=== PATIENT | female | born 1980 | race Caucasian/White ===

== ENCOUNTER 2018-08-31 15:43 | Outpatient (REF) | payer MEDICAID, SELFPAY ==
[2018-08-31 21:42] LABS: *AMPHETAMINES SCREEN URINE POSITIVE (Negative); *BARBITURATES SCREEN URINE Negative (Negative); *BENZODIAZEPINES SCREEN URINE Negative (Negative); Cannabinoids THC Negative (Negative); Cocaine Screen,Urine Negative (Negative); METHADONE URINE SCREEN Negative (Negative); OPIATES URINE SCREEN Negative (Negative)
[2018-08-31 22:07] LABS: Tricyclic Antidepressants POSITIVE (Negative)
[2018-09-04 12:15] LABS: Buprenorphine Negative; Norbuprenorphine Negative
== END 2018-08-31 16:03 ==
LOC: LBN 15:43
PROVIDERS: Visit Provider Advanced Practice Midwife
DX: Z34.91 Encounter for supervision of normal pregnancy, unspecified, first trimester (principal)
CPT/HCPCS: 80307; 87086

== ENCOUNTER 2018-09-07 07:00 | Outpatient (CLI) | payer MEDICAID, SELFPAY ==
--- NOTE | 2018-09-07 13:15 | DI.US_ITS ---
SYMPTOMS/DIAGNOSIS: UNCERTAIN DATING OF , LIKELY 13-14 WEEKS, Z34.92 OB ULTRASOUND: Many abnormalities cannot be diagnosed. A normal exam does not exclude a congenital anomaly. Radiology No. [id number] LMP: 05/21/18? Exam Date: 09/07/18 [facility] wks days on EDC ([facility]) Confirmed: HISTORY: PREDICTED GESTATIONAL AGE NUMBER 15+4 weeks with a range of week to weeks. 1 2 3 Multiple Determined by___1STUS_X__LMP___HISTORY Info. pertaining to fetus # PLACENTA PRESENTATION Grade 0 Cephalic___ Anterior_X__Posterior___ Breech____ Right Left Transverse(head right___ Fundal___Low-lying___Previa___ Transverse(head left___ Varying___X___ BIOMETRY AMNIOTIC FLUID BPD: 19 mm 13+0 weeks Normal HC: 79 mm 13+2 weeks AC: 63 mm 13+0 weeks FL: 11 mm 13+1 weeks AMNIOTIC FLUID INDEX >26 WK CRL: mm weeks Cisterna Magna: mm CI: 80 RUQ: LUQ Cerebellum: cm EFW: grams Percentile RLQ: LLQ Total: cms Composite AGE= 13+1 wks EDC by US: 03/14/19 BIOPHYSICAL PROFILE ANATOMY IDENTIFIED SCORE 0/2 Heart: 4-Chamber___Rate:BPM 155 LVOT: RVOT: Amniotic Fluid(>2cms)____ Stomach: Kidneys: Respirations (>30 secs) Bladder: Post. Fossa: Body Flex/Extension 3 vessel cord: Ventricles: cord insertion: Lips:____ Extremity Flex/Extension spinal morphology: Nose: Total Score= Palate: NS=not seen COMMENTS: OB ultrasound was performed utilizing first trimester protocol. There is a single viable intrauterine gestation. biometry is consistent with gestational age of 13 weeks 1 day and an EDC of 03/14/19. cardiac activity was observed at a rate of 155 bpm.
== END 2018-09-07 07:20 ==
PROVIDERS: Visit Provider Advanced Practice Midwife
DX: Z34.91 Encounter for supervision of normal pregnancy, unspecified, first trimester (principal)
CPT/HCPCS: 76801

== ENCOUNTER 2018-10-12 08:28 | Outpatient (CLI) | payer MEDICAID, SELFPAY ==
[2018-10-12 09:09] LABS: Abs Immature Grans 0.02 k/cumm (0.0-0.09); Absolute Basophil Count 0.02 k/cumm (0.0-0.2); Absolute Eosinophil Count 0.73 k/cumm (0.0-0.7); Absolute Lymphocyte Count 1.33 k/cumm (1.2-3.4); Absolute Monocyte Count 0.59 k/cumm (0.11-0.7); Absolute Neutrophil Count 5.95 k/cumm (1.2-6.7); Basophils % 0.2; Eosinophils % 8.4; HCT 34.1 % (36.0-46.0); HGB 11.7 g/dL (12.0-15.5); Immature Grans % 0.2; Lymphocytes % 15.4; Mean Corp. HGB Concentration 34.3 g/dL (32.0-36.0); Mean Corpuscular Hemoglobin 33.3 pg (27.0-33.0); Mean Corpuscular Volume 97.2 fL (80-95); Mean Platelet Volume 8.7 fL (8.0-11.0); Monocytes % 6.8; Platelet Count 330 x1000/uL (130-400); RBC 3.51 m/cumm (4.00-5.20); RBC Distribution Width 12.7 % (11.7-14.6); White Blood Cell Count 8.64 k/cumm (4.4-10.8)
[2018-10-12 09:42] LABS: ALT 19 U/L (12-78); AST 9 U/L (15-37); Albumin 3.3 g/dL (3.4-5.0); Alkaline Phosphatase 53 U/L (46-116); Bilirubin, Direct 0.11 mg/dL (0.00-0.20); Bilirubin, Total 0.3 mg/dL (0.2-1.0); Total Protein 6.3 g/dL (6.4-8.2)
[2018-10-12 09:51] LABS: CREATININE 0.69 mg/dL (0.55-1.02); TSH (W/Ref FT4) 1.59 uIU/mL (0.358-3.74); Uric Acid 4.6 mg/dL (2.6-6.0)
[2018-10-12 10:03] LABS: Glucose,1 Hr (Glucola) 70 mg/dL (80-140)
[2018-10-12 14:37] LABS: *AMPHETAMINES SCREEN URINE POSITIVE (Negative); *BARBITURATES SCREEN URINE Negative (Negative); *BENZODIAZEPINES SCREEN URINE Negative (Negative); Cannabinoids THC Negative (Negative); Cocaine Screen,Urine Negative (Negative); METHADONE URINE SCREEN Negative (Negative); OPIATES URINE SCREEN Negative (Negative); Tricyclic Antidepressants Negative (Negative)
[2018-10-13 10:22] LABS: Hepatitis B Surface Ag Negative (NEGAT)
[2018-10-13 11:03] LABS: HIV-1/2 Ag & Ab Screen Negative (NEGAT)
[2018-10-13 11:47] LABS: Rubella IgG Ab (UVM) Negative
[2018-10-13 12:05] LABS: Hepatitis C Ab w Rflx HCV PCR Negative (NEGAT)
[2018-10-13 12:45] LABS: Syphilis Serology (RPR) Negative (Negative); Varicella IgG Antibody Positive
[2018-10-13 15:35] LABS: Chlamydia Result Negative; GC Result Negative; Specimen Description CERVIX
== END 2018-10-12 08:48 ==
PROVIDERS: Advanced Practice Midwife; Visit Provider Advanced Practice Midwife
DX: Z34.90 Encounter for supervision of normal pregnancy, unspecified, unspecified trimester (principal); O16.9 Unspecified maternal hypertension, unspecified trimester; Z11.3 Encounter for screening for infections with a predominantly sexual mode of transmission; F11.21 Opioid dependence, in remission; Z11.4 Encounter for screening for human immunodeficiency virus [HIV]; Z11.59 Encounter for screening for other viral diseases; Z12.4 Encounter for screening for malignant neoplasm of cervix; Z11.51 Encounter for screening for human papillomavirus (HPV)
CPT/HCPCS: 36415; 80055; 80076; 80307; 82950; 86787; 86803; 86850; 86900; 86901; 87340; 87389; 87491; 87591; 88142; 82565; 84443; 84550; 86592; 86762; 87624

== ENCOUNTER 2018-10-12 17:10 | Outpatient (REF) | payer MEDICAID, SELFPAY ==
--- NOTE | 2018-10-12 10:00 | PAPFT_PTH ---
PATIENT: Keyanna Glynn LOC: [facility] U#:[id number] AGE/SX: 38/F ROOM: RE10/12/[address]: Ni Jerry CNM : 1980 BED: DIS: 10/12/2018 SPEC #: [id number] RECD: 10/12/18 17:40 STATUS: KIKE RESohan #: [id number] SUSAN: 10/12/18 10:[address]: Ni Jerry DEPT: [facility] Cytology RECD BY: Neha Barksdale ENTERED: 10/12/18 17:40 SP TYPE: PAPFT OT DR: None Tissues: 1 - CX/ENDOCX FOR PAP SMEARS Procedures: PAP THIN PREP/UVM Screening HPV DNA PROBE Comments: [id number]
== END 2018-10-12 17:30 ==
LOC: LBN 17:10
PROVIDERS: Visit Provider Advanced Practice Midwife
DX: Z12.4 Encounter for screening for malignant neoplasm of cervix (principal); Z11.51 Encounter for screening for human papillomavirus (HPV)
CPT/HCPCS: 88142; 87624

== ENCOUNTER 2018-10-31 12:38 | Outpatient (CLI) | payer MEDICAID, SELFPAY ==
[2018-10-31 13:21] LABS: Kit/Specimen SENT
[2018-10-31 13:40] LABS: HCT 35.7 % (36.0-46.0); HGB 12.3 g/dL (12.0-15.5); Mean Corp. HGB Concentration 34.5 g/dL (32.0-36.0); Mean Corpuscular Hemoglobin 32.8 pg (27.0-33.0); Mean Corpuscular Volume 95.2 fL (80-95); Mean Platelet Volume 9.2 fL (8.0-11.0); Platelet Count 323 x1000/uL (130-400); RBC 3.75 m/cumm (4.00-5.20); RBC Distribution Width 12.5 % (11.7-14.6); White Blood Cell Count 10.75 k/cumm (4.4-10.8)
[2018-11-02 11:52] LABS: AFP 57.9 ng/mL; GA used in risk estimate Scan estimate; IVF Pregnancy No; Initial or repeat testing Initial testing; Insulin dependent diabetes No; Maternal Weight 201 lbs; Number of Fetuses 1; Physician Phone Number 802-748-7300; Prev Pregnancy w/NTD No; RECOMMENDED FOLLOW UP None.; Results Summary Normal risk
[2018-11-06 18:26] LABS: Specimen WB Whole Blood
[2018-11-07 11:37] LABS: Result Summary NEGATIVE; Specimen WB Whole Blood
== END 2018-10-31 12:58 ==
PROVIDERS: PCP Nurse Practitioner Family; Referring Provider Obstetrics & Gynecology; Visit Provider Advanced Practice Midwife
DX: Z34.92 Encounter for supervision of normal pregnancy, unspecified, second trimester (principal); Z36.89 Encounter for other specified antenatal screening
CPT/HCPCS: 36415; 81329; 85027; 81220; 82105

== ENCOUNTER 2018-11-28 01:00 | Outpatient (CLI) | payer MEDICAID, SELFPAY ==
--- NOTE | 2018-11-28 11:44 | DI.US_ITS ---
Predicted Gestational Age: Indication/History: GROWTH,Z34.90 25.5 Wks Range: 24.5 to 26.5 Prior US done on: Determined by: First US LMP History X EDC by prior US: 03/08/19 For multiple gestations: Baby PLACENTA: Grade: I Location: Anterior X Posterior PRESENTATION: RT LT LOW LYING PREVIA Cephalic X Trans (Head RT LT ) Varied Breech BIOMETRY: Anatomy Identified: BPD: 62 mm 25.0 wks 4 chamber Heart Heart Rate 152 BPM HC: 236 mm 25.4 wks LVOT Post Fossa AC: 212 mm 25.5 wks RVOT Ventricles FL: 46 mm 25.1 wks Stomach X Nose Bladder X Lips Cisterna Magna: mm CI: 81 Kidneys Palate Cerebellum: mm 3 vessel cord Spine EFW: 811 grms 28TH % Cord Insertion NS= not seen Composite Age (US) 25.3 wks Many abnormalities cannot be diagnosed. A normal exam does not exclude congenital abnormality. EDC by US 03/10/19 Amniotic Fluid Index: Normal COMMENTS: RUQ: 5.03 LUQ:5.11 RLQ: 3.20 LLQ: 3.40 Total: 16.7 cm Biophysical Profile: Score 0/2 SHEN (>2cm) Respirations (>30 sec) Body flexion/extension Extremity flexion/extension TOTAL SCORE The fetus is in cephalic position. The placenta is anterior. The biometric measurements correspond to 25 weeks 3 days. The amniotic fluid index appears normal at 16.7. The estimated weight is 811 grams corresponding to the 28th percentile. IMPRESSION: Appropriate interval growth.
== END 2018-11-28 01:20 ==
PROVIDERS: PCP Nurse Practitioner Family; Visit Provider Obstetrics & Gynecology
DX: Z34.92 Encounter for supervision of normal pregnancy, unspecified, second trimester (principal)
CPT/HCPCS: 36415; 76816; 82950

== ENCOUNTER 2019-02-01 03:47 | Outpatient (CLI) | payer MEDICAID, SELFPAY ==
--- NOTE | 2019-02-01 10:14 | DI.US_ITS ---
SYMPTOMS/DIAGNOSIS: ASSESSMENT OF WELL BEING, Z34.90, HYPERTENSION OB ULTRASOUND FOR BIOPHYSICAL PROFILE SCORE: Limited OB ultrasound was performed for biophysical profile score. Biophysical profile score is 8 out 8. Amniotic fluid index is 21 which is at the upper limits of normal to mildly increased. Visually there is a normal to mildly increased quantity of amniotic fluid. Fetus is in cephalic presentation. cardiac activity observed at a rate of 152 bpm. Placenta is anterior with no placenta previa. Predicted Gestational Age: Indication/History: 35 Wks Range: to Prior US done on: Determined by: First US LMP History EDC by prior US: 03/08/19 For multiple gestations: Baby PLACENTA: Grade: I Location: Anterior X Posterior PRESENTATION: RT LT LOW LYING PREVIA Cephalic X Trans (Head RT LT ) Varied Breech BIOMETRY: Anatomy Identified: BPD: mm wks 4 chamber Heart Heart Rate 152 BPM HC: mm wks LVOT Post Fossa AC: mm wks RVOT Ventricles FL: mm wks Stomach Nose Bladder Lips Cisterna Magna: mm CI: Kidneys Palate Cerebellum: mm 3 vessel cord Spine EFW: grms % Cord Insertion NS= not seen Composite Age (US) wks Many abnormalities cannot be diagnosed. A normal exam does not exclude congenital abnormality. EDC by US Amniotic Fluid Index: Normal X Polyhydramnios X COMMENTS: RUQ: 5.3 LUQ: 7.2 RLQ: 5.3 LLQ: 3.4 Total: 21.2 cm Biophysical Profile: Score 0/2 SHEN (>2cm) 2/2 Respirations (>30 sec) 2/2 Body flexion/extension 2/2 Extremity flexion/extension 2/2 TOTAL SCORE 8/8
[2019-02-01 12:50] LABS: HCT 35.1 % (36.0-46.0); HGB 11.8 g/dL (12.0-15.5); Mean Corp. HGB Concentration 33.6 g/dL (32.0-36.0); Mean Corpuscular Hemoglobin 32.3 pg (27.0-33.0); Mean Corpuscular Volume 96.2 fL (80-95); Mean Platelet Volume 8.9 fL (8.0-11.0); Platelet Count 391 x1000/uL (130-400); RBC 3.65 m/cumm (4.00-5.20); RBC Distribution Width 12.9 % (11.7-14.6); White Blood Cell Count 11.98 k/cumm (4.4-10.8)
[2019-02-01 13:04] LABS: ALT 23 U/L (14-59); AST 17 U/L (15-37); Albumin 2.8 g/dL (3.4-5.0); Alkaline Phosphatase 78 U/L (46-116); Anion Gap 11.3 mmol/L (3-11); BUN 12 mg/dL (7-18); Bilirubin, Total 0.2 mg/dL (0.2-1.0); CO2 21.7 mmol/L (21.0-32.0); CREATININE 0.65 mg/dL (0.55-1.02); Calcium 8.7 mg/dL (8.5-10.1); Chloride 100 mmol/L (98-107); Glucose 108 mg/dL (70-100); Potassium 4.1 mmol/L (3.5-5.1); Sodium 133 mmol/L (136-145); Total Protein 6.9 g/dL (6.4-8.2)
[2019-02-01 14:14] LABS: PROTEIN 19.1 mg/dL
[2019-02-01 14:15] LABS: COMMENT (LAB VIEW ONLY) 70.82 mg/dL; Prot/Crea Ur Ratio 0.26
== END 2019-02-01 04:07 ==
PROVIDERS: PCP Nurse Practitioner Family; Visit Provider Obstetrics & Gynecology
DX: O16.3 Unspecified maternal hypertension, third trimester (principal); O41.8X31 Other specified disorders of amniotic fluid and membranes, third trimester, fetus 1
CPT/HCPCS: 36415; 76815; 80053; 85027; 76819; 82565; 84156

== ENCOUNTER 2019-02-01 07:38 | Outpatient (CLI) | payer MEDICAID, SELFPAY | END 2019-02-01 07:58 | PROVIDERS: PCP Nurse Practitioner Family; Visit Provider Obstetrics & Gynecology | DX: O36.5930 Maternal care for other known or suspected poor fetal growth, third trimester, not applicable or unspecified (principal); Z3A.35 35 weeks gestation of pregnancy | CPT/HCPCS: 59025 ==

== ENCOUNTER 2019-02-05 00:32 | Outpatient (CLI) | payer MEDICAID, SELFPAY ==
--- NOTE | 2019-02-05 13:04 | DI.US_ITS ---
SYMPTOMS/DIAGNOSIS: CHRONIC HYPERTENSION IN , MATERNAL HYPERTENSION AFFECTING , O16.9 OB ULTRASOUND FOR BIOPHYSICAL PROFILE: Predicted Gestational Age: Indication/History: 35+4 Wks Range: to Prior US done on: Determined by: First US LMP History EDC by prior US: For multiple gestations: Baby PLACENTA: Grade: II-III Location: X Anterior Posterior PRESENTATION: RT LT LOW LYING PREVIA Cephalic Trans (Head RT LT ) Varied Breech BIOMETRY: Anatomy Identified: BPD: mm wks 4 chamber Heart Heart Rate BPM HC: mm wks LVOT Post Fossa AC: mm wks RVOT Ventricles FL: mm wks Stomach Nose Bladder Lips Cisterna Magna: mm CI: Kidneys Palate Cerebellum: mm 3 vessel cord Spine EFW: grms % Cord Insertion NS= not seen Composite Age (US) wks Many abnormalities cannot be diagnosed. A normal exam does not exclude congenital abnormality. EDC by US Amniotic Fluid Index: Polyhydramnios COMMENTS: FHT noted, no FHR obtained today RUQ: 5.3 LUQ: 24.3 RLQ: 5.3 LLQ: 5.9 Total: cm Biophysical Profile: Score 0/2 SHEN (>2cm) ____2/2____ Respirations (>30 sec) ___2/2 Body flexion/extension ___2/2 Extremity flexion/extension ____2/2____ TOTAL SCORE __01/04 RADIOLOGIST COMMENTS: OB ultrasound was performed utilizing limited biophysical profile protocol. The biophysical profile score is 01/04.
== END 2019-02-05 00:52 ==
PROVIDERS: PCP Nurse Practitioner Family; Visit Provider Obstetrics & Gynecology
DX: O16.3 Unspecified maternal hypertension, third trimester (principal)
CPT/HCPCS: 76815; 76819

== ENCOUNTER 2019-02-08 10:16 | Outpatient (CLI) | payer MEDICAID, SELFPAY | END 2019-02-08 10:36 | PROVIDERS: PCP Nurse Practitioner Family; Visit Provider Obstetrics & Gynecology Gynecology | DX: Z53.29 Procedure and treatment not carried out because of patient's decision for other reasons (principal) ==

== ENCOUNTER 2019-02-20 11:35 | Inpatient (IN) | payer MEDICAID, SELFPAY ==
[2019-02-20 12:16] LABS: HCT 34.5 % (36.0-46.0); Mean Corp. HGB Concentration 34.8 g/dL (32.0-36.0); Mean Corpuscular Hemoglobin 32.7 pg (27.0-33.0); Platelet Count 365 x1000/uL (130-400); RBC 3.67 m/cumm (4.00-5.20); RBC Distribution Width 12.8 % (11.7-14.6); White Blood Cell Count 11.02 k/cumm (4.4-10.8)
[2019-02-20 12:43] LABS: ALT 23 U/L (14-59); AST 18 U/L (15-37); Albumin 2.8 g/dL (3.4-5.0); Alkaline Phosphatase 88 U/L (46-116); Anion Gap 13.1 mmol/L (3-11); BUN 12 mg/dL (7-18); Bilirubin, Total 0.4 mg/dL (0.2-1.0); CO2 19.9 mmol/L (21.0-32.0); Calcium 9.3 mg/dL (8.5-10.1); Chloride 102 mmol/L (98-107); Glucose 93 mg/dL (70-100); Sodium 135 mmol/L (136-145); Total Protein 6.8 g/dL (6.4-8.2)
[2019-02-20] MEDS: Lactated Ringers 1,000 ML 200 ML IV (13:04)
[2019-02-20] MEDS: Acetaminophen 325 MG TAB 650 MG PO (14:24)
[2019-02-20] MEDS: miSOPROStol 25 MCG TAB 50 MCG PO (14:25)
[2019-02-20 14:40] LABS: *AMPHETAMINES SCREEN URINE POSITIVE (Negative); *BARBITURATES SCREEN URINE Negative (Negative); *BENZODIAZEPINES SCREEN URINE Negative (Negative); Cannabinoids THC Negative (Negative); Cocaine Screen,Urine Negative (Negative); METHADONE URINE SCREEN Negative (Negative); OPIATES URINE SCREEN Negative (Negative); Tricyclic Antidepressants Negative (Negative)
[2019-02-20] MEDS: Labetalol 100 MG TAB 400 MG PO (19:33)
[2019-02-20] MEDS: Gabapentin 600 MG TAB PO (20:43)
[2019-02-20] MEDS: Penicillin G POT. 5,000,000 UNITS in Normal Saline 100 ML 200 UNITS IVPB (20:45)
[2019-02-20] MEDS: QUEtiapine 25 MG TAB PO (21:43)
--- NOTE | 2019-02-20 21:46 | W.PM.HP.N ---
Date of service: 02/20/19 Time of Service: 12:00 Assessment and Plan Assessment and plan (1) Hypertension affecting : Status: Chronic Assessment and plan: Admit for cervical ripening and induction of labor due to chronic hypertension and possible superimposed preeclampsia. We discussed management of preeclampsia. Should her blood pressures reenter the severe range I would recommend seizure prophylaxis with magnesium sulfate. Will begin cervical ripening with misoprostol. Continue all routine meds including anti-hypertensives. Will obtain CBC CMP. History of Present Illness History of Present Illness Chief Complaint: NANCYTCatalina with possible superimposed preeclampsia Narrative: 39 year old @ 37.2 weeks gestation presented to the clinic today for routine care. She was noted to have a markedly elevated blood pressure to 153/100. She does have underlying chronic hypertension and takes labetalol 400mg BID and Procardia XL 30 mg daily. She reports a mild headache but no visual changes. Otherwise she has felt well. The patients histoyr is also significant for a history of opiate abuse in the past but no recent use and routine drug screens have been negative. She also has a history of anxiety and depression and blood pressures are known to be labile based on her level of anxiety as well. 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 No current medications Opioid dependence in remission (Chronic) Positive test (Acute) Suicide attempt (Active 08/27/12) Overdose pills/alcohol. Social History Smoking/Tobacco Use Status: Current-Occasional Alcohol Intake: former (was a heavy drinker and alcoholic, last drink was 4 months ago) Drug use: Never Substance use type: former substance user Current gender identity: female Do you feel safe in your relationship?: Yes History History 2 Para 0 Hx # Term Pregnancies 0 Multiple births 0 Hx # Pregnancies 0 Ectopic pregnancies 0 AB induced 2 Hx Number of Living Children 0 AB spontaneous 0 Meds Home Medications and Allergies Home Medications Medication Instructions Recorded Confirmed Type gabapentin 600 mg PO TID 03/11/16 02/20/19 History dextroamphetamine-amphetamine 60 mg PO DAILY 11/07/17 02/20/19 History aspirin 81 mg tablet,delayed 81 mg PO DAILY #90 tab 08/31/18 02/20/19 Rx release vitamin with calcium 1 tab PO DAILY #90 tab 08/31/18 02/20/19 Rx no.72-iron 27 mg-folic acid 1 mg tablet ferrous sulfate 325 mg (65 mg 325 mg PO DAILY #90 tab 10/31/18 02/20/19 Rx iron) tablet fluoxetine 40 mg capsule 40 mg PO DAILY 10/31/18 02/20/19 History loratadine 10 mg tablet 10 mg PO DAILY PRN #30 tab 10/31/18 02/20/19 Rx quetiapine 300 mg tablet 25 mg PO HS tab 10/31/18 02/20/19 History labetalol 200 mg tablet 200 mg PO BID #120 tab 11/14/18 02/20/19 Rx labetalol 200 mg tablet 400 mg PO BID #120 tab 11/28/18 02/20/19 Rx pantoprazole 20 mg tablet,delayed 20 mg PO DAILY #30 tab 11/28/18 02/20/19 Rx release nifedipine 30 mg tablet,extended 30 mg PO DAILY #30 tab 02/01/19 02/20/19 Rx release 24 hr Allergies Allergy/AdvReac Type Severity Reaction Status Date / Time hydrocodone Allergy Itching Unverified 02/20/19 15:14 hydroxyzine HCl Allergy Skin Rash Unverified 02/20/19 15:14 [From Vistaril] hydroxyzine pamoate Allergy Skin Rash Unverified 02/20/19 15:14 [From Vistaril] Results Labs Result diagrams: 02/20/19 11:58 02/20/19 11:58 Labs: Laboratory Results - last 24 hr 02/20/19 02/20/19 02/20/19 10:20 11:58 11:58 WBC RBC Hgb Hct MCV MCH MCHC RDW Plt Count MPV Sodium 135 L Potassium 4.0 Chloride 102 Carbon Dioxide 19.9 L Anion Gap 13.1 H BUN 12 Creatinine 0.60 Estimated GFR/1.73 m2 >= 60.00 Glucose 93 Calcium 9.3 Total Bilirubin 0.4 AST 18 ALT 23 Alkaline Phosphatase 88 Total Protein 6.8 Albumin 2.8 L Urine Opiates Screen Negative Urine Methadone Screen Negative Ur Barbiturates Screen Negative Ur Tricyclics Screen Negative Ur Amphetamines Screen Positive A U Benzodiazepines Scrn Negative Urine Cocaine Screen Negative Ur THC Screen Negative Patient ABO/Rh AB Positive Antibody Screen Negative 02/20/19 11:58 WBC 11.02 H RBC 3.67 L Hgb 12.0 Hct 34.5 L MCV 94.0 MCH 32.7 MCHC 34.8 RDW 12.8 Plt Count 365 MPV 9.0 Sodium Potassium Chloride Carbon Dioxide Anion Gap BUN Creatinine Estimated GFR/1.73 m2 Glucose Calcium Total Bilirubin AST ALT Alkaline Phosphatase Total Protein Albumin Urine Opiates Screen Urine Methadone Screen Ur Barbiturates Screen Ur Tricyclics Screen Ur Amphetamines Screen U Benzodiazepines Scrn Urine Cocaine Screen Ur THC Screen Patient ABO/Rh Antibody Screen
[2019-02-21] MEDS: Penicillin G POT. 3,000,000 UNITS in Normal Saline 50 ML 100 UNITS IVPB ×2 (00:36→04:12)
[2019-02-21] MEDS: MORPHine 2 MG/ML SYR IVP ×2 (05:39→07:20)
[2019-02-21] MEDS: Lidocaine 1% Multi-Dose 20 ML VIAL (07:06)
[2019-02-21] MEDS: Gabapentin 600 MG TAB PO ×3 (09:48→20:05)
[2019-02-21] MEDS: Acetaminophen 325 MG TAB 650 MG PO ×2 (09:48→20:10)
[2019-02-21] MEDS: FLUoxetine 20 MG CAP 40 MG PO (09:48)
[2019-02-21] MEDS: Hamamelis Leaf/Glycerin 100 EACH BOX PR (11:35)
[2019-02-21] MEDS: Ibuprofen 600 MG TAB PO (16:59)
[2019-02-22] MEDS: FLUoxetine 20 MG CAP 40 MG PO (08:41)
[2019-02-22] MEDS: Gabapentin 600 MG TAB PO (08:41)
[2019-02-22] MEDS: Ibuprofen 600 MG TAB PO (08:45)
[2019-02-22] MEDS: Acetaminophen 325 MG TAB 650 MG PO (08:45)
[2019-02-22] MEDS: Docusate Sodium 100 MG CAP PO (08:45)
--- NOTE | 2019-02-23 08:06 | W.PM.PROGNOT ---
Date of Service Date of service: 02/23/19 Time of Service: 08:06 Assessment and Plan Assessment and plan (1) Hypertension affecting : Status: Chronic (2) (normal spontaneous vaginal delivery): Status: Acute Assessment and plan: Doing well. Blood pressures have been well controlled off of meds. Will plan for discharge today. BP check in the clinic within one week of discharge. Will continue to hold BP meds at this point. Subjective Subjective Interval history since last seen: No problems overnight. No significant pain. Lochia is minimal. Blood pressures have been well controlled and the patient is off meds since delivery. Objective Objective Clinical Data: Vital Signs Pain Level 2 02/22/19 08:45 Intake & Output 02/22/19 02/22/19 02/23/19 11:59 23:59 11:59 Intake Total 1906.667 / 1906.667 Balance 1906.667 / 1906.667 Intake: IV 1906.667 / 1906.667 Laboratory Results WBC 11.02 k/cumm (4.4-10.8) H 02/20/19 11:58 RBC 3.67 m/cumm (4.00-5.20) L 02/20/19 11:58 Hgb 12.0 g/dL (12.0-15.5) 02/20/19 11:58 Hct 34.5 % (36.0-46.0) L 02/20/19 11:58 MCV 94.0 fL (80-95) 02/20/19 11:58 MCH 32.7 pg (27.0-33.0) 02/20/19 11:58 MCHC 34.8 g/dL (32.0-36.0) 02/20/19 11:58 RDW 12.8 % (11.7-14.6) 02/20/19 11:58 Plt Count 365 x1000/uL (130-400) 02/20/19 11:58 MPV 9.0 fL (8.0-11.0) 02/20/19 11:58 Sodium 135 mmol/L (136-145) L 02/20/19 11:58 Potassium 4.0 mmol/L (3.5-5.1) 02/20/19 11:58 Chloride 102 mmol/L (98-107) 02/20/19 11:58 Carbon Dioxide 19.9 mmol/L (21.0-32.0) L 02/20/19 11:58 Anion Gap 13.1 mmol/L (3-11) H 02/20/19 11:58 BUN 12 mg/dL (7-18) 02/20/19 11:58 Creatinine 0.60 mg/dL (0.55-1.02) 02/20/19 11:58 Estimated GFR/1.73 m2 >= 60.00 (mL/min/1.73m2) 02/20/19 11:58 Glucose 93 mg/dL (70-100) 02/20/19 11:58 Calcium 9.3 mg/dL (8.5-10.1) 02/20/19 11:58 Total Bilirubin 0.4 mg/dL (0.2-1.0) 02/20/19 11:58 AST 18 U/L (15-37) 02/20/19 11:58 ALT 23 U/L (14-59) 02/20/19 11:58 Alkaline Phosphatase 88 U/L (46-116) 02/20/19 11:58 Total Protein 6.8 g/dL (6.4-8.2) 02/20/19 11:58 Albumin 2.8 g/dL (3.4-5.0) L 02/20/19 11:58 Urine Opiates Screen Negative (Negative) 02/20/19 10:20 Urine Methadone Screen Negative (Negative) 02/20/19 10:20 Ur Barbiturates Screen Negative (Negative) 02/20/19 10:20 Ur Tricyclics Screen Negative (Negative) 02/20/19 10:20 Ur Amphetamines Screen Positive (Negative) A 02/20/19 10:20 U Benzodiazepines Scrn Negative (Negative) 02/20/19 10:20 Urine Cocaine Screen Negative (Negative) 02/20/19 10:20 Ur THC Screen Negative (Negative) 02/20/19 10:20 Patient ABO/Rh AB Positive 02/20/19 11:58 Antibody Screen Negative 02/20/19 11:58
[2019-02-23] MEDS: FLUoxetine 20 MG CAP 40 MG PO (08:22)
[2019-02-23] MEDS: Gabapentin 600 MG TAB PO (08:23)
[2019-02-23] MEDS: Ibuprofen 600 MG TAB PO (08:27)
[2019-02-23] MEDS: Acetaminophen 325 MG TAB 650 MG PO (08:28)
[2019-02-23] MEDS: Measles, Mumps, & Rubella Vaccine 0.5 ML VIAL SC (11:29)
[2019-02-24 12:37] LABS: Buprenorphine Negative; Norbuprenorphine Negative
== END 2019-02-23 13:30 | disposition home or self-care (01) | DRG 806 ==
PROVIDERS: Admitting Provider Obstetrics & Gynecology; PCP Nurse Practitioner Family; Visit Provider Obstetrics & Gynecology
DX: O11.4 Pre-existing hypertension with pre-eclampsia, complicating childbirth (principal); O99.354 Diseases of the nervous system complicating childbirth; Z37.0 Single live birth; O69.81X0 Labor and delivery complicated by cord around neck, without compression, not applicable or unspecified; Z3A.37 37 weeks gestation of pregnancy; O99.344 Other mental disorders complicating childbirth; O99.324 Drug use complicating childbirth; O99.334 Smoking (tobacco) complicating childbirth; F41.8 Other specified anxiety disorders; F11.11 Opioid abuse, in remission; G40.909 Epilepsy, unspecified, not intractable, without status epilepticus; F90.9 Attention-deficit hyperactivity disorder, unspecified type; F17.210 Nicotine dependence, cigarettes, uncomplicated
CPT/HCPCS: 80053; 80307; 85027; 86850; 86900; 86901; 99223; 99233; J0595; J2270; J2540; J3490

== ENCOUNTER 2019-12-21 04:04 | Outpatient (CLI) | payer MEDICAID, SELFPAY ==
--- NOTE | 2019-12-21 06:37 | DI.US_ITS ---
EXAM: US OB 2-3 TRIMESTER CLINICAL HISTORY: HYPERTENSION,LTD CARE,Z34.83. TECHNIQUE: Transabdominal obstetrical ultrasound performed. COMPARISON: No exams were available for comparison FINDINGS: Transabdominal obstetrical ultrasound performed. FINDINGS: Number of fetuses: One. position: Cephalic heart rate: 150 bpm. Placental grade: 2. Placental location: Anterior and fundal. No evidence of previa. BIOMETRIC DATA: BPD: 8.9cm HC: 32.9cm AC: 32.7cm FL: 6.9cm Composite Age: 36 weeks 2 days EDC by US: 01/16/2020 Heart Rate: 150BPM Amniotic fluid index: Amount of fluid is within normal limits. ANATOMICAL SURVEY: Four-chambered heart: Unremarkable. LVOT: Unremarkable. RVOT: Unremarkable. Left-sided stomach: Unremarkable. urinary bladder: Unremarkable. Bilateral kidneys: Unremarkable. Three-vessel cord: Unremarkable. Cord insertion: Unremarkable. Posterior fossa:Unable to visualize due to patient positioning and body habitus. ventricles: Unable to visualize due to patient positioning body habitus. nose: Unremarkable. lips: Unremarkable. palate: Unremarkable. spine: Unremarkable. Two arms and two legs: Unremarkable. Feet: Persistent widening is seen between the 1st and 2nd toes of the right foot which can be a saroj l finding (Sandal gap deformity). IMPRESSION: 1. Single live intrauterine gestation as above. 2. Please see the above discussion. DATA REPOSITORY:
== END 2019-12-21 04:24 ==
PROVIDERS: PCP Nurse Practitioner Family; Visit Provider Obstetrics & Gynecology Gynecology
DX: O09.33 Supervision of pregnancy with insufficient antenatal care, third trimester (principal); O16.3 Unspecified maternal hypertension, third trimester; Z34.83 Encounter for supervision of other normal pregnancy, third trimester
CPT/HCPCS: 36415; 80055; 86787; 86803; 86850; 86900; 86901; 87340; 87389; 76805; 84443; 86592; 86762

== ENCOUNTER 2019-12-21 09:58 | Outpatient (CLI) | payer SELFPAY | END 2019-12-21 10:18 | PROVIDERS: PCP Nurse Practitioner Family; Visit Provider Obstetrics & Gynecology | DX: O13.3 Gestational [pregnancy-induced] hypertension without significant proteinuria, third trimester (principal); Z3A.36 36 weeks gestation of pregnancy | CPT/HCPCS: 59025 ==

== ENCOUNTER 2019-12-21 11:13 | Outpatient (REF) | payer MEDICAID, SELFPAY ==
[2019-12-21 13:24] LABS: PROTEIN 11.5 mg/dL
[2019-12-21 13:33] LABS: COMMENT (LAB VIEW ONLY) 81.15 mg/dL; Prot/Crea Ur Ratio 0.14
[2019-12-21 13:36] LABS: *AMPHETAMINES SCREEN URINE POSITIVE (Negative); *BARBITURATES SCREEN URINE Negative (Negative); *BENZODIAZEPINES SCREEN URINE Negative (Negative); Cannabinoids THC Negative (Negative); Cocaine Screen,Urine Negative (Negative); METHADONE URINE SCREEN Negative (Negative); OPIATES URINE SCREEN Negative (Negative)
[2019-12-21 13:37] LABS: Tricyclic Antidepressants Negative (Negative)
[2019-12-24 15:33] LABS: Chlamydia Result Negative (Negative); GC Result Negative (Negative)
[2019-12-27 10:08] LABS: Buprenorphine Negative
== END 2019-12-21 11:33 ==
LOC: LBN 11:13
PROVIDERS: Obstetrics & Gynecology Gynecology; PCP Nurse Practitioner Family; Visit Provider Obstetrics & Gynecology
DX: Z34.91 Encounter for supervision of normal pregnancy, unspecified, first trimester (principal); O16.9 Unspecified maternal hypertension, unspecified trimester
CPT/HCPCS: 80307; 87491; 87591; 82565; 84156; 87081; 87086

== ENCOUNTER 2019-12-24 07:12 | Outpatient (CLI) | payer MEDICAID, SELFPAY | END 2019-12-24 07:32 | PROVIDERS: PCP Nurse Practitioner Family; Visit Provider Obstetrics & Gynecology | DX: R69 Illness, unspecified (principal) ==

== ENCOUNTER 2019-12-26 07:30 | Inpatient (IN) | payer MEDICAID, SELFPAY ==
[2019-12-26 08:48] LABS: HCT 35.7 % (36.0-46.0); MCH 30.8 pg (27.0-33.0); MCHC 33.6 % (32.0-36.0); MCV 91.8 fL (80-95); MPV 9.6 fL (8.0-11.0); Platelet Count 296 10^3/uL (130-400); RBC 3.89 10^6/uL (3.93-5.22); RDW 13.2 % (11.7-14.6); RDW-SD 44.3 fL; WBC 13.87 10^3/uL (4.4-10.8)
[2019-12-26] MEDS: miSOPROStol 25 MCG TAB PO (09:00)
[2019-12-26] MEDS: Pantoprazole 20 MG TABCR PO (10:26)
[2019-12-26] MEDS: Penicillin G POT. 5,000,000 UNITS in Normal Saline 100 ML 200 UNITS IVPB (12:01)
[2019-12-26] MEDS: Penicillin G POT. 3,000,000 UNITS in Normal Saline 50 ML 100 UNITS IVPB ×2 (15:51→20:31)
[2019-12-26] MEDS: Lactated Ringers 500 ML IV (19:35)
[2019-12-26] MEDS: Bupivacaine 0.25% Pres-Free 10 ML VIAL IT (19:55)
[2019-12-26] MEDS: fentaNYL 100 MCG/2 ML VIAL IT (19:55)
[2019-12-27 08:25] LABS: COVID-19 RT-PCR UVMMC Result Negative (Negative)
[2019-12-27] MEDS: Acetaminophen 325 MG TAB 650 MG PO ×2 (08:32→12:45)
[2019-12-27] MEDS: Pantoprazole 20 MG TABCR PO (08:33)
[2019-12-27] MEDS: Ibuprofen 600 MG TAB PO (12:45)
[2019-12-27] MEDS: Gabapentin 600 MG TAB PO ×2 (13:16→21:03)
[2019-12-27] MEDS: FLUoxetine 20 MG CAP PO ×2 (13:26→21:02)
[2019-12-27] MEDS: Topiramate 50 MG TAB PO ×2 (14:16→21:03)
[2019-12-27] MEDS: QUEtiapine 100 MG TAB PO (21:03)
[2019-12-28] MEDS: Prenatal Multivitamin w/CA,FE TAB 1 TAB PO (08:35)
[2019-12-28] MEDS: Pantoprazole 20 MG TABCR PO (08:35)
[2019-12-28] MEDS: Gabapentin 600 MG TAB PO ×2 (08:35→14:35)
[2019-12-28] MEDS: Topiramate 50 MG TAB PO (08:35)
[2019-12-28] MEDS: FLUoxetine 20 MG CAP PO (08:35)
--- NOTE | 2019-12-28 09:09 | PGE_ITS ---
Date of Service Date of service: 12/28/19 Time of Service: 09:10 Assessment and Plan Assessment and plan (1) : Status: Acute (2) (normal spontaneous vaginal delivery): Status: Acute Assessment and plan: Patient was seen day #2 ambulating, tolerating regular diet and oral pain medication. When she was woken from sleep this morning she was somewhat angry about the potential for a border status. This was discussed at length with the patient, if the baby needs to be observed further, patient herself will be discharged from the hospital day #2 and be responsible for her own medications. This was emphasized that this is not due to any judgment placed. She herself, no longer requires hospitalization and hospital related care, however we do very much want her to stay wit her baby until appropriate discharge criteria for baby is met. She and her partner appear to understand this. Subjective Subjective Patient reports: no new complaints, tolerating a regular diet and flatus Objective Objective Clinical Data: Vital Signs Pain Level 2 12/27/19 12:45 Laboratory Results WBC 13.87 10^3/uL (4.4-10.8) H 12/26/19 08:22 RBC 3.89 10^6/uL (3.93-5.22) L 12/26/19 08:22 Hgb 12.0 g/dL (11.2-15.7) 12/26/19 08:22 Hct 35.7 % (36.0-46.0) L 12/26/19 08:22 MCV 91.8 fL (80-95) 12/26/19 08:22 MCH 30.8 pg (27.0-33.0) 12/26/19 08:22 MCHC 33.6 % (32.0-36.0) 12/26/19 08:22 RDW 13.2 % (11.7-14.6) 12/26/19 08:22 Plt Count 296 10^3/uL (130-400) 12/26/19 08:22 MPV 9.6 fL (8.0-11.0) 12/26/19 08:22 COVID-19 PCR Negative (Negative) 12/26/19 09:00 Nasopharyn COVID-19 PCR Not Applicable 12/26/19 09:00 Ref Test Perform Site [facility] lab 12/26/19 09:00 Patient ABO/Rh AB Positive 12/26/19 08:22 Antibody Screen Negative 12/26/19 08:22
--- NOTE | 2019-12-28 09:16 | W.PM.DS.N ---
Date of service: 12/28/19 Time of Service: 09:16 DS: Diagnosis Discharge Diagnosis (1) : Status: Acute (2) (normal spontaneous vaginal delivery): Status: Acute Discharge Plan Disposition Patient Disposition: HOME Condition: Stable Discharge Details Reason For Visit: TERM INDUCTION OF LABOR Admit Date/Time: 12/26/19 07:30 Admit Provider: Rogerio Diaz Attending Provider: Rogerio Diaz Primary Care Provider: Vicente Pickard Hospital Course Hospital Course: After limited care with one visit in the office, patient was admitted to the hospital for labor induction at term. She had a normal spontaneous vaginal delivery. She was discharged home day #2, ambulating, tolerating regular diet and oral pain medication on her home medications. Home Meds and New Rx's Prescriptions: New ibuprofen [IBU] 800 mg tablet 800 mg PO Q8H PRNQty: 30 RF: 0 Continued PrePlus 27 mg iron- 1 mg tablet 1 tab PO DAILY Qty: 90 RF: 4 fluoxetine [Prozac] 40 mg capsule 40 mg PO DAILY RF: 0 pantoprazole [Protonix] 20 mg tablet,delayed release (DR/EC) 20 mg PO DAILY Qty: 30 RF: 2 gabapentin 600 MG tablet 600 mg PO TID RF: 0 topiramate 50 mg tablet 50 mg PO BID RF: 0 quetiapine 100 mg tablet 100 mg PO HS RF: 0 dextroamphetamine-amphetamine 30 MG capsule,extended release 24hr 60 mg PO DAILY RF: 0 Discharge Instructions Instructions: Vaginal Delivery (DC) Activity:: Activity as Tolerated Equipment/Supplies:: No Equipment Needed Diet:: Normal Diet Discharge Orders Discharge Orders: Discharge Order (Routine); Ordered 12/28/19 Ordered By: Mayra Becker DS: Summary Status at Discharge Functional status at discharge: independent ambulation Overall status at discharge: patient is back to baseline Mental Status: mental status grossly normal Speech and Movement: agitated Mood: anxious mood Affect: normal affect Exam Const General: anxious and other Nutritional Appearance: overweight Orientation: oriented x3 Eyes General: appearance normal, both eyes and all related structures Resp Effort & Inspection: normal respiratory effort Cardio Rate: regular rate Rhythm: regular rhythm GI Inspection: normal to inspection Extrem General: no clubbing, cyanosis or edema Psych Appearance: grossly normal Mental Status: mental status grossly normal Speech and Movement: agitated Mood: anxious mood Affect: normal affect Attitude: guarded Thought Process: normal Thought Content: normal Other: At initial examination, somewhat angry and reactive to the possibility of being discharged home. After significant conversation, patient was significantly more calm and understanding of the potential for discharge and possible need for baby to stay for further monitoring. 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 No current medications Limited care in third trimester (Acute) Opioid dependence in remission (Chronic) Positive test (Acute) (Acute) Suicide attempt (Active 08/27/12) Overdose pills/alcohol. Social History Smoking/Tobacco Use Status: Current-Occasional Alcohol Intake: former (was a heavy drinker and alcoholic, last drink was 4 months ago) Drug use: Never Substance use type: former substance user Current gender identity: female Do you feel safe in your relationship?: Yes History History 3 Para 1 Hx # Term Pregnancies 0 Multiple births 0 Hx # Pregnancies 0 Ectopic pregnancies 0 AB induced 2 Hx Number of Living Children 1 AB spontaneous 0 Past Pregnancies Del. Date GA/Weeks # Outcome Route Wgt Sex Labor Lgth Anesthesia Location Prov Complic 02/21/19 37 No Successful vaginal 5 lb 0.9 oz Male [address] Diaz
[2019-12-28] MEDS: Hamamelis Leaf/Glycerin 100 EACH BOX PR (16:30)
--- NOTE | 2020-01-01 16:15 | W.PM.HP.N ---
Date of service: 12/26/19 Time of Service: 10:00 Assessment and Plan Assessment and plan (1) Chronic hypertension affecting : Status: Acute Assessment and plan: Plan for IOL today at 37 weeks. Will plan for cervical ripening initially with cytotec and then will start pitocin therafter. EFW is 2900 gm based on ultrasound last week. tracing is Category I on admission. (2) Poor patient attendance of care: Status: Acute History of Present Illness History of Present Illness Chief Complaint: Chronic hypertension complicating . Poor care Narrative: 39 year old @ 37 weeks gestation presents for IOL at term. She initiated care last week and dating is based on a 36 week ultrasound. LMP is unreliable and uncertain. She is well known to have chronic hypertension and is 10 months from last delivery which was an uncomplicated at term also following IOL. She did have her initial ultrasound for morphology last week which showed a question of a sandal gap deformity but was otherwise normal. tracing was Category I on admission. Initial cervical exam was 1 cm in dilatation, 60% effaced and -2 station. Review of Systems All systems reviewed & are unremarkable except as noted in HPI and below [facility] Medical History (Updated 01/01/20 @ 16:19 by Rogerio Diaz MD) ADHD (Acute) Alcohol dependence in remission (Chronic) Anxiety (Chronic) BMI 31.0-31.9,adult (Chronic) Depression (Chronic) Eating disorder (Chronic) Encounter for supervision of other normal , third trimester (Acute) Hypertension affecting (Chronic) Medications in the past. No current medications Limited care in third trimester (Acute) Opioid dependence in remission (Chronic) Positive test (Acute) (Acute) Suicide attempt (Active 08/27/12) Overdose pills/alcohol. Social History Smoking/Tobacco Use Status: Current-Occasional Alcohol Intake: former (was a heavy drinker and alcoholic, last drink was 4 months ago) Drug use: Never Substance use type: former substance user Current gender identity: female Do you feel safe in your relationship?: Yes History History 3 Para 1 Hx # Term Pregnancies 0 Multiple births 0 Hx # Pregnancies 0 Ectopic pregnancies 0 AB induced 2 Hx Number of Living Children 1 AB spontaneous 0 Past Pregnancies Del. Date GA/Weeks # Outcome Route Wgt Sex Labor Lgth Anesthesia Location Prov Complic 02/21/19 37 No Successful vaginal 5 lb 0.9 oz Male [address] Joe Curtis Home Medications and Allergies Home Medications Medication Instructions Recorded Confirmed Type gabapentin 600 mg PO TID 03/11/16 12/26/19 History dextroamphetamine-amphetamine 60 mg PO DAILY 11/07/17 12/26/19 History vitamin with calcium 1 tab PO DAILY #90 tab 08/31/18 12/26/19 Rx no.72-iron 27 mg-folic acid 1 mg tablet fluoxetine 40 mg capsule 40 mg PO DAILY 10/31/18 12/26/19 History pantoprazole 20 mg tablet,delayed 20 mg PO DAILY #30 tab 11/28/18 12/26/19 Rx release quetiapine 100 mg PO HS 12/27/19 12/27/19 History topiramate 50 mg PO BID 12/27/19 12/27/19 History ibuprofen [IBU] 800 mg PO Q8H PRN #30 tab 12/28/19 Rx pantoprazole [Protonix] 20 mg PO DAILY #30 tab 12/28/19 Rx Allergies Allergy/AdvReac Type Severity Reaction Status Date / Time hydrocodone Allergy Itching Unverified 04/23/19 11:09 hydroxyzine HCl Allergy Skin Rash Unverified 04/23/19 11:09 [From Vistaril] hydroxyzine pamoate Allergy Skin Rash Unverified 04/23/19 11:09 [From Vistaril] Exam Other: Cx 2/60%/-2 Results Labs Result diagrams: 12/26/19 08:22 COVID-19 Screening Have you,or household,traveled outside [place] in last 14 days?: No
== END 2019-12-28 15:00 | disposition home or self-care (01) | DRG 807 ==
PROVIDERS: Admitting Provider Obstetrics & Gynecology; PCP Nurse Practitioner Family; Visit Provider Obstetrics & Gynecology
DX: O10.02 Pre-existing essential hypertension complicating childbirth (principal); Z37.0 Single live birth; Z3A.37 37 weeks gestation of pregnancy; O69.81X0 Labor and delivery complicated by cord around neck, without compression, not applicable or unspecified; O99.824 Streptococcus B carrier state complicating childbirth; Z67.30 Type AB blood, Rh positive; O09.523 Supervision of elderly multigravida, third trimester; O09.33 Supervision of pregnancy with insufficient antenatal care, third trimester
CPT/HCPCS: 36415; 85027; 86850; 86900; 86901; 99223; 99232; 99239; U0003; 59200; J2540; J3010; J3490

== ENCOUNTER 2020-01-31 15:50 | Emergency (ER) | payer MEDICAID, SELFPAY ==
[2020-01-31] VITALS (14 sets, daily range): BP systolic 120–148; BP diastolic 75–94; PULSE 86–127; RESP 10–19; TEMP 36.8; O2SAT 93–98
[2020-01-31 16:08] LABS: Abs Immature Grans 0.03 10^3/uL (0.0-0.06); Absolute Basophil Count 0.02 10^3/uL (0.0-0.2); Absolute Eosinophil Count 0.33 10^3/uL (0.0-0.7); Absolute Lymphocyte Count 0.57 10^3/uL (1.2-3.4); Absolute Monocyte Count 0.44 10^3/uL (0.1-0.8); Absolute Neutrophil Count 5.66 10^3/uL (1.2-6.7); Basophils % 0.3; Eosinophils % 4.7; HCT 35.3 % (36.0-46.0); HGB 11.7 g/dL (11.2-15.7); Immature Grans % 0.4; Lymphocytes % 8.1; MCH 30.2 pg (27.0-33.0); MCHC 33.1 % (32.0-36.0); MPV 8.2 fL (8.0-11.0); Monocytes % 6.2; Neutrophils % 80.3; Nucleated RBC 0 %; Platelet Count 229 10^3/uL (130-400); RBC 3.88 10^6/uL (3.93-5.22); RDW 14.5 % (11.7-14.6); RDW-SD 48.1 fL; WBC 7.05 10^3/uL (4.4-10.8)
[2020-01-31] MEDS: Normal Saline 1,000 ML 1000 ML IV (16:10)
--- NOTE | 2020-01-31 16:15 | DI.RAD_ITS ---
EXAM: XR ANKLE RT COMPLETE CLINICAL HISTORY: right ankle fracture. TECHNIQUE: 2D digital imaging was performed. COMPARISON: CR,XR XR ANKLE RT COMPLETE from 01/31/2020 FINDINGS: There has been successful reduction of the right ankle fracture dislocation. The ankle mortise appea rs normally aligned. There is minimal displacement noted of the distal fibular fracture. There is s oft tissue swelling of the ankle. The ankle is in a cast. IMPRESSION: Successful reduction of the right ankle fracture dislocation. DATA REPOSITORY: RADIATION DOSE DELIVERED:
[2020-01-31] MEDS: Propofol 200 MG/20 ML VIAL 50 MG IVP ×4 (16:16→16:19)
[2020-01-31 16:29] LABS: ALT 97 U/L (14-59); AST 71 U/L (15-37); Albumin 3.4 g/dL (3.4-5.0); Alkaline Phosphatase 101 U/L (46-116); Anion Gap 11.2 mmol/L (3-11); BUN 15 mg/dL (7-18); Bilirubin, Total 0.4 mg/dL (0.2-1.0); CO2 23.8 mmol/L (21.0-32.0); CREATININE 0.99 mg/dL (0.55-1.02); Chloride 102 mmol/L (98-107); Glucose 107 mg/dL (74-106); Potassium 4.1 mmol/L (3.5-5.1); Sodium 137 mmol/L (136-145); Total Protein 6.6 g/dL (6.4-8.2)
--- NOTE | 2020-01-31 16:29 | DI.VRAD_ITS ---
PROCEDURE INFORMATION: Exam: XR Right Ankle Exam date and time: 01/31/2020 3:59 PM Age: 40 years old Clinical indication: Injury or trauma; Initial encounter; Blunt trauma; Ankle; Right; Injury date: 01/31/20; Injury details: Fall after siezure; Additional info: Best images obtained due to patient condition. Portable imaging obtained. Unable to move patient ankle. TECHNIQUE: Imaging protocol: XR Right ankle. Views: 3 or more views. COMPARISON: No relevant prior studies available. FINDINGS: Bones/joints: Complete anterior dislocation of the tibia and fibula. There is a fracture of the distal fibula with a triangular shaped fragment displaced and angulated posteriorly. There are numerous overlying attenuated is and standard positioning was not obtained, however, the tibiofibular syndesmosis appears abnormally widened. Soft tissues: Normal. IMPRESSION: Complete left ankle dislocation with the tibia and fibula anterior to their normal articulation, in fact, positioned nearly at the level of the talonavicular joint. There is acute displaced and posteriorly angulated fracture of the distal fibula and likely injury to the tibiofibular syndesmosis as well. Dictated and Authenticated by: Deonte Wilson MD. Ordering:YOJANA Verdin MD
--- NOTE | 2020-01-31 16:38 | RESPIRATORY ---
Pt brought in [facility] post seizure/fall for fractured/dislocated ankle. Pt placed on Etco2 w/ 2LPM -sp02 @100, Hr-116, RR 16, Etco2 35,Bp 139/90. Propofol given for conscious sedation to re-set R. ankle @ 1616. No complications, pt maintained stable vitals t/o procedure. Ending procedure pt vitals: Hr 98, Bp 120/75, Etco2 32, RR 16, Spo2 98. Pt taken off o2, etco2 monitor still on.
--- NOTE | 2020-01-31 17:02 | DI.CT_ITS ---
EXAM: CT HEAD CERVICAL SPINE WO CLINICAL HISTORY: fall, hit head, seizure. TECHNIQUE: Imaging Protocol: Axial computed tomography images with coronal and sagittal reformatted images were created and reviewed COMPARISON: CT FACIAL WITHOUT CONTRAST from 07/22/2009 FINDINGS: CT Head: Ventricles and Extra axial spaces: Normal in size and morphology for the patient's age. Hemorrhage: None. Cerebral parenchyma: Normal. Midline shift: None. Brainstem/Cerebellum: Normal. Calvarium: Normal. Visualized Paranasal sinuses/Mastoids: Near complete opacification of the ethmoid air cells bilateral ly. Complete opacification of the maxillary sinuses. Mucosal thickening in the sphenoid sinuses. T he mastoid air cells are well pneumatized. Soft Tissues: Unremarkable. CT Cervical Spine: Bones: No acute fracture or subluxation. Mild degenerative changes present. Soft Tissues: Unremarkable. Lung Apices: Clear. IMPRESSION: 1. No acute intracranial process. 2. Pansinusitis. 3. No acute fracture or subluxation in the cervical spine. RADIATION DOSE DELIVERED: Total DLP DATA REPOSITORY: All CT scans at this facility are submitted to the National Radiology Data Registry (NRDR) Dose Index Registry (DIR) with the [employer] [place] [employer] ([employer]). RADIATION OPTIMIZATION: All CT scans at this facility use at least one of these dose optimization te chniques: automated exposure control; mA and/or kV adjustment per patient size (includes targeted exa ms where dose is matched to clinical indication); or iterative reconstruction.
--- NOTE | 2020-01-31 17:06 | ED.GENADUL_ITS ---
Discharge Plan Disposition Patient Disposition: HOME Condition: Good Discharge Details Chief Complaint: Seizure Clinical Impression: Ankle fracture, right, Seizure, UTI (urinary tract infection) Primary Care Provider: Vicente Pickard ED Provider: Lambert Salazar Home Meds and New Rx's Prescriptions: New cephalexin [Keflex] 500 mg capsule 500 mg PO BID 5 Days Qty: 10 RF: 0 Continued PrePlus 27 mg iron- 1 mg tablet 1 tab PO DAILY Qty: 90 RF: 4 gabapentin 600 MG tablet 600 mg PO TID RF: 0 topiramate 50 mg tablet 50 mg PO BID RF: 0 quetiapine 100 mg tablet 100 mg PO HS RF: 0 ibuprofen [IBU] 800 mg tablet 800 mg PO Q8H PRNQty: 30 RF: 0 dextroamphetamine-amphetamine 30 MG capsule,extended release 24hr 60 mg PO DAILY RF: 0 Discharge Instructions Instructions: Ankle Fracture (ED), Urinary Tract Infection in Women (ED), Recurrent Seizures in Adults (ED) Additional Instructions: At this time he had a notable fracture of your ankle which will likely require surgery. Please contact Dr. Calvo's office tomorrow morning. Dr. Calvo would like to see you in his office across the street between 9 and 10 AM. Please use the crutches. Take 800 mg of ibuprofen every 6 hours and 1000 mg of Tylenol every 6 hours to help with the pain. Please avoid breast-feeding for the time being. You can restart breast-feeding in 24 hours if you do not take any ibuprofen moving forward. Please do not miss this appointment. In the meantime if you develop worsening pain or a feeling of a vice-like sensation on your foot or any numbness or tingling or change in color for your toes or foot please immediately loosen up the wrapping on the splint. If loosening up all the wrapping does not change your symptoms please come back or call the ER immediately for reassessment. In regards to your seizure there is no evidence of trauma or abnormality currently in your brain. Please take your home medications as prescribed. Please make sure that you do not miss any of your doses. Additionally, you also have a mild urinary tract infection. Please take the antibiotic as directed. Please drink plenty of fluids and cranberry juice. If you notice any worsening of your symptoms, or any new symptoms such as vomiting, diarrhea, fever, chills, shortness of breath, chest pain, numbness, weakness, or fainting , please return immediately to the emergency department for reevaluation. Please follow up with your primary care provider as soon as possible for reassessment and reevaluation. As always, it was a pleasure part icipating in your medical care today. Referrals: Magdaleno Calvo MD [ [facility] STAFF PHYSICIAN] - Vicente Pickard NP [Primary Care Provider] - Medical Decision Making 40-year-old female with a past medical history of seizures, alcohol dependence, hypertension during , recent with delivery 1 month ago, presents today for evaluation of right leg located seizure. Patient was walking to the pharmacy to get her gabapentin and Topamax refilled she has not taken it for the last 3 days. When she was walking into the pharmacy she had a seizure, fell. Per bystanders the seizure lasted less than 5 minutes. She may have struck her head on a rail, she does complain of mild left neck pain. She denies any complaints of tongue biting or bowel or bladder incontinence. She states that it is been a year since her seizures. She has no history of eclampsia or preeclampsia otherwise. Currently she denies any numbness or tingling, she denies any pain in her chest head abdomen or legs aside for the right ankle. Aside for the pain in the right ankle which is splinted she has no other complaints. She is acting normal currently, EMS offers no additional details. She denies any history of seizures secondary to alcohol use, she denies any recent alcohol intake. Physical exam demonstrates a notably anteriorly dislocated tib-fib with evidence of suspected fibular fracture. Normal neurologic exam, no evidence of midline cervical thoracic or lumbar spine tenderness. She does have minimal lateral neck tenderness, no hematoma or bruit. We will get CT scan of the head and neck, x-ray of the ankle, reduce the ankle, rehydrate evaluate for electrolyte abnormality and reassess. 6 PM X-ray reveals fibular fracture with complete dislocation of the ankle with anterior dislocation of the tib-fib. Patient was sedated with propofol, she tolerated this notably well, it was reduced without complication, repeat alexia rovascular exam after sedation revealed intact sensation throughout, no two- point discrimination deficit, no other abnormality. Repeat x-rays demonstrate appropriate realignment after reduction. CT scan of the head neck was negative for acute process per virtual radiology. Laboratory work-up was unremarkable. She was given her home dose of Topamax and gabapentin. Urinalysis did show evidence of mild urinary tract infection. She states that she does regularly have UTIs. She denies of any other symptoms associated with this. She feels well at this time, and her prescriptions have been picked up by her significant other. Laboratory work-up does show minimal transaminase elevation, however blood pressure is normally stabilized and now that her ankle is no longer out of place it has normalized. She does not show signs of eclampsia. No significant levels of protein in her urine. I did contact Dr. Diaz and discussed the case briefly with him. Signs and symptoms appearing consistent with preeclampsia or eclamptic seizure. Her seizure was likely secondary to medical noncompliance and a mild urinary tract infection. Patient is doing well. Patient will be discharged home with follow-up. I did contact Dr. Calvo, and discussed the case with him and images. He would like to follow-up with the patient tomorrow morning. This is been conveyed to the patient. At this time on reassessment the patient is doing very well, repeat neurologic exam shows no abnormalities, no signs of significant trauma aside for the ankle which is been resolved with splinting. Repeat neurovascular exam of the foot immediately prior to discharge demonstrates good sensation good capillary refill good dorsalis pedis and posterior tibial pulse. I have extensively reviewed the treatment plan and discharge instructions with the patient. I have addressed all patient concerns at this time. The patient was made aware of what symptoms to monitor for that would warrant a return to the emergency department. Discussed the plan with the patient, they demonstrate verbal understanding and agreement with our assessment and plan at this time. FINDINGS: Brain: No mass, intracranial hemorrhage, or brain edema. No transcortical defect. Normal cerebellum and brainstem. Ventricles: Normal. Bones/joints: Normal. Sinuses: Complete bilateral maxillary sinus opacification and near-total opacification of the ethmoid sinuses. Mastoid air cells: Normal. Soft tissues: Unremarkable. IMPRESSION: 1. Multilevel sinus disease. 2. Normal brain. No evident acute injury. IMPRESSION: 1. No acute fracture, stenosis or traumatic malalignment. 2. Cervical discogenic degenerative disease at C5/6. Thank you for allowing us to participate in the care of your patient. Dictated and Authenticated by: Deonte Wilson MD 01/31/2020 5:19 PM Eastern Time ([place] & [place]) FINDINGS: Bones/joints: Complete anterior dislocation of the tibia and fibula. There is a fracture of the distal fibula with a triangular shaped fragment displaced and angulated posteriorly. There are numerous overlying attenuated is and standard positioning was not obtained, however, the tibiofibular syndesmosis appears abnormally widened. Soft tissues: Normal. IMPRESSION: Complete left ankle dislocation with the tibia and fibula anterior to their normal articulation, in fact, positioned nearly at the level of the talonavicular joint. There is acute displaced and posteriorly angulated fracture of the distal fibula and likely injury to the tibiofibular syndesmosis as well. Thank you for allowing us to participate in the care of your patient. Dictated and Authenticated by: Deonte Wilson MD 01/31/2020 4:28 PM Eastern Time ([place] & [place]) HPI General Date/Time Provider Initiated Documentation: 01/31/20 15:52 . HPI Narrative: 40-year-old female with a past medical history of seizures, alcohol dependence, hypertension during , recent with delivery 1 month ago, presents today for evaluation of right leg located seizure. Patient was walking to the pharmacy to get her gabapentin and Topamax refilled she has not taken it for the last 3 days. When she was walking into the pharmacy she had a seizure, fell. Per bystanders the seizure lasted less than 5 minutes. She may have struck her head on a rail, she does complain of mild left neck pain. She denies any complaints of tongue biting or bowel or bladder incontinence. She states that it is been a year since her seizures. She has no history of eclampsia or preeclampsia otherwise. Currently she denies any numbness or tingling, she denies any pain in her chest head abdomen or legs aside for the right ankle. Aside for the pain in the right ankle which is splinted she has no other complaints. She is acting normal currently, EMS offers no additional details. She denies any history of seizures secondary to alcohol use, she denies any recent alcohol intake. Related Data Home Medications Medication Instructions Recorded Confirmed gabapentin 600 mg PO TID 03/11/16 01/31/20 dextroamphetamine-amphetamine 60 mg PO DAILY 11/07/17 01/31/20 vitamin with calcium 1 tab PO DAILY #90 tab 08/31/18 01/31/20 no.72-iron 27 mg-folic acid 1 mg tablet quetiapine 100 mg PO HS 12/27/19 01/31/20 topiramate 50 mg PO BID 12/27/19 01/31/20 ibuprofen [IBU] 800 mg PO Q8H PRN #30 tab 12/28/19 01/31/20 cephalexin [Keflex] 500 mg PO BID 5 Days #10 cap 01/31/20 Previous Rx's Medication Instructions Recorded vitamin with calcium 1 tab PO DAILY #90 tab 08/31/18 no.72-iron 27 mg-folic acid 1 mg tablet ibuprofen [IBU] 800 mg PO Q8H PRN #30 tab 12/28/19 cephalexin [Keflex] 500 mg PO BID 5 Days #10 cap 01/31/20 Allergies Allergy/AdvReac Type Severity Reaction Status Date / Time hydrocodone Allergy Itching Unverified 01/31/20 15:52 hydroxyzine HCl Allergy Skin Rash Unverified 01/31/20 15:52 [From Vistaril] hydroxyzine pamoate Allergy Skin Rash Unverified 01/31/20 15:52 [From Vistaril] General Stated Complaint: Seizure GINGER: 3 Review of Systems All systems reviewed & are unremarkable except as noted in HPI and below PFSH Medical History ADHD (Acute) Alcohol dependence in remission (Chronic) Anxiety (Chronic) BMI 31.0-31.9,adult (Chronic) Chronic hypertension affecting (Acute) Depression (Chronic) Eating disorder (Chronic) Encounter for supervision of other normal , third trimester (Acute) Hypertension affecting (Chronic) Medications in the past. No current medications Limited care in third trimester (Acute) (normal spontaneous vaginal delivery) (Acute) Opioid dependence in remission (Chronic) Poor patient attendance of care (Acute) Positive test (Acute) (Resolved) Us both transvaginal and transabdominal performed + movement making position for measurements difficult and possibility of error in yoly estimation Radiology US appointment schedule having Initial intake appointment today requests Magness Level 2 for AMA Topramax exposure (Acute) (Acute) (Acute) Suicide attempt (Active 08/27/12) Overdose pills/alcohol. Social History Smoking/Tobacco Use Status: Current-Occasional Alcohol Intake: former Drug use: Never Substance use type: former substance user Current gender identity: female Do you feel safe at home: Yes Do you feel safe in your relationship?: Yes History History 4 Para 2 Hx # Term Pregnancies 1 Multiple births 0 Hx # Pregnancies 0 Ectopic pregnancies 0 AB induced 2 Hx Number of Living Children 2 AB spontaneous 0 Past Pregnancies Del. Date GA/Weeks # Outcome Route Wgt Sex Labor Lgth Anesthes ia Location Prov Complic 02/21/19 37 No Successful vaginal 2.293 kg Male [address] Diaz 12/26/19 37 No Successful vaginal 2.58 kg Female regional MD Vinayak Delivery Date: 02/21/19 No notes to display Delivery Date: 12/26/19 Induced with pitocin for Chronic HTN with poor care; tight nuchal cordx1; midline episiotomy Mayra Myles Exam Narrative Exam Narrative: 1.Const: Well-nourished, Well-developed, appearing stated age 2.Eyes: PERRL, no conjunctival injection, and symmetrical lids. 3.ENT: Atraumatic external nose and ears. Moist MM. Neck: Symmetric, trachea midline, No thyromegaly. Patient demonstrates intact dentition with no signs of tooth avulsion or fracture, no signs of jaw deformity, no evidence of a LeFort's fracture, with an intact palate, nose and orbital region. There is no evidence of a nasal septal hematoma. No proptosis. Jaw closes symmetrically. Airway is clear. There is no evidence of raccoon eyes, more sign, CSF rhinorrhea, mastoid tenderness, cranial crepitus, hemotympanum, exophthalmos, or hyphema. 4.CVS: +S1/S2, No murmurs or gallops. Peripheral pulses 2+ and equal in all extremities. Brisk capillary refill in all extremities. 5.RESP: Unlabored respiratory effort. Clear to auscultation bilaterally. No wheezes rales or rhonchi 6.GI: Soft, Nontender/Nondistended, No hepatosplenomegaly. No guarding or rebound. 7.MSK: Right ankle demonstrates what appears to be complete posterior dislocation of the right ankle (anterior tib-fib dislocation), with swelling and expected fracture. Around the lateral malleolus. Unable to flex or extend toes. Dorsalis pedis pulse intact. Brisk capillary refill for all toes. No midline tenderness to palpation over the CTLS spine. Normal ROM in flexion, extension, side bend, and rotation. Patient has +5 out of 5 strength in the lower extremities in dorsiflexion and plantarflexion, knee flexion and extension, hip flexion and extension, except for at the right ankle secondary to total dislocation. Normal strength for dorsiflexion and plantar flexion of the great toe bilaterally except for in the right foot until it was reduced which then demonstrated excellent plantar and dorsiflexion.. There is +2 over 2 dorsalis pedis pulses bilaterally. There is normal sensation to the skin with light touch at the foot, knee, and hip. Normal saddle sensation. Good sensation over the deep sural nerve area bilaterally. Rectal exam deferred. Reflexes are +2 over 4 in the patellar reflex bilaterally. +5 out of 5 strength in the medial, ulnar, radial nerve distribution bilaterally in the hands as well as intact light touch sensation to these dermatomes on the hands 8.Skin: Warm, Dry. No rashes or lesions. 9.Neuro: construction secretary II-XII grossly intact. Sensation grossly intact, no focal neurologic deficits. Able to move all extremities well, good sensation in the toes including the dislocated foot toes, and the fingers. No evidence of dysdiadochokinesia or dysmetria. Normal [id number]. 10.Psych: (AAO) x3. Appropriate mood and affect Course Vital Signs Vital signs: Vital Signs Temperature 36.8 C 01/31/20 15:39 Pulse 117 H 01/31/20 15:39 Respiratory Rate 16 01/31/20 15:39 Blood Pressure 148/86 H 01/31/20 15:39 Pulse Oximetry 94 L 01/31/20 15:39 Temperature 36.8 C 01/31/20 15:39 Temperature Source Skin 01/31/20 15:39 Pulse 99 H 01/31/20 16:20 Pulse 96 H 01/31/20 16:21 Respiratory Rate 19 01/31/20 16:21 Respiratory Effort Non-Labored 01/31/20 16:00 Respiratory Depth Normal 01/31/20 16:00 Respiratory Pattern Normal 01/31/20 16:00 Blood Pressure 120/75 01/31/20 16:20 Blood Pressure Mean 86 01/31/20 16:20 Blood Pressure Position Supine 01/31/20 15:39 Pulse Oximetry 95 01/31/20 16:21 Respiratory End-tidal CO2 33 01/31/20 16:21 Oxygen Delivery Method Room Air 01/31/20 15:39 Oxygen Flow Rate 0 01/31/20 15:39 Lab/Test Results Lab/Test Results: Laboratory Tests Range/Units 01/31/20 01/31/20 16:00 16:00 WBC (4.4-10.8) 10^3/uL 7.05 RBC (3.93-5.22) 10^6/uL 3.88 L Hgb (11.2-15.7) g/dL 11.7 Hct (36.0-46.0) % 35.3 L MCV (80-95) fL 91.0 MCH (27.0-33.0) pg 30.2 MCHC (32.0-36.0) % 33.1 RDW (11.7-14.6) % 14.5 Plt Count (130-400) 10^3/uL 229 MPV (8.0-11.0) fL 8.2 Immature Gran % 0.4 Neutrophils % 80.3 Lymphocytes % 8.1 Monocytes % 6.2 Eosinophils % 4.7 Basophils % 0.3 Nucleated RBC % % 0 Absolute Neutrophils (1.2-6.7) 10^3/uL 5.66 Absolute Lymphocytes (1.2-3.4) 10^3/uL 0.57 L Absolute Monocytes (0.1-0.8) 10^3/uL 0.44 Absolute Eosinophils (0.0-0.7) 10^3/uL 0.33 Absolute Basophils (0.0-0.2) 10^3/uL 0.02 Sodium (136-145) mmol/L 137 Potassium (3.5-5.1) mmol/L 4.1 Chloride (98-107) mmol/L 102 Carbon Dioxide (21.0-32.0) mmol/L 23.8 Anion Gap (3-11) mmol/L 11.2 H BUN (7-18) mg/dL 15 Creatinine (0.55-1.02) mg/dL 0.99 Estimated GFR/1.73 m2 (mL/min/1.73m2) >= 60.00 Glucose (74-106) mg/dL 107 H Calcium (8.5-10.1) mg/dL 9.0 Total Bilirubin (0.2-1.0) mg/dL 0.4 AST (15-37) U/L 71 H ALT (14-59) U/L 97 H Alkaline Phosphatase (46-116) U/L 101 Total Protein (6.4-8.2) g/dL 6.6 Albumin (3.4-5.0) g/dL 3.4 Procedures Orthopedic Fracture Reduction Fracture #1: Time Out Performed: Yes Side: right Fracture Reduction Location: fibula Analgesia: procedural sedation Technique: direct manipulation Post Reduction X-rays Demonstrate: acceptable reduction Post-reduction neuro exam: intact Post-reduction vascular exam: intact Splint Applied: Yes (Sugar tong and posterior short leg splint) Patient Tolerated Procedure: well Orthopedic Joint Reduction Joint #1: Time Out Performed: Yes Side: right Joint Reduction Location: ankle (Right talus dislocation) Analgesia: procedural sedation Technique used: traction/counter-traction Post-reduction neuro exam: intact Post-reduction vascular: intact Post Reduction X-Ray Obtained: Yes Post Reduction X-Ray Results: reduced Splint Applied: Yes (Sugar tong and posterior short leg splint) Patient Tolerated Procedure: well Procedural Sedation Indication: fracture/dislocation reduction ASA Class: II Time of Last PO Intake: 11:00 Preparation: electromechanical equipment tester applied, pulse oximeter, capnometry used, supplemental O2 applied, suction/airway equipment at bedside and IV secured IV Propofol dose (mg): 175 Patient Tolerated Procedure: well Complications: none
[2020-01-31] MEDS: Acetaminophen 500 MG TAB 1000 MG PO (17:09)
--- NOTE | 2020-01-31 17:10 | DI.RAD_ITS ---
EXAM: XR ANKLE RT COMPLETE CLINICAL HISTORY: right ankle fracture. TECHNIQUE: 2D digital imaging was performed. COMPARISON: No exams were available for comparison FINDINGS: Standard positioning could not be obtained. There is artifact from overlying material. BONES: There is a fracture of the distal fibula. A large distal fracture fragment is displaced and a ngulated posteriorly. No bony destructive lesion is seen. JOINTS: There is a posterior ankle dislocation. There is widening of the tibial fibular syndesmosis. SOFT TISSUE: Soft tissue swelling about the ankle. IMPRESSION: 1. Posterior ankle dislocation. 2. Displaced distal fibular fracture. 3. Findings suggestive of injury to the tibial fibular syndesmosis. DATA REPOSITORY: RADIATION DOSE DELIVERED:
[2020-01-31] MEDS: Ketorolac 30 MG/ML VIAL IVP (17:12)
--- NOTE | 2020-01-31 17:19 | DI.VRAD_ITS ---
PROCEDURE INFORMATION: Exam: CT Head Without Contrast Exam date and time: 01/31/2020 4:49 PM Age: 40 years old Clinical indication: Other: Seizure; Other: Siezure and fall TECHNIQUE: Imaging protocol: Computed tomography of the head without contrast. Radiation optimization: All CT scans at this facility use at least one of these dose optimization techniques: automated exposure control; mA and/or kV adjustment per patient size (includes targeted exams where dose is matched to clinical indication); or iterative reconstruction. COMPARISON: No relevant prior studies available. FINDINGS: Brain: No mass, intracranial hemorrhage, or brain edema. No transcortical defect. Normal cerebellum and brainstem. Ventricles: Normal. Bones/joints: Normal. Sinuses: Complete bilateral maxillary sinus opacification and near-total opacification of the ethmoid sinuses. Mastoid air cells: Normal. Soft tissues: Unremarkable. IMPRESSION: 1. Multilevel sinus disease. 2. Normal brain. No evident acute injury. PROCEDURE INFORMATION: Exam: CT Cervical Spine Without Contrast Exam date and time: 01/31/2020 4:49 PM Age: 40 years old Clinical indication: Other: Seizure; Other: Siezure and fall TECHNIQUE: Imaging protocol: Computed tomography images of the cervical spine without contrast. Radiation optimization: All CT scans at this facility use at least one of these dose optimization techniques: automated exposure control; mA and/or kV adjustment per patient size (includes targeted exams where dose is matched to clinical indication); or iterative reconstruction. COMPARISON: No relevant prior studies available. FINDINGS: Vertebrae: Intact and normally aligned. Discs/Spinal canal/Neural foramina: Disc space narrowing and vertebral spurring C5/6. No stenosis. Epidural space: Normal. Prevertebral Space: Normal. Soft tissues: Unremarkable. Lymph nodes: No enlarged lymph nodes. Lungs: Lung apices are normal. IMPRESSION: 1. No acute fracture, stenosis or traumatic malalignment. 2. Cervical discogenic degenerative disease at C5/6. Dictated and Authenticated by: Deonte Wilson MD. Ordering:YOJANA Verdin MD
[2020-01-31] MEDS: Gabapentin 300 MG CAP 600 MG PO (17:35)
[2020-01-31 17:38] LABS: Bilirubin Negative (Negative); Blood Small (Negative); Clarity Clear (Clear); Glucose Negative (Negative); Ketones Negative (Negative); Leukocyte Esterase Trace (Negative); Nitrite Negative (Negative); Specific Gravity >= 1.030 (1.005-1.025); Urobilinogen 0.2 EU/dL (Up TO 0.2)
[2020-01-31 17:48] LABS: Bacteria Moderate HPF (Negative); C & S Indicated? No/Sq. Contamination; Casts Negative LPF (Negative); Crystals Few Amorphous HPF (Negative); Epithelial Cells Many HPF (Negative); Mucus Moderate (Negative); RBC Negative HPF (0-2); WBC >50 HPF (0-5)
[2020-01-31] MEDS: Topiramate 50 MG TAB PO (17:49)
[2020-01-31] MEDS: Cephalexin 500 MG CAP PO (18:15)
== END 2020-01-31 18:32 | disposition home or self-care (01) ==
PROVIDERS: Emergency Provider Student in an Organized Health Care Education/Training Program; PCP Nurse Practitioner Family
DX: S82.491A Other fracture of shaft of right fibula, initial encounter for closed fracture (principal); R56.9 Unspecified convulsions; W19.XXXA Unspecified fall, initial encounter; N39.0 Urinary tract infection, site not specified
CPT/HCPCS: 80053; 96361; 96374; 96375; 99285; 70450; 72125; 73610; 81003; 81015; 85025; E0114; J1885; J2704

== ENCOUNTER 2020-02-02 06:44 | Emergency (ER) | payer MEDICAID, SELFPAY ==
[2020-02-02 06:41] VITALS: BP 138/88; PULSE 120; RESP 20; TEMP 36.7; O2SAT 98
--- NOTE | 2020-02-02 06:45 | DI.RAD_ITS ---
EXAM: XR ANKLE RT COMPLETE INDICATION: right ankle fracture. COMPARISON: CR XR ANKLE RT COMPLETE from 01/31/2020 TECHNIQUE: 2D digital imaging was performed. FINDINGS: There is marked widening of the medial ankle more mortise. There is a fracture of the distal fibula with severe displacement and angulation. The talus is displaced laterally with respect to the distal tibia. No distal tibial fracture is identified. There is a small soft tissue defect medially. No talar dome defect is seen. IMPRESSION: Displaced fracture of the distal fibula with disruption of the ankle mortise. DATA REPOSITORY: RADIATION DOSE DELIVERED:
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
--- NOTE | 2020-02-02 08:05 | DI.VRAD_ITS ---
PROCEDURE INFORMATION: Exam: XR Right Ankle Exam date and time: 02/02/2020 7:39 AM Age: 40 years old Clinical indication: Pain; Ankle; Right TECHNIQUE: Imaging protocol: XR Right ankle. Views: 3 or more views. COMPARISON: CR XR ANKLE RT COMPLETE 01/31/2020 4:58 PM FINDINGS: Bones/joints: Since the time of the prior study there has been interval widening of the joint space between the distal tibia and distal fibula. There is also more pronounced widening of the vertical portion of the mortise medially. Fracture line of the distal fibula is better seen. There is an incidental os tibialis. Soft tissues: The splint or wrap has been removed. No significant joint effusion. Rounded soft tissue density adjacent to the medial malleolus may represent a small focal hematoma or focus of soft tissue swelling. IMPRESSION: Worsening alignment of the fracture dislocation at the ankle. Has the patient had interval trauma? Dictated and Authenticated by: Yunior Hickman MD. Ordering:YOJANA Verdin MD
[2020-02-02 08:15] VITALS: BP 155/92; PULSE 125; RESP 20; TEMP 36.3; O2SAT 98
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
== END 2020-02-02 08:45 | disposition home or self-care (01) ==
PROVIDERS: Emergency Provider Student in an Organized Health Care Education/Training Program; PCP Nurse Practitioner Family
DX: S82.491A Other fracture of shaft of right fibula, initial encounter for closed fracture (principal); W19.XXXA Unspecified fall, initial encounter; Z91.19 Patient's noncompliance with other medical treatment and regimen
CPT/HCPCS: 29581; 99284; 73610; 99283; E0114

== ENCOUNTER 2020-02-02 17:27 | Inpatient (IN) | payer MEDICAID, SELFPAY ==
[2020-02-02] VITALS (74 sets, daily range): BP systolic 74–199; BP diastolic 41–124; PULSE 72–150; RESP 11–32; TEMP 35.6–37.8; O2SAT 56–100
[2020-02-02] MEDS: Propofol 200 MG/20 ML VIAL 50 MG IVP ×3 (17:55→18:06)
[2020-02-02] MEDS: PROPOFOL 1,000 MG/100 ML BTL 24.5 MG (17:58)
[2020-02-02] MEDS: PROPOFOL 1,000 MG/100 ML BTL 26.688 MG IVPB (17:58)
--- NOTE | 2020-02-02 18:00 | RT.EKG_ITS ---
APPROVED REPORT Exam: Resting ECG Patient Location: E HR:115 bpm ECG Measurements Heart Rate 115 AXIS DC 146 P 59 QRSd 90 QRS 5 QT 352 T 3 QTc 486 Conclusion Sinus tachycardia...rate> 99 Probable left ventricular hypertrophy...(RaVL+SV3)xQRSd >300
[2020-02-02] MEDS: Vecuronium 10 MG VIAL IVP (18:07)
[2020-02-02] MEDS: Normal Saline 1,000 ML 125 ML IV (18:15)
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
--- NOTE | 2020-02-02 18:30 | DI.RAD_ITS ---
EXAM: XR ANKLE RT COMPLETE INDICATION: pain after splint removal, post 2nd reduction. COMPARISON: CR,XR XR ANKLE RT COMPLETE from 02/02/2020 TECHNIQUE: 2D digital imaging was performed. FINDINGS: A cast has been placed. There has been improvement in the alignment of the distal fibular fracture, now mildly displaced. There is also improvement in the previously noted marked ankle mortise widenin g. No distal tibial fracture or talar dome defect is seen. IMPRESSION: Improved alignment of distal fibular fracture and ankle mortise widening. DATA REPOSITORY: RADIATION DOSE DELIVERED:
--- NOTE | 2020-02-02 18:30 | DI.CT_ITS ---
EXAM: CT HEAD CERVICAL SPINE WO CLINICAL HISTORY: altered mentation. TECHNIQUE: Imaging Protocol: Axial computed tomography images with coronal and sagittal reformatted images were created and reviewed COMPARISON: CT CT HEAD CERVICAL SPINE WO from 01/31/2020 FINDINGS: Head CT Ventricles and Extra axial spaces: Normal in size and morphology for the patient's age. Hemorrhage: None. Cerebral parenchyma: Normal. Midline shift: None. Brainstem/Cerebellum: Normal. Calvarium: Normal. Visualized Paranasal sinuses/Mastoids: Clear. Cervical Spine CT BONES: Vertebral body heights are maintained. Alignment is normal. There is no evidence of acute frac ture. Mild degenerative disc changes and facet degenerative changes are seen . SOFT TISSUES: No paraspinal hematoma. Oral tracheal tube. No pneumothorax is seen at the lung apices. Opacification of both maxillary sinuses with high-densit y material. Opacification of multiple ethmoid sinuses. Diminutive frontal sinuses. Mucosal thicken ing of the sphenoid sinuses. Clear mastoid air cells. Orbits unremarkable. IMPRESSION: Head CT: No acute abnormality. C-spine CT: Degenerative changes, no acute abnormality. Incidental severe sinus disease. RADIATION DOSE DELIVERED: LINK-TO-SR Total DLP DATA REPOSITORY: All CT scans at this facility are submitted to the National Radiology Data Registry (NRDR) Dose Index Registry (DIR) with the [employer] (ACR). RADIATION OPTIMIZATION: All CT scans at this facility use at least one of these dose optimization te chniques: automated exposure control; mA and/or kV adjustment per patient size (includes targeted exa ms where dose is matched to clinical indication); or iterative reconstruction.
[2020-02-02 18:31] LABS: BE (Venous) -11 mmol/L (-2-3); HCO3 (Venous) 18 mmol/L (23-28); O2 Sat (Venous) 97 %; TCO2 (Venous) 17 mmol/L (24-29); pCO2 (Venous) 50 mmHg (41-51); pO2 (Venous) 112 mmHg
[2020-02-02 18:33] LABS: Abs Immature Grans 0.08 10^3/uL (0.0-0.06); Absolute Eosinophil Count 0.03 10^3/uL (0.0-0.7); Absolute Lymphocyte Count 1.18 10^3/uL (1.2-3.4); Basophils % 0.1; Eosinophils % 0.2; HCT 36.7 % (36.0-46.0); HGB 11.8 g/dL (11.2-15.7); Immature Grans % 0.6; Lymphocytes % 8.2; MCH 29.9 pg (27.0-33.0); MCHC 32.2 % (32.0-36.0); MCV 93.1 fL (80-95); MPV 8.7 fL (8.0-11.0); Monocytes % 7.4; Neutrophils % 83.5; Nucleated RBC 0 %; Platelet Count 260 10^3/uL (130-400); RBC 3.94 10^6/uL (3.93-5.22); RDW 14.5 % (11.7-14.6); RDW-SD 48.7 fL; WBC 14.42 10^3/uL (4.4-10.8)
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
[2020-02-02 18:34] LABS: Absolute Basophil Count 0.01 10^3/uL (0.0-0.2); pH (Venous) 7.16 (7.31-7.41)
[2020-02-02 18:35] LABS: Absolute Monocyte Count 1.07 10^3/uL (0.1-0.8); Absolute Neutrophil Count 12.04 10^3/uL (1.2-6.7); Lactate 1.3 mmol/L (0.6-1.4)
[2020-02-02 18:51] LABS: ALT 110 U/L (14-59); AST 183 U/L (15-37); Albumin 4.1 g/dL (3.4-5.0); Alkaline Phosphatase 114 U/L (46-116); Anion Gap 18.3 mmol/L (3-11); BUN 28 mg/dL (7-18); CO2 19.7 mmol/L (21.0-32.0); CREATININE 1.66 mg/dL (0.55-1.02); Calcium 10.1 mg/dL (8.5-10.1); Chloride 101 mmol/L (98-107); Estimated GFR 34.57 (mL/min/1.73m2); Glucose 93 mg/dL (74-106); Potassium 3.4 mmol/L (3.5-5.1); Sodium 139 mmol/L (136-145); Total Protein 8.2 g/dL (6.4-8.2); Troponin I < 0.05 ng/mL (<0.06)
[2020-02-02 18:52] LABS: Ammonia < 10 umol/L (11-32)
[2020-02-02 19:02] LABS: ETHANOL BLOOD < 3.0 mg/dL (<3)
[2020-02-02 19:04] LABS: Salicylate < 2.8 mg/dL (2.8-20.0)
[2020-02-02 19:05] LABS: Acetaminophen < 2 ug/mL (10-30)
--- NOTE | 2020-02-02 19:19 | DI.VRAD_ITS ---
PROCEDURE INFORMATION: Exam: CT Chest With Contrast Exam date and time: 02/02/2020 18:32 Age: 40 years old Clinical indication: Abdominal pain; Generalized; Chest pain; Patient HX: Trauma, bruising, altered; Additional info: PT unresponsive TECHNIQUE: Imaging protocol: Computed tomography of the chest with intravenous contrast. COMPARISON: OB 2-3 TRIMESTER 12/21/2019 08:18 FINDINGS: Tubes, catheters and devices: Endotracheal tube in satisfactory position. Lungs: Moderate dependent pulmonary opacities. Pleural space: No pneumothorax. No pleural effusion. Heart: No cardiomegaly. No pericardial effusion. Mediastinal space: Small amount of fluid in the esophagus. No significant wall thickening. Aorta: No aortic aneurysm. Lymph nodes: No enlarged lymph nodes. Bones/joints: Benign-appearing left-sided rib probable bone island. A minor chronic appearing deformity of the inferior T11 endplate with associated minor degenerative changes. No acute fracture or subluxation. Soft tissues: No suspicious lesions. IMPRESSION: 1. Endotracheal tube in satisfactory position. 2. Moderate dependent pulmonary opacities. Favoring compressive atelectasis, with aspiration or pneumonia possible in the right clinical setting. 3. Non-urgent findings as described. PROCEDURE INFORMATION: Exam: CT Abdomen And Pelvis With Contrast Exam date and time: 02/02/2020 18:32 Age: 40 years old Clinical indication: Abdominal pain; Generalized; Chest pain; Patient HX: Trauma, bruising, altered; Additional info: PT unresponsive TECHNIQUE: Imaging protocol: Computed tomography of the abdomen and pelvis with intravenous contrast. COMPARISON: OB 2-3 TRIMESTER 12/21/2019 08:18 FINDINGS: Liver: No mass. Gallbladder and bile ducts: No calcified stones. No ductal dilation. Pancreas: No ductal dilation. No masses. Spleen: No splenomegaly or focal lesions. Adrenals: No mass. Kidneys and ureters: No hydronephrosis. No renal masses. Stomach and bowel: Moderate distention of the stomach with gas greater than fluid. No evidence of gastritis or gastric injury. Submucosal fat deposition in the colon, likely habitus related. No colitis or diverticular disease. No focal pathology in the small bowel. Appendix: No evidence of appendicitis. Intraperitoneal space: No free air. No significant fluid collection. Vasculature: No abdominal aortic aneurysm. Lymph nodes: No significantly enlarged lymph nodes. Bladder: The urinary bladder is distended. Reproductive: Benign-appearing probable follicles in the right ovary. Normal CT appearance of the uterus. Bones/joints: Degenerative changes in the spine. Multilevel disc space narrowing. No acute fracture or subluxation. Soft tissues: No suspicious lesions. IMPRESSION: 1. No acute findings. 2. Non-urgent findings as described. Dictated and Authenticated by: Renetta Allen MD. Ordering:BRETT Mays MD
--- NOTE | 2020-02-02 19:28 | DI.VRAD_ITS ---
PROCEDURE INFORMATION: Exam: XR Right Ankle Exam date and time: 02/02/2020 19:04 Age: 40 years old Clinical indication: Pain; Ankle; Right; Patient HX: Trauma; Additional info: PT unresponsive TECHNIQUE: Imaging protocol: XR Right ankle. Views: 3 or more views. COMPARISON: CR XR ANKLE RT COMPLETE 02/02/2020 07:38 FINDINGS: Bones/joints: Significant improvement in alignment of the right ankle fracture. Medial-lateral alignment of the tibiotalar joint is nearly anatomic. Persistent moderate lateral distraction of the distal fibula from the ankle mortise associated with a moderate posterior distraction of the oblique distal fibular fracture extending to the lateral malleolus. Fibular alignment is improved as well. No christy dislocation. A small fracture of the medial malleolus is less well appreciated on this study. Soft tissues: Generalized soft tissue swelling. Overlying splint obscures the bony detail. IMPRESSION: Significant improvement in alignment of the right ankle fracture as described. Dictated and Authenticated by: Renetta Allen MD. Ordering:BRETT Mays MD
--- NOTE | 2020-02-02 19:37 | DI.VRAD_ITS ---
PROCEDURE INFORMATION: Exam: CT Head Without Contrast Exam date and time: 02/02/2020 6:32 PM Age: 40 years old Clinical indication: Headache; Neck pain; Patient HX: Altered mentation; Additional info: PT unresponsive TECHNIQUE: Imaging protocol: Computed tomography of the head without contrast. COMPARISON: CT HEAD CERVICAL SPINE WO 01/31/2020 4:47 PM FINDINGS: Brain: Normal. No hemorrhage. Unremarkable white matter. No mass effect. Ventricles: Normal. No ventriculomegaly. Bones/joints: Unremarkable. No acute fracture. Mastoid air cells: Visualized mastoid air cells are well aerated. Soft tissues: Unremarkable. IMPRESSION: No acute intracranial abnormality. PROCEDURE INFORMATION: Exam: CT Cervical Spine Without Contrast Exam date and time: 02/02/2020 6:32 PM Age: 40 years old Clinical indication: Headache; Neck pain; Patient HX: Altered mentation; Additional info: PT unresponsive TECHNIQUE: Imaging protocol: Computed tomography images of the cervical spine without contrast. COMPARISON: CT HEAD CERVICAL SPINE WO 01/31/2020 4:47 PM FINDINGS: Tubes, catheters and devices: There is a new ET tube which courses through the oropharynx and hypopharynx. Vertebrae: There is straightening of cervical lordosis. C2-C3: No significant disc protrusion. No severe spinal canal stenosis. No significant neural foraminal narrowing. C3-C4: No significant disc protrusion. No severe spinal canal stenosis. No significant neural foraminal narrowing. C4-C5: No significant disc protrusion. No severe spinal canal stenosis. No significant neural foraminal narrowing. C5-C6: There is posterior osteophyte disc complex, asymmetric to right which mildly indents but does not cause high-grade central canal stenosis. No significant neural foraminal narrowing. C6-C7: No significant disc protrusion. No severe spinal canal stenosis. No significant neural foraminal narrowing. There is might right facet osteoarthropathy. C7-T1: No significant disc protrusion. No severe spinal canal stenosis. No significant neural foraminal narrowing. Soft tissues: Unremarkable. Sinuses: There is marked mucosal thickening in bilateral maxillary sinuses, posterior and anterior ethmoidal air cells. There is mild mucosal thickening in left frontal sinus. There are foci of hyperdensity within maxillary sinuses. There is sclerosis and remodeling of minaya of the maxillary sinus which are likely sequelae of chronic sinus disease. There is mucous retention cyst or polyp in left sphenoidal sinus and mild mucosal thickening in right sphenoidal sinus. Oropharynx: There are opacification of posterior nasal passages, oropharynx and hypopharynx. There is diffuse mucosal thickening in the bilateral maxillary ostia. IMPRESSION: 1. No acute intracranial abnormality. No acute ischemia or mass effect or acute intracranial hemorrhage. 2. Marked bilateral sinus disease, unchanged. There are foci of hyperdensity within maxillary sinuses which could reflect inspissated secretions versus fungal rests. There are sclerotic changes within minaya of maxillary sinuses which could reflect bony remodeling or osteitis due to chronic sinus disease. 3. Interval placement of ET tube. There is fluid and debris in posterior nasal passages and oropharynx as well as in hypopharynx. 4. No acute fracture or subluxation of the cervical spine. No critical spinal canal or neural foraminal stenosis. Dictated and Authenticated by: Xavier Crawley MD. Ordering:BRETT Mays MD
[2020-02-02 19:43] LABS: *AMPHETAMINES SCREEN URINE POSITIVE (Negative); *BARBITURATES SCREEN URINE Negative (Negative); *BENZODIAZEPINES SCREEN URINE POSITIVE (Negative); Cannabinoids THC Negative (Negative); Cocaine Screen,Urine Negative (Negative); METHADONE URINE SCREEN Negative (Negative); OPIATES URINE SCREEN Negative (Negative)
[2020-02-02] MEDS: fentaNYL 1,000 MCG in Normal Saline 80 ML 11.12 MCG IV (19:45)
[2020-02-02] MEDS: MIDAZOLAM 50 MG in Normal Saline 90 ML IV (19:45)
[2020-02-02 19:52] LABS: Tricyclic Antidepressants Negative (Negative)
[2020-02-02] MEDS: PROPOFOL 1,000 MG/100 ML BTL 42.8 MG (20:09)
--- NOTE | 2020-02-02 20:15 | DI.RAD_ITS ---
EXAM: XR PORTABLE CHEST AP POST LINE CLINICAL HISTORY: new ett and og TECHNIQUE: 2D digital imaging was performed. COMPARISON: CR LEFT RIBS TO INCLUDE CXR from 09/26/2013 FINDINGS: The lungs are suboptimally inflated. There is mild basilar atelectasis. A nasogastric tube projects in the stomach. An endotracheal tube has been placed and lies above the aortic arch. IMPRESSION: Satisfactory placement of endotracheal and nasogastric tubes. Basilar atelectasis. DATA REPOSITORY: RADIATION DOSE DELIVERED:
[2020-02-02 20:33] LABS: BE -10 mmol/L (-2-3); HCO3 17 mmol/L (22-26); pCO2 39 mmHg (35-45); pH 7.25 (7.35-7.45); pO2 76 mmHg (80-105); sO2 93 % (95-98); tCO2 16 mmol/L (23-27)
[2020-02-02 20:38] LABS: Site Right Radial
--- NOTE | 2020-02-02 20:44 | DI.VRAD_ITS ---
PROCEDURE INFORMATION: Exam: XR Chest, 1 View Exam date and time: 02/02/2020 20:29 Age: 40 years old Clinical indication: Device placement; Ett placement (vent status); Patient HX: New ett and og TECHNIQUE: Imaging protocol: XR of the chest Views: 1 view. COMPARISON: CT CHEST/ABD/PEL W 02/02/2020 18:53 FINDINGS: Tubes, catheters and devices: Endotracheal tube terminates 5 cm above the melissa. Nasogastric tube in the stomach. Lungs: Bibasilar airspace opacities. Pleural space: No significant pleural effusion. No pneumothorax. Heart/Mediastinum: No cardiomegaly. Bones/joints: No acute fracture. IMPRESSION: 1. Lines and tubes in satisfactory position. 2. Bibasilar airspace opacities compatible with atelectasis and or pneumonia. Dictated and Authenticated by: Renetta Allen MD. Ordering:BRETT Mays MD
[2020-02-02 21:33] LABS: Bilirubin Small (Negative); Blood Trace-lysed (Negative); Clarity Clear (Clear); Glucose Negative (Negative); Ketones 40 mg/dL (Negative); Leukocyte Esterase Negative (Negative); Nitrite Negative (Negative); Specific Gravity 1.025 (1.005-1.025); Urobilinogen 0.2 EU/dL (Up TO 0.2); pH 5.5 (5-8)
[2020-02-02] MEDS: Normal Saline 1,000 ML 999 ML IV (21:45)
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
[2020-02-02 22:13] LABS: Bacteria Negative HPF (Negative); C & S Indicated? No; Casts 0-2 Hyaline LPF (Negative); Crystals Negative HPF (Negative); Epithelial Cells Few HPF (Negative); Mucus Negative (Negative)
[2020-02-02 22:35] LABS: BE -11 mmol/L (-2-3); HCO3 16 mmol/L (22-26); pCO2 31 mmHg (35-45); pH 7.32 (7.35-7.45); pO2 125 mmHg (80-105); sO2 98 % (95-98); tCO2 15 mmol/L (23-27)
[2020-02-02 22:38] LABS: FIO2 50 %; Site Right Radial
--- NOTE | 2020-02-02 22:48 | W.RSTF2F ---
Date of service: 02/02/20 Time of Service: 22:48 Restraint Face to Face Time of Face to Face Face to Face: Time of Face to Face: 20:35 Patient's Immediate Situation Requiring Restraints/Seclusion: Harm to Patient Patient Response to Restraints: Tolerating without Problems Patient's Medical & Behavioral Condition: Patient has altered mental status possibly related to a drug overdose. Possible delirium. Need for Continuation of Restraints Has Been Assessed: Restraints Continued
[2020-02-02] MEDS: Pantoprazole 40 MG VIAL IVP (22:53)
[2020-02-02] MEDS: AMPICILLIN/SULBACTAM 3 GM in Normal Saline 100 ML IVPB (22:53)
[2020-02-02] MEDS: Normal Saline Flush 10 ML SYR IVP (22:53)
[2020-02-02] MEDS: Enoxaparin 40 MG/0.4 ML SYR SC (22:54)
[2020-02-02] MEDS: POTASSIUM CHLORIDE/0.9% NACL 1,000 ML 100 MEQ IV (23:07)
[2020-02-03] VITALS (96 sets, daily range): BP systolic 74–127; BP diastolic 42–76; PULSE 60–91; RESP 11–30; TEMP 35.8–36.8; O2SAT 93–100
[2020-02-03] MEDS: MIDAZOLAM 50 MG in Normal Saline 90 ML 24.5 MG IV (00:21)
[2020-02-03] MEDS: fentaNYL 1,000 MCG in Normal Saline 80 ML 33.36 MCG IV (00:25)
[2020-02-03] MEDS: PROPOFOL 1,000 MG/100 ML BTL 6.672 MG IVPB ×2 (01:01→07:12)
[2020-02-03] MEDS: AMPICILLIN/SULBACTAM 3 GM in Normal Saline 100 ML IVPB ×4 (03:41→22:52)
[2020-02-03] MEDS: MIDAZOLAM 50 MG in Normal Saline 90 ML 26.688 MG IV ×2 (04:15→09:00)
[2020-02-03 08:16] LABS: BE -8 mmol/L (-2-3); HCO3 18 mmol/L (22-26); pCO2 38 mmHg (35-45); pO2 153 mmHg (80-105); sO2 99 % (95-98); tCO2 18 mmol/L (23-27)
[2020-02-03 08:18] LABS: FIO2 45 %; Site Left Radial
--- NOTE | 2020-02-03 08:22 | PDOC.CMPRO ---
- If Service Date Differs Date of service: 02/03/20 Time of Service: 08:22 Care Management Progress Note S/O: Keyanna is currently in the ICU intubated. She is unable to engage in assessment due to current medical management. CM contacted the boyfriend and her children's father Stoney Miranda. He shares that he has the two children and that they are safe with him. CM reviewed patients chart and history with Stoney. He state that Keyanna has heavy alcohol during and after recent . He does not believe she ingested any other substance and reports she was delusional and tremolos at home. He feels that she may have tried to stop drinking and has experienced withdrawal in the past. Stoney is concerned about Keyanna and is asking that she be offered a rehab for substance use before returning home. CM will review options with Keyanna once her condition is stable and she is extubated. A: Kathrine is a 40 year old female admitted with altered mental status of unknown etiology possible related to alcohol withdrawal. Keyanna has a long history of alcohol use and dependency. Keyanna has two young children is 5 weeks old and her other child 11 months old. She does have a signifigant other Stoney who is caring for both of the children at this time. P: Disposition to be determined will await stabilization and extubation to meet with the patient and discuss rehab options. CM will continue to support and assess for discharge needs and disposition. CM will make a DCF report as mandated.
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
[2020-02-03 11:00] LABS: Abs Immature Grans 0.02 10^3/uL (0.0-0.06); Absolute Basophil Count 0.02 10^3/uL (0.0-0.2); Absolute Lymphocyte Count 1.42 10^3/uL (1.2-3.4); Absolute Monocyte Count 0.58 10^3/uL (0.1-0.8); Absolute Neutrophil Count 5.29 10^3/uL (1.2-6.7); Basophils % 0.3; Eosinophils % 3.9; Immature Grans % 0.3; Lymphocytes % 18.6; MCH 30.5 pg (27.0-33.0); MCHC 31.3 % (32.0-36.0); MPV 8.7 fL (8.0-11.0); Monocytes % 7.6; Neutrophils % 69.3; Nucleated RBC 0 %; Platelet Count 200 10^3/uL (130-400); RBC 3.08 10^6/uL (3.93-5.22); RDW 15.2 % (11.7-14.6); RDW-SD 53.4 fL
[2020-02-03 11:02] LABS: HGB 9.4 g/dL (11.2-15.7); WBC 7.63 10^3/uL (4.4-10.8)
[2020-02-03 11:03] LABS: MCV 97.4 fL (80-95)
[2020-02-03 11:08] LABS: ALT 77 U/L (14-59); AST 96 U/L (15-37); Albumin 2.8 g/dL (3.4-5.0); Alkaline Phosphatase 81 U/L (46-116); Anion Gap 11.3 mmol/L (3-11); BUN 18 mg/dL (7-18); Bilirubin, Total 0.6 mg/dL (0.2-1.0); CO2 20.7 mmol/L (21.0-32.0); CREATININE 0.86 mg/dL (0.55-1.02); Chloride 110 mmol/L (98-107); Glucose 65 mg/dL (74-106); Potassium 3.8 mmol/L (3.5-5.1); Sodium 142 mmol/L (136-145); Total Protein 6.2 g/dL (6.4-8.2)
[2020-02-03 11:28] LABS: Procalcitonin 0.1 ng/mL
[2020-02-03] MEDS: POTASSIUM CHLORIDE/0.9% NACL 1,000 ML 100 MEQ IV (11:46)
[2020-02-03] MEDS: PROPOFOL 1,000 MG/100 ML BTL 40.032 MG IVPB (11:46)
[2020-02-03] MEDS: ACETAMINOPHEN 1,000 MG/100 ML BTL 400 MG IVPB ×2 (13:41→22:28)
[2020-02-03] MEDS: Ketorolac 30 MG/ML VIAL IVP (13:47)
[2020-02-03] MEDS: PROPOFOL 1,000 MG/100 ML BTL 33.36 MG IVPB ×3 (14:16→23:15)
[2020-02-03] MEDS: Normal Saline Flush 10 ML SYR IVP (16:09)
--- NOTE | 2020-02-03 16:28 | W.RSTF2F ---
Date of service: 02/03/20 Time of Service: 16:28 Restraint Face to Face Time of Face to Face Face to Face: Patient's Immediate Situation Requiring Restraints/Seclusion: Harm to Patient Patient Response to Restraints: Tolerating without Problems Patient's Medical & Behavioral Condition: sedated, intubated. Restless with oral care. Need for Continuation of Restraints Has Been Assessed: Restraints Continued
[2020-02-03 16:44] LABS: COVID-19 RT-PCR UVMMC Result Negative (Negative)
[2020-02-03] MEDS: MIDAZOLAM 50 MG in Normal Saline 90 ML 8.896 MG IV (16:55)
[2020-02-03] MEDS: PROPOFOL 1,000 MG/100 ML BTL 46.704 MG IVPB (20:47)
[2020-02-03] MEDS: Pantoprazole 40 MG VIAL IVP (22:27)
[2020-02-03] MEDS: Enoxaparin 40 MG/0.4 ML SYR SC (22:28)
[2020-02-04] VITALS (47 sets, daily range): BP systolic 91–144; BP diastolic 48–83; PULSE 59–102; RESP 9–30; TEMP 34–37.4; O2SAT 76–99
[2020-02-04] MEDS: PROPOFOL 1,000 MG/100 ML BTL 33.36 MG IVPB ×2 (02:02→04:51)
[2020-02-04] MEDS: fentaNYL 1,000 MCG in Normal Saline 80 ML 16.365 MCG IV (03:35)
[2020-02-04] MEDS: AMPICILLIN/SULBACTAM 3 GM in Normal Saline 100 ML IVPB ×4 (04:10→22:09)
[2020-02-04] MEDS: MIDAZOLAM 50 MG in Normal Saline 90 ML 13.344 MG IV (04:11)
[2020-02-04] MEDS: ACETAMINOPHEN 1,000 MG/100 ML BTL 400 MG IVPB (06:30)
[2020-02-04 07:58] LABS: BE -6 mmol/L (-2-3); HCO3 21 mmol/L (22-26); pCO2 40 mmHg (35-45); pH 7.32 (7.35-7.45); pO2 58 mmHg (80-105); sO2 90 % (95-98); tCO2 20 mmol/L (23-27)
[2020-02-04 08:01] LABS: Site Right Radial
[2020-02-04 08:32] LABS: Abs Immature Grans 0.01 10^3/uL (0.0-0.06); Absolute Basophil Count 0.01 10^3/uL (0.0-0.2); Absolute Eosinophil Count 0.08 10^3/uL (0.0-0.7); Absolute Lymphocyte Count 0.98 10^3/uL (1.2-3.4); Absolute Neutrophil Count 3.94 10^3/uL (1.2-6.7); Basophils % 0.2; Eosinophils % 1.5; HCT 26.7 % (36.0-46.0); HGB 8.4 g/dL (11.2-15.7); Immature Grans % 0.2; Lymphocytes % 18.1; MCH 30.8 pg (27.0-33.0); MCHC 31.5 % (32.0-36.0); MCV 97.8 fL (80-95); MPV 8.7 fL (8.0-11.0); Monocytes % 7.4; Neutrophils % 72.6; Nucleated RBC 0 %; Platelet Count 172 10^3/uL (130-400); RBC 2.73 10^6/uL (3.93-5.22); RDW 15.9 % (11.7-14.6); RDW-SD 55.7 fL; WBC 5.42 10^3/uL (4.4-10.8)
[2020-02-04 08:42] LABS: ALT 58 U/L (14-59); AST 53 U/L (15-37); Albumin 2.3 g/dL (3.4-5.0); Alkaline Phosphatase 72 U/L (46-116); Anion Gap 8.9 mmol/L (3-11); BUN 11 mg/dL (7-18); Bilirubin, Total 0.4 mg/dL (0.2-1.0); CO2 21.1 mmol/L (21.0-32.0); CREATININE 0.74 mg/dL (0.55-1.02); Calcium 7.7 mg/dL (8.5-10.1); Chloride 113 mmol/L (98-107); Glucose 91 mg/dL (74-106); Magnesium 2.1 mg/dL (1.8-2.4); Potassium 3.5 mmol/L (3.5-5.1); Sodium 143 mmol/L (136-145); Total Protein 5.3 g/dL (6.4-8.2)
[2020-02-04 08:57] LABS: Diff Comment Diff Reviewed
[2020-02-04 08:58] LABS: Hypochromasia 2+; Polychromasia Present
--- NOTE | 2020-02-04 09:16 | PDOC.CMPRO ---
- If Service Date Differs Date of service: 02/04/20 Time of Service: 09:17 Care Management Progress Note S/O: Keyanna was extubated this morning. CM met with her this afternoon. She was pleasant and agreeable to answering questions. Keyanna states that she has no recollection about what happened. She stated that Stoney told her she hallucinated but she does not know why. She denies ingesting alcohol or taking any extra doses of her medication. Maria C denied being depressed and assured CM that she is deeply in love with Stoney and that they have 2 beautiful babies together. During the conversation Keyanna was able to maintain eye contact but seemed a bit confused at times about events. She stated that she has one child that is a year old and that her baby is 4 months old. CM explained that because there are questions about why she was so confused and possibly hallucinating, that it will be necessary for her to be screened by crisis screener when she is medically cleared. Keyanna verbalized understanding of this and the Interim Safety plan which limits activities and calls and belongings at this time. A: Kathrine is a 40 year old female admitted with altered mental status of unknown etiology possible related to alcohol withdrawal. Keyanna has a long history of alcohol use and dependency. Keyanna has two young children infant is 5 weeks old and her other child 11 months old. She does have a signifigant other Stoney who is caring for both of the children at this time. P: Disposition to be determined . When medically cleared, Keyanna will be screened by [facility] mental Health crisis screener. CM will continue to support and assess for discharge needs and disposition. Dr. Garcia made a DCF report as mandated, per his notes on 02/02/20.
[2020-02-04] MEDS: Ketorolac 30 MG/ML VIAL IVP ×2 (10:04→18:47)
[2020-02-04] MEDS: Normal Saline Flush 10 ML SYR IVP ×4 (10:05→22:09)
--- NOTE | 2020-02-04 10:51 | PHACLINREV_ITS ---
Pharmacy Admission Review - Admission Clinical Review (Last Reviewed 02/03/20 @ 08:52 by Juan Velazquez MD) Drug overdose (Acute) Aspiration pneumonia (Acute) Ankle fracture, right (Acute) Seizure (Acute) Acute alteration in mental status (Acute) Metabolic acidosis (Acute) (normal spontaneous vaginal delivery) (Acute) hydrocodone Allergy (Unverified 02/02/20 18:35) Itching hydroxyzine HCl [From Vistaril] Allergy (Unverified 02/02/20 18:35) Skin Rash hydroxyzine pamoate [From Vistaril] Allergy (Unverified 02/02/20 18:35) Skin Rash Height 5 ft 6 in Weight 109.1 kg - Renal Dosing Renal Dosing: BUN 11 mg/dL (7-18) D 02/04/20 08:15 Creatinine 0.74 mg/dL (0.55-1.02) 02/04/20 08:15 Medications needing adjustments: Reviewed (Crcl ~128.9 mL/min using adjusted body weight. Current meds okay) - Anticoagulation Anticoagulation: Hgb 8.4 g/dL (11.2-15.7) L 02/04/20 08:15 Hct 26.7 % (36.0-46.0) L 02/04/20 08:15 Plt Count 172 10^3/uL (130-400) 02/04/20 08:15 Creatinine 0.74 mg/dL (0.55-1.02) 02/04/20 08:15 DVT Prohphylaxis: Reviewed Medications: Enoxaparin (H/H trending down, gastric occult blood positive this morning. aware and monitoring.) Therapeutic Anticoagulation: N/A - Opiate Usage Evaluate Pain Scale/Pains Meds: Reviewed Scheduled Bowel Reg ordered if on Opiates?: No (will mention to provider) - Relevant Labs Sodium 143 mmol/L (136-145) 02/04/20 08:15 Potassium 3.5 mmol/L (3.5-5.1) 02/04/20 08:15 Chloride 113 mmol/L (98-107) H 02/04/20 08:15 Magnesium 2.1 mg/dL (1.8-2.4) 02/04/20 08:15 Electrolytes, C-Reactive P, ESR: Reviewed (LFTs improving) - DM Control DM Control: Glucose 91 mg/dL (74-106) 02/04/20 08:15 Insulin Dosing: N/A - Heart Failure/MA Heart Failure/MA: Troponin I < 0.05 ng/mL (<0.06) 02/02/20 18:20 EF%, ODIN's, B-Blockers, Diuretics: N/A - BP Control BP Control: Blood Pressure [Right Arm] 98/49 Blood Pressure 107/58 Blood Pressure 107/58 Blood Pressure 101/51 Blood Pressure 110/52 Blood Pressure 108/55 Blood Pressure 101/56 If elevated: Reviewed (hypotension- on mutliple meds that may decrease BP, watch BP as these are weaned/adjusted) - Qtc Review If Elevated: Reviewed (QTc 486 has propofol and albuterol ordered) - IV to PO Switch IV Medications: Reviewed - Home Meds Home Med List reviewed: Intervened (Was able to confirm some of dosing of meds listed on pt's home med list with the external meds history. Some recent meds in external med history not listed on home med list, unable to confirm at this time as providers office is closed today.) Relevent Home Meds Not ordered & why?: adderall, gabapentin, ibuprofen (has ketorolac ordered), vitamin, quetiapine, topiramate (unsure if pt still taking) - Current meds Current Medication Order Review: Reviewed - Comments Comments/Follow Ups: Watch BP, Cl, H/H, and for med changes (IV to PO, dose adju stments, addition of any QT prolonging meds, need for BM meds). Antibiotic Activity - Pharmacy Antibiotic Review Pharmacy Antibiotic Activity: Reviewed, no change (Ampicillin/sulbactam (day 3 starts this evening) to cover for aspiration pneumonia)
--- NOTE | 2020-02-04 11:33 | DI.RAD_ITS ---
EXAM: XR PORTABLE CHEST AP CLINICAL HISTORY: aspiration TECHNIQUE: 2D digital imaging was performed. COMPARISON: CR,XR XR PORTABLE CHEST AP POST LINE from 02/02/2020 FINDINGS: Leads and tubing overlie the chest. Heart size is normal. The lungs are better inflated when compar ed with the previous exam. No focal area of consolidation or effusion is seen. There is no pneumoth orax. The NG tube has been removed. The endo tracheal tube has also been removed. IMPRESSION: No acute pulmonary findings. DATA REPOSITORY: RADIATION DOSE DELIVERED:
--- NOTE | 2020-02-04 11:58 | PGE_ITS ---
Date of Service Date of service: 02/04/20 Time of Service: 11:58 Assessment and Plan Assessment and plan (1) Drug overdose: Status: Acute Assessment and plan: Potentially ingested contents of 90 300mg gabapentin capsules. Once medically cleared, will have psychiatric evaluation. Concerned about potential post- depression Qualifiers: Encounter type: subsequent encounter Injury intent: undetermined intent Qualified Code(s): T50.904D - Poisoning by unspecified drugs, medicaments and biological substances, undetermined, subsequent encounter (2) Ankle fracture, right: Status: Acute Assessment and plan: Non-weight bearing. Pain control with Fentanyl drip while intubated. Now extubated and will try hydrocodone and Toradol. Qualifiers: Encounter type: initial encounter Fracture type: closed Qualified Code(s): S82.891A - Other fracture of right lower leg, initial encounter for closed fracture (3) Seizure: Status: Acute Assessment and plan: Seizure on 01/31/2020; questionably Etoh withdrawal related vs pre-eclampsia. Had PIH during pregancy and is 5 wks PP. On Topamax and gabapentin for mental health reasons. Question of compliance. Now off both while in hospital; was intubated, now extubated. Will d/w mental health when they evaluate. (4) Metabolic acidosis: Status: Acute Assessment and plan: Improved. ABG prior to extubation today showed a pH of 7.316. (5) Depression: Status: Chronic Assessment and plan: O.D. on gabapentin. Mental health evaluation after medically cleared. Qualifiers: Depression Type: major depressive disorder Major depression recurrence: recurrent Active/Remission status: remission status unspecified Qualified Code(s): F33.9 - Major depressive disorder, recurrent, unspecified (6) Chronic hypertension affecting : Status: Acute Assessment and plan: Upon presentation her BP was elevated. While intubated on Versed, propofol and Fentanyl her SBP was mostly in the 90's. Now extubated and improved. No hypertensive. Monitor and treat as needed. (7) Transaminitis: Status: Acute Assessment and plan: Sporadic Etoh intake during recent and post-. Improving. Subjective Subjective Patient reports: tolerating liquids well Interval history since last seen: Now extubated; c/o dry mouth and sore throat. No c/o R ankle pain at this time Confused; doesn't know what facility she is in. Exam Const General: cooperative and no acute distress Nutritional Appearance: obese Orientation: alert and confused Eyes Conjunctivae: conjunctivae normal Pupils: PERRL Resp Effort & Inspection: normal respiratory effort Auscultation: rhonchi Cardio Rate: regular rate Rhythm: regular rhythm Heart Sounds: S1 normal and S2 normal Extrem General: no pedal edema, no calf tenderness and other (R ankle splint in place) Psych Speech and Movement: speech and movement normal Affect: normal affect Attitude: cooperative Insight: poor Objective Objective Clinical Data: Abnormal lab results 02/04/20 02/04/20 02/04/20 Range/Units 07:45 08:15 08:15 RBC 2.73 L (3.93-5.22) 10^6/uL Hgb 8.4 L (11.2-15.7) g/dL Hct 26.7 L (36.0-46.0) % MCV 97.8 H (80-95) fL MCHC 31.5 L (32.0-36.0) % RDW 15.9 H (11.7-14.6) % Absolute Lymphocytes 0.98 L (1.2-3.4) 10^3/uL ABG pH 7.32 L (7.35-7.45) ABG pO2 58 L (80-105) mmHg ABG HCO3 21 L (22-26) mmol/L ABG Total CO2 20 L (23-27) mmol/L ABG O2 Saturation 90 L (95-98) % ABG Base Excess -6 L (-2-3) mmol/L Chloride 113 H (98-107) mmol/L Calcium 7.7 L (8.5-10.1) mg/dL AST 53 H (15-37) U/L Total Protein 5.3 L (6.4-8.2) g/dL Albumin 2.3 L (3.4-5.0) g/dL Vital Signs Temperature 37.4 C 02/04/20 07:30 Temperature Source Temporal Artery Scan 02/04/20 07:30 Pulse 90 02/04/20 09:00 Pulse 82 02/04/20 11:00 Respiratory Rate 11 L 02/04/20 11:00 Respiratory Effort 02/04/20 08:04 Respiratory Depth Normal 02/04/20 07:30 Respiratory Pattern Normal 09/07/20 07:30 Blood Pressure 120/67 02/04/20 09:00 Blood Pressure Mean 77 02/04/20 09:00 Blood Pressure Position Supine 02/04/20 03:30 Pulse Oximetry 99 02/04/20 11:00 Respiratory End-tidal CO2 34 02/04/20 08:25 Oxygen Delivery Method Hi Flow System 02/04/20 10:04 Oxygen Flow Rate 50 02/04/20 10:04 Fraction of Inspired Oxygen (FIO2) 93 02/04/20 10:04 Intake & Output 02/03/20 02/03/20 02/04/20 11:59 23:59 11:59 Intake Total 1752.461 / 4141.457 2388.996 / 4141.457 3548.891 / 3548.891 Output Total 650 / 1475 825 / 1475 450 / 450 Balance 1102.461 / 2666.457 1563.996 / 2666.457 3098.891 / 3098.891 Intake: IV 1752.461 / 4141.457 2388.996 / 4141.457 1587.891 / 1587.891 Oral 1960 Output: Gastric Drainage 150 / 450 300 / 450 250 / 250 Oral 150 / 450 300 / 450 250 / 250 Urine 500 / 1025 525 / 1025 200 / 200 Other: Urine Color Yellow Light Andrez Light Andrez Urine Appearance Clear Sediment Sediment Comment trammell in place patent and draining; not emptied at this time trammell in place. Trammell in place, draining light andrez Gastric Occult Blood Oral Negative Negative Positive Laboratory Results WBC 5.42 10^3/uL (4.4-10.8) 02/04/20 08:15 RBC 2.73 10^6/uL (3.93-5.22) L 02/04/20 08:15 Hgb 8.4 g/dL (11.2-15.7) L 02/04/20 08:15 Hct 26.7 % (36.0-46.0) L 02/04/20 08:15 MCV 97.8 fL (80-95) H 02/04/20 08:15 MCH 30.8 pg (27.0-33.0) 02/04/20 08:15 MCHC 31.5 % (32.0-36.0) L 02/04/20 08:15 RDW 15.9 % (11.7-14.6) H 02/04/20 08:15 Plt Count 172 10^3/uL (130-400) 02/04/20 08:15 MPV 8.7 fL (8.0-11.0) 02/04/20 08:15 Immature Gran % 0.2 02/04/20 08:15 Neutrophils % 72.6 02/04/20 08:15 Lymphocytes % 18.1 02/04/20 08:15 Monocytes % 7.4 02/04/20 08:15 Eosinophils % 1.5 02/04/20 08:15 Basophils % 0.2 02/04/20 08:15 Nucleated RBC % 0 % 02/04/20 08:15 Absolute Neutrophils 3.94 10^3/uL (1.2-6.7) 02/04/20 08:15 Absolute Lymphocytes 0.98 10^3/uL (1.2-3.4) L 02/04/20 08:15 Absolute Monocytes 0.40 10^3/uL (0.1-0.8) 02/04/20 08:15 Absolute Eosinophils 0.08 10^3/uL (0.0-0.7) 02/04/20 08:15 Absolute Basophils 0.01 10^3/uL (0.0-0.2) 02/04/20 08:15 RBC Morphology See below 02/04/20 08:15 Polychromasia Present 02/04/20 08:15 Hypochromasia 2+ 02/04/20 08:15 ABG Sample Site Right radial 02/04/20 07:45 ABG pH 7.32 (7.35-7.45) L 02/04/20 07:45 ABG pCO2 40 mmHg (35-45) 02/04/20 07:45 ABG pO2 58 mmHg (80-105) L 02/04/20 07:45 ABG HCO3 21 mmol/L (22-26) L 02/04/20 07:45 ABG Total CO2 20 mmol/L (23-27) L 02/04/20 07:45 ABG O2 Saturation 90 % (95-98) L 02/04/20 07:45 ABG Base Excess -6 mmol/L (-2-3) L 09/07/20 07:45 VBG pH 7.16 (7.31-7.41) L* 02/02/20 18:20 VBG pCO2 50 mmHg (41-51) 02/02/20 18:20 VBG pO2 112 mmHg 02/02/20 18:20 VBG HCO3 18 mmol/L (23-28) L 02/02/20 18:20 VBG Total CO2 17 mmol/L (24-29) L 02/02/20 18:20 VBG O2 Saturation 97 % 02/02/20 18:20 VBG Base Excess -11 mmol/L (-2-3) L 02/02/20 18:20 VBG Lactate 1.3 mmol/L (0.6-1.4) 02/02/20 18:20 Oxygen Liter Flow Asv 100% 100 spont L 02/04/20 07:45 FiO2 35% 5 peep % 02/04/20 07:45 Sodium 143 mmol/L (136-145) 02/04/20 08:15 Potassium 3.5 mmol/L (3.5-5.1) 02/04/20 08:15 Chloride 113 mmol/L (98-107) H 02/04/20 08:15 Carbon Dioxide 21.1 mmol/L (21.0-32.0) 02/04/20 08:15 Anion Gap 8.9 mmol/L (3-11) 02/04/20 08:15 BUN 11 mg/dL (7-18) D 02/04/20 08:15 Creatinine 0.74 mg/dL (0.55-1.02) 02/04/20 08:15 Estimated GFR/1.73 m2 >= 60.00 (mL/min/1.73m2) 02/04/20 08:15 Glucose 91 mg/dL (74-106) 02/04/20 08:15 Calcium 7.7 mg/dL (8.5-10.1) L 02/04/20 08:15 Magnesium 2.1 mg/dL (1.8-2.4) 02/04/20 08:15 Total Bilirubin 0.4 mg/dL (0.2-1.0) 02/04/20 08:15 AST 53 U/L (15-37) H 02/04/20 08:15 ALT 58 U/L (14-59) 02/04/20 08:15 Alkaline Phosphatase 72 U/L (46-116) 02/04/20 08:15 Ammonia < 10 umol/L (11-32) L 02/02/20 18:20 Troponin I < 0.05 ng/mL (<0.06) 02/02/20 18:20 Total Protein 5.3 g/dL (6.4-8.2) L 02/04/20 08:15 Albumin 2.3 g/dL (3.4-5.0) L 02/04/20 08:15 Procalcitonin 0.1 ng/mL 02/03/20 10:45 Urine Color Yellow (Yellow) 02/02/20 19:24 Urine Clarity Clear (Clear) 02/02/20 19:24 Urine pH 5.5 (5-8) 02/02/20 19:24 Ur Specific Stratton 1.025 (1.005-1.025) 02/02/20 19:24 Urine Protein 30 mg/dL (Negative) H 02/02/20 19:24 Urine Ketones 40 mg/dL (Negative) H 02/02/20 19:24 Urine Blood Trace-lysed (Negative) H 02/02/20 19:24 Urine Nitrite Negative (Negative) 02/02/20 19:24 Urine Bilirubin Small (Negative) H 02/02/20 19:24 Urine Urobilinogen 0.2 EU/dL (Up TO 0.2) 02/02/20 19:24 Ur Leukocyte Esterase Negative (Negative) 02/02/20 19:24 Urine RBC 3-5 HPF (0-2) H 02/02/20 19:24 Urine WBC 3-5 HPF (0-5) 02/02/20 19:24 Ur Epithelial Cells Few HPF (Negative) 02/02/20 19:24 Urine Crystals Negative HPF (Negative) 02/02/20 19:24 Urine Bacteria Negative HPF (Negative) 02/02/20 19:24 Urine Casts 0-2 hyaline LPF (Negative) 02/02/20 19:24 Urine Mucus Negative (Negative) 02/02/20 19:24 Ur Culture Indicated? No 02/02/20 19:24 Urine Glucose Negative mg/dL (Negative) 02/02/20 19:24 Salicylates < 2.8 mg/dL (2.8-20.0) 02/02/20 18:23 Urine Opiates Screen Negative (Negative) 02/02/20 19:24 Urine Methadone Screen Negative (Negative) 02/02/20 19:24 Acetaminophen < 2 ug/mL (10-30) 02/02/20 18:23 Ur Barbiturates Screen Negative (Negative) 02/02/20 19:24 Ur Tricyclics Screen Negative (Negative) 02/02/20 19:24 Ur Amphetamines Screen Positive (Negative) A 02/02/20 19:24 U Benzodiazepines Scrn Positive (Negative) A 02/02/20 19:24 Urine Cocaine Screen Negative (Negative) 02/02/20 19:24 Ur THC Screen Negative (Negative) 02/02/20 19:24 Ethyl Alcohol < 3.0 mg/dL (<3) 02/02/20 18:20 COVID-19 PCR Negative (Negative) 02/02/20 21:30 Nasopharyn COVID-19 PCR Not Applicable 02/02/20 21:30 Ref Test Perform Site [facility] 02/02/20 21:30
[2020-02-04] MEDS: Polyethylene Glycol 3350 17 GM PACKET PO (12:04)
--- NOTE | 2020-02-04 12:11 | DI.VRAD_ITS ---
PROCEDURE INFORMATION: Exam: XR Chest, 1 View Exam date and time: 02/04/2020 11:27 AM Age: 40 years old Clinical indication: Other: ? Aspitation S/P extubation TECHNIQUE: Imaging protocol: XR of the chest Views: 1 view. COMPARISON: CR XR PORTABLE CHEST AP POST LINE 02/02/2020 8:18 PM FINDINGS: Lungs: T residual right lower lobe subsegmental atelectasis, otherwise, the lungs are clear. Pleural space: Normal. Heart/Mediastinum: Normal heart and cardiomediastinal silhouette. Vasculature: Normal pulmonary vessel caliber. Normal aorta. Bones/joints: The bones are intact. IMPRESSION: No acute disease or suspicious finding. Dictated and Authenticated by: Deonte Wilson MD. Ordering:JUDI Mojica MD
--- NOTE | 2020-02-04 15:16 | PDOC.CMSAFE ---
- If Service Date Differs Date of service: 02/04/20 Time of Service: 15:16
--- NOTE | 2020-02-04 15:29 | CMSP_ITS ---
- If Service Date Differs Date of service: 02/04/20 Time of Service: 15:29 Care Management Safety Plan Maria C is a 40 year old woman admitted to [facility] on 02/03/20 with AMS who was intubated in the ED for airway protection. Maria C has a history of prior illicit drug use, alcohol abuse, seizure disorder, depression, anxiety, and prior suicidal attempt. She is about 4 months post and was drinking alcohol both during and post-, per her SO Stoney. Per her sister , she may also have intentionally taken the contents of 90 Gabapentin capsules. She remains in the ICU and will be evaluated by mental Health screener when medically cleared. She was extubated this morning and is alert and talking with staff. If screener deems patient meets criteria for psychiatric stabilization CM will facilitate interdepartmental huddle with [facility] screener for safety planning co nsiderations and meet with patient to review [facility] policy and safety plan, establish individual wishes for treatment and maintain patient rights. In the interim; please note safety plan below to guide patient care while awaiting further assessment in the ICU. SAFETY PLAN: 1. Will remain on suicide precautions and in paper clothes. 2. Will remain in room under direct supervision of one-on-one staff at all times provided by CLAUDIA, [employer]BI[employer] SALESPERSON director of quality control. 3. May have paper cups, plates, finger foods as well as a cardboard spoon with which to eat meals. 4. Follow [facility] Management of the Admitted Behavioral Health Patient policy. 5. Comfort bath system only. 6. No personal belongings 7. No visitors. 8. Phone contact limited to legal medical detail representative at this time. 9. Due to VOLUNTARY status, if patient wishes to leave [facility], the [facility] public health worker must be contacted to re-evaluate patient prior to patient exiting the building. If deemed appropriate for inpatient psychiatric care, safety plan will be established with patient, and care team, to adhere to patient goals, identify restrictions based on behavioral status, address nutrition, and determine allowed personal belongings, tools for hygiene and personal care. As well plan will determine level of activity including ambulation, level of supervision, visitors, and determine privileges based on level of acuity, behaviors and level of engagement by patient.
--- NOTE | 2020-02-04 15:30 | NUR.NOTE ---
RN in room with pt when room phone rings, pt states loudly, give me the phone - give me the phone - I want to talk to him. Phone handed to pt as no current care plan in place. CM called by RN to report issue and relayed that pt asks if she can have visitors. CM reports she cannot and that she should not have a phone in room and that a Safety Plan is almost complete. Access called to report direct call to room but they report the call did not come thru them and must have been direct dialed. Phone and all personal belongings assembled on metal cart from room and removed from room as pt hung up phone. Pt appears to not have notice the removal of phone as she makes no statement during process. RN reports to pt during call that she can not have visitors at this time Pt repeats statement to person on phone but makes not remark to RN and did not appear, nor sound, distressed as she receives information and shares it with person on phone. CM has just arrived to visit pt and is in room at this time. Nursing Note
--- NOTE | 2020-02-04 16:59 | RESPIRATORY ---
Pt extubated 02/04/20, transitioned to airvo 60LPM @ 95% o2. Titrated down t/o day and is not maintaining sp02>90 on hfnc 10LPM. Pt is continuously removing o2 and desatting to mid 70's on RA
--- NOTE | 2020-02-04 17:52 | NUR.NOTE ---
PT seen by ortho. Ortho reports he is going down to get supplies to redress the ankle. As he leaves, pt yells at RN see you should listen to me! I could have lost my foot, you didn't listen to me! attempted to orient pt to sequence of her report and rn calling hospitalist in and hospitalist paging for ortho, but pt conts to yell that RN didnt listen. RN restates that ortho will be back up in a few mins and will redress to help ankle heal. Asked if pt needed anything, pt cont to ramble accusations. RN asked if pt could safely hole her foot on bed (it is up on pillow) pt tells rn no you hold it up for me! rt lower side rail raised to protect leg/ankle from rolling off pillow and rn walks to desk. Pt yells at rn desk to stop talking about her. other RN had been speaking with FLATWORK FEEDER. rn attempted to reassure that other 2 nurses were talking about other pt but pt agrees she understands oh im so sorry, i thought you were talking about me. but laughs while explaining this but within a min, yells out I know you are talking about me! stop it! RN goes into pt rm to reassure pt and pt again agrees that she understands now that they were talking about someone else and apologies for yelling. Pt continues You should have listen to me - I don't like to not be listened to! -pt reassured that staff care and will respond to her statements. 15mins later pt yelling out, Im so sorry! Im sorry, I shouldn't have yelled at you
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
[2020-02-04] MEDS: LORazepam 2 MG/ML VIAL 1 MG IVP (18:49)
[2020-02-04] MEDS: Enoxaparin 40 MG/0.4 ML SYR SC (22:09)
[2020-02-04] MEDS: Pantoprazole 40 MG VIAL IVP (22:09)
[2020-02-05] VITALS (49 sets, daily range): BP systolic 106–142; BP diastolic 65–84; PULSE 57–87; RESP 6–25; TEMP 36.4–36.9; O2SAT 87–97
[2020-02-05] MEDS: AMPICILLIN/SULBACTAM 3 GM in Normal Saline 100 ML IVPB ×2 (03:42→10:20)
[2020-02-05] MEDS: Ketorolac 30 MG/ML VIAL IVP ×2 (03:42→18:34)
[2020-02-05] MEDS: LORazepam 2 MG/ML VIAL 1 MG IVP ×2 (03:48→13:16)
[2020-02-05 06:59] LABS: Abs Immature Grans 0.02 10^3/uL (0.0-0.06); Absolute Basophil Count 0.02 10^3/uL (0.0-0.2); Absolute Eosinophil Count 0.37 10^3/uL (0.0-0.7); Absolute Lymphocyte Count 0.91 10^3/uL (1.2-3.4); Absolute Monocyte Count 0.48 10^3/uL (0.1-0.8); Absolute Neutrophil Count 3.71 10^3/uL (1.2-6.7); Basophils % 0.4; Eosinophils % 6.7; HCT 27.1 % (36.0-46.0); HGB 8.9 g/dL (11.2-15.7); Immature Grans % 0.4; Lymphocytes % 16.5; MCH 30.5 pg (27.0-33.0); MCHC 32.8 % (32.0-36.0); MCV 92.8 fL (80-95); MPV 8.9 fL (8.0-11.0); Monocytes % 8.7; Neutrophils % 67.3; Nucleated RBC 0 %; Platelet Count 212 10^3/uL (130-400); RBC 2.92 10^6/uL (3.93-5.22); RDW-SD 50.9 fL; WBC 5.51 10^3/uL (4.4-10.8)
[2020-02-05 07:44] LABS: Diff Comment Diff Reviewed; Hypochromasia 1+
--- NOTE | 2020-02-05 09:41 | PDOC.CMPRO ---
- If Service Date Differs Date of service: 02/05/20 Time of Service: 09:41 Care Management Progress Note S/O: Keyanna is currently in the ICU, she denies substance use or alcohol use, she denies SI. Keyanna is not able to make good eye contact, she often looks away or down when talking with the CM. CM did get a call from her significant other who is not willing to let her back into the home unless or around the children unless she receives services. Mental health met with Keyanna, she was able to meet with her therapist, DENICE over the phone who recommends restarting her Seroquel to 200 mg at hs. She states Keyanna has a long history of bipolar and she is concerned about pp depression. Keyanna will need surgery on her ankle, she states she is not able to return home until she is stable and able to care for herself. A: Keyanna is a 40 year old female admitted with altered mental status of unknown etiology possible related to alcohol withdrawal and Gabapentin overdose. She also has a fracture of her right ankle.Keyanna has a long history of alcohol use and dependency. Keyanna has two young children is 5 weeks old and her other child 11 months old. She does have a significant other Sotney who is caring for both of the children at this time. P: Disposition to be determined Mental Health evaluation today per report she is not suicidal or homicidal safety plan and CPSO discontinued. She does need surgical intervention on her right ankle. Disposition to be determined she is not able to return home in her current condition and does not have a care provider. She may need to transition to 1 here while awaiting surgical repair of her right ankle. She would need to transition back to acute for her surgery. CM to continue to coordinate disposition and services for discharge. [facility] report number is [id number] - EMRE has notified Keyanna of the DCF report as well as her significant other Stoney Miranda.
--- NOTE | 2020-02-05 10:28 | NUR.NOTE ---
Patient has a preference of going to [facility]. RN speaks to patient at length about her diet. RN calls dietary and speaks with said department about need for patient to be able to eat the kind of food she would like to eat which is exclusively organic. Dietary informs RN that is a menu can be obtained from patient, dietary will go out to get her the food she can eat. Patient will contemplate what she would like to order. Patient informs RN that she will eat her organic hamburger which is in the unit refrigerator at lunch time.Nursing Note:
--- NOTE | 2020-02-05 12:05 | PDOC.MHCN_ITS ---
Date of service: 02/05/20 Time of Service: 09:15 Mental Health Crisis Note Presenting Issue How did you arrive at the ED and why did you come: Client arrived to ED via ambulance Precipitating Factors Client denied SI/HI. Disposition BEHAVIOR: Client presented as cooperative and affable EYE CONTACT: Client maintained appropriate eye contact MOOD: Client presented with euthymic mood AFFECT: Client presented with full affect APPETITE: Client reported she has good appetite SLEEP(trouble falling/staying asleep: Client reported no sleep disturbance Plan Client stated she needs an appointment with her therapist / psychiatrist. [facility] Care Management will set up an appointment for client. Client is to remain at [facility] until a suitable discharge date has been set. Signature Clinician's Name/Title: Fiona Motley Emergency Services Clinician.
--- NOTE | 2020-02-05 12:56 | W.NUTRFU ---
Date of service: 02/05/20 Time of Service: 12:56 Nutritional Follow up NOTE: 40 year old female admitted with AMS, was intubated, and successfully extubated, following regular diet with excellent intake (>75%). PMH: depression, ETOH abuse. BMI 38 indicates class 2 obesity. Not at risk for nutritional decline at this time. Time Spent in Nutritional Counseling and Treatment: 0 time spent face to face
--- NOTE | 2020-02-05 14:14 | PDOC.MHCN ---
Date of service: 02/05/20 Time of Service: 09:15 Mental Health Crisis Note Presenting Issue How did you arrive at the ED and why did you come: Client arrived to ED via ambulance Precipitating Factors Client denied any SI/HI Disposition BEHAVIOR: Client presented as cooperative and affable EYE CONTACT: Client maintained minimal eye contact MOOD: Client presented with euthymic mood especially when talking about her children and partner. AFFECT: Client presented with full affect when talking about her children and partner. Otherwise client presented with restricted affect. APPETITE: Client stated she has good appetite SLEEP(trouble falling/staying asleep: Client did not report any problem falling and/or staying asleep Plan Client has been cleared by Emergency Services and a safety plan has been made with client as well as [facility] Care Managers. Client requested to have an appointment with her therapist / psychiatrist. [facility] [employer] would set up up psych appointment for client. Client will remain at [facility] till she is medically cleared due to her broken ankle. Signature Clinician's Name/Title: Fiona Motley Emergency Services Clinician.
[2020-02-05] MEDS: Normal Saline 500 ML IV (14:51)
--- NOTE | 2020-02-05 15:16 | PGE_ITS ---
Date of Service Date of service: 02/05/20 Time of Service: 15:18 Assessment and Plan Assessment and plan (1) Urinary retention: Status: Acute Assessment and plan: Likely related to gabapentin overdose No c/o lower abd/pelvic pain. Monitor (2) Closed bimalleolar fracture of right ankle: Status: Acute Assessment and plan: In cast. No complaint of ill-fitting cast today. Qualifiers: Encounter type: subsequent encounter Fracture healing: with routine healing Qualified Code(s): S82.841D - Displaced bimalleolar fracture of right lower leg, subsequent encounter for closed fracture with routine healing (3) Transaminitis: Status: Acute Assessment and plan: Resolving Likely related to intermittent excessive Etoh intake. (4) Drug overdose: Status: Acute Assessment and plan: Pt denies. Emptied gabapentincapsules found in trash in her home. Mental health involved. Plans made to discharge home with support systems including obstetrical soc services involvement. Qualifiers: Encounter type: subsequent encounter Injury intent: undetermined intent Qualified Code(s): T50.904D - Poisoning by unspecified drugs, medicaments and biological substances, undetermined, subsequent encounter (5) Aspiration into airway: Status: Acute Assessment and plan: Procal was negative. WBC count initially 14.42 then normalized the following day. Likely aseptic pneumonitis. Stop antibiotics. (6) Bradycardia: Status: Acute Assessment and plan: Intermittent HR in the upper 40's last PM Likely related to gabapentin OD On telemetry. Subjective Subjective Patient reports: no new complaints Interval history since last seen: No c/o ankle pain this AM; last pain medication taken was last PM Intermittent cough. Denies SOA. No F/C. Denies SI She denies taking the gabapentin overdose or drinking alcohol. Exam Const General: cooperative and no acute distress Nutritional Appearance: obese Orientation: oriented to person and oriented to place Other: poor eye contact Eyes Sclera: sclerae normal Pupils: PERRL Resp Effort & Inspection: normal respiratory effort Auscultation: other (upper airway rhonchi. Lungs clear.) Cardio Rate: regular rate Rhythm: regular rhythm Heart Sounds: S1 normal and S2 normal GI Inspection: obesity Palpation: soft Auscultation: normal bowel sounds Extrem General: no clubbing, cyanosis or edema Psych Appearance: grossly normal Speech and Movement: speech and movement normal Affect: anxious affect Attitude: cooperative Objective Objective Clinical Data: Abnormal lab results 02/05/20 Range/Units 06:10 RBC 2.92 L (3.93-5.22) 10^6/uL Hgb 8.9 L (11.2-15.7) g/dL Hct 27.1 L (36.0-46.0) % RDW 15.0 H (11.7-14.6) % Absolute Lymphocytes 0.91 L (1.2-3.4) 10^3/uL Vital Signs Temperature 36.6 C 02/05/20 11:32 Temperature Source Temporal Artery Scan 02/05/20 11:32 Pulse 58 L 02/05/20 14:00 Pulse 60 02/05/20 14:00 Respiratory Rate 12 02/05/20 14:00 Respiratory Effort 02/05/20 11:32 Respiratory Depth Normal 02/05/20 11:32 Respiratory Pattern Normal 02/05/20 11:32 Blood Pressure 140/70 02/05/20 14:00 Blood Pressure Mean 87 02/05/20 14:00 Blood Pressure Position Supine 02/05/20 11:32 Pulse Oximetry 92 L 02/05/20 14:42 Respiratory End-tidal CO2 34 02/04/20 08:25 Oxygen Delivery Method Room Air 02/05/20 14:42 Oxygen Flow Rate 0 02/05/20 14:42 Fraction of Inspired Oxygen (FIO2) 60 02/04/20 16:19 Pain Level 4 02/05/20 12:55 Intake & Output 02/04/20 02/05/20 02/05/20 23:59 11:59 23:59 Intake Total 1314 / 4992.891 220 / 320 100 / 320 Output Total 175 / 625 150 / 275 125 / 275 Balance 1139 / 4367.891 70 / 45 -25 / 45 Intake: IV 340 / 2057.891 100 / 200 100 / 200 Oral 974 / 2935 120 / 120 Output: Urine 175 / 375 150 / 275 125 / 275 Other: Urine Color Dark Zuleika Dark Zuleika Dark [place] Urine Appearance Cloudy Clear Urine Odor Strong Strong Strong Comment reported 1st void after dc trammell on day shift was dark with strong smell, pt hasnt has 2nd void yet Pt has not voided on day shift, bladder scan shows 670cc Voiding Methods Bedpan Bedside Commode Laboratory Results WBC 5.51 10^3/uL (4.4-10.8) 02/05/20 06:10 RBC 2.92 10^6/uL (3.93-5.22) L 02/05/20 06:10 Hgb 8.9 g/dL (11.2-15.7) L 02/05/20 06:10 Hct 27.1 % (36.0-46.0) L 02/05/20 06:10 MCV 92.8 fL (80-95) D 02/05/20 06:10 MCH 30.5 pg (27.0-33.0) 02/05/20 06:10 MCHC 32.8 % (32.0-36.0) 02/05/20 06:10 RDW 15.0 % (11.7-14.6) H 02/05/20 06:10 Plt Count 212 10^3/uL (130-400) 02/05/20 06:10 MPV 8.9 fL (8.0-11.0) 02/05/20 06:10 Immature Gran % 0.4 02/05/20 06:10 Neutrophils % 67.3 02/05/20 06:10 Lymphocytes % 16.5 02/05/20 06:10 Monocytes % 8.7 02/05/20 06:10 Eosinophils % 6.7 02/05/20 06:10 Basophils % 0.4 02/05/20 06:10 Nucleated RBC % 0 % 02/05/20 06:10 Absolute Neutrophils 3.71 10^3/uL (1.2-6.7) 02/05/20 06:10 Absolute Lymphocytes 0.91 10^3/uL (1.2-3.4) L 02/05/20 06:10 Absolute Monocytes 0.48 10^3/uL (0.1-0.8) 02/05/20 06:10 Absolute Eosinophils 0.37 10^3/uL (0.0-0.7) 02/05/20 06:10 Absolute Basophils 0.02 10^3/uL (0.0-0.2) 02/05/20 06:10 RBC Morphology See below 02/05/20 06:10 Polychromasia Present 02/04/20 08:15 Hypochromasia 1+ 02/05/20 06:10 ABG Sample Site Right radial 02/04/20 07:45 ABG pH 7.32 (7.35-7.45) L 02/04/20 07:45 ABG pCO2 40 mmHg (35-45) 02/04/20 07:45 ABG pO2 58 mmHg (80-105) L 02/04/20 07:45 ABG HCO3 21 mmol/L (22-26) L 02/04/20 07:45 ABG Total CO2 20 mmol/L (23-27) L 02/04/20 07:45 ABG O2 Saturation 90 % (95-98) L 02/04/20 07:45 ABG Base Excess -6 mmol/L (-2-3) L 02/04/20 07:45 VBG pH 7.16 (7.31-7.41) L* 02/02/20 18:20 VBG pCO2 50 mmHg (41-51) 02/02/20 18:20 VBG pO2 112 mmHg 02/02/20 18:20 VBG HCO3 18 mmol/L (23-28) L 02/02/20 18:20 VBG Total CO2 17 mmol/L (24-29) L 02/02/20 18:20 VBG O2 Saturation 97 % 02/02/20 18:20 VBG Base Excess -11 mmol/L (-2-3) L 02/02/20 18:20 VBG Lactate 1.3 mmol/L (0.6-1.4) 02/02/20 18:20 Oxygen Liter Flow Asv 100% 100 spont L 02/04/20 07:45 FiO2 35% 5 peep % 02/04/20 07:45 Sodium 143 mmol/L (136-145) 02/04/20 08:15 Potassium 3.5 mmol/L (3.5-5.1) 02/04/20 08:15 Chloride 113 mmol/L (98-107) H 02/04/20 08:15 Carbon Dioxide 21.1 mmol/L (21.0-32.0) 02/04/20 08:15 Anion Gap 8.9 mmol/L (3-11) 02/04/20 08:15 BUN 11 mg/dL (7-18) D 02/04/20 08:15 Creatinine 0.74 mg/dL (0.55-1.02) 02/04/20 08:15 Estimated GFR/1.73 m2 >= 60.00 (mL/min/1.73m2) 02/04/20 08:15 Glucose 91 mg/dL (74-106) 02/04/20 08:15 Calcium 7.7 mg/dL (8.5-10.1) L 02/04/20 08:15 Magnesium 2.1 mg/dL (1.8-2.4) 02/04/20 08:15 Total Bilirubin 0.4 mg/dL (0.2-1.0) 02/04/20 08:15 AST 53 U/L (15-37) H 02/04/20 08:15 ALT 58 U/L (14-59) 02/04/20 08:15 Alkaline Phosphatase 72 U/L (46-116) 02/04/20 08:15 Ammonia < 10 umol/L (11-32) L 02/02/20 18:20 Troponin I < 0.05 ng/mL (<0.06) 02/02/20 18:20 Total Protein 5.3 g/dL (6.4-8.2) L 02/04/20 08:15 Albumin 2.3 g/dL (3.4-5.0) L 02/04/20 08:15 Procalcitonin 0.1 ng/mL 02/03/20 10:45 Urine Color Yellow (Yellow) 02/02/20 19:24 Urine Clarity Clear (Clear) 02/02/20 19:24 Urine pH 5.5 (5-8) 02/02/20 19:24 Ur Specific [place] 1.025 (1.005-1.025) 02/02/20 19:24 Urine Protein 30 mg/dL (Negative) H 02/02/20 19:24 Urine Ketones 40 mg/dL (Negative) H 02/02/20 19:24 Urine Blood Trace-lysed (Negative) H 02/02/20 19:24 Urine Nitrite Negative (Negative) 02/02/20 19:24 Urine Bilirubin Small (Negative) H 02/02/20 19:24 Urine Urobilinogen 0.2 EU/dL (Up TO 0.2) 02/02/20 19:24 Ur Leukocyte Esterase Negative (Negative) 02/02/20 19:24 Urine RBC 3-5 HPF (0-2) H 02/02/20 19:24 Urine WBC 3-5 HPF (0-5) 02/02/20 19:24 Ur Epithelial Cells Few HPF (Negative) 02/02/20 19:24 Urine Crystals Negative HPF (Negative) 02/02/20 19:24 Urine Bacteria Negative HPF (Negative) 02/02/20 19:24 Urine Casts 0-2 hyaline LPF (Negative) 02/02/20 19:24 Urine Mucus Negative (Negative) 02/02/20 19:24 Ur Culture Indicated? No 02/02/20 19:24 Urine Glucose Negative mg/dL (Negative) 02/02/20 19:24 Salicylates < 2.8 mg/dL (2.8-20.0) 02/02/20 18:23 Urine Opiates Screen Negative (Negative) 02/02/20 19:24 Urine Methadone Screen Negative (Negative) 02/02/20 19:24 Acetaminophen < 2 ug/mL (10-30) 02/02/20 18:23 Ur Barbiturates Screen Negative (Negative) 02/02/20 19:24 Ur Tricyclics Screen Negative (Negative) 02/02/20 19:24 Ur Amphetamines Screen Positive (Negative) A 02/02/20 19:24 U Benzodiazepines Scrn Positive (Negative) A 02/02/20 19:24 Urine Cocaine Screen Negative (Negative) 02/02/20 19:24 Ur THC Screen Negative (Negative) 02/02/20 19:24 Ethyl Alcohol < 3.0 mg/dL (<3) 02/02/20 18:20 COVID-19 PCR Negative (Negative) 02/02/20 21:30 Nasopharyn COVID-19 PCR Not Applicable 02/02/20 21:30 Ref Test Perform Site [facility] lab 02/02/20 21:30
[2020-02-05] MEDS: Normal Saline Flush 10 ML SYR IVP (18:39)
[2020-02-05] MEDS: Enoxaparin 40 MG/0.4 ML SYR SC (22:55)
[2020-02-05] MEDS: Pantoprazole 40 MG VIAL IVP (22:55)
[2020-02-05] MEDS: QUEtiapine 100 MG TAB 200 MG PO (22:56)
[2020-02-06] VITALS (10 sets, daily range): BP systolic 137–177; BP diastolic 86–108; PULSE 65–97; RESP 17–20; TEMP 36.3–36.9; O2SAT 86–98
--- NOTE | 2020-02-06 06:20 | NUR.NOTE ---
Nursing Note: Pt received from ICU staff at 2330 hrs. transferred to Rm 210., AO x 3. with O2 regulated at 2 L/NC. Refused SCD. Right Leg w/drsg ,angely wrapped which is C/D/I. Continue to monitor.
[2020-02-06 07:09] LABS: Abs Immature Grans 0.02 10^3/uL (0.0-0.06); Absolute Basophil Count 0.03 10^3/uL (0.0-0.2); Absolute Eosinophil Count 0.48 10^3/uL (0.0-0.7); Absolute Monocyte Count 0.64 10^3/uL (0.1-0.8); Basophils % 0.5; Eosinophils % 8.6; HGB 9.3 g/dL (11.2-15.7); Immature Grans % 0.4; Lymphocytes % 23.3; MCH 30.2 pg (27.0-33.0); MCHC 32.1 % (32.0-36.0); MCV 94.2 fL (80-95); MPV 8.9 fL (8.0-11.0); Monocytes % 11.5; Neutrophils % 55.7; Nucleated RBC 0 %; Platelet Count 256 10^3/uL (130-400); RBC 3.08 10^6/uL (3.93-5.22); RDW-SD 51.8 fL; WBC 5.57 10^3/uL (4.4-10.8)
[2020-02-06] MEDS: Ketorolac 30 MG/ML VIAL IVP ×2 (11:15→19:25)
[2020-02-06] MEDS: Normal Saline Flush 10 ML SYR IVP ×3 (13:19→21:18)
[2020-02-06] MEDS: LORazepam 2 MG/ML VIAL 1 MG IVP ×2 (13:19→19:24)
--- NOTE | 2020-02-06 13:32 | W.PM.PROGNOT ---
Date of Service Date of service: 02/06/20 Time of Service: 10:32 Assessment and Plan Assessment and plan (1) Bradycardia: Status: Acute Assessment and plan: No documentation of bradycardia last PM This was likely the result of the gabapentin OD (2) Urinary retention: Status: Acute Assessment and plan: Resolving. Like the result of the gabapentin OD (3) Closed bimalleolar fracture of right ankle: Status: Acute Assessment and plan: Discussed with Dr. Velazquez today. They will evaluate the skin of the R ankle tomorrow evening; had large hemorrhagic blisters at the site. If skin is not too compromised, fracture repair will ensue on Tuesday. If the skin is not adequately healed to allow for surgery, it will be postponed to possibly next . Qualifiers: Encounter type: subsequent encounter Fracture healing: with routine healing Qualified Code(s): S82.841D - Displaced bimalleolar fracture of right lower leg, subsequent encounter for closed fracture with routine healing (4) Drug overdose: Status: Acute Assessment and plan: Longstanding depression and Etoh abuse Pt continues to deny overdosing on gabapentin or excessive Etoh intake. Her mental health worker suggest increasing Seroquel to 200mg po QHs; this was initiated last PM Qualifiers: Encounter type: subsequent encounter Injury intent: undetermined intent Qualified Code(s): T50.904D - Poisoning by unspecified drugs, medicaments and biological substances, undetermined, subsequent encounter (5) Discharge planning issues: Status: Acute Assessment and plan: If surgery for ankle fx is not able to occur on Tuesday will change to swingbed status until able to undergo procedure. Longer term plan is home with services when she is stable. Subjective Subjective Patient reports: no new complaints and feels better Interval history since last seen: Ankle fracture/dislocation pain controlled. Intermittent harsh cough. Nonproductive. No F/C. Improvement in urinary retention. Exam Const General: cooperative and no acute distress Nutritional Appearance: obese Orientation: alert and oriented x3 Resp Effort & Inspection: normal respiratory effort Auscultation: clear to auscultation bilaterally Cardio Rate: regular rate Rhythm: regular rhythm Heart Sounds: S1 normal and S2 normal Extrem General: no clubbing, cyanosis or edema Right lower extremity: foot (short leg cast in place.) Psych Appearance: grossly normal Mental Status: mental status grossly normal Speech and Movement: speech and movement normal Mood: congruent mood Objective Objective Clinical Data: Abnormal lab results 02/06/20 Range/Units 06:00 RBC 3.08 L (3.93-5.22) 10^6/uL Hgb 9.3 L (11.2-15.7) g/dL Hct 29.0 L (36.0-46.0) % RDW 15.0 H (11.7-14.6) % Vital Signs Temperature 36.4 C L 02/06/20 11:33 Temperature Source Tympanic 02/06/20 11:33 Pulse 65 02/06/20 11:33 Pulse 68 02/05/20 23:30 Respiratory Rate 20 02/06/20 11:33 Respiratory Effort 02/06/20 00:59 Respiratory Depth Normal 02/06/20 00:59 Respiratory Pattern Normal 02/06/20 00:59 Blood Pressure 155/94 H 02/06/20 11:33 Blood Pressure Mean 97 02/05/20 23:04 Blood Pressure Position Supine 02/05/20 11:32 Pulse Oximetry 95 02/06/20 11:33 Respiratory End-tidal CO2 34 02/04/20 08:25 Oxygen Delivery Method Nasal Cannula 02/06/20 11:33 Oxygen Flow Rate 2 02/06/20 11:33 Fraction of Inspired Oxygen (FIO2) 60 02/04/20 16:19 Pain Level 5 02/06/20 11:15 Comment 02/06/20 03:10 Intake & Output 02/05/20 02/06/20 02/06/20 23:59 11:59 23:59 Intake Total 920 / 1140 Output Total 775 / 925 200 / 200 Balance 145 / 215 -200 / -200 Weight 110 kg Intake: IV 620 / 720 Oral 300 / 420 Output: Urine 775 / 925 200 / 200 Other: Urine Color Dark Zuleika Yellow [place] Urine Appearance Cloudy Clear Urine Odor Strong Strong Comment Pt has very strong smelling urine. Dr. Valerio is aware of retention and states to not straight cath unless the patient has abd pain or firmness. Urine mixed with stool. Stool Size Moderate Stool Characteristics Formed Voiding Methods Bedside Commode Bedside Commode Laboratory Results WBC 5.57 10^3/uL (4.4-10.8) 02/06/20 06:00 RBC 3.08 10^6/uL (3.93-5.22) L 02/06/20 06:00 Hgb 9.3 g/dL (11.2-15.7) L 02/06/20 06:00 Hct 29.0 % (36.0-46.0) L 02/06/20 06:00 MCV 94.2 fL (80-95) 02/06/20 06:00 MCH 30.2 pg (27.0-33.0) 02/06/20 06:00 MCHC 32.1 % (32.0-36.0) 02/06/20 06:00 RDW 15.0 % (11.7-14.6) H 02/06/20 06:00 Plt Count 256 10^3/uL (130-400) 02/06/20 06:00 MPV 8.9 fL (8.0-11.0) 02/06/20 06:00 Immature Gran % 0.4 02/06/20 06:00 Neutrophils % 55.7 02/06/20 06:00 Lymphocytes % 23.3 02/06/20 06:00 Monocytes % 11.5 02/06/20 06:00 Eosinophils % 8.6 02/06/20 06:00 Basophils % 0.5 02/06/20 06:00 Nucleated RBC % 0 % 02/06/20 06:00 Absolute Neutrophils 3.10 10^3/uL (1.2-6.7) 02/06/20 06:00 Absolute Lymphocytes 1.30 10^3/uL (1.2-3.4) 02/06/20 06:00 Absolute Monocytes 0.64 10^3/uL (0.1-0.8) 02/06/20 06:00 Absolute Eosinophils 0.48 10^3/uL (0.0-0.7) 02/06/20 06:00 Absolute Basophils 0.03 10^3/uL (0.0-0.2) 02/06/20 06:00 RBC Morphology See below 02/05/20 06:10 Polychromasia Present 02/04/20 08:15 Hypochromasia 1+ 02/05/20 06:10 ABG Sample Site Right radial 02/04/20 07:45 ABG pH 7.32 (7.35-7.45) L 02/04/20 07:45 ABG pCO2 40 mmHg (35-45) 02/04/20 07:45 ABG pO2 58 mmHg (80-105) L 02/04/20 07:45 ABG HCO3 21 mmol/L (22-26) L 02/04/20 07:45 ABG Total CO2 20 mmol/L (23-27) L 02/04/20 07:45 ABG O2 Saturation 90 % (95-98) L 02/04/20 07:45 ABG Base Excess -6 mmol/L (-2-3) L 02/04/20 07:45 VBG pH 7.16 (7.31-7.41) L* 02/02/20 18:20 VBG pCO2 50 mmHg (41-51) 02/02/20 18:20 VBG pO2 112 mmHg 02/02/20 18:20 VBG HCO3 18 mmol/L (23-28) L 02/02/20 18:20 VBG Total CO2 17 mmol/L (24-29) L 02/02/20 18:20 VBG O2 Saturation 97 % 02/02/20 18:20 VBG Base Excess -11 mmol/L (-2-3) L 02/02/20 18:20 VBG Lactate 1.3 mmol/L (0.6-1.4) 02/02/20 18:20 Oxygen Liter Flow Asv 100% 100 spont L 02/04/20 07:45 FiO2 35% 5 peep % 02/04/20 07:45 Sodium 143 mmol/L (136-145) 02/04/20 08:15 Potassium 3.5 mmol/L (3.5-5.1) 02/04/20 08:15 Chloride 113 mmol/L (98-107) H 02/04/20 08:15 Carbon Dioxide 21.1 mmol/L (21.0-32.0) 02/04/20 08:15 Anion Gap 8.9 mmol/L (3-11) 02/04/20 08:15 BUN 11 mg/dL (7-18) D 02/04/20 08:15 Creatinine 0.74 mg/dL (0.55-1.02) 02/04/20 08:15 Estimated GFR/1.73 m2 >= 60.00 (mL/min/1.73m2) 02/04/20 08:15 Glucose 91 mg/dL (74-106) 02/04/20 08:15 Calcium 7.7 mg/dL (8.5-10.1) L 02/04/20 08:15 Magnesium 2.1 mg/dL (1.8-2.4) 02/04/20 08:15 Total Bilirubin 0.4 mg/dL (0.2-1.0) 02/04/20 08:15 AST 53 U/L (15-37) H 02/04/20 08:15 ALT 58 U/L (14-59) 02/04/20 08:15 Alkaline Phosphatase 72 U/L (46-116) 02/04/20 08:15 Ammonia < 10 umol/L (11-32) L 02/02/20 18:20 Troponin I < 0.05 ng/mL (<0.06) 02/02/20 18:20 Total Protein 5.3 g/dL (6.4-8.2) L 02/04/20 08:15 Albumin 2.3 g/dL (3.4-5.0) L 02/04/20 08:15 Procalcitonin 0.1 ng/mL 02/03/20 10:45 Urine Color Yellow (Yellow) 02/02/20 19:24 Urine Clarity Clear (Clear) 02/02/20 19:24 Urine pH 5.5 (5-8) 02/02/20 19:24 Ur Specific [place] 1.025 (1.005-1.025) 02/02/20 19:24 Urine Protein 30 mg/dL (Negative) H 02/02/20 19:24 Urine Ketones 40 mg/dL (Negative) H 02/02/20 19:24 Urine Blood Trace-lysed (Negative) H 02/02/20 19:24 Urine Nitrite Negative (Negative) 02/02/20 19:24 Urine Bilirubin Small (Negative) H 02/02/20 19:24 Urine Urobilinogen 0.2 EU/dL (Up TO 0.2) 02/02/20 19:24 Ur Leukocyte Esterase Negative (Negative) 02/02/20 19:24 Urine RBC 3-5 HPF (0-2) H 02/02/20 19:24 Urine WBC 3-5 HPF (0-5) 02/02/20 19:24 Ur Epithelial Cells Few HPF (Negative) 02/02/20 19:24 Urine Crystals Negative HPF (Negative) 02/02/20 19:24 Urine Bacteria Negative HPF (Negative) 02/02/20 19:24 Urine Casts 0-2 hyaline LPF (Negative) 02/02/20 19:24 Urine Mucus Negative (Negative) 02/02/20 19:24 Ur Culture Indicated? No 02/02/20 19:24 Urine Glucose Negative mg/dL (Negative) 02/02/20 19:24 Salicylates < 2.8 mg/dL (2.8-20.0) 02/02/20 18:23 Urine Opiates Screen Negative (Negative) 02/02/20 19:24 Urine Methadone Screen Negative (Negative) 02/02/20 19:24 Acetaminophen < 2 ug/mL (10-30) 02/02/20 18:23 Ur Barbiturates Screen Negative (Negative) 02/02/20 19:24 Ur Tricyclics Screen Negative (Negative) 02/02/20 19:24 Ur Amphetamines Screen Positive (Negative) A 02/02/20 19:24 U Benzodiazepines Scrn Positive (Negative) A 02/02/20 19:24 Urine Cocaine Screen Negative (Negative) 02/02/20 19:24 Ur THC Screen Negative (Negative) 02/02/20 19:24 Ethyl Alcohol < 3.0 mg/dL (<3) 02/02/20 18:20 COVID-19 PCR Negative (Negative) 02/02/20 21:30 Nasopharyn COVID-19 PCR Not Applicable 02/02/20 21:30 Ref Test Perform Site [facility] lab 02/02/20 21:30
[2020-02-06] MEDS: amLODIPine 10 MG TAB PO (14:01)
--- NOTE | 2020-02-06 14:48 | NT_ITS ---
Date of service: 02/06/20 Time of Service: 15:48 PT Notes Visit Reasons: DRUG OD/AMS/VENTILATED Per chart review with Nurse Nat, patient has a pending ORIF with Dr. Urena as soon as swelling in R ankle/foot subsides. She states that patient has been managing well with bed to bedside commode transfers with non-weight bearing on the R LE. Referring MD Dr. Valerio was consulted and is in agreement of PT's plan to wait until after orthopedic surgery for PT evalaution. Dr. Valerio also clarified the WB precaution in a previously written orthopedic note. The patient was also seen and is amenable to waiting until after surgery before PT evalaution/skilling commences. She is aware of the benefit of elevating R feet as much as possible to manage the swelling. She also is aware of the weight-bearing precaution recommended to her initially. Will await another referral from orthopedic surgeon once ORIF procedure is done. Thank you for the opportunity to participate in the care of this patient. Janis Hernández PT, DPT, CLT [facility] [place], [place]
[2020-02-06] MEDS: Enoxaparin 40 MG/0.4 ML SYR SC (21:19)
[2020-02-06] MEDS: Pantoprazole 40 MG VIAL IVP (21:20)
[2020-02-06] MEDS: QUEtiapine 100 MG TAB 200 MG PO (22:53)
[2020-02-07] VITALS (9 sets, daily range): BP systolic 138–163; BP diastolic 86–114; PULSE 89–110; RESP 17–20; TEMP 36–37.1; O2SAT 96–99
[2020-02-07] MEDS: Normal Saline Flush 10 ML SYR IVP ×3 (03:42→21:59)
[2020-02-07] MEDS: Ketorolac 30 MG/ML VIAL IVP ×2 (03:43→16:45)
[2020-02-07] MEDS: LORazepam 2 MG/ML VIAL 1 MG IVP ×3 (07:20→21:58)
[2020-02-07] MEDS: Polyethylene Glycol 3350 17 GM PACKET PO (09:30)
[2020-02-07] MEDS: amLODIPine 10 MG TAB PO (09:30)
--- NOTE | 2020-02-07 09:49 | CMPROGNOTE_ITS ---
- If Service Date Differs Date of service: 02/07/20 Time of Service: 09:49 Care Management Progress Note S/O: Keyanna is alert and engaged with CM duringn assessment. She fully plans to return home after her surgery. She anticipate she will need a few days to recover here at [facility]. CM will arrange a telephone meeting between her, and Stoney to discuss recovery and plan for return home. Keyanna is having surgery on Tuesday. Equipment and home services to be determined post surgery. Keyanna is open with CM about her alcohol use she states that she has had some relapses but prides herself in entering back into recovery. She states she has a therapist in the community which she sees regularly, she reports having a head strength and conditioning coach. CM has offered to contact both for her to help with management. She states she has a follow up with Melony at [facility] medication management on the . CM will con tinue to provide support and assist with discharge needs and coordinate disposition. A: Keyanna is a 40 year old female admitted with altered mental status of unknown etiology possible related to alcohol withdrawal and Gabapentin overdose. She also has a fracture of her right ankle.Keyanna has a long history of alcohol use and dependency. Keyanna has two young children is 5 weeks old and her other child 11 months old. She does have a significant other Stoney who is caring for both of the children at this time. P: Keyanna remains acute, she will have surgical repair on right ankle on Tuesday anticipate discharge over the weekend depending recovery. DME to be determined. CM to continue to coordinate disposition and services for discharge. Transportation via [facility] vs friend or family. [facility] report number is [id number] - CM has notified Keyanna of the DCF report as well as her significant other Stoney Miranda.
--- NOTE | 2020-02-07 10:54 | W.PM.PROGNOT ---
Date of Service Date of service: 02/07/20 Time of Service: 10:55 Assessment and Plan Assessment and plan (1) Drug overdose: Status: Acute Assessment and plan: Recovering from sequalae of gabapentin OD Doing well Qualifiers: Encounter type: subsequent encounter Injury intent: undetermined intent Qualified Code(s): T50.904D - Poisoning by unspecified drugs, medicaments and biological substances, undetermined, subsequent encounter (2) Ankle fracture, right: Status: Acute Assessment and plan: Ortho is planning to evaluate skin overlying ankle later today to see if repair can proceed tomorrow. Cast in place No c/o uncontrolled pain. Qualifiers: Encounter type: initial encounter Fracture type: closed Qualified Code(s): S82.891A - Other fracture of right lower leg, initial encounter for closed fracture (3) Hypertension affecting : Status: Chronic Assessment and plan: BP still elevated Initiated amlodipine 10mg daily Monitor. (4) Depression: Status: Chronic Assessment and plan: Longstanding mental health disabilities / depression Likely now has an added componenet of post- depression Seroquel 100mg QHS Restart home Topamax. Qualifiers: Depression Type: major depressive disorder Major depression recurrence: recurrent Active/Remission status: remission status unspecified Qualified Code(s): F33.9 - Major depressive disorder, recurrent, unspecified Subjective Subjective Patient reports: feels better Interval history since last seen: C/O tongue pain; ulcers Appetite still blunted but no N/V/abd pain. No F/C, cough Exam Const General: cooperative and no acute distress Nutritional Appearance: obese Orientation: alert and oriented x3 HENMT Mouth: oral mucosae normal and tongue normal (No lesions appreciated.) Resp Effort & Inspection: normal respiratory effort Auscultation: clear to auscultation bilaterally Cardio Rate: regular rate Rhythm: regular rhythm Heart Sounds: S1 normal and S2 normal Extrem General: no clubbing, cyanosis or edema Psych Appearance: grossly normal Mental Status: mental status grossly normal Speech and Movement: speech and movement normal Mood: expansive Affect: animated Attitude: cooperative Objective Objective Clinical Data: Vital Signs Temperature 36.3 C L 02/07/20 07:15 Temperature Source Tympanic 02/07/20 07:15 Pulse 89 02/07/20 07:15 Pulse Rhythm Regular 02/06/20 23:50 Pulse 68 09/08/20 23:30 Respiratory Rate 18 02/07/20 07:15 Respiratory Effort 02/06/20 23:50 Respiratory Depth Normal 02/06/20 23:50 Respiratory Pattern Normal 02/06/20 23:50 Blood Pressure 153/100 H 02/07/20 07:15 Blood Pressure Mean 97 02/05/20 23:04 Blood Pressure Position Supine 02/05/20 11:32 Pulse Oximetry 99 02/07/20 07:15 Respiratory End-tidal CO2 34 02/04/20 08:25 Oxygen Delivery Method Room Air 02/07/20 07:15 Oxygen Flow Rate 0 02/07/20 07:15 Fraction of Inspired Oxygen (FIO2) 60 02/04/20 16:19 Pain Level 5 02/07/20 03:53 Comment 02/06/20 13:37 Intake & Output 02/06/20 02/06/20 02/07/20 11:59 23:59 11:59 Intake Total 240 / 450 210 / 450 Output Total 200 / 1750 1550 / 1750 800 / 800 Balance 40 / -1300 -1340 / -1300 -800 / -800 Weight 104 kg 103 kg Intake: IV Oral 240 / 440 200 / 440 Output: Urine 200 / 1750 1550 / 1750 800 / 800 Other: Urine Color Yellow Yellow Yellow [place] Urine Appearance Clear Clear Clear Urine Odor Strong Normal None Comment Urine mixed with stool. guestimate Stool Size Moderate Moderate Stool Characteristics Formed Soft Formed Brown Voiding Methods Bedside Commode Toilet Bedside Commode Laboratory Results WBC 5.57 10^3/uL (4.4-10.8) 02/06/20 06:00 RBC 3.08 10^6/uL (3.93-5.22) L 02/06/20 06:00 Hgb 9.3 g/dL (11.2-15.7) L 02/06/20 06:00 Hct 29.0 % (36.0-46.0) L 02/06/20 06:00 MCV 94.2 fL (80-95) 02/06/20 06:00 MCH 30.2 pg (27.0-33.0) 02/06/20 06:00 MCHC 32.1 % (32.0-36.0) 02/06/20 06:00 RDW 15.0 % (11.7-14.6) H 02/06/20 06:00 Plt Count 256 10^3/uL (130-400) 02/06/20 06:00 MPV 8.9 fL (8.0-11.0) 02/06/20 06:00 Immature Gran % 0.4 02/06/20 06:00 Neutrophils % 55.7 02/06/20 06:00 Lymphocytes % 23.3 02/06/20 06:00 Monocytes % 11.5 02/06/20 06:00 Eosinophils % 8.6 02/06/20 06:00 Basophils % 0.5 02/06/20 06:00 Nucleated RBC % 0 % 02/06/20 06:00 Absolute Neutrophils 3.10 10^3/uL (1.2-6.7) 02/06/20 06:00 Absolute Lymphocytes 1.30 10^3/uL (1.2-3.4) 02/06/20 06:00 Absolute Monocytes 0.64 10^3/uL (0.1-0.8) 02/06/20 06:00 Absolute Eosinophils 0.48 10^3/uL (0.0-0.7) 02/06/20 06:00 Absolute Basophils 0.03 10^3/uL (0.0-0.2) 02/06/20 06:00 RBC Morphology See below 02/05/20 06:10 Polychromasia Present 02/04/20 08:15 Hypochromasia 1+ 02/05/20 06:10 ABG Sample Site Right radial 02/04/20 07:45 ABG pH 7.32 (7.35-7.45) L 02/04/20 07:45 ABG pCO2 40 mmHg (35-45) 02/04/20 07:45 ABG pO2 58 mmHg (80-105) L 02/04/20 07:45 ABG HCO3 21 mmol/L (22-26) L 02/04/20 07:45 ABG Total CO2 20 mmol/L (23-27) L 02/04/20 07:45 ABG O2 Saturation 90 % (95-98) L 02/04/20 07:45 ABG Base Excess -6 mmol/L (-2-3) L 02/04/20 07:45 VBG pH 7.16 (7.31-7.41) L* 02/02/20 18:20 VBG pCO2 50 mmHg (41-51) 02/02/20 18:20 VBG pO2 112 mmHg 02/02/20 18:20 VBG HCO3 18 mmol/L (23-28) L 02/02/20 18:20 VBG Total CO2 17 mmol/L (24-29) L 02/02/20 18:20 VBG O2 Saturation 97 % 02/02/20 18:20 VBG Base Excess -11 mmol/L (-2-3) L 02/02/20 18:20 VBG Lactate 1.3 mmol/L (0.6-1.4) 02/02/20 18:20 Oxygen Liter Flow Asv 100% 100 spont L 02/04/20 07:45 FiO2 35% 5 peep % 02/04/20 07:45 Sodium 143 mmol/L (136-145) 02/04/20 08:15 Potassium 3.5 mmol/L (3.5-5.1) 02/04/20 08:15 Chloride 113 mmol/L (98-107) H 02/04/20 08:15 Carbon Dioxide 21.1 mmol/L (21.0-32.0) 02/04/20 08:15 Anion Gap 8.9 mmol/L (3-11) 02/04/20 08:15 BUN 11 mg/dL (7-18) D 02/04/20 08:15 Creatinine 0.74 mg/dL (0.55-1.02) 02/04/20 08:15 Estimated GFR/1.73 m2 >= 60.00 (mL/min/1.73m2) 02/04/20 08:15 Glucose 91 mg/dL (74-106) 02/04/20 08:15 Calcium 7.7 mg/dL (8.5-10.1) L 02/04/20 08:15 Magnesium 2.1 mg/dL (1.8-2.4) 02/04/20 08:15 Total Bilirubin 0.4 mg/dL (0.2-1.0) 02/04/20 08:15 AST 53 U/L (15-37) H 02/04/20 08:15 ALT 58 U/L (14-59) 02/04/20 08:15 Alkaline Phosphatase 72 U/L (46-116) 02/04/20 08:15 Ammonia < 10 umol/L (11-32) L 02/02/20 18:20 Troponin I < 0.05 ng/mL (<0.06) 02/02/20 18:20 Total Protein 5.3 g/dL (6.4-8.2) L 02/04/20 08:15 Albumin 2.3 g/dL (3.4-5.0) L 02/04/20 08:15 Procalcitonin 0.1 ng/mL 02/03/20 10:45 Urine Color Yellow (Yellow) 02/02/20 19:24 Urine Clarity Clear (Clear) 02/02/20 19:24 Urine pH 5.5 (5-8) 02/02/20 19:24 Ur Specific [place] 1.025 (1.005-1.025) 02/02/20 19:24 Urine Protein 30 mg/dL (Negative) H 02/02/20 19:24 Urine Ketones 40 mg/dL (Negative) H 02/02/20 19:24 Urine Blood Trace-lysed (Negative) H 02/02/20 19:24 Urine Nitrite Negative (Negative) 02/02/20 19:24 Urine Bilirubin Small (Negative) H 02/02/20 19:24 Urine Urobilinogen 0.2 EU/dL (Up TO 0.2) 02/02/20 19:24 Ur Leukocyte Esterase Negative (Negative) 02/02/20 19:24 Urine RBC 3-5 HPF (0-2) H 02/02/20 19:24 Urine WBC 3-5 HPF (0-5) 02/02/20 19:24 Ur Epithelial Cells Few HPF (Negative) 02/02/20 19:24 Urine Crystals Negative HPF (Negative) 02/02/20 19:24 Urine Bacteria Negative HPF (Negative) 02/02/20 19:24 Urine Casts 0-2 hyaline LPF (Negative) 02/02/20 19:24 Urine Mucus Negative (Negative) 02/02/20 19:24 Ur Culture Indicated? No 02/02/20 19:24 Urine Glucose Negative mg/dL (Negative) 02/02/20 19:24 Salicylates < 2.8 mg/dL (2.8-20.0) 02/02/20 18:23 Urine Opiates Screen Negative (Negative) 02/02/20 19:24 Urine Methadone Screen Negative (Negative) 02/02/20 19:24 Acetaminophen < 2 ug/mL (10-30) 02/02/20 18:23 Ur Barbiturates Screen Negative (Negative) 02/02/20 19:24 Ur Tricyclics Screen Negative (Negative) 02/02/20 19:24 Ur Amphetamines Screen Positive (Negative) A 02/02/20 19:24 U Benzodiazepines Scrn Positive (Negative) A 02/02/20 19:24 Urine Cocaine Screen Negative (Negative) 02/02/20 19:24 Ur THC Screen Negative (Negative) 02/02/20 19:24 Ethyl Alcohol < 3.0 mg/dL (<3) 02/02/20 18:20 COVID-19 PCR Negative (Negative) 02/02/20 21:30 Nasopharyn COVID-19 PCR Not Applicable 02/02/20 21:30 Ref Test Perform Site [facility] 02/02/20 21:30
[2020-02-07] MEDS: Lidocaine 2% Viscous 15 ML CUP 5 ML PO ×2 (11:38→23:17)
[2020-02-07] MEDS: Prenatal Multivitamin w/CA,FE TAB 1 TAB PO (12:30)
--- NOTE | 2020-02-07 12:52 | PGE_ITS ---
Date of Service Date of service: 02/07/20 Time of Service: 12:59 Assessment and Plan Assessment and plan (1) Closed fracture dislocation of ankle joint: Status: Acute Assessment and plan: 40-year-old female 1 week status post right bimalleolar equivalent ankle fracture posterior dislocation sustained during seizure event with subsequent noncompliance and loss of reduction laterally, successful re-reduction, and inpatient status since presenting to the emergency department again with respiratory depression and concern for drug overdose Ankle skin fracture blisters and edema have greatly improved over the past 5 days with strict inpatient status ensuring nonweightbearing and elevation. Skin is appropriate for surgery tomorrow morning. Plan for distal fibula fracture ORIF with likely syndesmotic fixation. Would have low threshold to increase strength of fixation given extremely high chance of patient noncompliance. The risks, benefits, and alternatives were thoroughly discussed with the patient. Reiterated the importance of complying with postoperative restrictions, which at a minimum will be 2 weeks of nonweightbearing with crutches and elevation to minimize swelling, discomfort, and wound healing issues. Patient was counseled regarding pain management, expected postoperative course, and recovery timeline. Also discussed potential future need for hardware removal especially if syndesmotic screws are placed. All questions were answered. Informed consent was obtained. Patient agrees and understands treatment plan. As I discussed with the patient, this type of surgery is normally performed on an outpatient basis. I recommend regional anesthetic nerve block for long lasting postoperative pain control. I will discuss plan of care with primary medical hospitalist team as patient may benefit from shorter extended hospital stay postoperatively due to many complicating social, compliance, and ankle issues. Plan to resume physical therapy postoperatively. Hold any DVT prophylaxis pending surgery tomorrow. N.p.o. after midnight and IV fluids as well as preoperative antibiotics ordered. Please contact me directly with any questions or concerns regarding this patient Qualifiers: Encounter type: initial encounter Laterality: right Qualified Code(s): S82.891A - Other fracture of right lower leg, initial encounter for closed fracture Subjective Subjective Interval history since last seen: Comfortable. Resting in hospital bed working on art work. No complaints about the ankle. Feeling much better well supported with improved swelling in splint by Dr. Urena. No other right lower extremity complaints. Has been working on toe range of motion for circulation. Denies any fevers, chills, calf or leg swelling, or shortness of breath. Exam Narrative Exam Narrative: Resting comfortably in bed. Alert and oriented. Comfortable. No acute distress. Breathing comfortably on room air. Able to maintain arm rotation speak in complete sentences without difficulty. 2+ radial pulse. Regular rate and rhythm. No other peripheral edema. Right ankle: Well padded bulky [facility] short-leg splint in place Demonstrates full painless range of motion about hip and knee Demonstrates excellent painless range of motion all toe extension and flexion. No pain with passive stretch. Sensation completely intact light touch superficial peroneal, deep peroneal, and tibial nerve exposed skin areas Padding and Daren wrap removed anteriorly about ankle to view skin status Greatly improved edema and resolving ecchymosis. Skin wrinkles medially, laterally, and anteriorly. No raised or hemorrhagic fracture blisters still pleasant. Resolving dry and contact with reducing skin edema. Moderate tenderness laterally about fracture site. No signs of DVT, infection, or compartment syndrome Objective Objective Clinical Data: Vital Signs Temperature 97.0 F L 02/07/20 11:41 Temperature Source Temporal Artery Scan 02/07/20 11:41 Pulse 110 H 02/07/20 11:41 Pulse Rhythm Regular 02/07/20 09:15 Pulse 68 02/05/20 23:30 Respiratory Rate 18 02/07/20 11:41 Respiratory Effort 02/07/20 09:15 Respiratory Depth Normal 02/07/20 09:15 Respiratory Pattern Normal 02/07/20 09:15 Blood Pressure 148/95 H 02/07/20 11:41 Blood Pressure Mean 97 02/05/20 23:04 Blood Pressure Position Supine 02/05/20 11:32 Pulse Oximetry 99 02/07/20 11:41 Respiratory End-tidal CO2 34 02/04/20 08:25 Oxygen Delivery Method Room Air 02/07/20 11:41 Oxygen Flow Rate 0 02/07/20 11:41 Fraction of Inspired Oxygen (FIO2) 60 02/04/20 16:19 Pain Level 0 02/07/20 11:41 Comment 02/06/20 13:37 Intake & Output 02/06/20 02/07/20 02/07/20 23:59 11:59 23:59 Intake Total 210 / 450 Output Total 1550 / 1750 800 / 800 Balance -1340 / -1300 -800 / -800 Weight 227 lb 1.218 oz Intake: IV Oral 200 / 440 Output: Urine 1550 / 1750 800 / 800 Other: Urine Color Yellow Yellow Urine Appearance Clear Clear Urine Odor Normal None Comment guestimate Stool Size Moderate Stool Characteristics Soft Formed Brown Voiding Methods Toilet Bedside Commode Laboratory Results WBC 5.57 10^3/uL (4.4-10.8) 02/06/20 06:00 RBC 3.08 10^6/uL (3.93-5.22) L 02/06/20 06:00 Hgb 9.3 g/dL (11.2-15.7) L 02/06/20 06:00 Hct 29.0 % (36.0-46.0) L 02/06/20 06:00 MCV 94.2 fL (80-95) 02/06/20 06:00 MCH 30.2 pg (27.0-33.0) 02/06/20 06:00 MCHC 32.1 % (32.0-36.0) 02/06/20 06:00 RDW 15.0 % (11.7-14.6) H 02/06/20 06:00 Plt Count 256 10^3/uL (130-400) 02/06/20 06:00 MPV 8.9 fL (8.0-11.0) 02/06/20 06:00 Immature Gran % 0.4 02/06/20 06:00 Neutrophils % 55.7 02/06/20 06:00 Lymphocytes % 23.3 02/06/20 06:00 Monocytes % 11.5 02/06/20 06:00 Eosinophils % 8.6 02/06/20 06:00 Basophils % 0.5 02/06/20 06:00 Nucleated RBC % 0 % 02/06/20 06:00 Absolute Neutrophils 3.10 10^3/uL (1.2-6.7) 02/06/20 06:00 Absolute Lymphocytes 1.30 10^3/uL (1.2-3.4) 02/06/20 06:00 Absolute Monocytes 0.64 10^3/uL (0.1-0.8) 02/06/20 06:00 Absolute Eosinophils 0.48 10^3/uL (0.0-0.7) 02/06/20 06:00 Absolute Basophils 0.03 10^3/uL (0.0-0.2) 02/06/20 06:00 RBC Morphology See below 02/05/20 06:10 Polychromasia Present 02/04/20 08:15 Hypochromasia 1+ 02/05/20 06:10 ABG Sample Site Right radial 02/04/20 07:45 ABG pH 7.32 (7.35-7.45) L 02/04/20 07:45 ABG pCO2 40 mmHg (35-45) 02/04/20 07:45 ABG pO2 58 mmHg (80-105) L 02/04/20 07:45 ABG HCO3 21 mmol/L (22-26) L 02/04/20 07:45 ABG Total CO2 20 mmol/L (23-27) L 02/04/20 07:45 ABG O2 Saturation 90 % (95-98) L 02/04/20 07:45 ABG Base Excess -6 mmol/L (-2-3) L 02/04/20 07:45 VBG pH 7.16 (7.31-7.41) L* 02/02/20 18:20 VBG pCO2 50 mmHg (41-51) 02/02/20 18:20 VBG pO2 112 mmHg 02/02/20 18:20 VBG HCO3 18 mmol/L (23-28) L 02/02/20 18:20 VBG Total CO2 17 mmol/L (24-29) L 02/02/20 18:20 VBG O2 Saturation 97 % 02/02/20 18:20 VBG Base Excess -11 mmol/L (-2-3) L 02/02/20 18:20 VBG Lactate 1.3 mmol/L (0.6-1.4) 02/02/20 18:20 Oxygen Liter Flow Asv 100% 100 spont L 02/04/20 07:45 FiO2 35% 5 peep % 02/04/20 07:45 Sodium Cancelled 02/07/20 10:36 Potassium Cancelled 02/07/20 10:36 Chloride Cancelled 02/07/20 10:36 Carbon Dioxide Cancelled 02/07/20 10:36 Anion Gap Cancelled 02/07/20 10:36 BUN Cancelled 02/07/20 10:36 Creatinine Cancelled 02/07/20 10:36 Estimated GFR/1.73 m2 Cancelled 02/07/20 10:36 Glucose Cancelled 02/07/20 10:36 Calcium Cancelled 02/07/20 10:36 Magnesium 2.1 mg/dL (1.8-2.4) 02/04/20 08:15 Total Bilirubin 0.4 mg/dL (0.2-1.0) 02/04/20 08:15 AST 53 U/L (15-37) H 02/04/20 08:15 ALT 58 U/L (14-59) 02/04/20 08:15 Alkaline Phosphatase 72 U/L (46-116) 02/04/20 08:15 Ammonia < 10 umol/L (11-32) L 02/02/20 18:20 Troponin I < 0.05 ng/mL (<0.06) 02/02/20 18:20 Total Protein 5.3 g/dL (6.4-8.2) L 02/04/20 08:15 Albumin 2.3 g/dL (3.4-5.0) L 02/04/20 08:15 Procalcitonin 0.1 ng/mL 02/03/20 10:45 Urine Color Yellow (Yellow) 02/02/20 19:24 Urine Clarity Clear (Clear) 02/02/20 19:24 Urine pH 5.5 (5-8) 02/02/20 19:24 Ur Specific [place] 1.025 (1.005-1.025) 02/02/20 19:24 Urine Protein 30 mg/dL (Negative) H 02/02/20 19:24 Urine Ketones 40 mg/dL (Negative) H 02/02/20 19:24 Urine Blood Trace-lysed (Negative) H 02/02/20 19:24 Urine Nitrite Negative (Negative) 02/02/20 19:24 Urine Bilirubin Small (Negative) H 02/02/20 19:24 Urine Urobilinogen 0.2 EU/dL (Up TO 0.2) 02/02/20 19:24 Ur Leukocyte Esterase Negative (Negative) 02/02/20 19:24 Urine RBC 3-5 HPF (0-2) H 02/02/20 19:24 Urine WBC 3-5 HPF (0-5) 02/02/20 19:24 Ur Epithelial Cells Few HPF (Negative) 02/02/20 19:24 Urine Crystals Negative HPF (Negative) 02/02/20 19:24 Urine Bacteria Negative HPF (Negative) 02/02/20 19:24 Urine Casts 0-2 hyaline LPF (Negative) 02/02/20 19:24 Urine Mucus Negative (Negative) 02/02/20 19:24 Ur Culture Indicated? No 02/02/20 19:24 Urine Glucose Negative mg/dL (Negative) 02/02/20 19:24 Salicylates < 2.8 mg/dL (2.8-20.0) 02/02/20 18:23 Urine Opiates Screen Negative (Negative) 02/02/20 19:24 Urine Methadone Screen Negative (Negative) 02/02/20 19:24 Acetaminophen < 2 ug/mL (10-30) 02/02/20 18:23 Ur Barbiturates Screen Negative (Negative) 02/02/20 19:24 Ur Tricyclics Screen Negative (Negative) 02/02/20 19:24 Ur Amphetamines Screen Positive (Negative) A 02/02/20 19:24 U Benzodiazepines Scrn Positive (Negative) A 02/02/20 19:24 Urine Cocaine Screen Negative (Negative) 02/02/20 19:24 Ur THC Screen Negative (Negative) 02/02/20 19:24 Ethyl Alcohol < 3.0 mg/dL (<3) 02/02/20 18:20 COVID-19 PCR Negative (Negative) 02/02/20 21:30 Nasopharyn COVID-19 PCR Not Applicable 02/02/20 21:30 [facility] 21:30 Objective Narrative Objective Narrative: Right ankle x-rays from initial emergency department visit on 01/31/2020 as well as series of post reduction and follow-up x-rays all reviewed: Significant for initial posterior ankle fracture dislocation. Concern for talar neck contusion. Well reduced initial ankle nearly anatomic without significant syndesmotic medial clear space or tib-fib widening although likely present. No signs of displaced talus fracture. Oblique Dominguez B fibular fracture. No obvious posterior medial malleolus fractures. Patient return to ED on 02/02/2020 without splint with widely laterally displaced talus distal fibula fracture and loss of tib-fib overlap. Post reduction x-rays show talus appropriately centered under distal tibia with appropriate reduction of medial clear space. Distal fibula fracture provisionally reduced although persistent loss of tib-fib overlap consistent with likely known syndesmotic injury. Again, no talus fracture talus OCD or medial or posterior malleolus fractures visualized.
[2020-02-07] MEDS: Topiramate 50 MG TAB PO ×2 (14:34→20:18)
[2020-02-07] MEDS: Normal Saline 1,000 ML 30 ML IV (17:20)
[2020-02-07] MEDS: Pantoprazole 40 MG VIAL IVP (21:55)
[2020-02-07] MEDS: QUEtiapine 100 MG TAB 200 MG PO (23:16)
[2020-02-08] VITALS (17 sets, daily range): BP systolic 107–149; BP diastolic 63–101; PULSE 80–108; RESP 11–22; TEMP 35.7–37.8; O2SAT 92–100
[2020-02-08] MEDS: Ketorolac 30 MG/ML VIAL IVP (00:50)
[2020-02-08] MEDS: Lidocaine 2% Viscous 15 ML CUP 5 ML PO (02:28)
--- NOTE | 2020-02-08 02:35 | NUR.NOTE ---
at 2300 pt asked for lidocaine viscous gel for her oral sores, RN gave the medication to her, RN instructed that she will be on NPO by midnight in preparation for her operation the coming morning. At 1 am, pt still eating, RN instructed that she would need to finish her meal since she must be on NPO, pt said yes and asked if she can get another dose of lidocaine viscous gel, RN explained that it was given to her barely 2 hours ago and its only to be given 3 times in a day, offered another pain reliever, pt said yes, RN gave Toradol 30mg IVP. At 2 am, pt again called asking for shankar von RN reminded her that she is now on NPO and cannot drink or eat. pt then asked for water, and RN said and reiterated that NPO includes drinking water. But RN offered to wet lips of some sips of water if she really is thirsty, but pt declined. at 230am, pt went to commode with 1 assist and she again asked for lidocaine viscous gel for her oral sores and complains of pain and wants water, RN tried to explain but pt became agitated, not on herself, complaining about why she has an IV when last night she doesnt have, why RN keep on declining her request for pain meds, and why RN keep on asking her questions, while she is smoking on her porch on the driveway at 2am. RN realized she is not on her usual mind and try reorienting that she is on the hospital and no one is smoking in the building. pt became more agitated and asked the RN to come out of the room, RN explained that she will come out but another nurse will come in to ensure her safety. pt
[2020-02-08] MEDS: LORazepam 2 MG/ML VIAL 1 MG IVP ×2 (04:08→12:53)
--- NOTE | 2020-02-08 06:45 | DI.RAD_ITS ---
EXAM: XR ANKLE RT COMPLETE 2D digital imaging was performed. CLINICAL HISTORY: fracture right ankle. TECHNIQUE: 2D and realtime digital imaging was performed. COMPARISON: CR,XR XR ANKLE RT COMPLETE from 02/02/2020 FINDINGS: Fluoroscopy was provided for Dr. Calvo. Hard copy images show placement of a fixation plate along th e distal fibula for fracture fixation. Mortise screws were also applied. Please see procedure note for details. Fluoro time: 83.1 sec 3.25 mGy
--- NOTE | 2020-02-08 07:18 | NUR.NOTE ---
Addendum entered and electronically signed by Suzanna Dangelo 02/08/20 07:50: 02/08/20 07:18 Acct Num: [id number] : 1980 Patient Age: 40 Nursing Note:02/08/20717 Per Felipa Doss CRNA, give topamax with sip of water prior to going to OR. Initialized on 02/08/20 07:18 - END OF NOTE nursing note entered by this author, incorrectly assigned to Josefa TAYLOR Original Note: Nursing Note:02/08/20717 Per Feliap Doss RN CCU, give topamax with sip of water prior to going to OR.
[2020-02-08] MEDS: Topiramate 50 MG TAB PO (07:21)
[2020-02-08] MEDS: Bupivacaine 0.5% Pres-Free 30 ML VIAL (07:31)
--- NOTE | 2020-02-08 07:42 | W.PM.PROGNOT ---
Date of Service Date of service: 02/08/20 Time of Service: 07:42 Assessment and Plan Assessment and plan (1) Closed fracture dislocation of ankle joint: Status: Acute Assessment and plan: 40-year-old female 1 week status post right bimalleolar equivalent ankle fracture posterior dislocation sustained during seizure event with subsequent noncompliance and loss of reduction laterally, successful re-reduction, and inpatient status since presenting to the emergency department again with respiratory depression and concern for drug overdose Ankle skin fracture blisters and edema had greatly improved over her 5-day hospital stay. Unfortunately, due to patient extreme disregard for instructions and noncompliance she is now likely subluxated versus dislocated her ankle for the fourth time having removed her fourth splint. She is unable really to provide any good explanation for this action. Her skin status is borderline acceptable for lateral approach and fibula ORIF. Her skin is not really ready for any medial approach, which is concerning should there be any interposed or incarcerated deltoid medial structures interfering with abduction. At this point in time, I am at loss how we can best help this patient given her significant and recurrent disregard for her own ankle. We need to proceed with surgery this morning to at least close reduce and stabilize her ankle with casting versus external fixation. I will scrutinize close reduction under x-ray, and if there is no need for medial surgery once again scrutinized the lateral skin and if it is acceptable for surgery try and proceed with ORIF of the distal fibula and possibly syndesmosis. After ORIF, I will thoroughly stress test the fracture as well as syndesmosis and if there is any concerns for lack of true strong stability would have low threshold to apply an external fixator in addition to the internal fixation given the overwhelmingly high chance of patient noncompliance with any postoperative instructions and restrictions. I discussed these many issues with the patient. She does not wish to be transferred to a tertiary care facility or have her ankle surgery delayed. Despite all the above issues, she once again provides informed consent to proceed with today surgery with the possible addition of external fixation. I will discuss and update the hospitalist primary medical team postoperatively Qualifiers: Encounter type: initial encounter Laterality: right Qualified Code(s): S82.891A - Other fracture of right lower leg, initial encounter for closed fracture (2) Patient noncompliance: Status: Acute Subjective Subjective Interval history since last seen: Patient comfortable tearful. States she removed her splint for unclear reasons yesterday evening. Did not feel it was an issue to take it off. Has felt her ankle is been out of place since last night. Cannot really explain why she removed it how she still does not understand that it is important or the previous 3 splints that she has removed. Exam Narrative Exam Narrative: Resting comfortably in bed. Tearful but comfortable.. Breathing comfortably on room air. Able to maintain arm rotation speak in complete sentences without difficulty. 2+ radial pulse. Regular rate and rhythm. No other peripheral edema. Right ankle: All splint and padding removed Obvious ankle deformity lateral subluxation versus dislocation All leg compartments soft Minimal superficial peroneal deep peroneal paresthesias. Intact plantar sensation Increased skin edema medially and anteriorly. Marginal skin laterally with borderline wrinkles. No new fracture blisters. Moderate tenderness laterally about fracture site. No signs of DVT, infection, or compartment syndrome Objective Objective Clinical Data: Vital Signs Temperature 96.8 F L 02/08/20 06:52 Temperature Source Tympanic 02/08/20 06:52 Pulse 87 02/08/20 06:52 Pulse Rhythm Regular 02/08/20 04:29 Pulse 68 02/05/20 23:30 Respiratory Rate 18 02/08/20 06:52 Respiratory Effort Non-Labored 02/08/20 04:29 Respiratory Depth Normal 02/08/20 04:29 Respiratory Pattern Normal 02/08/20 04:29 Blood Pressure 141/93 H 02/08/20 06:52 Blood Pressure Mean 97 02/05/20 23:04 Blood Pressure Position Supine 02/05/20 11:32 Pulse Oximetry 99 02/08/20 06:52 Respiratory End-tidal CO2 34 02/04/20 08:25 Oxygen Delivery Method Room Air 02/08/20 06:52 Oxygen Flow Rate 0 02/08/20 06:52 Fraction of Inspired Oxygen (FIO2) 60 02/04/20 16:19 Pain Level 4 02/08/20 06:52 Comment 02/07/20 23:09 Intake & Output 02/07/20 02/07/20 02/08/20 11:59 23:59 11:59 Intake Total 100 / 100 60 / 60 Output Total 800 / 1750 950 / 1750 750 / 750 Balance -800 / -1650 -850 / -1650 -690 / -690 Weight 227 lb 1.218 oz 223 lb 12.307 oz Intake: IV Oral 100 / 100 50 / 50 Output: Urine 800 / 1750 950 / 1750 750 / 750 Other: Urine Color Yellow Pale Yellow Yellow Urine Appearance Clear Clear Clear Urine Odor None None Normal Comment guestimate Voiding Methods Bedside Commode Bedside Commode Toilet Laboratory Results WBC 5.57 10^3/uL (4.4-10.8) 02/06/20 06:00 RBC 3.08 10^6/uL (3.93-5.22) L 02/06/20 06:00 Hgb 9.3 g/dL (11.2-15.7) L 02/06/20 06:00 Hct 29.0 % (36.0-46.0) L 02/06/20 06:00 MCV 94.2 fL (80-95) 02/06/20 06:00 MCH 30.2 pg (27.0-33.0) 02/06/20 06:00 MCHC 32.1 % (32.0-36.0) 02/06/20 06:00 RDW 15.0 % (11.7-14.6) H 02/06/20 06:00 Plt Count 256 10^3/uL (130-400) 02/06/20 06:00 MPV 8.9 fL (8.0-11.0) 02/06/20 06:00 Immature Gran % 0.4 02/06/20 06:00 Neutrophils % 55.7 02/06/20 06:00 Lymphocytes % 23.3 02/06/20 06:00 Monocytes % 11.5 02/06/20 06:00 Eosinophils % 8.6 02/06/20 06:00 Basophils % 0.5 02/06/20 06:00 Nucleated RBC % 0 % 02/06/20 06:00 Absolute Neutrophils 3.10 10^3/uL (1.2-6.7) 02/06/20 06:00 Absolute Lymphocytes 1.30 10^3/uL (1.2-3.4) 02/06/20 06:00 Absolute Monocytes 0.64 10^3/uL (0.1-0.8) 02/06/20 06:00 Absolute Eosinophils 0.48 10^3/uL (0.0-0.7) 02/06/20 06:00 Absolute Basophils 0.03 10^3/uL (0.0-0.2) 02/06/20 06:00 RBC Morphology See below 02/05/20 06:10 Polychromasia Present 02/04/20 08:15 Hypochromasia 1+ 02/05/20 06:10 ABG Sample Site Right radial 02/04/20 07:45 ABG pH 7.32 (7.35-7.45) L 02/04/20 07:45 ABG pCO2 40 mmHg (35-45) 02/04/20 07:45 ABG pO2 58 mmHg (80-105) L 02/04/20 07:45 ABG HCO3 21 mmol/L (22-26) L 02/04/20 07:45 ABG Total CO2 20 mmol/L (23-27) L 02/04/20 07:45 ABG O2 Saturation 90 % (95-98) L 02/04/20 07:45 ABG Base Excess -6 mmol/L (-2-3) L 02/04/20 07:45 VBG pH 7.16 (7.31-7.41) L* 02/02/20 18:20 VBG pCO2 50 mmHg (41-51) 02/02/20 18:20 VBG pO2 112 mmHg 02/02/20 18:20 VBG HCO3 18 mmol/L (23-28) L 02/02/20 18:20 VBG Total CO2 17 mmol/L (24-29) L 02/02/20 18:20 VBG O2 Saturation 97 % 02/02/20 18:20 VBG Base Excess -11 mmol/L (-2-3) L 02/02/20 18:20 VBG Lactate 1.3 mmol/L (0.6-1.4) 02/02/20 18:20 Oxygen Liter Flow Asv 100% 100 spont L 02/04/20 07:45 FiO2 35% 5 peep % 02/04/20 07:45 Sodium Cancelled 02/07/20 10:36 Potassium Cancelled 02/07/20 10:36 Chloride Cancelled 02/07/20 10:36 Carbon Dioxide Cancelled 02/07/20 10:36 Anion Gap Cancelled 02/07/20 10:36 BUN Cancelled 09/10/20 10:36 Creatinine Cancelled 02/07/20 10:36 Estimated GFR/1.73 m2 Cancelled 02/07/20 10:36 Glucose Cancelled 02/07/20 10:36 Calcium Cancelled 02/07/20 10:36 Magnesium 2.1 mg/dL (1.8-2.4) 02/04/20 08:15 Total Bilirubin 0.4 mg/dL (0.2-1.0) 02/04/20 08:15 AST 53 U/L (15-37) H 02/04/20 08:15 ALT 58 U/L (14-59) 02/04/20 08:15 Alkaline Phosphatase 72 U/L (46-116) 02/04/20 08:15 Ammonia < 10 umol/L (11-32) L 02/02/20 18:20 Troponin I < 0.05 ng/mL (<0.06) 02/02/20 18:20 Total Protein 5.3 g/dL (6.4-8.2) L 02/04/20 08:15 Albumin 2.3 g/dL (3.4-5.0) L 02/04/20 08:15 Procalcitonin 0.1 ng/mL 02/03/20 10:45 Urine Color Yellow (Yellow) 02/02/20 19:24 Urine Clarity Clear (Clear) 02/02/20 19:24 Urine pH 5.5 (5-8) 02/02/20 19:24 Ur Specific [place] 1.025 (1.005-1.025) 02/02/20 19:24 Urine Protein 30 mg/dL (Negative) H 02/02/20 19:24 Urine Ketones 40 mg/dL (Negative) H 02/02/20 19:24 Urine Blood Trace-lysed (Negative) H 02/02/20 19:24 Urine Nitrite Negative (Negative) 02/02/20 19:24 Urine Bilirubin Small (Negative) H 02/02/20 19:24 Urine Urobilinogen 0.2 EU/dL (Up TO 0.2) 02/02/20 19:24 Ur Leukocyte Esterase Negative (Negative) 02/02/20 19:24 Urine RBC 3-5 HPF (0-2) H 02/02/20 19:24 Urine WBC 3-5 HPF (0-5) 09/05/20 19:24 Ur Epithelial Cells Few HPF (Negative) 02/02/20 19:24 Urine Crystals Negative HPF (Negative) 02/02/20 19:24 Urine Bacteria Negative HPF (Negative) 02/02/20 19:24 Urine Casts 0-2 hyaline LPF (Negative) 02/02/20 19:24 Urine Mucus Negative (Negative) 02/02/20 19:24 Ur Culture Indicated? No 02/02/20 19:24 Urine Glucose Negative mg/dL (Negative) 02/02/20 19:24 Salicylates < 2.8 mg/dL (2.8-20.0) 02/02/20 18:23 Urine Opiates Screen Negative (Negative) 02/02/20 19:24 Urine Methadone Screen Negative (Negative) 02/02/20 19:24 Acetaminophen < 2 ug/mL (10-30) 02/02/20 18:23 Ur Barbiturates Screen Negative (Negative) 02/02/20 19:24 Ur Tricyclics Screen Negative (Negative) 02/02/20 19:24 Ur Amphetamines Screen Positive (Negative) A 02/02/20 19:24 U Benzodiazepines Scrn Positive (Negative) A 02/02/20 19:24 Urine Cocaine Screen Negative (Negative) 02/02/20 19:24 Ur THC Screen Negative (Negative) 02/02/20 19:24 Ethyl Alcohol < 3.0 mg/dL (<3) 02/02/20 18:20 COVID-19 PCR Negative (Negative) 02/02/20 21:30 Nasopharyn COVID-19 PCR Not Applicable 02/02/20 21:30 Ref Test Perform Site [facility] lab 02/02/20 21:30 Objective Narrative Objective Narrative: Right ankle x-rays from initial emergency department visit on 01/31/2020 as well as series of post reduction and follow-up x-rays all reviewed: Significant for initial posterior ankle fracture dislocation. Concern for talar neck contusion. Well reduced initial ankle nearly anatomic without significant syndesmotic medial clear space or tib-fib widening although likely present. No signs of displaced talus fracture. Oblique Dominguez B fibular fracture. No obvious posterior medial malleolus fractures. Patient return to ED on 02/02/2020 without splint with widely laterally displaced talus distal fibula fracture and loss of tib-fib overlap. Post reduction x-rays show talus appropriately centered under distal tibia with appropriate reduction of medial clear space. Distal fibula fracture provisionally reduced although persistent loss of tib-fib overlap consistent with likely known syndesmotic injury. Again, no talus fracture talus OCD or medial or posterior malleolus fractures visualized.
--- NOTE | 2020-02-08 07:55 | ROE_ITS ---
Date of service: 02/08/20 Time of Service: 11:14 Operative Note Operative Note DATE OF PROCEDURE: 02/08/20 PRE-OP DIAGNOSIS: 1. Right bimalleolar equivalent ankle fracture dislocation 2. Right ankle syndesmosis injury 3. Loose bodies right ankle joint POST-OP DIAGNOSIS: other 1. Right bimalleolar equivalent ankle fracture dislocation 2. Right ankle syndesmosis injury 3. Loose bodies right ankle joint PROCEDURE: 1. Right ankle lateral malleolus ORIF, CPT # 01529 2. ORIF syndesmosis disruption, CPT# 70435 3. Removal loose bodies right ankle joint, CPT # [id number] 4. Manual stress radiography of joint, CPT # [id number] SURGEON: Magdaleno Calvo DIRECTOR OF SAFETY AND SECURITY: Milton Barry ANESTHESIA: GETA, regional and local ESTIMATED BLOOD LOSS: 15 TOURNIQUET TIME: 111 COMPLICATIONS: None Patient was transported to: PACU Patient's condition: stable Implants: Synthes 2.7 mm / 3.5 mm LCP distal fibula plate with 3x distal locking screws, 2x proximal locking screws and 1x proximal 3.5 mm cortex screw 2x 3.5 mm quad cortical syndesmotic screws Indications: Noncompliant patient with ankle fracture dislocation. Please see complete medical record for details. Findings: Short and long oblique distal fibula fracture with rupture of the anterior lateral joint capsule and AITFL. Unstable syndesmosis. Poor bone quality. Multiple osteochondral fragments loose bodies in the anterior lateral ankle joint and gutter without obvious donor sites. Procedure Description: In the operating room, general anesthesia was induced. The patient was positioned supine on the operating room table. All bony prominences were well-padded. Preoperative antibiotics were administered. The right ankle was prepped and draped in the usual sterile fashion. The correct patient, procedure, and side of the procedure were all verified prior to incision. Pre-incision x-rays were used to confirm significant re-injury to the ankle with lateral subluxation and loss of tib-fib overlap as patient had removed her splint yet again. Manual close reduction could mostly reduce the ankle joint mortise without the anticipated need for medial approach the decision was made to proceed with ORIF. Fracture was palpated laterally in the direct lateral longitudinal approach to the distal fibula was taken. The peroneal nerve was visualized running longitudinal and anteriorly about the proximal one third of the incision and carefully mobilized slightly anteriorly and bluntly retracted for any proximal part of the case to avoid nerve injury. The fracture site was identified. There was a long oblique fracture with significant shortening. Even under anesthesia with paralysis there was difficulty restoring full length due to the significant shortening and likely 1 week. Of shortening between injury, noncompliance, and medical admission for apparent drug overdose and other medical social issues. There is also significant disruption of anterior lateral ankle joint soft tissues involving anterolateral capsule and what appeared to be strong roberts AITF L syndesmotic ligament which was firmly attached to the anterior distal tibia but avulsed off the distal fibula fracture. Multiple osteochondral fragments about 2 to 3 mm in size were visualized and removed. The ankle joint was flushed with saline and a couple smaller chondral pieces came out. The fracture was exaggerated in the superior and lateral ankle joint explored in a couple more osteochondral fragments removed. There was no obvious donor site although given the multiple subluxations dislocations the patient experienced can certainly be expected from various parts of the ankle and possibly the distal talus from the profound posterior initial dislocation. Once all loose bodies removed from the ankle joint attention was turned back to reducing the distal fibula fracture site. Lengths were restored and provisionally held in place with bone clamps. There was concern about distal fibula bone quality as it was soft during manipulation and reduction. However, the long oblique fracture appeared amenable to attempted lag screw fixation. Using lag screw technique a lag screw was drilled from anterior to posterior perpendicular to the fracture line. An appropriate 3.5 mm cortex screw was chosen slid through the glide hole and engaged the far cortex. The screw tip could be palpated and visualized appropriately engaging the far cortex however it had minimal purchase. It was removed, the countersink used to increase surface area for the screw head and possibly allow for better far cortex purchase however when the screw was replaced it still had minimal purchase distally. It was left in and tested and provided nothing beneficial as far as fixation was concerned so it was removed as now the decision was made to proceed with anatomic locking plate fixation as opposed to one third tubular plate fixation and did not want the screw to block the likely required syndesmotic fixation. Bone clamps were used to maintain reduction. K wire was passed anterior to posterior to assist in reduction clamp could be reposition for plate placement. Appropriate length screw was selected and gently contoured to match the patient's anatomy. Is provisionally fixated in the correct position on the fibula held in place with the distal K wire in correct position in both planes confirmed under fluoroscopic guidance. A proximal to the fracture site cortex screw was predrilled and placed to compress the plate down to bone while ensuring maintenance of fracture reduction. Next, 3 distal locking screws were predrilled through the guides taking care to tap the floor cortex and not penetrate the ankle joint in place appropriate length locking screws. The remaining distal locking screws unfortunately cannot be used due to the long oblique distal nature of the fracture as they would have crossed the fracture line. Attention was then turned proximally and the most proximal to screw holes were predrilled through the locking guide and filled with appropriate length locking screws. Correct hardware placement and fibular reduction was confirmed under direct visualization x-ray. The syndesmosis had marginal tib-fib overlap and asymmetry of the medial clear space and obvious syndesmotic widening and medial clear space widening on any external rotation stress testing documented fluoroscopically. Decision made to proceed with syndesmotic screw fixation for the plate. The ankle was positioned in dorsiflexion taking care to place a bump behind the ankle but not the heel and correct reduction of the tib-fib joint and syndesmosis was confirmed in AP, mortise, and lateral fluoroscopy under manual direct reduction. Through the anterior lateral traumatic arthrotomy appropriate tib-fib syndesmosis reduction was also confirmed. Initially, a tricortical 3.5 mm syndesmotic screw was predrilled and placed. This was felt to have extremely poor purchase and purchase in the distal tibia so the far cortex was drilled and a quad cortical screw placed again maintaining anatomic reduction of the ankle mortise and syndesmosis. A second parallel quad cortical screw was placed similar fashion. AP, lateral, mortise fluoroscopy confirmed confirmed excellent hardware placement and stable ankle and syndesmosis again tested under manual stress fluoroscopy. All fixation was stable to stress and direct manual testing. Decision was made to omit external fixator application. The lateral wound was copiously irrigated normal saline. The anterior lateral avulsed ankle capsule and ATFL ligament were repaired using 0 Vicryl to periosteum on the anterior distal fibula closing the traumatic ankle arthrotomy. Due to significant noncompliance concerns regarding poor hygiene especially as the patient had multiple wounds about her body and bilateral toes, 1 g of vancomycin powder was distributed deeply about the hardware and subcutaneous tissues. The tourniquet was let down appropriate hemostasis obtained. 0 Vicryl was used to close deep tissue over the plate. 2-0 Monocryl was used to close subcutaneous tissue taking care to avoid the superficial peroneal nerve proximally. 3-0 Monocryl was used to close skin in a horizontal mattress fashion. The extremity was cleansed with hydroperoxide and saline. Xeroform was applied medially over 2 flat fracture blisters as well as over the incision laterally. The incision flexure bursa was recovered and dry 4 x 4 gauze, an ABD was applied laterally, and ankle wrapped in sterile soft roll. A well-padded fiberglass short leg cast was applied and not bivalved due to concerns over patient noncompliance and likely removal. The cast at appropriate space and padding to accommodate swelling throughout. The patient awoke from anesthesia without complication and was transferred to the recovery room in a stable condition.
[2020-02-08] MEDS: Lactated Ringers 1,000 ML 30 ML IV (09:10)
[2020-02-08] MEDS: Hydrogen Peroxide 3% 480 ML BTL (11:00)
--- NOTE | 2020-02-08 11:54 | PGE_ITS ---
Date of Service Date of service: 02/08/20 Time of Service: 11:55 Assessment and Plan Assessment and plan (1) Closed fracture dislocation of ankle joint: Status: Acute Assessment and plan: 40-year-old female postop day #0 status post right ankle and syndesmosis ORIF with removal loose bodies from ankle joint. Discussed appropriate postoperative restrictions and rehab/recovery timeline with patient at length. Very concerned about significant patient noncompliance. The patient is in a fiberglass short leg cast to prevent removal. It is well- padded and has adequate space to allow for any swelling that may still occur from surgery although at this point swelling is less of risk as she is 1 week out from injuries. Right ankle nonweightbearing for at least 2 weeks using crutches or walker as needed Maintain elevation and minimize time with right ankle and foot in dependent position to minimize swelling and discomfort and wound healing issues Gentle daily range of motion to all toes and knee Physical therapy for crutch training and reinforcement of nonweightbearing restrictions Pain control- multimodal. Patient has excellent regional anesthetic block and should hopefully enjoy 2 to 3 days of analgesia. SCDs and KRISHAN givense left lower extremity. Lovenox 40 mg daily while inpatient then should transition to aspirin 81 mg twice daily to complete a total of 30 days postop DVT prophylaxis starting tomorrow morning Keep cast in place and clean and dry until follow-up As previously discussed, this is typically outpatient surgery. The patient may be discharged when medically and socially deemed safe and appropriate. Follow-up outpatient with me, Dr. Calvo, at [facility] orthopedics in 10 to 14 days Postoperative care will be discussed with primary medical team Call me directly if any questions or concerns. I will follow along and plan to see the patient this weekend in the hospital. Qualifiers: Encounter type: initial encounter Laterality: right Qualified Code(s): S82.891A - Other fracture of right lower leg, initial encounter for closed fracture (2) Patient noncompliance: Status: Acute (3) Ankle syndesmosis disruption: Status: Acute Qualifiers: Encounter type: subsequent encounter Laterality: right Qualified Code(s): S93.431D - Sprain of tibiofibular ligament of right ankle, subsequent encounter (4) Loose body in ankle or foot joint: Status: Acute Qualifiers: Laterality: right Qualified Code(s): M24.071 - Loose body in right ankle; M24.074 - Loose body in right toe joint(s) Subjective Subjective Interval history since last seen: Very comfortable. Absolutely no pain about the foot or ankle. Understands she is in a well-padded cast with adequate space and will not attempt removal. Describes tingliness throughout the entire foot and ankle. No nausea or vomiting. Exam Narrative Exam Narrative: Resting comfortably in PACU. Relieved to be done with surgery. Breathing comfortably on room air. Able to maintain arm rotation speak in complete sentences without difficulty. Right ankle: Clean short leg cast in place with adequate space proximally distally Patient able to demonstrate weak motor extension flexion all toes and great toe Sensation intact with paresthesias superficial peroneal, deep peroneal and ti bial nerves Brisk cap refill all toes Proximal calf nontender. No signs DVT. Objective Objective Clinical Data: Vital Signs Temperature 97.7 F 02/08/20 11:41 Temperature Source Tympanic 02/08/20 06:52 Pulse 88 02/08/20 11:41 Pulse Rhythm Regular 02/08/20 07:10 Pulse 68 02/05/20 23:30 Respiratory Rate 18 02/08/20 11:41 Respiratory Effort Non-Labored 02/08/20 07:10 Respiratory Depth Normal 02/08/20 07:10 Respiratory Pattern Normal 02/08/20 07:10 Blood Pressure 112/71 02/08/20 11:41 Blood Pressure Mean 97 02/05/20 23:04 Blood Pressure Position Supine 02/05/20 11:32 Pulse Oximetry 96 02/08/20 11:41 Respiratory End-tidal CO2 36 02/08/20 11:26 Oxygen Delivery Method Room Air 02/08/20 11:41 Oxygen Flow Rate 0 02/08/20 06:52 Fraction of Inspired Oxygen (FIO2) 60 02/04/20 16:19 Pain Level 4 02/08/20 06:52 Comment 02/07/20 23:09 Intake & Output 02/07/20 02/07/20 02/08/20 11:59 23:59 11:59 Intake Total 100 / 100 735 / 735 Output Total 800 / 1750 950 / 1750 765 / 765 Balance -800 / -1650 -850 / -1650 -30 / -30 Weight 227 lb 1.218 oz 223 lb 12.307 oz Intake: IV 685 / 685 Oral 100 / 100 50 / 50 Output: Urine 800 / 1750 950 / 1750 750 / 750 Estimated Blood Loss Other: Urine Color Yellow Pale Yellow Yellow Urine Appearance Clear Clear Clear Urine Odor None None Normal Comment guestimate Emesis Description None Voiding Methods Bedside Commode Bedside Commode Toilet Laboratory Results WBC 5.57 10^3/uL (4.4-10.8) 02/06/20 06:00 RBC 3.08 10^6/uL (3.93-5.22) L 02/06/20 06:00 Hgb 9.3 g/dL (11.2-15.7) L 02/06/20 06:00 Hct 29.0 % (36.0-46.0) L 02/06/20 06:00 MCV 94.2 fL (80-95) 02/06/20 06:00 MCH 30.2 pg (27.0-33.0) 02/06/20 06:00 MCHC 32.1 % (32.0-36.0) 02/06/20 06:00 RDW 15.0 % (11.7-14.6) H 02/06/20 06:00 Plt Count 256 10^3/uL (130-400) 02/06/20 06:00 MPV 8.9 fL (8.0-11.0) 02/06/20 06:00 Immature Gran % 0.4 02/06/20 06:00 Neutrophils % 55.7 02/06/20 06:00 Lymphocytes % 23.3 02/06/20 06:00 Monocytes % 11.5 02/06/20 06:00 Eosinophils % 8.6 02/06/20 06:00 Basophils % 0.5 02/06/20 06:00 Nucleated RBC % 0 % 02/06/20 06:00 Absolute Neutrophils 3.10 10^3/uL (1.2-6.7) 02/06/20 06:00 Absolute Lymphocytes 1.30 10^3/uL (1.2-3.4) 02/06/20 06:00 Absolute Monocytes 0.64 10^3/uL (0.1-0.8) 02/06/20 06:00 Absolute Eosinophils 0.48 10^3/uL (0.0-0.7) 02/06/20 06:00 Absolute Basophils 0.03 10^3/uL (0.0-0.2) 02/06/20 06:00 RBC Morphology See below 02/05/20 06:10 Polychromasia Present 02/04/20 08:15 Hypochromasia 1+ 02/05/20 06:10 ABG Sample Site Right radial 02/04/20 07:45 ABG pH 7.32 (7.35-7.45) L 02/04/20 07:45 ABG pCO2 40 mmHg (35-45) 02/04/20 07:45 ABG pO2 58 mmHg (80-105) L 02/04/20 07:45 ABG HCO3 21 mmol/L (22-26) L 02/04/20 07:45 ABG Total CO2 20 mmol/L (23-27) L 02/04/20 07:45 ABG O2 Saturation 90 % (95-98) L 02/04/20 07:45 ABG Base Excess -6 mmol/L (-2-3) L 02/04/20 07:45 VBG pH 7.16 (7.31-7.41) L* 02/02/20 18:20 VBG pCO2 50 mmHg (41-51) 02/02/20 18:20 VBG pO2 112 mmHg 02/02/20 18:20 VBG HCO3 18 mmol/L (23-28) L 02/02/20 18:20 VBG Total CO2 17 mmol/L (24-29) L 02/02/20 18:20 VBG O2 Saturation 97 % 02/02/20 18:20 VBG Base Excess -11 mmol/L (-2-3) L 02/02/20 18:20 VBG Lactate 1.3 mmol/L (0.6-1.4) 02/02/20 18:20 Oxygen Liter Flow Asv 100% 100 spont L 02/04/20 07:45 FiO2 35% 5 peep % 02/04/20 07:45 Sodium Cancelled 02/07/20 10:36 Potassium Cancelled 02/07/20 10:36 Chloride Cancelled 02/07/20 10:36 Carbon Dioxide Cancelled 02/07/20 10:36 Anion Gap Cancelled 02/07/20 10:36 BUN Cancelled 02/07/20 10:36 Creatinine Cancelled 02/07/20 10:36 Estimated GFR/1.73 m2 Cancelled 02/07/20 10:36 Glucose Cancelled 02/07/20 10:36 Calcium Cancelled 02/07/20 10:36 Magnesium 2.1 mg/dL (1.8-2.4) 02/04/20 08:15 Total Bilirubin 0.4 mg/dL (0.2-1.0) 02/04/20 08:15 AST 53 U/L (15-37) H 02/04/20 08:15 ALT 58 U/L (14-59) 02/04/20 08:15 Alkaline Phosphatase 72 U/L (46-116) 02/04/20 08:15 Ammonia < 10 umol/L (11-32) L 02/02/20 18:20 Troponin I < 0.05 ng/mL (<0.06) 02/02/20 18:20 Total Protein 5.3 g/dL (6.4-8.2) L 02/04/20 08:15 Albumin 2.3 g/dL (3.4-5.0) L 02/04/20 08:15 Procalcitonin 0.1 ng/mL 02/03/20 10:45 Urine Color Yellow (Yellow) 02/02/20 19:24 Urine Clarity Clear (Clear) 02/02/20 19:24 Urine pH 5.5 (5-8) 02/02/20 19:24 Ur Specific Newell 1.025 (1.005-1.025) 02/02/20 19:24 Urine Protein 30 mg/dL (Negative) H 02/02/20 19:24 Urine Ketones 40 mg/dL (Negative) H 02/02/20 19:24 Urine Blood Trace-lysed (Negative) H 02/02/20 19:24 Urine Nitrite Negative (Negative) 02/02/20 19:24 Urine Bilirubin Small (Negative) H 02/02/20 19:24 Urine Urobilinogen 0.2 EU/dL (Up TO 0.2) 02/02/20 19:24 Ur Leukocyte Esterase Negative (Negative) 02/02/20 19:24 Urine RBC 3-5 HPF (0-2) H 02/02/20 19:24 Urine WBC 3-5 HPF (0-5) 02/02/20 19:24 Ur Epithelial Cells Few HPF (Negative) 02/02/20 19:24 Urine Crystals Negative HPF (Negative) 02/02/20 19:24 Urine Bacteria Negative HPF (Negative) 02/02/20 19:24 Urine Casts 0-2 hyaline LPF (Negative) 02/02/20 19:24 Urine Mucus Negative (Negative) 02/02/20 19:24 Ur Culture Indicated? No 02/02/20 19:24 Urine Glucose Negative mg/dL (Negative) 02/02/20 19:24 Salicylates < 2.8 mg/dL (2.8-20.0) 02/02/20 18:23 Urine Opiates Screen Negative (Negative) 02/02/20 19:24 Urine Methadone Screen Negative (Negative) 02/02/20 19:24 Acetaminophen < 2 ug/mL (10-30) 02/02/20 18:23 Ur Barbiturates Screen Negative (Negative) 02/02/20 19:24 Ur Tricyclics Screen Negative (Negative) 02/02/20 19:24 Ur Amphetamines Screen Positive (Negative) A 02/02/20 19:24 U Benzodiazepines Scrn Positive (Negative) A 02/02/20 19:24 Urine Cocaine Screen Negative (Negative) 02/02/20 19:24 Ur THC Screen Negative (Negative) 02/02/20 19:24 Ethyl Alcohol < 3.0 mg/dL (<3) 02/02/20 18:20 COVID-19 PCR Negative (Negative) 02/02/20 21:30 Nasopharyn COVID-19 PCR Not Applicable 02/02/20 21:30 Ref Test [facility] 02/02/20 21:30
[2020-02-08] MEDS: Normal Saline Flush 10 ML SYR IVP (12:53)
[2020-02-08] MEDS: ceFAZolin 1 GM/50 ML BAG IVPB (13:09)
[2020-02-08] MEDS: amLODIPine 10 MG TAB PO (13:30)
[2020-02-08] MEDS: Prenatal Multivitamin w/CA,FE TAB 1 TAB PO (13:30)
--- NOTE | 2020-02-08 15:10 | IN_ITS ---
Date of service: 02/08/20 Time of Service: 13:07 PT Notes Visit Reasons: DRUG OD/AMS/VENTILATED Physical Therapy Inpatient Initial Evaluation Date: 02/08/2020 Referring Doctor: Yunior Valerio MD PT Orders: PT CONSULT: Eval/Treat Precautions: Non-weightbearing on her right LE. Fall. Standard. Patient Profile/Admitting Diagnosis: Maria C is a 40-year-old female who had normal spontaneous vaginal delivery on 12/28/2019 now with with right bimalleolar equivalent ankle fracture dislocation, right ankle syndesmosis injury, and right ankle joint loose bodies and is status post right ankle lateral malleolus ORIF, loose body removal of the right ankle joint, and ORIF of syndesmosis disruption on postoperative day 0. Patient was admitted through the ED on 02/02/2020 with diagnosis of drug overdose, alteration of mental status, metabolic acidosis, aspiration pneumonia, seizure, and R ankle fracture dislocation which she sustained when she fell during a seizure episode while walking to the pharmacy on 01/31/2020. She was sent to the ED on 01/31/2020 and was placed on a cast with follow up recommended. She however failed to show up and instead ended back up at the ED with splint gone on 02/02/2020. PMHX: Medical History ADHD (Acute) Alcohol dependence in remission (Chronic) Anxiety (Chronic) BMI 31.0-31.9,adult (Chronic) Chronic hypertension affecting (Acute) Depression (Chronic) Eating disorder (Chronic) Encounter for supervision of other normal , third trimester (Acute) Hypertension affecting (Chronic) Medications in the past. No current medications Limited care in third trimester (Acute) (normal spontaneous vaginal delivery) (Acute) Opioid dependence in remission (Chronic) Poor patient attendance of care (Acute) Positive test (Acute) (Resolved) Us both transvaginal and transabdominal performed + movement making position for measurements difficult and possibility of error in yoly estimation Radiology US appointment schedule having Initial intake appointment today requests [place] Level 2 for AMA Topramax exposure (Acute) (Acute) (Acute) Suicide attempt (Active 08/27/12) Overdose pills/alcohol Social History/Home Situation: Keyanna and lives on the second floor of an apartment building with 12 steps to enter with rails on both sides. She was independent with all aspects of ADLs without the need for an assistive ambulatory device nor adaptive equipment prior to surgery. Equipment Owned/DME: None Subjective: Maria C reports pain in her right leg at 7/10. She was tearful when this PT first came into her room. She was reminded that she had an xi during surgery which should help with her pain level and she was assured that the nurse will be updated about date her pain complaint. She was agreeable to walking from edge of bed to the reclining chair during this PT second attempt at evaluation. Also complained of numbness on her toes on the right side. Objective: General Observation: Cast on right leg and foot. IV in the right UE. Looks anxious over the case of her baby Erica who is to [place] [facility] by her father Stoney for a surgery. Mental Status: Alert and oriented x4. Pain: 7/10 in the right leg and foot ROM: Right Upper Extremity: Shoulder Flexion WFL. Shoulder abduction WFL. Elbow flexion WFL. Wrist flexion WFL. Opening and closing of hand WFL. Left Upper Extremity: Shoulder Flexion WFL. Shoulder abduction WFL. Elbow flexion WFL. Wrist flexion WFL. Opening and closing of hand WFL. Right Lower Extremity: Hip flexion WFL. Hip abduction WFL. Knee flexion WFL. Ankle dorsiflexion NT. Ankle plantarflexion NT. Left Lower Extremity: Hip flexion WFL. Hip abduction WFL. Knee flexion WFL. Ankle dorsiflexion WFL. Ankle plantarflexion WFL. Strength: Right Upper Extremity: Shoulder flexors 5/5. Shoulder abductors 5/5. Elbow flexors 5/5. Elbow extensors 5/5. Subsurface Augmentee Operator strong. Left Upper Extremity: Shoulder flexors 5/5. Shoulder abductors 5/5. Elbow flexors 5/5. Elbow extensors 5/5. Subsurface Augmentee Operator strong. Right Lower Extremity: Hip flexors 5/5. Hip abductors 5/5. Knee flexors 5/5. Knee extensors 3/5 grossly. Ankle dorsiflexors NT. Ankle plantarflexors NT. Left Lower Extremity:Hip flexors 5/5. Hip abductors 5/5. Knee flexors 5/5. Knee extensors 5/5. Ankle dorsiflexors 5/5. Ankle plantarflexors 5/5. Sensation: Numbness on the right toes Bed Mobility/Transfers: Rolling supervision Supine to sit supervision Sit to supine standby assist Sit to stand standby assist Stand to sit standby assist Bed to chair standby assist Gait: Tolerated level surface ambulation of 30 feet during the first visit + 50 feet during the second visit using front wheeled walker with nonweightbearing on the right LE requiring contact-guard assist with minimal verbal cues given for compliance with weightbearing precautions with no report of increase in pain in the right leg and foot. Balance: Static Sitting: Normal normal Dynamic Sitting: Static Standing: Fair fair Dynamic Standing: Special Tests: Mobility Limitations Standardized Measure [facility] 6 clicks Basic Mobility Inpatient Short Form: Raw Score: 18 CMS Score: 47% deficit Informed Consent/Education: Patient instructed in purpose of PT consult and plan of care. Assessment: Riya demonstrate significant functional mobility decline requiring the use of a front wheeled walker for all mobility ADL performance, difficulty with walking, unsteadiness of gait, and increased risk for falls due to postoperative status. She will benefit from continued skilled physical therapy services in order to maximize dependence with mobility ADL performance and reduce fall risk. Patient presents with clinical signs and symptoms consistent with current/admitting diagnoses that have resulted to mobility limitations, gait instability, generalized weakness, and impairment of motor control as demonstrated by the following impairment level findings: 1. Decreased strength to right leg and foot major muscle groups 2. Impaired sitting/standing balance 3. Impaired activity tolerance 4. Limitation of joint range of motion in right ankle Impairments are contributing to the following functional limitations: 1. Dependent bed mobility skills 2. Increased dependence with transfers 3. Inability to safely ambulate without assistive device 4. Increase completion time for mobility ADL performance 5. Increased fall risk 6. Inability to negotiate steps alone safely Patient is assessed as a 54719 moderate complexity based on the following: History: 40-year-old female with impairment level findings, functional limitations, and past medical history as indicated above Examination: Demonstrable impairment in strength, balance, and mobility level with underlying impairments and functional limitations as documented above Presentation:Evolving Decision Makin moderate complexity Goals: Goals X 3 days 1. Supine-Sit independent 2. Sit-Supine independent 3. Sit-Stand independent 4. Stand-Sit independent 5. Bed-Chair independent 6. Chair-Bed independent 7. Independent gait on level surface with use of least restrictive device for at least 300 feet without report of pain nor dyspnea 8. Independent stair negotiation while holding onto bilateral rails for at least 10 steps without report of pain nor dyspnea 9. Independent with home exercise program 10. Good static and dynamic standing balance/tolerance Plan of Care/Treatment Plan: 1-2x/day, 7 days/week x 1 week. Plan of care has been reviewed with the MAP MAKER providing the service under Physical Therapy direction. Initiate Physical Therapy intervention for strengthening, bed mobility, transfers, gait, stairs, balance training, use of assistive device. PT intervention: Session today consisted of initial physical therapy evaluation as well as education and training on safe mobility ADL performance while observing non-weight bearing precautions on the right LE using the front wheeled walker. Keyanna was also educated and trained on home exercise program that she can initiate on doing as of today. Stair negotiation training will need to be done before she goes home as she has a flight to navigate before reaching her house entrance. She refused said training stating that she plans on using her butt to go up and down those steps. commercial account manager Mayra and nurse Yvon were updated about PT intervention provided today and patient's plan of potentially going home tonight against medical advice. DISCHARGE RECOMMENDATIONS: Patient will benefit from home health PT services in order to progress mobility level using least restrictive assistive ambulatory device, assess home safety, identify additional equipment needs, and establish a functional maintenance program that will increase ability of patient to remain at home. TREATMENT CODE/TIME: Session 1--[id number] x 17 minutes beginning at 1307. Session 2??[id number] x 15 minutes, [id number] 0 x 15 minutes beginning at 15 10 PM Thank you for the opportunity to participate in the care of this patient. Janis Hernández PT, DPT, CLT [facility] [place], [place]
--- NOTE | 2020-02-08 15:10 | CMPROGNOTE_ITS ---
- If Service Date Differs Date of service: 02/08/20 Time of Service: 15:10 Care Management Progress Note S/O: Keyanna, is focused on her who is being sent to [facility] for pyloric stenosis repair per significant other. She is worried and wants to be discharged tonight. CM would like her to stay here at least overnight she will not have anyone at home to assist her over the weekend. CM did contact [facility] and notify of potential discharge over the weekend. CM did leave a voicemail for [facility] provider and request follow up medication management. A: Keyanna is a 40 year old female admitted with altered mental status of unknown etiology possible related to alcohol withdrawal and Gabapentin overdose. She also has a fracture of her right ankle.Keyanna has a long history of alcohol use and dependency. Keyanna has two young children is 5 weeks old and her other child 11 months old. She does have a significant other Stoney who is caring for both of the children at this time. P: Keyanna remains acute, her ORIF was done today of her right ankle. She is non weight bearing she will need a FWW which CM will provide. CM to continue to coordinate disposition and services for discharge. Transportation via [facility] vs friend or family. DCF report number is [id number] - [facility] has notified Keyanna of the DCF report as well as her significant other Stoney Miranda.
--- NOTE | 2020-02-08 16:48 | PGE_ITS ---
Date of Service Date of service: 02/08/20 Time of Service: 16:48 Assessment and Plan Assessment and plan (1) Closed fracture dislocation of ankle joint: Status: Acute Assessment and plan: s/p repair today. Noted loose body in ankle joint and ankle syndesmosis disruption Dr Calvo, orthopedist, was careful to place extra padding between the pt and the cast and to not make the cast too tight. This, given her history of taking of the previous splints when restless/anxious. Nonwt bearing. Qualifiers: Encounter type: initial encounter Laterality: right Qualified Code(s): S82.891A - Other fracture of right lower leg, initial encounter for closed fracture (2) Drug overdose: Status: Acute Assessment and plan: Patient has continued to be in denial. Will discharge only after adequate, safe plan in place for her mental health follow up. Qualifiers: Encounter type: subsequent encounter Injury intent: undetermined intent Qualified Code(s): T50.904D - Poisoning by unspecified drugs, medicaments and biological substances, undetermined, subsequent encounter (3) Depression: Status: Chronic Assessment and plan: Cont Quetiapine 200mg nightly and Topamax 50mg BID Qualifiers: Depression Type: major depressive disorder Major depression recurrence: recurrent Active/Remission status: remission status unspecified Qualified Code(s): F33.9 - Major depressive disorder, recurrent, unspecified (4) Hypertension: Status: Chronic Assessment and plan: PIH; is 6 weeks post Improved controlled. Started amlodipine 10mg daily this admission Monitor Qualifiers: Hypertension type: essential hypertension Qualified Code(s): I10 - Essential (primary) hypertension Subjective Subjective Patient reports: no new complaints Interval history since last seen: s/p repair of RLE / ankle fracture. Had regional block placed post-op No N/V. Exam Const General: cooperative Nutritional Appearance: obese Orientation: alert Resp Effort & Inspection: normal respiratory effort Auscultation: clear to auscultation bilaterally Cardio Rate: regular rate Rhythm: regular rhythm Heart Sounds: S1 normal and S2 normal Neuro General: patient alert and moves all extremities Extrem General: no clubbing, cyanosis or edema Other: R short leg cast in place. Psych Appearance: grossly normal Speech and Movement: pressured speech Affect: animated Attitude: cooperative Thought Process: tangential Insight: poor Objective Objective Clinical Data: Vital Signs Temperature 37.8 C H 02/08/20 15:24 Temperature Source Tympanic 02/08/20 15:24 Pulse 103 H 02/08/20 15:24 Pulse Rhythm Regular 02/08/20 07:10 Pulse 68 02/05/20 23:30 Respiratory Rate 18 02/08/20 15:24 Respiratory Effort Non-Labored 02/08/20 07:10 Respiratory Depth Normal 02/08/20 07:10 Respiratory Pattern Normal 02/08/20 07:10 Blood Pressure 149/101 H 02/08/20 15:24 Blood Pressure Mean 97 02/05/20 23:04 Blood Pressure Position Supine 02/05/20 11:32 Pulse Oximetry 100 02/08/20 15:24 Respiratory End-tidal CO2 36 02/08/20 11:26 Oxygen Delivery Method Room Air 02/08/20 15:24 Oxygen Flow Rate 0 02/08/20 15:24 Fraction of Inspired Oxygen (FIO2) 60 02/04/20 16:19 Pain Level 5 02/08/20 15:24 Comment 02/07/20 23:09 Intake & Output 02/07/20 02/08/20 02/08/20 23:59 11:59 23:59 Intake Total 100 / 100 735 / 785 50 / 785 Output Total 950 / 1750 765 / 1565 800 / 1565 Balance -850 / -1650 -30 / -780 -750 / -780 Weight 101.5 kg Intake: IV 685 / 735 50 / 735 Oral 100 / 100 50 / 50 Output: Urine 950 / 1750 750 / 1550 800 / 1550 Estimated Blood Loss Other: Urine Color Pale Yellow Yellow Yellow Urine Appearance Clear Clear Clear Urine Odor None Normal Emesis Description None None Voiding Methods Bedside Commode Toilet Toilet Laboratory Results WBC 5.57 10^3/uL (4.4-10.8) 02/06/20 06:00 RBC 3.08 10^6/uL (3.93-5.22) L 02/06/20 06:00 Hgb 9.3 g/dL (11.2-15.7) L 02/06/20 06:00 Hct 29.0 % (36.0-46.0) L 02/06/20 06:00 MCV 94.2 fL (80-95) 02/06/20 06:00 MCH 30.2 pg (27.0-33.0) 02/06/20 06:00 MCHC 32.1 % (32.0-36.0) 02/06/20 06:00 RDW 15.0 % (11.7-14.6) H 02/06/20 06:00 Plt Count 256 10^3/uL (130-400) 02/06/20 06:00 MPV 8.9 fL (8.0-11.0) 02/06/20 06:00 Immature Gran % 0.4 02/06/20 06:00 Neutrophils % 55.7 02/06/20 06:00 Lymphocytes % 23.3 02/06/20 06:00 Monocytes % 11.5 02/06/20 06:00 Eosinophils % 8.6 02/06/20 06:00 Basophils % 0.5 02/06/20 06:00 Nucleated RBC % 0 % 02/06/20 06:00 Absolute Neutrophils 3.10 10^3/uL (1.2-6.7) 02/06/20 06:00 Absolute Lymphocytes 1.30 10^3/uL (1.2-3.4) 02/06/20 06:00 Absolute Monocytes 0.64 10^3/uL (0.1-0.8) 02/06/20 06:00 Absolute Eosinophils 0.48 10^3/uL (0.0-0.7) 02/06/20 06:00 Absolute Basophils 0.03 10^3/uL (0.0-0.2) 02/06/20 06:00 RBC Morphology See below 02/05/20 06:10 Polychromasia Present 02/04/20 08:15 Hypochromasia 1+ 02/05/20 06:10 ABG Sample Site Right radial 02/04/20 07:45 ABG pH 7.32 (7.35-7.45) L 02/04/20 07:45 ABG pCO2 40 mmHg (35-45) 02/04/20 07:45 ABG pO2 58 mmHg (80-105) L 02/04/20 07:45 ABG HCO3 21 mmol/L (22-26) L 02/04/20 07:45 ABG Total CO2 20 mmol/L (23-27) L 02/04/20 07:45 ABG O2 Saturation 90 % (95-98) L 02/04/20 07:45 ABG Base Excess -6 mmol/L (-2-3) L 02/04/20 07:45 VBG pH 7.16 (7.31-7.41) L* 02/02/20 18:20 VBG pCO2 50 mmHg (41-51) 02/02/20 18:20 VBG pO2 112 mmHg 02/02/20 18:20 VBG HCO3 18 mmol/L (23-28) L 02/02/20 18:20 VBG Total CO2 17 mmol/L (24-29) L 02/02/20 18:20 VBG O2 Saturation 97 % 02/02/20 18:20 VBG Base Excess -11 mmol/L (-2-3) L 02/02/20 18:20 VBG Lactate 1.3 mmol/L (0.6-1.4) 02/02/20 18:20 Oxygen Liter Flow Asv 100% 100 spont L 02/04/20 07:45 FiO2 35% 5 peep % 02/04/20 07:45 Sodium Cancelled 02/07/20 10:36 Potassium Cancelled 02/07/20 10:36 Chloride Cancelled 02/07/20 10:36 Carbon Dioxide Cancelled 02/07/20 10:36 Anion Gap Cancelled 02/07/20 10:36 BUN Cancelled 02/07/20 10:36 Creatinine Cancelled 02/07/20 10:36 Estimated GFR/1.73 m2 Cancelled 02/07/20 10:36 Glucose Cancelled 02/07/20 10:36 Calcium Cancelled 02/07/20 10:36 Magnesium 2.1 mg/dL (1.8-2.4) 02/04/20 08:15 Total Bilirubin 0.4 mg/dL (0.2-1.0) 02/04/20 08:15 AST 53 U/L (15-37) H 02/04/20 08:15 ALT 58 U/L (14-59) 02/04/20 08:15 Alkaline Phosphatase 72 U/L (46-116) 02/04/20 08:15 Ammonia < 10 umol/L (11-32) L 02/02/20 18:20 Troponin I < 0.05 ng/mL (<0.06) 02/02/20 18:20 Total Protein 5.3 g/dL (6.4-8.2) L 02/04/20 08:15 Albumin 2.3 g/dL (3.4-5.0) L 02/04/20 08:15 Procalcitonin 0.1 ng/mL 02/03/20 10:45 Urine Color Yellow (Yellow) 02/02/20 19:24 Urine Clarity Clear (Clear) 02/02/20 19:24 Urine pH 5.5 (5-8) 02/02/20 19:24 Ur Specific [place] 1.025 (1.005-1.025) 02/02/20 19:24 Urine Protein 30 mg/dL (Negative) H 02/02/20 19:24 Urine Ketones 40 mg/dL (Negative) H 02/02/20 19:24 Urine Blood Trace-lysed (Negative) H 02/02/20 19:24 Urine Nitrite Negative (Negative) 02/02/20 19:24 Urine Bilirubin Small (Negative) H 02/02/20 19:24 Urine Urobilinogen 0.2 EU/dL (Up TO 0.2) 02/02/20 19:24 Ur Leukocyte Esterase Negative (Negative) 02/02/20 19:24 Urine RBC 3-5 HPF (0-2) H 02/02/20 19:24 Urine WBC 3-5 HPF (0-5) 02/02/20 19:24 Ur Epithelial Cells Few HPF (Negative) 02/02/20 19:24 Urine Crystals Negative HPF (Negative) 02/02/20 19:24 Urine Bacteria Negative HPF (Negative) 02/02/20 19:24 Urine Casts 0-2 hyaline LPF (Negative) 02/02/20 19:24 Urine Mucus Negative (Negative) 02/02/20 19:24 Ur Culture Indicated? No 02/02/20 19:24 Urine Glucose Negative mg/dL (Negative) 02/02/20 19:24 Salicylates < 2.8 mg/dL (2.8-20.0) 02/02/20 18:23 Urine Opiates Screen Negative (Negative) 02/02/20 19:24 Urine Methadone Screen Negative (Negative) 02/02/20 19:24 Acetaminophen < 2 ug/mL (10-30) 02/02/20 18:23 Ur Barbiturates Screen Negative (Negative) 02/02/20 19:24 Ur Tricyclics Screen Negative (Negative) 02/02/20 19:24 Ur Amphetamines Screen Positive (Negative) A 02/02/20 19:24 U Benzodiazepines Scrn Positive (Negative) A 02/02/20 19:24 Urine Cocaine Screen Negative (Negative) 02/02/20 19:24 Ur THC Screen Negative (Negative) 02/02/20 19:24 Ethyl Alcohol < 3.0 mg/dL (<3) 02/02/20 18:20 COVID-19 PCR Negative (Negative) 02/02/20 21:30 Nasopharyn COVID-19 PCR Not Applicable 02/02/20 21:30 Ref Test Perform Site [facility] 02/02/20 21:30
--- NOTE | 2020-02-08 18:50 | NUR.NOTE ---
patient adamant that she is leaving despite, RN, MD and Charge Nurse advising her about possible complications leaving against medical advise. She told RN no matter what she needs to get home to her babies. AMA form signed and witness- midline and wrist claudia removed.
--- NOTE | 2020-02-11 08:16 | INDS_ITS ---
Date of service: 02/11/20 PT Notes Visit Reasons: DRUG OD/AMS/VENTILATED Inpatient Physical Therapy Discharge Summary Dates: 02/11/2020 Dates of Service: 02/08/2020 only This is a clinical summary of care provided on the duration of dates listed above. No charge was made in the completion of this documentation. Referring Doctor: Yunior Valerio MD PT Orders: PT CONSULT: Eval/Treat Precautions: Non-weightbearing on her right LE. Fall. Standard. Patient Profile/Admitting Diagnosis: Maria C is a 40-year-old female who had normal spontaneous vaginal delivery on 12/28/2019 now with with right bimalleolar equivalent ankle fracture dislocation, right ankle syndesmosis injury, and right ankle joint loose bodies and is status post right ankle lateral malleolus ORIF, loose body removal of the right ankle joint, and ORIF of syndesmosis disruption on postoperative day 0. Patient was admitted through the ED on 02/02/2020 with diagnosis of drug overdose, alteration of mental status, metabolic acidosis, aspiration pneumonia, seizure, and R ankle fracture dislocation which she sustained when she fell during a seizure episode while walking to the pharmacy on 01/31/2020. She was sent to the ED on 01/31/2020 and was placed on a cast with follow up recommended. She however failed to show up and instead ended back up at the ED with splint gone on 02/02/2020. PMHX: Medical History ADHD (Acute) Alcohol dependence in remission (Chronic) Anxiety (Chronic) BMI 31.0-31.9,adult (Chronic) Chronic hypertension affecting (Acute) Depression (Chronic) Eating disorder (Chronic) Encounter for supervision of other normal , third trimester (Acute) Hypertension affecting (Chronic) Medications in the past. No current medications Limited care in third trimester (Acute) (normal spontaneous vaginal delivery) (Acute) Opioid dependence in remission (Chronic) Poor patient attendance of care (Acute) Positive test (Acute) (Resolved) Us both transvaginal and transabdominal performed + movement making position for measurements difficult and possibility of error in yoly estimation Radiology US appointment schedule having Initial intake appointment today requests [place] Level 2 for AMA Topramax exposure (Acute) (Acute) (Acute) Suicide attempt (Active 08/27/12) Overdose pills/alcohol Social History/Home Situation: Keyanna lives on the second floor of an apartment building with 12 steps to enter with rails on both sides. She was independent with all aspects of ADLs without the need for an assistive ambulatory device nor adaptive equipment prior to surgery. Equipment Owned/DME: None Subjective: NT. See most recent INTERMEDIATE TEACHER notes. Objective: General Observation: NT. See most recent INTERMEDIATE TEACHER notes. Mental Status: NT. See most recent INTERMEDIATE TEACHER notes. Pain: NT. See most recent INTERMEDIATE TEACHER notes. ROM: Right Upper Extremity: Shoulder Flexion WFL. Shoulder abduction WFL. Elbow flexion WFL. Wrist flexion WFL. Opening and closing of hand WFL. Left Upper Extremity: Shoulder Flexion WFL. Shoulder abduction WFL. Elbow flexion WFL. Wrist flexion WFL. Opening and closing of hand WFL. Right Lower Extremity: Hip flexion WFL. Hip abduction WFL. Knee flexion WFL. Ankle dorsiflexion NT. Ankle plantarflexion NT. Left Lower Extremity: Hip flexion WFL. Hip abduction WFL. Knee flexion WFL. Ankle dorsiflexion WFL. Ankle plantarflexion WFL. Strength: Right Upper Extremity: Shoulder flexors 5/5. Shoulder abductors 5/5. Elbow flexors 5/5. Elbow extensors 5/5. Blow Up Operator strong. Left Upper Extremity: Shoulder flexors 5/5. Shoulder abductors 5/5. Elbow flexors 5/5. Elbow extensors 5/5. Blow Up Operator strong. Right Lower Extremity: Hip flexors 5/5. Hip abductors 5/5. Knee flexors 5/5. Knee extensors 3/5 grossly. Ankle dorsiflexors NT. Ankle plantarflexors NT. Left Lower Extremity:Hip flexors 5/5. Hip abductors 5/5. Knee flexors 5/5. Knee extensors 5/5. Ankle dorsiflexors 5/5. Ankle plantarflexors 5/5. Sensation: Numbness on the right toes Bed Mobility/Transfers: Rolling supervision Supine to sit supervision Sit to supine standby assist Sit to stand standby assist Stand to sit standby assist Bed to chair standby assist Gait: On evaluation, she tolerated level surface ambulation of 30 feet during the first visit + 50 feet during the second visit using front wheeled walker with nonweightbearing on the right LE requiring contact-guard assist with minimal verbal cues given for compliance with weightbearing precautions with no report of increase in pain in the right leg and foot. Balance: Static Sitting: Normal normal Dynamic Sitting: Static Standing: Fair fair Dynamic Standing: Assessment: Keyanna insisted to go home today as she needed to be there for her baby's surgery at [facility]. She continues to demonstrate significant functional mobility decline requiring the use of a front wheeled walker for all mobility ADL performance, difficulty with walking, unsteadiness of gait, and increased risk for falls due to postoperative status. She will benefit from continued skilled physical therapy services in order to maximize dependence with mobility ADL performance and reduce fall risk. Patient continues to present with clinical signs and symptoms consistent with current/admitting diagnoses that have resulted to mobility limitations, gait instability, generalized weakness, and impairment of motor control as de monstrated by the following impairment level findings: 1. Decreased strength to right leg and foot major muscle groups 2. Impaired sitting/standing balance 3. Impaired activity tolerance 4. Limitation of joint range of motion in right ankle Impairments are continung to contributing to the following functional limitations: 1. Dependent bed mobility skills 2. Increased dependence with transfers 3. Inability to safely ambulate without assistive device 4. Increase completion time for mobility ADL performance 5. Increased fall risk 6. Inability to negotiate steps alone safely Goals: Goals X 3 days 1. Supine-Sit independent NOT MET 2. Sit-Supine independent NOT MET 3. Sit-Stand independent NOT MET 4. Stand-Sit independent NOT MET 5. Bed-Chair independent NOT MET 6. Chair-Bed independent NOT MET 7. Independent gait on level surface with use of least restrictive device for at least 300 feet without report of pain nor dyspnea NOT MET 8. Independent stair negotiation while holding onto bilateral rails for at least 10 steps without report of pain nor dyspnea NOT MET 9. Independent with home exercise program NOT MET 10. Good static and dynamic standing balance/tolerance NOT MET DISCHARGE RECOMMENDATIONS: Patient will benefit from home health PT services in order to progress mobility level using least restrictive assistive ambulatory device, assess home safety, identify additional equipment needs, and establish a functional maintenance program that will increase ability of patient to remain at home. TREATMENT CODE/TIME: ME. Thank you for the opportunity to participate in the care of this patient. Janis Hernández PT, DPT, CLT [facility], [place]
== END 2020-02-08 19:25 | disposition left against medical advice (07) | DRG 908 ==
LOC: ER 17:33 → ICU 20:56 → MS 02-06
PROVIDERS: Family Medicine; Student in an Organized Health Care Education/Training Program; Admitting Provider Family Medicine; Emergency Provider Student in an Organized Health Care Education/Training Program; PCP Nurse Practitioner Family; Visit Provider Family Medicine
PROC: 0QSJ04Z Reposition Right Fibula with Internal Fixation Device, Open Approach (ICD-10-PCS; CPT 27829; principal; 2020-02-08 07:30)
DX: T42.6X1A Poisoning by other antiepileptic and sedative-hypnotic drugs, accidental (unintentional), initial encounter (principal); E87.2 Acidosis; F33.9 Major depressive disorder, recurrent, unspecified; R44.2 Other hallucinations; S82.841A Displaced bimalleolar fracture of right lower leg, initial encounter for closed fracture; S93.431A Sprain of tibiofibular ligament of right ankle, initial encounter; G40.909 Epilepsy, unspecified, not intractable, without status epilepticus; Z79.899 Other long term (current) drug therapy; I10 Essential (primary) hypertension; R00.0 Tachycardia, unspecified; Z78.1 Physical restraint status; F90.9 Attention-deficit hyperactivity disorder, unspecified type; F10.21 Alcohol dependence, in remission; F41.9 Anxiety disorder, unspecified; F11.21 Opioid dependence, in remission; Z91.5 Personal history of self-harm; E66.9 Obesity, unspecified; R33.9 Retention of urine, unspecified; R74.0 Nonspecific elevation of levels of transaminase and lactic acid dehydrogenase [LDH]; R00.1 Bradycardia, unspecified; M24.071 Loose body in right ankle; Z91.19 Patient's noncompliance with other medical treatment and regimen
CPT/HCPCS: 27829; 27792; 27620; 29515; 31500; 36415; 36416; 51702; 71045; 74177; 76000; 80048; 80053; 80307; 82805; 82962; 84145; 93005; 96361; 96365; 96366; 96368; 96375; 96376; 97110; 97162; 97530; 99223; 99232; 99233; 99252; 99291; 99292; J1650; NC; U0003; 36600; 70450; 71260; 72125; 73610; 80320; 80329; 81003; 81015; 82140; 83605; 83735; 84484; 85025; 93010; 94002; 94003; J0131; J0295; J0690; J1885; J2001; J2060; J2250; J2405; J2704; J3010; J3490

== ENCOUNTER 2020-02-22 20:28 | Emergency (ER) | payer MEDICAID, SELFPAY ==
[2020-02-22 20:30] VITALS: BP 107/75; PULSE 98; RESP 20; TEMP 36.7; O2SAT 92
[2020-02-22 20:51] VITALS: RESP 20
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
== END 2020-02-22 21:20 | disposition left against medical advice (07) ==
LOC: ER 21:54
PROVIDERS: Emergency Provider Student in an Organized Health Care Education/Training Program; PCP Nurse Practitioner Family
DX: Z53.21 Procedure and treatment not carried out due to patient leaving prior to being seen by health care provider (principal)

== ENCOUNTER 2020-02-22 21:59 | Emergency (ER) | payer MEDICAID, SELFPAY ==
[2020-02-22 22:00] VITALS: BP 133/79; PULSE 96; RESP 20; TEMP 36.8; O2SAT 97
[2020-02-22 22:08] VITALS: RESP 20
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
--- NOTE | 2020-02-22 22:47 | NUR.NOTE ---
Nursing Note: Per MD, patent can remain in her normal clothes and we are to keep an observer on her due to earlier elopement.
[2020-02-22 22:49] LABS: Absolute Basophil Count 0.05 10^3/uL (0.0-0.2); Absolute Eosinophil Count 0.82 10^3/uL (0.0-0.7); Absolute Lymphocyte Count 1.59 10^3/uL (1.2-3.4); Absolute Monocyte Count 0.42 10^3/uL (0.1-0.8); Absolute Neutrophil Count 7.11 10^3/uL (1.2-6.7); Basophils % 0.5; Eosinophils % 8.1; HCT 35.4 % (36.0-46.0); HGB 11.1 g/dL (11.2-15.7); Lymphocytes % 15.8; MCH 29.9 pg (27.0-33.0); MCHC 31.4 % (32.0-36.0); MCV 95.4 fL (80-95); MPV 8.7 fL (8.0-11.0); Monocytes % 4.2; Neutrophils % 70.4; Nucleated RBC 0 %; RBC 3.71 10^6/uL (3.93-5.22); RDW 15.6 % (11.7-14.6); RDW-SD 54.7 fL; WBC 10.09 10^3/uL (4.4-10.8)
[2020-02-22 22:50] LABS: Platelet Count 398 10^3/uL (130-400)
[2020-02-22 23:05] LABS: Salicylate < 2.8 mg/dL (2.8-20.0)
[2020-02-22 23:06] LABS: Acetaminophen < 2 ug/mL (10-30)
--- NOTE | 2020-02-22 23:12 | NUR.NOTE ---
Nursing Note:Per MD, patient given a sandwhich and a warm blanket.
[2020-02-22 23:13] LABS: ALT 27 U/L (14-59); AST 17 U/L (15-37); Albumin 3.4 g/dL (3.4-5.0); Alkaline Phosphatase 108 U/L (46-116); Anion Gap 10.4 mmol/L (3-11); BUN 14 mg/dL (7-18); Bilirubin, Total 0.2 mg/dL (0.2-1.0); CO2 26.6 mmol/L (21.0-32.0); CREATININE 0.85 mg/dL (0.55-1.02); Chloride 105 mmol/L (98-107); ETHANOL BLOOD 178.9 mg/dL (<3); Glucose 111 mg/dL (74-106); Sodium 142 mmol/L (136-145); TSH (W/Ref FT4) 2.87 uIU/mL (0.36-3.74); Total Protein 7.1 g/dL (6.4-8.2)
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
--- NOTE | 2020-02-23 01:56 | PDOC.MHCN_ITS ---
Date of service: 02/23/20 Time of Service: 01:56 Mental Health Crisis Note Presenting Issue How did you arrive at the ED and why did you come: Client arrived at the ED by ambulance after reporting to police that she took all of her prescription meds. Precipitating Factors Client reports no SI or HI. Client reports that she told ems and police that she took all of her meds because she was intoxicated and did not want to go to the drunk tank. Disposition BEHAVIOR: Clients behavior was unremarkable. Client was receptive to all this writers questions. EYE CONTACT: Client made eye contact throughout the assessment. MOOD: Clients mood was euthymic. AFFECT: Normal APPETITE: Client reported overeating lately because of boredom. SLEEP(trouble falling/staying asleep: Client reports no sleep issues. Plan This handbook writer spoke with doctor and it was agreed that she will go home. Client reports that she will call a friend to come pick her up. Signature Clinician's Name/Title: Marleny Vizcarra [facility] Emergency Clinician
[2020-02-23 02:00] LABS: *AMPHETAMINES SCREEN URINE Negative (Negative); *BARBITURATES SCREEN URINE Negative (Negative); *BENZODIAZEPINES SCREEN URINE Negative (Negative); Cannabinoids THC Negative (Negative); Cocaine Screen,Urine Negative (Negative); METHADONE URINE SCREEN Negative (Negative); OPIATES URINE SCREEN Negative (Negative)
[2020-02-23 02:04] LABS: Tricyclic Antidepressants Negative (Negative)
== END 2020-02-23 02:20 | disposition home or self-care (01) ==
PROVIDERS: Emergency Provider Student in an Organized Health Care Education/Training Program; PCP Nurse Practitioner Family
DX: F10.120 Alcohol abuse with intoxication, uncomplicated (principal); Y90.6 Blood alcohol level of 120-199 mg/100 ml; Z47.89 Encounter for other orthopedic aftercare; F32.9 Major depressive disorder, single episode, unspecified
CPT/HCPCS: 36415; 80053; 80307; 81025; 99285; 80320; 80329; 84443; 85025; 99284; L4361

== ENCOUNTER 2020-03-18 14:18 | Outpatient (CLI) | payer MEDICAID, SELFPAY ==
--- NOTE | 2020-03-18 13:17 | DI.RAD_ITS ---
EXAM: XR ANKLE RT COMPLETE INDICATION: f/u fracture. COMPARISON: CR,XR XR ANKLE RT COMPLETE from 02/02/2020 XR ANKLE RT COMPLETE from 02/08/2020 TECHNIQUE: 2D digital imaging was performed. FINDINGS: Has been no change in fracture or hardware alignment. There is some callus formation. Soft tissue s welling remains present. DATA REPOSITORY: RADIATION DOSE DELIVERED:
== END 2020-03-18 14:38 ==
PROVIDERS: PCP Nurse Practitioner Family; Referring Provider Nurse Practitioner Family; Visit Provider Student in an Organized Health Care Education/Training Program
DX: S82.891A Other fracture of right lower leg, initial encounter for closed fracture (principal)
CPT/HCPCS: 73610

== ENCOUNTER 2020-05-06 13:39 | Outpatient (CLI) | payer MEDICAID, SELFPAY ==
--- NOTE | 2020-05-06 13:00 | DI.RAD_ITS ---
EXAM: XR ANKLE RT COMPLETE CLINICAL HISTORY: f/u TECHNIQUE: COMPARISON: CR XR ANKLE RT COMPLETE from 03/18/2020 FINDINGS: Three views were obtained. Previously described fixation distal fibula with screws traversing the ti bial fibular joint is again noted. Ankle mortise appears well maintained. No change in alignment in comparison with examination of March 18. IMPRESSION: RADIATION DOSE DELIVERED: Total DLP Total DLP
== END 2020-05-06 13:59 ==
PROVIDERS: PCP Nurse Practitioner Family; Referring Provider Nurse Practitioner Family; Visit Provider Student in an Organized Health Care Education/Training Program
DX: S82.891A Other fracture of right lower leg, initial encounter for closed fracture
CPT/HCPCS: 73610

== ENCOUNTER 2020-06-27 01:39 | Outpatient (CLI) | payer MEDICAID, SELFPAY ==
[2020-06-27 10:36] LABS: Abs Immature Grans 0.01 10^3/uL (0.0-0.06); Absolute Basophil Count 0.05 10^3/uL (0.0-0.2); Absolute Eosinophil Count 0.64 10^3/uL (0.0-0.7); Absolute Lymphocyte Count 1.06 10^3/uL (1.2-3.4); Absolute Monocyte Count 0.44 10^3/uL (0.1-0.8); Absolute Neutrophil Count 2.91 10^3/uL (1.2-6.7); Eosinophils % 12.5; HCT 34.6 % (36.0-46.0); HGB 10.9 g/dL (11.2-15.7); Immature Grans % 0.2; Lymphocytes % 20.7; MCH 27.8 pg (27.0-33.0); MCHC 31.5 % (32.0-36.0); MCV 88.3 fL (80-95); MPV 8.9 fL (8.0-11.0); Monocytes % 8.6; Nucleated RBC 0 %; Platelet Count 426 10^3/uL (130-400); RBC 3.92 10^6/uL (3.93-5.22); RDW 14.1 % (11.7-14.6); RDW-SD 45.6 fL; WBC 5.11 10^3/uL (4.4-10.8)
[2020-06-27 10:52] LABS: Hemoglobin A1C 5.4 % (<5.7)
[2020-06-27 12:08] LABS: ALT 18 U/L (14-59); AST 10 U/L (15-37); Albumin 4.1 g/dL (3.4-5.0); Alkaline Phosphatase 86 U/L (46-116); Anion Gap 7.8 mmol/L (3-11); BUN 8 mg/dL (7-18); Bilirubin, Total 0.4 mg/dL (0.2-1.0); CO2 27.2 mmol/L (21.0-32.0); CREATININE 0.9 mg/dL (0.55-1.02); Calcium 9.2 mg/dL (8.5-10.1); Calculated LDL 126 mg/dL (<100); Chloride 103 mmol/L (98-107); Cholesterol 226 mg/dL (<200); Glucose 90 mg/dL (74-106); HDL Cholesterol 88 mg/dL (40-60); Potassium 4.2 mmol/L (3.5-5.1); Sodium 138 mmol/L (136-145); TSH 1.57 uIU/mL (0.36-3.74); Total Protein 7.2 g/dL (6.4-8.2); Triglyceride 62 mg/dL (<150); Vitamin B12 448 pg/mL (193-986)
[2020-06-27 15:31] LABS: C-Reactive Protein 0.41 mg/dL (0.0-0.3); FREE T4 0.78 ng/dL (0.76-1.46)
[2020-06-27 21:49] LABS: T3, Total 110 ng/dL (97-169)
[2020-06-30 05:11] LABS: Vitamin D 25 Total 17.7 ng/ml (30-100)
== END 2020-06-27 01:59 ==
PROVIDERS: PCP Nurse Practitioner Family; Visit Provider Psychiatry & Neurology Psychiatry
DX: F33.1 Major depressive disorder, recurrent, moderate (principal); Z13.228 Encounter for screening for other metabolic disorders; Z79.899 Other long term (current) drug therapy
CPT/HCPCS: 36415; 80053; 80061; 82306; 82607; 83036; 83735; 84439; 84443; 84480; 85025; 86140

== ENCOUNTER 2021-03-05 21:50 | Emergency (ER) | payer MEDICAID, SELFPAY ==
[2021-03-05] VITALS (25 sets, daily range): BP systolic 83–100; BP diastolic 42–56; PULSE 91–108; RESP 11–107; TEMP 36.3; O2SAT 93–100
--- NOTE | 2021-03-05 21:45 | RT.EKG_ITS ---
APPROVED REPORT Exam: Resting ECG Reason for Exam: overdose Patient Location: E HR:105 bpm ECG Measurements Heart Rate 105 AXIS VT 157 P 56 QRSd 96 QRS 15 QT 383 T 47 QTc 506 Conclusion Sinus tachycardia...rate> [address] flattening Prolonged QT
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
[2021-03-05 22:30] LABS: Abs Immature Grans 0.02 10^3/uL (0.0-0.06); Absolute Basophil Count 0.05 10^3/uL (0.0-0.2); Absolute Eosinophil Count 0.77 10^3/uL (0.0-0.7); Absolute Lymphocyte Count 1.71 10^3/uL (1.2-3.4); Absolute Monocyte Count 0.51 10^3/uL (0.1-0.8); Absolute Neutrophil Count 4.86 10^3/uL (1.2-6.7); Basophils % 0.6; Eosinophils % 9.7; HCT 35.3 % (36.0-46.0); HGB 11.6 g/dL (11.2-15.7); Immature Grans % 0.3; Lymphocytes % 21.6; MCH 30.4 pg (27.0-33.0); MCHC 32.9 % (32.0-36.0); MCV 92.7 fL (80-95); Monocytes % 6.4; Neutrophils % 61.4; Nucleated RBC 0 %; RBC 3.81 10^6/uL (3.93-5.22); RDW 13.5 % (11.7-14.6); RDW-SD 45.9 fL; WBC 7.92 10^3/uL (4.4-10.8)
[2021-03-05] MEDS: Normal Saline 1,000 ML 1000 ML IV (22:30)
--- NOTE | 2021-03-05 23:00 | DI.RAD_ITS ---
Exam(s) XR PORTABLE CHEST AP EXAM: XR PORTABLE CHEST AP CLINICAL HISTORY: ETT placement TECHNIQUE: COMPARISON: CR,XR XR PORTABLE CHEST AP from 02/04/2020 FINDINGS: Heart is not enlarged. There are streaky and patchy bilateral basilar radiodensities which are nonsp ecific but which could represent areas of atelectasis or patchy consolidation. There is an endotracheal tube in place about 3-4 cm above the melissa. There is an NG tube coiled in the gastric fundus. IMPRESSION: RADIATION DOSE DELIVERED: Total DLP
[2021-03-05 23:01] LABS: Diff Comment PLT Morph Reviewed; Platelet Count 292 10^3/uL (130-400)
[2021-03-05 23:02] LABS: RBC Morphology Normal
[2021-03-05 23:07] LABS: Salicylate 3.6 mg/dL (<2.8)
[2021-03-05 23:08] LABS: Acetaminophen < 2 ug/mL (10-30)
--- NOTE | 2021-03-05 23:09 | W.ED.PROC ---
Date of service: 03/05/21 Time of Service: 23:05 Procedures Intubation Time out performed: Yes sedative: none paralytic: Rocuronium Mg Given: 100 Laryngoscope: fiberoptic video scope Assist Device Used: fiberoptic device ET Tube Size: 7.5 ET Tube Uncuffed: No Tube Secured Depth (cm): 24 Tube Secured Location: lips Tube Placement Confirmation: visualized tube passing through cords, equal breath sounds bilaterally and confirmation by capnometry Patient Tolerated Procedure: well and no complications Intubation Complications: none Additional Comments: Supervised and assisted by Dr. Sal Sun MD with intubation. No complications, portable chest x-ray ordered and is at bedside at this time to confirm placement. Tube was secured by respiratory therapy. O2 sat remained 100%.
[2021-03-05 23:18] LABS: HCG Qual (Serum) Negative
[2021-03-05 23:42] LABS: Calcium 8.4 mg/dL (8.5-10.1); Glucose 109 mg/dL (74-106)
[2021-03-05 23:43] LABS: BUN 17 mg/dL (7-18)
[2021-03-05 23:44] LABS: Anion Gap 9.2 mmol/L (3-11); CO2 22.8 mmol/L (21.0-32.0); Chloride 105 mmol/L (98-107); Magnesium 2.1 mg/dL (1.8-2.4); Potassium 3.3 mmol/L (3.5-5.1); Sodium 137 mmol/L (136-145)
[2021-03-05] MEDS: Normal Saline 1,000 ML 150 ML IV (23:48)
[2021-03-05 23:52] LABS: BE -8 mmol/L (-2-3); HCO3 21 mmol/L (22-26); pCO2 57 mmHg (35-45); pO2 91 mmHg (80-105); sO2 96 % (95-98); tCO2 20 mmol/L (23-27)
[2021-03-05 23:56] LABS: FIO2 30 %; Site Right Radial; pH 7.17 (7.35-7.45)
[2021-03-05 23:58] LABS: ALT 16 U/L (14-59); AST 9 U/L (15-37); Albumin 3.7 g/dL (3.4-5.0); Alkaline Phosphatase 64 U/L (46-116); Bilirubin, Total 0.2 mg/dL (0.2-1.0); ETHANOL BLOOD < 3.0 mg/dL (<3); TSH (W/Ref FT4) 9.88 uIU/mL (0.36-3.74); Total Protein 6.4 g/dL (6.4-8.2)
--- NOTE | 2021-03-05 23:58 | DI.VRAD_ITS ---
PROCEDURE INFORMATION: Exam: XR Chest Exam date and time: 03/05/2021 11:09 PM Age: 41 years old Clinical indication: Other: Ett placement TECHNIQUE: Imaging protocol: XR of the chest. Views: 1 view. COMPARISON: CR XR PORTABLE CHEST AP 02/04/2020 11:19 AM FINDINGS: Tubes, catheters and devices: Gastric suction tube terminates in the stomach. Endotracheal tube terminates in good position about 3 cm above the clavicle. Lungs: Faint opacities over the bilateral bases which may represent atelectasis Pleural spaces: Unremarkable. No pleural effusion. No pneumothorax. Heart/Mediastinum: Unremarkable. No cardiomegaly. Bones/joints: Unremarkable. IMPRESSION: 1. Gastric suction tube terminates in the stomach. 2. Endotracheal tube terminates in good position about 3 cm above the clavicle. Dictated and Authenticated by: Pradeep Barrios MD. Ordering:ZINA Anton MD
[2021-03-06] VITALS (36 sets, daily range): BP systolic 85–118; BP diastolic 37–75; PULSE 87–101; RESP 11–24; O2SAT 96–100
[2021-03-06] MEDS: Rocuronium 50 MG/5 ML SYR 100 MG IVP (00:16)
--- NOTE | 2021-03-06 00:45 | RT.EKG_ITS ---
APPROVED REPORT Exam: Resting ECG Reason for Exam: overdose Patient Location: E HR:93 bpm ECG Measurements Heart Rate 93 AXIS SC 164 P 67 QRSd 89 QRS 37 QT 429 T 28 QTc 533 Conclusion Sinus rhythm...normal P axis, V-rate 60- 99 Prolonged QT interval...QTc >510mS I have reviewed and interpreted ECG and agree with software generated interpretation.
[2021-03-06 01:03] LABS: *AMPHETAMINES SCREEN URINE Positive (Negative); *BARBITURATES SCREEN URINE Negative (Negative); *BENZODIAZEPINES SCREEN URINE Negative (Negative); Cannabinoids THC Negative (Negative); Cocaine Screen,Urine Negative (Negative); METHADONE URINE SCREEN Negative (Negative); OPIATES URINE SCREEN Negative (Negative)
[2021-03-06 01:04] LABS: COVID-19 PCR Negative (Negative); Source Nasal/Nares
[2021-03-06 01:04] LABS: Tricyclic Antidepressants Positive (Negative)
[2021-03-06] MEDS: Midazolam 2 MG/2 ML VIAL 4 MG IVP (01:10)
[2021-03-06 01:11] LABS: BE -9 mmol/L (-2-3); HCO3 19 mmol/L (22-26); pCO2 53 mmHg (35-45); pO2 120 mmHg (80-105); sO2 99 % (95-98); tCO2 19 mmol/L (23-27)
[2021-03-06 01:14] LABS: FIO2 30 %; Site Left Radial; pH 7.17 (7.35-7.45)
[2021-03-06] MEDS: MIDAZOLAM 50 MG in Normal Saline 90 ML 19.6 MG IV (01:15)
--- NOTE | 2021-03-06 01:55 | NUR.NOTE ---
Nursing Note:Late entry CPSO and q 1hr typewriter operator automatic postponed while pt is intubated.
[2021-03-06] MEDS: Normal Saline 500 ML IV (02:15)
[2021-03-06] MEDS: fentaNYL 100 MCG/2 ML VIAL 50 MCG IVP (02:25)
[2021-03-06 02:32] LABS: BE -8 mmol/L (-2-3); HCO3 19 mmol/L (22-26); pCO2 42 mmHg (35-45); pH 7.26 (7.35-7.45); pO2 89 mmHg (80-105); sO2 97 % (95-98); tCO2 18 mmol/L (23-27)
[2021-03-06 02:35] LABS: FIO2 21 %; Site Right Radial
[2021-03-06] MEDS: Normal Saline 1,000 ML 1000 ML IV (02:46)
== END 2021-03-06 03:33 | disposition short-term general hospital (02) ==
PROVIDERS: Emergency Provider Emergency Medicine; PCP Nurse Practitioner Family
DX: T43.592A Poisoning by other antipsychotics and neuroleptics, intentional self-harm, initial encounter (principal); T42.6X2A Poisoning by other antiepileptic and sedative-hypnotic drugs, intentional self-harm, initial encounter; T14.91XA Suicide attempt, initial encounter
CPT/HCPCS: 31500; 51702; 80053; 80307; 82805; 87635; 93005; 96360; 96361; 96374; 99291; 99292; 36600; 71045; 80320; 80329; 83735; 84439; 84443; 84703; 85025; 93010; J2250; J3010; J3490

== ENCOUNTER 2021-03-17 17:21 | Inpatient (IN) | payer MEDICAID, SELFPAY ==
[2021-03-17] VITALS (77 sets, daily range): BP systolic 79–140; BP diastolic 51–89; PULSE 80–127; RESP 10–29; TEMP 35.7–36.5; O2SAT 86–100
--- NOTE | 2021-03-17 17:15 | RT.EKG_ITS ---
APPROVED REPORT Exam: Resting ECG Reason for Exam: overdose Patient Location: E HR:94 bpm ECG Measurements Heart Rate 94 AXIS IN 137 P 55 QRSd 89 QRS 34 QT 388 T 45 QTc 487 Conclusion Sinus rhythm...normal P axis, V-rate 60- 99
[2021-03-17] MEDS: Normal Saline 1,000 ML 1000 ML IV ×2 (17:55→20:34)
[2021-03-17 18:10] LABS: Source Nasal/Nares
[2021-03-17 18:24] LABS: ALT 22 U/L (14-59); AST 12 U/L (15-37); Albumin 3.8 g/dL (3.4-5.0); Alkaline Phosphatase 87 U/L (46-116); Anion Gap 10.5 mmol/L (3-11); BUN 18 mg/dL (7-18); Bilirubin, Total 0.2 mg/dL (0.2-1.0); CO2 23.5 mmol/L (21.0-32.0); CREATININE 0.8 mg/dL (0.55-1.02); Calcium 8.5 mg/dL (8.5-10.1); Chloride 108 mmol/L (98-107); ETHANOL BLOOD 21.9 mg/dL (<10); Glucose 133 mg/dL (74-106); Magnesium 2.3 mg/dL (1.8-2.4); Potassium 3.7 mmol/L (3.5-5.1); Sodium 142 mmol/L (136-145); TSH (W/Ref FT4) 0.69 uIU/mL (0.36-3.74); Total Protein 7.2 g/dL (6.4-8.2)
[2021-03-17] MEDS: Succinylcholine 200 MG/10 ML VIAL 100 MG IVP (18:28)
[2021-03-17] MEDS: Etomidate 20 MG/10 ML VIAL 10 MG IVP (18:28)
--- NOTE | 2021-03-17 18:30 | DI.RAD_ITS ---
Exam(s) XR PORTABLE CHEST AP POST LINE EXAM: XR PORTABLE CHEST AP POST LINE CLINICAL HISTORY: s/p intubation TECHNIQUE: 2D digital imaging was performed of the chest. One image was obtained. An AP view was ob tained. COMPARISON: CR,XR XR PORTABLE CHEST AP from 03/05/2021 FINDINGS: MEDIASTINUM: Normal. HEART: Normal. PULMONARY VASCULATURE: Normal. LUNGS: Linear atelectasis is seen in the left lung base. Stable patchy infiltrates are seen predomin antly in the lower lobes. PLEURAL SPACE: No pleural effusion or pneumothorax. BONE:Within normal limits for the patient's age. OTHER FINDINGS:The tip of the endotracheal tube is in good position approximately 4.7 cm above the ca shayy. The tip of the nasogastric tube lies below the the diaphragm in the stomach but is off the neena m. IMPRESSION: 1. Endotracheal tube and nasogastric tube are in good position. 2. Stable bilateral patchy pulmonary infiltrates. 3. Left basilar atelectasis. DATA REPOSITORY: RADIATION DOSE DELIVERED:
[2021-03-17 18:37] LABS: Salicylate < 2.8 mg/dL (<2.8)
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
[2021-03-17 18:54] LABS: Acetaminophen < 2 ug/mL (10-30)
[2021-03-17 19:11] LABS: Bilirubin Negative (Negative); Blood Trace-intact (Negative); Clarity Clear (Clear); Glucose Negative (Negative); Ketones Negative (Negative); Leukocyte Esterase Negative (Negative); Nitrite Negative (Negative); Specific Gravity 1.015 (1.005-1.025); Urobilinogen 0.2 EU/dL (Up TO 0.2)
--- NOTE | 2021-03-17 19:18 | DI.VRAD_ITS ---
PROCEDURE INFORMATION: Exam: XR Chest Exam date and time: 03/17/2021 18:34 Age: 41 years old Clinical indication: Other: S/P intubation; Patient HX: Intubation and ng tube TECHNIQUE: Imaging protocol: XR of the chest. Views: 1 view. COMPARISON: CR XR PORTABLE CHEST AP 03/05/2021 23:09 FINDINGS: Tubes, catheters and devices: The endotracheal tube terminates 5 cm above the melissa. Nasogastric tube in the stomach. Lungs: Mild patchy interstitial densities with linear probable subsegmental atelectasis in the lung bases, similar. Pleural spaces: No pleural effusion. No pneumothorax. Heart/Mediastinum: No cardiomegaly. Bones/joints: No acute fracture. IMPRESSION: 1. Lines and tubes in satisfactory position. 2. Mild patchy interstitial densities with linear probable subsegmental atelectasis in the lung bases, similar. Dictated and Authenticated by: Renetta Allen MD. Ordering:DAVON Fritz MD
[2021-03-17] MEDS: MIDAZOLAM 50 MG in Normal Saline 90 ML 9.8 MG IV (19:24)
[2021-03-17 19:27] LABS: *AMPHETAMINES SCREEN URINE Negative (Negative); *BARBITURATES SCREEN URINE Negative (Negative); *BENZODIAZEPINES SCREEN URINE Negative (Negative); Cannabinoids THC Negative (Negative); Cocaine Screen,Urine Negative (Negative); METHADONE URINE SCREEN Negative (Negative); OPIATES URINE SCREEN Negative (Negative)
[2021-03-17 19:28] LABS: Tricyclic Antidepressants Positive (Negative)
[2021-03-17 19:32] LABS: COVID-19 PCR POSITIVE (Negative)
[2021-03-17 19:53] LABS: pCO2 36 mmHg (35-45); pH 7.33 (7.35-7.45); pO2 91 mmHg (80-105)
[2021-03-17 19:54] LABS: BE -7 mmol/L (-2-3); FIO2L 21 L; HCO3 19 mmol/L (22-26); Site Right Radial; TCO2 20 mmol/L (23-27); sO2 96 % (95-98)
[2021-03-17 19:57] LABS: Bacteria Negative HPF (Negative); C & S Indicated? No; Casts Negative LPF (Negative); Crystals Negative HPF (Negative); Epithelial Cells Negative HPF (Negative); Mucus Negative (Negative); Other Cells Negative (Negative); RBC Negative HPF (0-2); WBC Negative HPF (0-5)
[2021-03-17 21:53] LABS: Troponin I < 0.05 ng/mL (<0.06)
[2021-03-17 21:54] LABS: Ferritin 19 ng/mL (8-252)
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
[2021-03-17 21:55] LABS: Procalcitonin < 0.1 ng/mL
[2021-03-17 21:56] LABS: D-Dimer 211 ng/mlFEU (<500)
[2021-03-17 22:02] LABS: C-Reactive Protein 0.71 mg/dL (0.0-0.3); Creatine Kinase 52 U/L (26-192); NT-proBNP 47 pg/mL (<300)
[2021-03-18] VITALS (96 sets, daily range): BP systolic 95–136; BP diastolic 55–96; PULSE 85–104; RESP 10–27; TEMP 35.7–36.5; O2SAT 93–100
--- NOTE | 2021-03-18 | DI.RAD_ITS ---
Exam(s) XR PORTABLE CHEST AP EXAM: XR PORTABLE CHEST AP CLINICAL HISTORY: aspiration TECHNIQUE: 2D digital imaging was performed of the chest. One image was obtained. An AP view was ob tained. COMPARISON: CR,XR XR PORTABLE CHEST AP POST LINE from 03/17/2021 FINDINGS: MEDIASTINUM: Normal. HEART: Normal. PULMONARY VASCULATURE: Normal. LUNGS: There has been no change in the pulmonary findings. PLEURAL SPACE: No pleural effusion or pneumothorax. BONE:Within normal limits for the patient's age. OTHER FINDINGS:There has been interval removal of both the endotracheal and nasogastric tubes. IMPRESSION: 1. Stable pulmonary findings. 2. Interval removal of the endotracheal and nasogastric tubes. DATA REPOSITORY: RADIATION DOSE DELIVERED:
[2021-03-18 00:08] LABS: Troponin I < 0.05 ng/mL (<0.06)
[2021-03-18] MEDS: AMPICILLIN/SULBACTAM 3 GM in Normal Saline 100 ML IVPB ×2 (01:38→06:44)
[2021-03-18] MEDS: Normal Saline 500 ML 30 ML IV (01:40)
[2021-03-18] MEDS: Normal Saline Flush 10 ML SYR IVP ×3 (01:42→19:39)
[2021-03-18] MEDS: LORazepam 2 MG/ML VIAL IVP (03:52)
--- NOTE | 2021-03-18 07:15 | RT.EKG_ITS ---
APPROVED REPORT Exam: Resting ECG Reason for Exam: overdose Patient Location: I HR:91 bpm ECG Measurements Heart Rate 91 AXIS PA 151 P 24 QRSd 84 QRS 15 QT 389 T 7 QTc 479 Conclusion Sinus rhythm...normal P axis, V-rate 60- 99
--- NOTE | 2021-03-18 07:42 | NUR.NOTE ---
0730-pharmacy given a list of medications that were given in the emergency room according to the transfer report but were not scanned via the emar.
[2021-03-18] MEDS: Pantoprazole 40 MG VIAL IVP (08:14)
[2021-03-18] MEDS: Zinc Sulfate 220 MG TAB NG (08:14)
[2021-03-18] MEDS: cefTRIAXone 1 GM/50 ML BAG IVPB (08:14)
[2021-03-18] MEDS: Ascorbic Acid 500 MG TAB 1000 MG NG ×2 (08:14→19:55)
[2021-03-18] MEDS: Cholecalciferol (Vitamin D3) 1,000 UNIT TAB 2000 UNITS NG (08:14)
[2021-03-18] MEDS: Enoxaparin 40 MG/0.4 ML SYR SC (08:14)
--- NOTE | 2021-03-18 09:02 | NUR.NOTE ---
At the patients bedside, waiting for Dr. Hurley to put an order in for [facility].
--- NOTE | 2021-03-18 09:06 | W.PULMCC ---
General Date of Service Date of service: 03/18/21 Time of Service: 07:30 Assessment and Plan Assessment and plan (1) COVID-19 virus infection: Status: Acute (2) Drug overdose, multiple drugs: Status: Acute Qualifiers: Encounter type: initial encounter Injury intent: intentional self-harm Qualified Code(s): T50.912A - Poisoning by multiple unspecified drugs, medicaments and biological substances, intentional self-harm, initial encounter (3) Suicide attempt: Status: Acute (4) Aspiration pneumonitis: Status: Acute (5) Atelectasis: Status: Acute (6) Hypercapnic respiratory failure: Status: Acute Assessment and plan: This is a 41 yo with a history of suicide attmepts who was found in her car minimally responsive by police. She required intubation due to hypercapnic respiratory failure in the setting of hypoventilation and an inability to protect her airway. She has presumptively overdosed on Topomax, gabapentin, seroquel and citalopram. This morning her mental status had greatly improved and she was able to be liberated from the ventilator. She was incidentally found to test positive for COVID, although clinically she does not have signs of significant disease. Qualifiers: Chronicity: acute Qualified Code(s): J96.02 - Acute respiratory failure with hypercapnia Recommendations Pulmonary: Hypercapnic respiratory failure - due to hypoventilation in the setting of overdose - corrected with ventilator - no further concerns Atelectasis - recommend incentive spirometry Aspiration Pneumonitis - not concerned for pneumonia - discontinue all antibiotics - can continue Decadron given concomitant COVID diagnosis, however steroids have not been shown to improve outcomes in aspiration pneumonitis Cardiac: Prolong QTc - continue to monitor Renal: No acute concerns Can remove Chaudhry I&O: Intake & Output 03/15/21 03/16/21 03/17/21 03/18/21 23:59 23:59 23:59 23:59 Intake Total 2020.76 / 2020. 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) Infectious Disease: COVID-19 - incidentally found - on room air - CXR clear - can continue Decadron for now (3 days) - would not give remdesivir or barcitinib Hematologic: No acute concerns Neurologic: Polysubstance Overdose - hold all psych and sedating meds - cannot leave AMA - monitor mental status EtOH use disorder - if signs of withdrawal recommend 3mg/kg of phenobarb with additional 2mg/kg doses to a max of 15mg.kg to treat symptoms Endocrine: No acute concerns Lines: PIV Prophylaxis: Lovenox No Code Status: Resuscitation Status Full Code Subjective Critical and life-threatening events over the past 24 hours: This is a 41-year-old female with previous suicide attempts who presents to the emergency department after being found in her car by police. She was obtunded and on arrival she reportedly reacted to loud voice but quickly became unresponsive to noxious stimuli and had an episode of emesis wench prompted intubation in the ER for airway protection. She had reportedly taken many of her prescription medications that included gabapentin, Topamax, Seroquel and citalopram. All of these medications were recently filled and had empty bottles found. Incidentally she was found to be positive for COVID-19. Her chest x-ray showed what appears to be some atelectasis at the bases. Her EKG showed normal sinus rhythm with a slightly prolonged QTC. Her labs were somewhat unremarkable aside from a positive alcohol and a UDS that was positive for tricyclic's. Poison control was contacted by the ER which had prompted the switch from propofol to benzodiazepines for sedation. On my assessment the patient had been taken off of Versed earlier in the morning and was awake to voice and following commands appropriately. She was on minimal vent settings and so I made the decision to extubate her. This procedure went fine with no complications, after extubation she was able to speak and cough appropriately. Exam Const General: no acute distress Nutritional Appearance: well nourished [facility] Head: normocephalic Ears: external ears normal and no periauricular adenopathy General nose exam: nasal mucous membranes and turbinates normal Face and sinus: sinuses nontender Mouth: oropharynx normal and moist mucous membranes Teeth and gingiva: dentition normal Eyes General: appearance normal, both eyes and all related structures Pupils: PERRL Neck Neck: normal visual inspection and no lymphadenopathy Chest Chest: normal inspection of the chest Resp Effort & Inspection: normal respiratory effort Auscultation: clear to auscultation bilaterally, no rales, no rhonchi and no wheezes Cardio Rate: regular rate Rhythm: regular rhythm Heart Sounds: S1 normal, S2 normal and no murmurs Pulses: radial pulses present bilaterally GI Inspection: normal to inspection Palpation: soft Skin General skin exam: no rashes or lesions noted Neuro General: patient awake and other (Somnolent. RASS -1. Follows commands) Extrem General: no clubbing, cyanosis or edema Most Recent VS/Results Last Vital Signs Temp 35.7 C L 03/18/21 04:00 Pulse 96 H 03/18/21 07:03 Resp 15 03/18/21 07:10 BP 115/67 03/18/21 07:03 Pulse Ox 95 03/18/21 07:10 Laboratory Results - last 24 hr 03/17/21 03/17/21 03/17/21 17:20 18:00 18:03 D-Dimer Sample Site ABG Sample Site ABG pH ABG pCO2 ABG pO2 ABG HCO3 ABG Total CO2 ABG O2 Saturation ABG Base Excess Oxygen Liter Flow FiO2 FiO2 (liters per min) Sodium 142 Potassium 3.7 Chloride 108 H Carbon Dioxide 23.5 Anion Gap 10.5 BUN 18 Creatinine 0.8 Estimated GFR/1.73 m2 >= 60.00 Glucose 133 H Calcium 8.5 Magnesium 2.3 Ferritin Total Bilirubin 0.2 AST 12 L ALT 22 Alkaline Phosphatase 87 Creatine Kinase Troponin I C-Reactive Protein NT-Pro-B Natriuret Pep Total Protein 7.2 Albumin 3.8 Procalcitonin TSH 0.69 Urine Color Urine Clarity Urine pH Ur Specific [place] Urine Protein Urine Ketones Urine Blood Urine Nitrite Urine Bilirubin Urine Urobilinogen Ur Leukocyte Esterase Urine RBC Urine WBC Ur Epithelial Cells Urine Crystals Urine Bacteria Urine Casts Urine Mucus Urine Other Ur Culture Indicated? Urine Glucose Salicylates < 2.8 Urine Opiates Screen Urine Methadone Screen Acetaminophen < 2 Ur Barbiturates Screen Ur Tricyclics Screen Ur Amphetamines Screen U Benzodiazepines Scrn Urine Cocaine Screen Ur THC Screen Ethyl Alcohol 21.9 H COVID-19 Source Nasal/Nares SARS-CoV-2 (PCR) POSITIVE A* Patient ABO/Rh Antibody Screen 03/17/21 03/17/21 03/17/21 18:45 18:45 19:39 D-Dimer Sample Site Right Radial ABG Sample Site ABG pH 7.33 L ABG pCO2 36 ABG pO2 91 ABG HCO3 19 L ABG Total CO2 20 L ABG O2 Saturation 96 ABG Base Excess -7 L Oxygen Liter Flow FiO2 VT330/R15/P5 FiO2 (liters per min) 21 Sodium Potassium Chloride Carbon Dioxide Anion Gap BUN Creatinine Estimated GFR/1.73 m2 Glucose Calcium Magnesium Ferritin Total Bilirubin AST ALT Alkaline Phosphatase Creatine Kinase Troponin I C-Reactive Protein NT-Pro-B Natriuret Pep Total Protein Albumin Procalcitonin TSH Urine Color Yellow Urine Clarity Clear Urine pH 7.0 Ur Specific [place] 1.015 Urine Protein Negative Urine Ketones Negative Urine Blood Trace-intact H Urine Nitrite Negative Urine Bilirubin Negative Urine Urobilinogen 0.2 Ur Leukocyte Esterase Negative Urine RBC Negative Urine WBC Negative Ur Epithelial Cells Negative Urine Crystals Negative Urine Bacteria Negative Urine Casts Negative Urine Mucus Negative Urine Other Negative Ur Culture Indicated? No Urine Glucose Negative Salicylates Urine Opiates Screen Negative Urine Methadone Screen Negative Acetaminophen Ur Barbiturates Screen Negative Ur Tricyclics Screen Positive A Ur Amphetamines Screen Negative U Benzodiazepines Scrn Negative Urine Cocaine Screen Negative Ur THC Screen Negative Ethyl Alcohol COVID-19 Source SARS-CoV-2 (PCR) Patient ABO/Rh Antibody Screen 03/17/21 03/17/21 03/17/21 21:04 21:04 21:04 D-Dimer Sample Site ABG Sample Site ABG pH ABG pCO2 ABG pO2 ABG HCO3 ABG Total CO2 ABG O2 Saturation ABG Base Excess Oxygen Liter Flow FiO2 FiO2 (liters per min) Sodium Potassium Chloride Carbon Dioxide Anion Gap BUN Creatinine Estimated GFR/1.73 m2 Glucose Calcium Magnesium Ferritin Total Bilirubin AST ALT Alkaline Phosphatase Creatine Kinase 52 Troponin I < 0.05 C-Reactive Protein 0.71 H NT-Pro-B Natriuret Pep 47 Total Protein Albumin Procalcitonin TSH Urine Color Urine Clarity Urine pH Ur Specific [place] Urine Protein Urine Ketones Urine Blood Urine Nitrite Urine Bilirubin Urine Urobilinogen Ur Leukocyte Esterase Urine RBC Urine WBC Ur Epithelial Cells Urine Crystals Urine Bacteria Urine Casts Urine Mucus Urine Other Ur Culture Indicated? Urine Glucose Salicylates Urine Opiates Screen Urine Methadone Screen Acetaminophen Ur Barbiturates Screen Ur Tricyclics Screen Ur Amphetamines Screen U Benzodiazepines Scrn Urine Cocaine Screen Ur THC Screen Ethyl Alcohol COVID-19 Source SARS-CoV-2 (PCR) Patient ABO/Rh AB Positive Antibody Screen NEGATIVE 10/19/21 10/19/21 10/19/21 21:04 21:04 21:04 D-Dimer 211 Sample Site ABG Sample Site ABG pH ABG pCO2 ABG pO2 ABG HCO3 ABG Total CO2 ABG O2 Saturation ABG Base Excess Oxygen Liter Flow FiO2 FiO2 (liters per min) Sodium Potassium Chloride Carbon Dioxide Anion Gap BUN Creatinine Estimated GFR/1.73 m2 Glucose Calcium Magnesium Ferritin 19 Total Bilirubin AST ALT Alkaline Phosphatase Creatine Kinase Troponin I C-Reactive Protein NT-Pro-B Natriuret Pep Total Protein Albumin Procalcitonin < 0.1 TSH Urine Color Urine Clarity Urine pH Ur Specific [place] Urine Protein Urine Ketones Urine Blood Urine Nitrite Urine Bilirubin Urine Urobilinogen Ur Leukocyte Esterase Urine RBC Urine WBC Ur Epithelial Cells Urine Crystals Urine Bacteria Urine Casts Urine Mucus Urine Other Ur Culture Indicated? Urine Glucose Salicylates Urine Opiates Screen Urine Methadone Screen Acetaminophen Ur Barbiturates Screen Ur Tricyclics Screen Ur Amphetamines Screen U Benzodiazepines Scrn Urine Cocaine Screen Ur THC Screen Ethyl Alcohol COVID-19 Source SARS-CoV-2 (PCR) Patient ABO/Rh Antibody Screen 03/17/21 03/18/21 03/18/21 23:30 05:35 05:35 D-Dimer Sample Site ABG Sample Site Cancelled ABG pH Cancelled ABG pCO2 Cancelled ABG pO2 Cancelled ABG HCO3 Cancelled ABG Total CO2 Cancelled ABG O2 Saturation Cancelled ABG Base Excess Cancelled Oxygen Liter Flow Cancelled FiO2 Cancelled FiO2 (liters per min) Sodium Cancelled Potassium Cancelled Chloride Cancelled Carbon Dioxide Cancelled Anion Gap Cancelled BUN Cancelled Creatinine Cancelled Estimated GFR/1.73 m2 Cancelled Glucose Cancelled Calcium Cancelled Magnesium Ferritin Cancelled Total Bilirubin Cancelled AST Cancelled ALT Cancelled Alkaline Phosphatase Cancelled Creatine Kinase Troponin I < 0.05 C-Reactive Protein Cancelled NT-Pro-B Natriuret Pep Total Protein Cancelled Albumin Cancelled Procalcitonin TSH Urine Color Urine Clarity Urine pH Ur Specific [place] Urine Protein Urine Ketones Urine Blood Urine Nitrite Urine Bilirubin Urine Urobilinogen Ur Leukocyte Esterase Urine RBC Urine WBC Ur Epithelial Cells Urine Crystals Urine Bacteria Urine Casts Urine Mucus Urine Other Ur Culture Indicated? Urine Glucose Salicylates Urine Opiates Screen Urine Methadone Screen Acetaminophen Ur Barbiturates Screen Ur Tricyclics Screen Ur Amphetamines Screen U Benzodiazepines Scrn Urine Cocaine Screen Ur THC Screen Ethyl Alcohol COVID-19 Source SARS-CoV-2 (PCR) Patient ABO/Rh Antibody Screen 03/18/21 05:35 D-Dimer Cancelled Sample Site ABG Sample Site ABG pH ABG pCO2 ABG pO2 ABG HCO3 ABG Total CO2 ABG O2 Saturation ABG Base Excess Oxygen Liter Flow FiO2 FiO2 (liters per min) Sodium Potassium Chloride Carbon Dioxide Anion Gap BUN Creatinine Estimated GFR/1.73 m2 Glucose Calcium Magnesium Ferritin Total Bilirubin AST ALT Alkaline Phosphatase Creatine Kinase Troponin I C-Reactive Protein NT-Pro-B Natriuret Pep Total Protein Albumin Procalcitonin TSH Urine Color Urine Clarity Urine pH Ur Specific [place] Urine Protein Urine Ketones Urine Blood Urine Nitrite Urine Bilirubin Urine Urobilinogen Ur Leukocyte Esterase Urine RBC Urine WBC Ur Epithelial Cells Urine Crystals Urine Bacteria Urine Casts Urine Mucus Urine Other Ur Culture Indicated? Urine Glucose Salicylates Urine Opiates Screen Urine Methadone Screen Acetaminophen Ur Barbiturates Screen Ur Tricyclics Screen Ur Amphetamines Screen U Benzodiazepines Scrn Urine Cocaine Screen Ur THC Screen Ethyl Alcohol COVID-19 Source SARS-CoV-2 (PCR) Patient ABO/Rh Antibody Screen Review of Systems Unobtainable due to endotracheal tube and Unobtainable due to mental status
--- NOTE | 2021-03-18 09:29 | NUR.NOTE ---
Nursing Note: Stoney Miranda called asking about the patient. He is on the HIPPA form. I transferred him to the ICU unit. Ligia Herman
--- NOTE | 2021-03-18 09:58 | PDOC.CMIN ---
- If Service Date Differs Date of service: 03/18/21 Time of Service: 09:58 Care Management Initial Assess REASON FOR HOSPITALIZATION:: drug overdose PAST MEDICAL HISTORY/PAST SURGICAL HISTORY:: ADD (attention deficit disorder). Alcohol dependence in remission. ASCUS of cervix with negative high risk HPV. MEDHAT 03/08/19 Repeat PAP PP. BMI 31.0-31.9,adult. Borderline personality disorder. Closed bimalleolar fracture of right ankle. Depression. Eating disorder. Generalized anxiety disorder. History of blood transfusion. Hx of suicide attempt. 2012, OD on pills/ETOH. Hypertension. Hypertension affecting . Medications in the past. No current medications. Idiopathic focal epilepsy. Mood disorder. (normal spontaneous vaginal delivery). Opioid dependence in remission. Sleep disorder. Surgical History . S/P ORIF (open reduction internal fixation) fracture. R ankle. S/P tonsillectomy and adenoidectomyMedical History PREVIOUS FUNCTIONAL STATUS/SOCIAL/FAMILY SUPPORTS:: Keyanna has been living at the [facility] but has activiely seeking alternative housing. She has been told that she may not be able to returen to her hotel room. Her relationship with the father of her children, Stoney Miranda, has been inconsistent and her 2 children ages 1 and 2 are currently in [facility] cuastody. CURRENT FUNCTIONAL STATUS:: CM was unable to meet with Keyanna in person but was able to speak to her on the phone. Keyanna admitted to being very depressed and identified many stressors including having lost her children to DCF custody. She stated that she needs help and is currently connected with several community agencies. Keyanna has started paperwork for social security disability but informed CM that she needs help with it's completion. She has also been working on getting housing. CM sent referrals to [facility] and to [facility] for community case management. ADVANCE DIRECTIVES:: none on file Has patient been provided with info about the portal/API?: Yes Did the patient sign up for the portal?: No CODE STATUS:: Full Code INSURANCE COVERAGE / FINANCIAL ISSUES:: Medicaid CURRENT HOME/COMMUNITY SERVICES/EQUIPMENT:: connected with [facility] and probate paralegal. PRIMARY CARE PHYSICIAN:: Vicente Pickard POTENTIAL DISCHARGE NEEDS:: Keyanna may need hospitalization for depression and SI PATIENT/FAMILY EDUCATION NEEDS:: Review of discharge instructions, follow up plan and Ask Me Three TRANSPORTATION:: to be determined by disposition PLAN:: Keyanna's dispossition is unclear. She will be evaluated by [facility] crisis when medically cleared and has verbalized a desire to seek voluntary inpatient mental health treatment. CM will continue to support.
--- NOTE | 2021-03-18 15:08 | W.PM.PROGNOT ---
Date of Service Date of service: 03/18/21 Time of Service: 15:08 Assessment and Plan Assessment and plan (1) Drug overdose, multiple drugs: Status: Acute Assessment and plan: multiple drug overdose including Topamax, citalopram, gabapentin, and seroquel. Monitoring for arrhythmias has been negative. No QT prolongation / has decreased; sedatives are clearing. Now extubated. Pulmonary following. Qualifiers: Encounter type: initial encounter Injury intent: intentional self-harm Qualified Code(s): T50.912A - Poisoning by multiple unspecified drugs, medicaments and biological substances, intentional self-harm, initial encounter (2) Aspiration pneumonia: Status: Inactive Assessment and plan: Antibiotics stopped. Cont steroid for pneumonitis. Monitor. Qualifiers: Aspiration pneumonia type: due to gastric secretions Laterality: bilateral Lung location: lower lobe of lung Qualified Code(s): J69.0 - Pneumonitis due to inhalation of food and vomit (3) Depression: Status: Chronic Assessment and plan: Now extubated and medically cleared for mental health eval. Qualifiers: Depression Type: major depressive disorder Major depression recurrence: recurrent Active/Remission status: remission status unspecified Qualified Code(s): F33.9 - Major depressive disorder, recurrent, unspecified (4) Suicide attempt: Status: Acute Assessment and plan: As above (5) COVID-19 virus infection: Status: Acute Assessment and plan: She is unclear of whether or not she was dxd with Covid during admission to OSH earlier this month for SI/overdose. Currently not symptomatic and not requiring supplemental O2. Steroids; no remdesivir. Pulmonary following. Subjective Subjective Patient reports: no new complaints and afebrile; denies diarrhea, nausea, vomiting and shortness of breath Interval history since last seen: She c/o sore throat. No cough/sputum/CP Exam Const General: cooperative, no acute distress, disheveled and other (fatigued appearing. ) Orientation: awake, oriented to person and oriented to place [facility] Head: normocephalic and atraumatic Eyes Sclera: sclerae normal Pupils: PERRL Resp Effort & Inspection: normal respiratory effort Auscultation: clear to auscultation bilaterally and diminished lung sounds Cardio Rate: regular rate Rhythm: regular rhythm Heart Sounds: S1 normal and S2 normal GI Palpation: soft and nontender Skin General skin exam: no rashes or lesions noted Neuro General: no focal motor deficits Speech: other (mildly slurred) Extrem General: no pedal edema and no calf tenderness Psych Speech and Movement: slurred speech (mild) Affect: blunted Thought Process: tangential Insight: limited Judgment: limited Objective Last Vital Signs Temp 36.1 C L 03/18/21 11:30 Pulse 90 03/18/21 11:21 Resp 20 03/18/21 11:40 BP 107/58 L 03/18/21 11:21 Pulse Ox 96 03/18/21 11:40 Laboratory Results - last 24 hr 03/17/21 03/17/21 03/17/21 17:20 18:00 18:03 WBC RBC Hgb Hct MCV MCH MCHC RDW Plt Count MPV Immature Gran % Neutrophils % Band Neutrophils % Lymphocytes % Atypical Lymphs % Monocytes % Eosinophils % Basophils % Metamyelocytes % Myelocytes % Promyelocytes % Other Cells % Nucleated RBC % Absolute Neutrophils Absolute Lymphocytes Absolute Monocytes Absolute Eosinophils Absolute Basophils RBC Morphology Polychromasia Hypochromasia Poikilocytosis Basophilic Stippling Anisocytosis Microcytosis Macrocytosis Spherocytes Tear Drop Cells Ovalocytes Stomatocytes [place] Bodies Yancy Cells/Echinocytes Acanthocytes (Spur) Schistocytes D-Dimer Sample Site ABG Sample Site ABG pH ABG pCO2 ABG pO2 ABG HCO3 ABG Total CO2 ABG O2 Saturation ABG Base Excess Oxygen Liter Flow FiO2 FiO2 (liters per min) Sodium 142 Potassium 3.7 Chloride 108 H Carbon Dioxide 23.5 Anion Gap 10.5 BUN 18 Creatinine 0.8 Estimated GFR/1.73 m2 >= 60.00 Glucose 133 H Calcium 8.5 Magnesium 2.3 Ferritin Total Bilirubin 0.2 AST 12 L ALT 22 Alkaline Phosphatase 87 Creatine Kinase Troponin I C-Reactive Protein NT-Pro-B Natriuret Pep Total Protein 7.2 Albumin 3.8 Procalcitonin TSH 0.69 Urine Color Urine Clarity Urine pH Ur Specific [place] Urine Protein Urine Ketones Urine Blood Urine Nitrite Urine Bilirubin Urine Urobilinogen Ur Leukocyte Esterase Urine RBC Urine WBC Ur Epithelial Cells Urine Crystals Urine Bacteria Urine Casts Urine Mucus Urine Other Ur Culture Indicated? Urine Glucose Salicylates < 2.8 Urine Opiates Screen Urine Methadone Screen Acetaminophen < 2 Ur Barbiturates Screen Ur Tricyclics Screen Ur Amphetamines Screen U Benzodiazepines Scrn Urine Cocaine Screen Ur THC Screen Ethyl Alcohol 21.9 H COVID-19 Source Nasal/Nares SARS-CoV-2 (PCR) POSITIVE A* Patient ABO/Rh Antibody Screen 03/17/21 03/17/21 03/17/21 18:45 18:45 19:39 WBC RBC Hgb Hct MCV MCH MCHC RDW Plt Count MPV Immature Gran % Neutrophils % Band Neutrophils % Lymphocytes % Atypical Lymphs % Monocytes % Eosinophils % Basophils % Metamyelocytes % Myelocytes % Promyelocytes % Other Cells % Nucleated RBC % Absolute Neutrophils Absolute Lymphocytes Absolute Monocytes Absolute Eosinophils Absolute Basophils RBC Morphology Polychromasia Hypochromasia Poikilocytosis Basophilic Stippling Anisocytosis Microcytosis Macrocytosis Spherocytes Tear Drop Cells Ovalocytes Stomatocytes [place] Bodies [place] Cells/Echinocytes Acanthocytes (Spur) Schistocytes D-Dimer Sample Site Right Radial ABG Sample Site ABG pH 7.33 L ABG pCO2 36 ABG pO2 91 ABG HCO3 19 L ABG Total CO2 20 L ABG O2 Saturation 96 ABG Base Excess -7 L Oxygen Liter Flow FiO2 [id number]/R15/P5 FiO2 (liters per min) 21 Sodium Potassium Chloride Carbon Dioxide Anion Gap BUN Creatinine Estimated GFR/1.73 m2 Glucose Calcium Magnesium Ferritin Total Bilirubin AST ALT Alkaline Phosphatase Creatine Kinase Troponin I C-Reactive Protein NT-Pro-B Natriuret Pep Total Protein Albumin Procalcitonin TSH Urine Color Yellow Urine Clarity Clear Urine pH 7.0 Ur Specific [place] 1.015 Urine Protein Negative Urine Ketones Negative Urine Blood Trace-intact H Urine Nitrite Negative Urine Bilirubin Negative Urine Urobilinogen 0.2 Ur Leukocyte Esterase Negative Urine RBC Negative Urine WBC Negative Ur Epithelial Cells Negative Urine Crystals Negative Urine Bacteria Negative Urine Casts Negative Urine Mucus Negative Urine Other Negative Ur Culture Indicated? No Urine Glucose Negative Salicylates Urine Opiates Screen Negative Urine Methadone Screen Negative Acetaminophen Ur Barbiturates Screen Negative Ur Tricyclics Screen Positive A Ur Amphetamines Screen Negative U Benzodiazepines Scrn Negative Urine Cocaine Screen Negative Ur THC Screen Negative Ethyl Alcohol COVID-19 Source SARS-CoV-2 (PCR) Patient ABO/Rh Antibody Screen 03/17/21 03/17/21 03/17/21 21:04 21:04 21:04 WBC RBC Hgb Hct MCV MCH MCHC RDW Plt Count MPV Immature Gran % Neutrophils % Band Neutrophils % Lymphocytes % Atypical Lymphs % Monocytes % Eosinophils % Basophils % Metamyelocytes % Myelocytes % Promyelocytes % Other Cells % Nucleated RBC % Absolute Neutrophils Absolute Lymphocytes Absolute Monocytes Absolute Eosinophils Absolute Basophils RBC Morphology Polychromasia Hypochromasia Poikilocytosis Basophilic Stippling Anisocytosis Microcytosis Macrocytosis Spherocytes Tear Drop Cells Ovalocytes Stomatocytes [place] Bodies [place] Cells/Echinocytes Acanthocytes (Spur) Schistocytes D-Dimer Sample Site ABG Sample Site ABG pH ABG pCO2 ABG pO2 ABG HCO3 ABG Total CO2 ABG O2 Saturation ABG Base Excess Oxygen Liter Flow FiO2 FiO2 (liters per min) Sodium Potassium Chloride Carbon Dioxide Anion Gap BUN Creatinine Estimated GFR/1.73 m2 Glucose Calcium Magnesium Ferritin Total Bilirubin AST ALT Alkaline Phosphatase Creatine Kinase 52 Troponin I < 0.05 C-Reactive Protein 0.71 H NT-Pro-B Natriuret Pep 47 Total Protein Albumin Procalcitonin TSH Urine Color Urine Clarity Urine pH Ur Specific [place] Urine Protein Urine Ketones Urine Blood Urine Nitrite Urine Bilirubin Urine Urobilinogen Ur Leukocyte Esterase Urine RBC Urine WBC Ur Epithelial Cells Urine Crystals Urine Bacteria Urine Casts Urine Mucus Urine Other Ur Culture Indicated? Urine Glucose Salicylates Urine Opiates Screen Urine Methadone Screen Acetaminophen Ur Barbiturates Screen Ur Tricyclics Screen Ur Amphetamines Screen U Benzodiazepines Scrn Urine Cocaine Screen Ur THC Screen Ethyl Alcohol COVID-19 Source SARS-CoV-2 (PCR) Patient ABO/Rh AB Positive Antibody Screen NEGATIVE 03/17/21 03/17/21 03/17/21 21:04 21:04 21:04 WBC RBC Hgb Hct MCV MCH MCHC RDW Plt Count MPV Immature Gran % Neutrophils % Band Neutrophils % Lymphocytes % Atypical Lymphs % Monocytes % Eosinophils % Basophils % Metamyelocytes % Myelocytes % Promyelocytes % Other Cells % Nucleated RBC % Absolute Neutrophils Absolute Lymphocytes Absolute Monocytes Absolute Eosinophils Absolute Basophils RBC Morphology Polychromasia Hypochromasia Poikilocytosis Basophilic Stippling Anisocytosis Microcytosis Macrocytosis Spherocytes Tear Drop Cells Ovalocytes Stomatocytes [place] Bodies [place] Cells/Echinocytes Acanthocytes (Spur) Schistocytes D-Dimer 211 Sample Site ABG Sample Site ABG pH ABG pCO2 ABG pO2 ABG HCO3 ABG Total CO2 ABG O2 Saturation ABG Base Excess Oxygen Liter Flow FiO2 FiO2 (liters per min) Sodium Potassium Chloride Carbon Dioxide Anion Gap BUN Creatinine Estimated GFR/1.73 m2 Glucose Calcium Magnesium Ferritin 19 Total Bilirubin AST ALT Alkaline Phosphatase Creatine Kinase Troponin I C-Reactive Protein NT-Pro-B Natriuret Pep Total Protein Albumin Procalcitonin < 0.1 TSH Urine Color Urine Clarity Urine pH Ur Specific [place] Urine Protein Urine Ketones Urine Blood Urine Nitrite Urine Bilirubin Urine Urobilinogen Ur Leukocyte Esterase Urine RBC Urine WBC Ur Epithelial Cells Urine Crystals Urine Bacteria Urine Casts Urine Mucus Urine Other Ur Culture Indicated? Urine Glucose Salicylates Urine Opiates Screen Urine Methadone Screen Acetaminophen Ur Barbiturates Screen Ur Tricyclics Screen Ur Amphetamines Screen U Benzodiazepines Scrn Urine Cocaine Screen Ur THC Screen Ethyl Alcohol COVID-19 Source SARS-CoV-2 (PCR) Patient ABO/Rh Antibody Screen 03/17/21 03/18/21 03/18/21 23:30 05:35 05:35 WBC RBC Hgb Hct MCV MCH MCHC RDW Plt Count MPV Immature Gran % Neutrophils % Band Neutrophils % Lymphocytes % Atypical Lymphs % Monocytes % Eosinophils % Basophils % Metamyelocytes % Myelocytes % Promyelocytes % Other Cells % Nucleated RBC % Absolute Neutrophils Absolute Lymphocytes Absolute Monocytes Absolute Eosinophils Absolute Basophils RBC Morphology Polychromasia Hypochromasia Poikilocytosis Basophilic Stippling Anisocytosis Microcytosis Macrocytosis Spherocytes Tear Drop Cells Ovalocytes Stomatocytes [place] Bodies Yancy Cells/Echinocytes Acanthocytes (Spur) Schistocytes D-Dimer Sample Site ABG Sample Site Cancelled ABG pH Cancelled ABG pCO2 Cancelled ABG pO2 Cancelled ABG HCO3 Cancelled ABG Total CO2 Cancelled ABG O2 Saturation Cancelled ABG Base Excess Cancelled Oxygen Liter Flow Cancelled FiO2 Cancelled FiO2 (liters per min) Sodium Cancelled Potassium Cancelled Chloride Cancelled Carbon Dioxide Cancelled Anion Gap Cancelled BUN Cancelled Creatinine Cancelled Estimated GFR/1.73 m2 Cancelled Glucose Cancelled Calcium Cancelled Magnesium Ferritin Cancelled Total Bilirubin Cancelled AST Cancelled ALT Cancelled Alkaline Phosphatase Cancelled Creatine Kinase Troponin I < 0.05 C-Reactive Protein Cancelled NT-Pro-B Natriuret Pep Total Protein Cancelled Albumin Cancelled Procalcitonin TSH Urine Color Urine Clarity Urine pH Ur Specific [place] Urine Protein Urine Ketones Urine Blood Urine Nitrite Urine Bilirubin Urine Urobilinogen Ur Leukocyte Esterase Urine RBC Urine WBC Ur Epithelial Cells Urine Crystals Urine Bacteria Urine Casts Urine Mucus Urine Other Ur Culture Indicated? Urine Glucose Salicylates Urine Opiates Screen Urine Methadone Screen Acetaminophen Ur Barbiturates Screen Ur Tricyclics Screen Ur Amphetamines Screen U Benzodiazepines Scrn Urine Cocaine Screen Ur THC Screen Ethyl Alcohol COVID-19 Source SARS-CoV-2 (PCR) Patient ABO/Rh Antibody Screen 03/18/21 03/18/21 05:35 05:35 WBC Cancelled RBC Cancelled Hgb Cancelled Hct Cancelled MCV Cancelled MCH Cancelled MCHC Cancelled RDW Cancelled Plt Count Cancelled MPV Cancelled Immature Gran % Cancelled Neutrophils % Cancelled Band Neutrophils % Cancelled Lymphocytes % Cancelled Atypical Lymphs % Cancelled Monocytes % Cancelled Eosinophils % Cancelled Basophils % Cancelled Metamyelocytes % Cancelled Myelocytes % Cancelled Promyelocytes % Cancelled Other Cells % Cancelled Nucleated RBC % Cancelled Absolute Neutrophils Cancelled Absolute Lymphocytes Cancelled Absolute Monocytes Cancelled Absolute Eosinophils Cancelled Absolute Basophils Cancelled RBC Morphology Cancelled Polychromasia Cancelled Hypochromasia Cancelled Poikilocytosis Cancelled Basophilic Stippling Cancelled Anisocytosis Cancelled Microcytosis Cancelled Macrocytosis Cancelled Spherocytes Cancelled Tear Drop Cells Cancelled Ovalocytes Cancelled Stomatocytes Cancelled [place] Bodies Cancelled Yancy Cells/Echinocytes Cancelled Acanthocytes ([place]) Cancelled Schistocytes Cancelled D-Dimer Cancelled Sample Site ABG Sample Site ABG pH ABG pCO2 ABG pO2 ABG HCO3 ABG Total CO2 ABG O2 Saturation ABG Base Excess Oxygen Liter Flow FiO2 FiO2 (liters per min) Sodium Potassium Chloride Carbon Dioxide Anion Gap BUN Creatinine Estimated GFR/1.73 m2 Glucose Calcium Magnesium Ferritin Total Bilirubin AST ALT Alkaline Phosphatase Creatine Kinase Troponin I C-Reactive Protein NT-Pro-B Natriuret Pep Total Protein Albumin Procalcitonin TSH Urine Color Urine Clarity Urine pH Ur Specific [place] Urine Protein Urine Ketones Urine Blood Urine Nitrite Urine Bilirubin Urine Urobilinogen Ur Leukocyte Esterase Urine RBC Urine WBC Ur Epithelial Cells Urine Crystals Urine Bacteria Urine Casts Urine Mucus Urine Other Ur Culture Indicated? Urine Glucose Salicylates Urine Opiates Screen Urine Methadone Screen Acetaminophen Ur Barbiturates Screen Ur Tricyclics Screen Ur Amphetamines Screen U Benzodiazepines Scrn Urine Cocaine Screen Ur THC Screen Ethyl Alcohol COVID-19 Source SARS-CoV-2 (PCR) Patient ABO/Rh Antibody Screen PAWSS Have you Been Recently Intoxicated or Drunk Within the Last 30 days?: Yes Have you Ever Experienced Previous Episodes of Alcohol Withdrawal?: Yes Have you ever Experienced Withdrawal Seizures?: Yes Have you ever Experienced Delirium Tremens(DT)s?: Yes Have you ever undergone Alcohol Rehabilitation Treatment (i.e, inpt ot outpatient treatment programs)?: Yes Have you ever Experienced Blackouts?: Yes Have you ever Combined Alcohol with other Downers within the last 90 days?: Yes Have you ever Combined Alcohol with any other Substance of Abuse during the last 90 days?: Yes Positive Blood Alcohol level on Presentation? [PCS.BAL]: Yes Evidence of Increased Autonomic Activity (i.e. HR>120, tremor, sweating, agitation, nausea)?: No Result: 9
[2021-03-18] MEDS: Benzonatate 100 MG CAP PO ×2 (16:02→19:56)
[2021-03-18 16:52] LABS: Acetaminophen < 2 ug/mL (10-30)
--- NOTE | 2021-03-18 16:58 | CMSP_ITS ---
- If Service Date Differs Date of service: 03/18/21 Time of Service: 16:58 Care Management Safety Plan Status: Interim - Reason for Wait Reason for Wait: Medical Clearance Chief Complaint: Keyanna is a 41 year old woman who has a history of ADD, former alcohol and opioid dependence, anxiety disorder, eating disorder,borderline personality and depression with at least 2 previous suicide attempts. She was admitted following a polypharmacy drug overdose. CM will assess patient after patient has been medically cleared and assessed by screener. If screener deems patient meets criteria for psychiatric stabilization CM will facilitate interdepartmental huddle with [facility] screener for safety planning considerations and meet with patient to review [facility] policy and safety plan, establish individual wishes for treatment and maintain patient rights. In the interim; please note safety plan below to guide patient care while awaiting further assessment in the ED. SAFETY PLAN: 1. Will remain on suicide precautions but may wear a hospital ye while in the ICU. 2. Will remain in room under direct supervision of one-on-one staff at all times provided by CLAUDIA, STEEL DIE ENGRAVER hydraulic punch press operator. 3. May have paper cups, plates, finger foods as well as a cardboard spoon with which to eat meals. 4. Follow [facility] Management of the Admitted Behavioral Health Patient policy. 5. Personal care: Comfort bath system only at this time. 6. Bathroom privileges: Available in room without limitation. 6. No personal belongings at this time; per RN discretion. 7. No visitors at this time. 8. Phone contact limited to legal contact at this time. 9. Activities: Music tablet per RN discretion. Television and remote available at RN discretion. 10. Due to VOLUNTARY status, if patient wishes to leave [facility], staff will contact [facility] Crisis Screener ([phone]) and On-Call Child Care Associate Teacher ([phone]) as soon as possible. In the event of elopement, notify [place] [employer] ([phone]).
[2021-03-18] MEDS: Amphet Asp/Amphet/D-Amphet 10 MG TAB 30 MG PO (17:00)
[2021-03-18] MEDS: Acetaminophen 325 MG TAB (19:53)
[2021-03-18] MEDS: guaiFENesin 600 MG TABCR PO (19:55)
[2021-03-18] MEDS: Dexamethasone 10 MG/ML VIAL 6 MG IVP (19:56)
[2021-03-19] VITALS (7 sets, daily range): BP systolic 132–152; BP diastolic 57–110; PULSE 76–102; RESP 16; TEMP 36.5; O2SAT 98–99
[2021-03-19] MEDS: Normal Saline Flush 10 ML SYR IVP (07:27)
[2021-03-19] MEDS: Amphet Asp/Amphet/D-Amphet 10 MG TAB 30 MG PO ×2 (07:30→12:32)
[2021-03-19] MEDS: guaiFENesin 600 MG TABCR PO (07:30)
[2021-03-19] MEDS: Cholecalciferol (Vitamin D3) 1,000 UNIT TAB 2000 UNITS NG (07:30)
[2021-03-19] MEDS: Enoxaparin 40 MG/0.4 ML SYR SC (07:30)
[2021-03-19] MEDS: Zinc Sulfate 220 MG TAB NG (07:30)
[2021-03-19] MEDS: Ascorbic Acid 500 MG TAB 1000 MG NG (07:31)
[2021-03-19 07:51] LABS: Abs Immature Grans 0.02 10^3/uL (0.0-0.06); Absolute Basophil Count 0.01 10^3/uL (0.0-0.2); Absolute Eosinophil Count 0.04 10^3/uL (0.0-0.7); Absolute Lymphocyte Count 1.14 10^3/uL (1.2-3.4); Absolute Monocyte Count 0.22 10^3/uL (0.1-0.8); Absolute Neutrophil Count 4.33 10^3/uL (1.2-6.7); Basophils % 0.2; Eosinophils % 0.7; HCT 35.4 % (36.0-46.0); HGB 11.6 g/dL (11.2-15.7); Immature Grans % 0.3; Lymphocytes % 19.8; MCH 30.3 pg (27.0-33.0); MCHC 32.8 % (32.0-36.0); MCV 92.4 fL (80-95); MPV 9.1 fL (8.0-11.0); Monocytes % 3.8; Neutrophils % 75.2; Nucleated RBC 0 %; Platelet Count 328 10^3/uL (130-400); RBC 3.83 10^6/uL (3.93-5.22); RDW 13.5 % (11.7-14.6); RDW-SD 46.5 fL; WBC 5.76 10^3/uL (4.4-10.8)
[2021-03-19 08:04] LABS: Anion Gap 16.4 mmol/L (3-11); BUN 10 mg/dL (7-18); CO2 16.6 mmol/L (21.0-32.0); CREATININE 0.8 mg/dL (0.55-1.02); Calcium 9.3 mg/dL (8.5-10.1); Chloride 106 mmol/L (98-107); Glucose 102 mg/dL (74-106); Potassium 3.7 mmol/L (3.5-5.1); Sodium 139 mmol/L (136-145)
[2021-03-19] MEDS: Acetaminophen 325 MG TAB 650 MG PO (08:29)
--- NOTE | 2021-03-19 09:00 | CMSP_ITS ---
- If Service Date Differs Date of service: 03/19/21 Time of Service: 09:00 Care Management Safety Plan Status: Voluntary - Reason for Wait Reason for Wait: Inpatient Admission Chief Complaint: Keyanna is a 41 year old woman who has a history of ADD, former alcohol and opioid dependence, anxiety disorder, eating disorder,borderline personality and depression with at least 2 previous suicide attempts. She was admitted following a polypharmacy drug overdose. CM will assess patient after patient has been medically cleared and assessed by screener. If screener deems patient meets criteria for psychiatric stabi lization CM will facilitate interdepartmental huddle with [facility] screener for safety planning considerations and meet with patient to review [facility] policy and safety plan, establish individual wishes for treatment and maintain patient rights. In the interim; please note safety plan below to guide patient care while awaiting further assessment in the ED. SAFETY PLAN: 1. Will remain on suicide precautions but may wear a hospital ye while in the ICU. 2. Will remain in room under direct supervision of one-on-one staff at all times provided by CLAUDIA, LENS GRINDER APPRENTICE content editor. 3. May have paper cups, plates, finger foods as well as a cardboard spoon with which to eat meals. 4. Follow [facility] Management of the Admitted Behavioral Health Patient policy. 5. Personal care: Comfort bath system only at this time. 6. Bathroom privileges: Available in room without limitation. 6. No personal belongings at this time; per RN discretion. 7. No visitors at this time. 8. Phone contact limited to legal contact at this time. 9. Activities: Music tablet per RN discretion. Television and remote available at RN discretion. 10. Due to VOLUNTARY status, if patient wishes to leave [facility], staff will contact [facility] Crisis Screener ([phone]) and On-Call Pump House Operator ([phone]) as soon as possible. In the event of elopement, notify [facility] Police ([phone]).
--- NOTE | 2021-03-19 09:01 | CMPROGNOTE_ITS ---
- If Service Date Differs Date of service: 03/19/21 Time of Service: 09:01 Care Management Progress Note S/O: EMRE spoke with Keyanna over the phone due to her covid precautions. She reported that she is not ready to talk with CM yet, and wanted to take some time to process things. Keyanna is willing to speak with Christine from [facility] today. Lyric from [facility] also talked with Keyanna over the phone about her community needs. RN reported to CM that Keyanna was using the [facility] phone in her room to contact her friends and she became upset. CM let Keyanna know that her safety plan excludes personal phone use for outgoing calls at this time, other than to seek legal [place]. Mariaelena King at [facility] spoke with Keyanna over the phone due to covid precautions. Christine reported that Keyanna is now cleared from a mental health stand point, since she is denying SI or HI. Per Christine she is accepting cousiling and case management through [facility]. SHe also has an appointment with Dr. Stanton on 03/30/21. EMRE connected Keyanna with a recovery analyst. A: 41 year old female admitted to [facility] on 03/17/21 for Drug OD, Depression, SI attempt, Covid-19 P: Keyanna is cleared from a mental health standpoint and also medically cleared. CM will connect Keyanna with a recovery analyst and help support patient with her discharge needs.
--- NOTE | 2021-03-19 09:01 | PDOC.CMPRO ---
- If Service Date Differs Date of service: 03/19/21 Time of Service: 09:01 Care Management Progress Note S/O: MERE spoke with Keyanna over the phone due to her covid precautions. She reported that she is not ready to talk with CM yet, and wanted to take some time to process things. Keyanna is willing to speak with Christine from [facility] today. Lyric from [facility] also talked with Keyanna over the phone about her community needs. RN reported to CM that Keyanna was using the [facility] phone in her room to contact her friends and she became upset. CM let Keyanna know that her safety plan excludes personal phone use for outgoing calls at this time, other than to seek legal [place]. Mariaelena King at [facility] spoke with Keyanna over the phone due to covid precautions. Christine reported that Keyanna is now cleared from a mental health stand point, since she is denying SI or HI. Per Christine she is accepting cousiling and case management through [facility]. SHe also has an appointment with Dr. Stanton on 03/30/21. EMRE connected Keyanna with a assistant womens volleyball coach. A: 41 year old female admitted to [facility] on 03/17/21 for Drug OD, Depression, SI attempt, Covid-19 P: Keyanna is cleared from a mental health standpoint and also medically cleared. CM will connect Keyanna with a assistant womens volleyball coach and help support patient with her discharge needs.
[2021-03-19] MEDS: Benzonatate 100 MG CAP PO ×2 (10:02→15:49)
[2021-03-19 11:00] LABS: HBs Antibody, Qual Positive (See Note); HBs Antibody, Quant 129.1 mIU/mL (See Note); Hepatitis B Core Antibody Negative (Negative); Hepatitis B surface Ag Negative (Negative); Hepatitis C Ab w Rflx HCV PCR Negative (Negative)
--- NOTE | 2021-03-19 13:23 | W.PM.PROGNOT ---
Date of Service Date of service: 03/19/21 Time of Service: 13:23 Assessment and Plan Assessment and plan (1) Drug overdose, multiple drugs: Status: Acute Assessment and plan: multiple drug overdose including Topamax, citalopram, gabapentin, and seroquel. Monitoring for arrhythmias has been negative. No QT prolongation / has decreased; sedatives are clearing. Now extubated. Pulmonary following. Qualifiers: Encounter type: initial encounter Injury intent: intentional self-harm Qualified Code(s): T50.912A - Poisoning by multiple unspecified drugs, medicaments and biological substances, intentional self-harm, initial encounter (2) Aspiration pneumonia: Status: Inactive Assessment and plan: Antibiotics stopped. Cont steroid for pneumonitis today then stop. No cough/sputum. No SOA. Monitor. Qualifiers: Aspiration pneumonia type: due to gastric secretions Laterality: bilateral Lung location: lower lobe of lung Qualified Code(s): J69.0 - Pneumonitis due to inhalation of food and vomit (3) Depression: Status: Chronic Assessment and plan: Now extubated and medically cleared for mental health eval. Qualifiers: Depression Type: major depressive disorder Major depression recurrence: recurrent Active/Remission status: remission status unspecified Qualified Code(s): F33.9 - Major depressive disorder, recurrent, unspecified (4) Suicide attempt: Status: Acute Assessment and plan: As above (5) COVID-19 virus infection: Status: Acute Assessment and plan: Hospitalized at [facility] on 03/11/21 (O.D.); Covid negative at that time. Currently not symptomatic and not requiring supplemental O2. Steroids today then stopping; no remdesivir. Pulmonary following. Subjective Subjective Patient reports: no new complaints, feels better, bowel movement and afebrile; denies nausea, vomiting and shortness of breath Exam Const General: cooperative and no acute distress Orientation: awake, oriented to person and oriented to place HENPR Head: normocephalic and atraumatic Eyes Sclera: sclerae normal Pupils: PERRL Resp Effort & Inspection: normal respiratory effort Auscultation: clear to auscultation bilaterally and diminished lung sounds Cardio Rate: regular rate Rhythm: regular rhythm Heart Sounds: S1 normal and S2 normal GI Palpation: soft and nontender Skin General skin exam: no rashes or lesions noted Neuro General: no focal motor deficits Speech: other (mildly slurred) Extrem General: no pedal edema and no calf tenderness Psych Affect: normal affect Insight: limited Judgment: limited Objective Last Vital Signs Temp 36.5 C 03/19/21 00:00 Pulse 102 H 03/19/21 12:50 Resp 16 03/19/21 00:00 BP 145/99 H 03/19/21 12:50 Pulse Ox 99 03/19/21 12:50 Laboratory Results - last 24 hr 03/18/21 03/18/21 03/19/21 05:35 16:15 07:00 WBC Cancelled 5.76 RBC Cancelled 3.83 L Hgb Cancelled 11.6 Hct Cancelled 35.4 L MCV Cancelled 92.4 MCH Cancelled 30.3 MCHC Cancelled 32.8 RDW Cancelled 13.5 Plt Count Cancelled 328 MPV Cancelled 9.1 Immature Gran % Cancelled 0.3 Neutrophils % Cancelled 75.2 Band Neutrophils % Cancelled Lymphocytes % Cancelled 19.8 Atypical Lymphs % Cancelled Monocytes % Cancelled 3.8 Eosinophils % Cancelled 0.7 Basophils % Cancelled 0.2 Metamyelocytes % Cancelled Myelocytes % Cancelled Promyelocytes % Cancelled Other Cells % Cancelled Nucleated RBC % Cancelled 0 Absolute Neutrophils Cancelled 4.33 Absolute Lymphocytes Cancelled 1.14 L Absolute Monocytes Cancelled 0.22 Absolute Eosinophils Cancelled 0.04 Absolute Basophils Cancelled 0.01 RBC Morphology Cancelled Polychromasia Cancelled Hypochromasia Cancelled Poikilocytosis Cancelled Basophilic Stippling Cancelled Anisocytosis Cancelled Microcytosis Cancelled Macrocytosis Cancelled Spherocytes Cancelled Tear Drop Cells Cancelled Ovalocytes Cancelled Stomatocytes Cancelled [place] Bodies Cancelled [place] Cells/Echinocytes Cancelled Acanthocytes (Spur) Cancelled Schistocytes Cancelled Sodium Potassium Chloride Carbon Dioxide Anion Gap BUN Creatinine Estimated GFR/1.73 m2 Glucose Calcium Acetaminophen < 2 03/19/21 07:00 WBC RBC Hgb Hct MCV MCH MCHC RDW Plt Count MPV Immature Gran % Neutrophils % Band Neutrophils % Lymphocytes % Atypical Lymphs % Monocytes % Eosinophils % Basophils % Metamyelocytes % Myelocytes % Promyelocytes % Other Cells % Nucleated RBC % Absolute Neutrophils Absolute Lymphocytes Absolute Monocytes Absolute Eosinophils Absolute Basophils RBC Morphology Polychromasia Hypochromasia Poikilocytosis Basophilic Stippling Anisocytosis Microcytosis Macrocytosis Spherocytes Tear Drop Cells Ovalocytes Stomatocytes [place] Bodies Yancy Cells/Echinocytes Acanthocytes (Spur) Schistocytes Sodium 139 Potassium 3.7 Chloride 106 Carbon Dioxide 16.6 L Anion Gap 16.4 H BUN 10 D Creatinine 0.8 Estimated GFR/1.73 m2 >= 60.00 Glucose 102 Calcium 9.3 Acetaminophen PAWSS Have you Been Recently Intoxicated or Drunk Within the Last 30 days?: Yes Have you Ever Experienced Previous Episodes of Alcohol Withdrawal?: Yes Have you ever Experienced Withdrawal Seizures?: Yes Have you ever Experienced Delirium Tremens(DT)s?: Yes Have you ever undergone Alcohol Rehabilitation Treatment (i.e, inpt ot outpatient treatment programs)?: Yes Have you ever Experienced Blackouts?: Yes Have you ever Combined Alcohol with other Downers within the last 90 days?: Yes Have you ever Combined Alcohol with any other Substance of Abuse during the last 90 days?: Yes Positive Blood Alcohol level on Presentation? [PCS.BAL]: Yes Evidence of Increased Autonomic Activity (i.e. HR>120, tremor, sweating, agitation, nausea)?: No Result: 9
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
--- NOTE | 2021-03-19 16:53 | PDOC.CMDIS ---
- If Service Date Differs Date of service: 03/19/21 Time of Service: 16:53 LACE Index Scoring Tool - Questions: Length of Stay (in days): 2 Acuity (Admit via E.D.?): Yes E.D. Visits: 2 - Answers: Total Score: 7 Risk of Readmission: Low Risk Care Management Discharge Reason for Hospitalization: drug overdose Discharge Plan: Discharge to the community and follow up with PCP, Photographic Reproduction Technician, [facility] and [facility]. Appointment with Dr. Stanton is scheduled for 03/30/21. She will also receive support from a [facility] commercial solar sales consultant and casemanager. Transportation arranged by patient, as she declined 's offer to arrange transportation. Patient/Family Education Needs: Review discharge instructions and plan to follow up with community providers. ask me three. - MH Services (Omit if N/A) Current MH Services: [facility]
--- NOTE | 2021-03-20 08:31 | MHPN_ITS ---
Date of service: 03/19/21 Time of Service: 08:32 Mental Health Crisis Note Presenting Issue How did you arrive at the ED and why did you come: Pt arrived on 03.17.2021 via ambulance after an intentional overdose of her medications. Precipitating Factors On 03.19.2021 the Pt denied SI stating it was more of an attempt to get people to notice that I am struggling and need help. She denied HI. She is not clara wing any signs of delusions. Disposition BEHAVIOR: Pt is very chatty and circumstantial with answers, often repetitive. She was otherwise cooperative and engaged. She shows poor insight in regards to her sobriety as she still believes she is sober even though she has recently drank just to get the pills down and overdosed on her medicines twice in the last week or so. She is forward thinking however, and inquiring about additional supports. EYE CONTACT: Conversation was had via phone. MOOD: Pt sounded happy, optimistic and hopeful. AFFECT: Unable ot assess as it was via phone. APPETITE: Pt interrupted out initial call because her lunch showed up. SLEEP(trouble falling/staying asleep: Pt reported her sleep has not been good. Plan Pt has an appointment with Dr. Stanton on 03.30.2021. This clinician will do an in house referral for case management as well as therapy at the Pt's request. Pt at this time does not meet criteria for inpatient services however, should she return again for an over dose she may require inpatient treatment. Signature Clinician's Name/Title: Christine Lawson MS, [facility] Emergency Services Clinician, [facility]
== END 2021-03-19 17:15 | disposition home or self-care (01) | DRG 917 ==
LOC: ER 21:06 → ICU 21:47
PROVIDERS: Family Medicine; Student in an Organized Health Care Education/Training Program; Admitting Provider Internal Medicine; Emergency Provider Physician Assistant; PCP Nurse Practitioner Family; Visit Provider Internal Medicine
DX: T42.6X2A Poisoning by other antiepileptic and sedative-hypnotic drugs, intentional self-harm, initial encounter (principal); U07.1 COVID-19; J96.02 Acute respiratory failure with hypercapnia; F33.9 Major depressive disorder, recurrent, unspecified; J98.11 Atelectasis; G40.109 Localization-related (focal) (partial) symptomatic epilepsy and epileptic syndromes with simple partial seizures, not intractable, without status epilepticus; T43.592A Poisoning by other antipsychotics and neuroleptics, intentional self-harm, initial encounter; T43.222A Poisoning by selective serotonin reuptake inhibitors, intentional self-harm, initial encounter; R40.4 Transient alteration of awareness; F98.8 Other specified behavioral and emotional disorders with onset usually occurring in childhood and adolescence; F10.20 Alcohol dependence, uncomplicated; Z91.51 Personal history of suicidal behavior; I10 Essential (primary) hypertension; F50.9 Eating disorder, unspecified; F60.3 Borderline personality disorder; F41.1 Generalized anxiety disorder; F11.21 Opioid dependence, in remission
CPT/HCPCS: 31500; 36415; 51702; 71045; 80048; 80053; 80307; 81025; 82550; 82803; 82805; 84145; 86704; 86706; 86803; 86850; 86900; 86901; 87340; 87635; 93005; 96361; 96365; 99291; J1650; 36600; 80320; 80329; 81003; 81015; 82728; 83735; 83880; 84443; 84484; 85025; 85379; 86140; 87205; 93010; 94003; 99233; 99239; J0295; J0696; J1100; J2060; J2310; J3490; J7620

== ENCOUNTER 2021-03-21 16:05 | Inpatient (IN) | payer MEDICAID, SELFPAY ==
[2021-03-21 16:12] VITALS: BP 120/82; PULSE 100; RESP 20; TEMP 36.6; O2SAT 98
[2021-03-21 16:27] VITALS: BP 113/80; BP 118/80; BP 130/77; PULSE 101; PULSE 110; PULSE 86
--- NOTE | 2021-03-21 16:45 | DI.RAD_ITS ---
Exam(s) XR PORTABLE CHEST AP EXAM: XR PORTABLE CHEST AP CLINICAL HISTORY: cough, covid + TECHNIQUE: 2D digital imaging was performed. COMPARISON: CR XR PORTABLE CHEST AP from 03/18/2021 FINDINGS: LUNGS: Lungs are well inflated on the current exam. There are mild bilateral lower lobe infiltrates. No visible effusion. HEART: Normal. MEDIASTINUM: Normal. BONES: Unremarkable. IMPRESSION: Improvement in by basilar infiltrates. DATA REPOSITORY: RADIATION DOSE DELIVERED:
--- NOTE | 2021-03-21 16:51 | ED.GENADUL_ITS ---
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 Repeat CT chest today negative for PE. Evaluated by Dr. Aldana today and agrees with continuing her current medication and seeking voluntary psychiatric placement. No ICU beds available today for placement upstairs. There are also no psychiatric facilities that have Covid units. Last updated by Crystal Dutta DO at 03/22/21 19:34 Sign Out Comment: here for depression/si, recent drug overdose. Is covid +, will have to have huddle with [facility] staff to discuss options for placement as apparently no psychiatric facilities in [place] can take covid positive patients Last updated by Tom Aleman MD at 03/22/21 20:35 Sign Out Comment: Patient signed out to Dr. Ventura at shift change with inpatient placement pending Last updated by Suzan Garcia MD at 03/23/21 16:28 Sign Out Comment: Signed out to Dr Aleman for overnight shift 03/23, patient pending placement Last updated by Lam Ventura MD at 03/23/21 21:21 Sign Out Comment: patient pending voluntary psych placement for depression/si. Covid positive. Last updated by Tom Aleman MD at 03/23/21 23:10 Sign Out Comment: Will likely hold in the ED for 10 days while awaiting placement. Remains Covid positive. Last updated by Crystal Dutta DO at 03/24/21 19:50 Sign Out Comment: Awaits placement, no overnight issues Last updated by Lam Ventura MD at 03/25/21 06:22 Sign Out Comment: Patient cooperative today. Awaits placement. This Tuesday will be 10 days from covid diagnosis. Last updated by Crystal Dutta DO at 03/25/21 15:19 Sign Out Comment: No issues overnight. Last updated by Ghulam Sun MD at 03/26/21 07:54 Sign Out Comment: covid test today negative, awaiting placement Last updated by Tom Aleman MD at 03/26/21 16:08 Sign Out Comment: Ativan and Motrin last night otherwise no issues while waiting for placement Last updated by Ghulam Sun MD at 03/27/21 07:39 Sign Out Comment: Is Tylenol this morning. No complications during the patient's time here while under my care. Covid test is now negative. Awaiting Last updated by Lambert Salazar DO at 03/27/21 15:13 Sign Out Comment: given a dose of oral ativan for anxiety, otherwise no events d uring shift Last updated by Tom Aleman MD at 03/27/21 19:39 Sign Out Comment: No issues overnight. Pending placement. Remains voluntary. Last updated by Ghulam Sun MD at 03/28/21 07:49 Sign Out Comment: Some anxiety today, awaits disposition Last updated by Lam Ventura MD at 03/28/21 19:14 Sign Out Comment: No issues overnight, remains cooperative. Last updated by Ghulam Sun MD at 03/29/21 07:18 Sign Out Comment: No issues throughout the day. Remains cooperative. Pending placement Last updated by Lambert Salazar DO at 03/29/21 18:56 Sign Out Comment: No issues overnight, awaits disposition Last updated by Lam Ventura MD at 03/30/21 05:46 PAWSS <HEYDI Jordan - Last Filed: 03/22/21 16:11> Have you Been Recently Intoxicated or Drunk Within the Last 30 days?: Yes Have you Ever Experienced Previous Episodes of Alcohol Withdrawal?: Yes Have you ever Experienced Withdrawal Seizures?: No Have you ever Experienced Delirium Tremens(DT)s?: Yes Have you ever undergone Alcohol Rehabilitation Treatment (i.e, inpt ot outpatient treatment programs)?: Yes Have you ever Experienced Blackouts?: Yes Have you ever Combined Alcohol with other Downers within the last 90 days?: No Have you ever Combined Alcohol with any other Substance of Abuse during the last 90 days?: No Evidence of Increased Autonomic Activity (i.e. HR>120, tremor, sweating, agitation, nausea)?: No Result: 5
[2021-03-21 18:11] LABS: Abs Immature Grans 0.04 10^3/uL (0.0-0.06); Absolute Basophil Count 0.05 10^3/uL (0.0-0.2); Absolute Eosinophil Count 0.52 10^3/uL (0.0-0.7); Absolute Lymphocyte Count 1.79 10^3/uL (1.2-3.4); Absolute Monocyte Count 0.54 10^3/uL (0.1-0.8); Absolute Neutrophil Count 5.67 10^3/uL (1.2-6.7); Basophils % 0.6; HCT 39.1 % (36.0-46.0); HGB 12.9 g/dL (11.2-15.7); Immature Grans % 0.5; Lymphocytes % 20.8; MCH 30.1 pg (27.0-33.0); MCV 91.4 fL (80-95); MPV 8.9 fL (8.0-11.0); Monocytes % 6.3; Neutrophils % 65.8; Nucleated RBC 0 %; Platelet Count 404 10^3/uL (130-400); RBC 4.28 10^6/uL (3.93-5.22); RDW 13.3 % (11.7-14.6); WBC 8.61 10^3/uL (4.4-10.8)
[2021-03-21 18:14] LABS: Source Nasal/Nares
[2021-03-21] MEDS: Normal Saline 1,000 ML 1000 ML IV (18:23)
[2021-03-21 18:30] LABS: *AMPHETAMINES SCREEN URINE Positive (Negative); *BARBITURATES SCREEN URINE Negative (Negative); *BENZODIAZEPINES SCREEN URINE Negative (Negative); Cannabinoids THC Negative (Negative); Cocaine Screen,Urine Negative (Negative); METHADONE URINE SCREEN Negative (Negative); OPIATES URINE SCREEN Negative (Negative); Tricyclic Antidepressants Positive (Negative)
[2021-03-21 18:33] LABS: Acetaminophen < 2 ug/mL (10-30); Salicylate < 2.8 mg/dL (<2.8)
[2021-03-21 18:51] LABS: ALT 22 U/L (14-59); AST 11 U/L (15-37); Alkaline Phosphatase 92 U/L (46-116); Anion Gap 11.8 mmol/L (3-11); BUN 14 mg/dL (7-18); Bilirubin, Total 0.3 mg/dL (0.2-1.0); CO2 25.2 mmol/L (21.0-32.0); Calcium 9.6 mg/dL (8.5-10.1); Chloride 107 mmol/L (98-107); Glucose 93 mg/dL (74-106); Potassium 4.1 mmol/L (3.5-5.1); Sodium 144 mmol/L (136-145); TSH (W/Ref FT4) 0.97 uIU/mL (0.36-3.74); Total Protein 7.8 g/dL (6.4-8.2)
[2021-03-21 19:20] LABS: COVID-19 PCR POSITIVE (Negative)
[2021-03-21] MEDS: Lactated Ringers 1,000 ML 1000 ML IV (20:17)
--- NOTE | 2021-03-21 20:42 | DI.VRAD_ITS ---
Addendum created by Zoila Holcomb MD on 03/21/2021 8:54:34 PM EDT: THIS REPORT CONTAINS FINDINGS THAT MAY BE CRITICAL TO PATIENT CARE. The findings were verbally communicated via telephone conference with Thomas Gandhi at 8:53 PM EDT on 03/21/2021. The findings were acknowledged and understood. Asymmetric hilar prominence can also sometimes be seen secondary to prominent vascular structures from a pulmonary embolism. This was discussed with the ordering provider. He is obtaining a CTA to exclude PE. Initial report created on 03/21/2021 8:41:34 PM EDT: PROCEDURE INFORMATION: Exam: XR Chest Exam date and time: 03/21/2021 4:51 PM Age: 41 years old Clinical indication: Condition or disease; Patient HX: Covid + TECHNIQUE: Imaging protocol: XR of the chest. Views: 1 view. COMPARISON: CR XR PORTABLE CHEST AP 03/18/2021 8:36 AM FINDINGS: Lungs: There is a new opacity in the right lower lung at the level of the right 6th anterior rib. This could represent a focus infection, including COVID-19. There are mild opacities in the left lower lung which could represent atelectasis. Infection not excluded. Pleural spaces: No pneumothorax. Heart/Mediastinum: Cardiomediastinal contours are within normal limits. There is asymmetric left hilar prominence. Bones/joints: Bony structures are age-appropriate. IMPRESSION: 1. New opacity in the right lower lung suspicious for a focus of infection, including, COVID-19. There are mild opacities in the left lower lung which could represent atelectasis. Infection not excluded. 2. Asymmetric left hilar prominence. This can be seen with prominent vascular structures or lymphadenopathy/lesion. If the patient is having infectious symptoms, this may be reactive. Short-term follow-up in 4-6 weeks could be considered. If this is a persistent finding, a contrast-enhanced CT scan could be obtained. Other findings/details as above. Dictated and Authenticated by: Zoila Holcomb MD. Ordering:SOPHIA Guzman MD
--- NOTE | 2021-03-21 20:45 | DI.CT_ITS ---
Exam(s) CT CHEST PE CTA EXAM: CT CHEST PE CTA CLINICAL HISTORY: sob, Covid +, concern for PE. TECHNIQUE: Imaging Protocol: Axial CT angiography was performed with multi-slice acquisition and mu lti-planar and/or 3D reconstructions. CONTRAST MATERIAL: Intravenous: Omnipaque 350 Contrast volume:100 cc COMPARISON: CT CT CHEST/ABD/PEL W from 02/02/2020 CR,XR XR PORTABLE CHEST AP from 03/05/2021 CR,XR XR PORTABLE CHEST AP from 03/05/2021 CR,XR XR PORTABLE CHEST AP POST LINE from 03/17/2021 CR,XR XR PORTABLE CHEST AP POST LINE from 03/17/2021 CR XR PORTABLE CHEST AP from 03/18/2021 CR XR PORTABLE CHEST AP from 03/18/2021 CR,XR XR PORTABLE CHEST AP from 03/21/2021 CR,XR XR PORTABLE CHEST AP from 03/21/2021 FINDINGS: Pulmonary Arteries: Limited evaluation of small branches due to motion. No evidence of filling defec t to suggest pulmonary emboli. Tracheobronchial tree: Patent where visualized. Mediastinum and Thania: No dominant adenopathy or fluid collection. Pulmonary parenchyma: Significant motion artifact.. Rounded infiltrate posterior right lower lobe. Bibasilar infiltrates versus atelectasis. Focal nodular densities left upper lobe. Pleura: No effusion or pneumothorax. Heart: The heart is not dilated. No coronary artery calcifications are seen. Aorta: Thoracic aorta non-dilated. Upper abdomen: Unremarkable. Bones: Chronic appeared mild wedging of the inferior endplate of T12. Small endplate osteophytes. IMPRESSION: Limited exam due to patient motion. No evidence of pulmonary embolism. Bibasilar infiltrates, right greater than left. Small left upper lobe infiltrate. RADIATION DOSE DELIVERED: 652.52mGy.cm Total DLP DATA REPOSITORY: All CT scans at this facility are submitted to the National Radiology Data Registry (NRDR) Dose Index Registry (DIR) with the [employer] (ACR). RADIATION OPTIMIZATION: All CT scans at this facility use at least one of these dose optimization te chniques: automated exposure control; mA and/or kV adjustment per patient size (includes targeted exa ms where dose is matched to clinical indication); or iterative reconstruction.
[2021-03-21] MEDS: QUEtiapine 100 MG TAB (21:02)
[2021-03-21] MEDS: Gabapentin 300 MG CAP 600 MG PO (21:02)
[2021-03-21] MEDS: Melatonin 3 MG TAB PO (21:02)
--- NOTE | 2021-03-21 21:17 | NUR.NOTE ---
TELEHEALTH PSYCH attp requested for patient at 21:15. Awaiting call back with time of appt for patient.Nursing Note:
[2021-03-21] MEDS: Omnipaque 350 MG/ML 100 ML BTL IJ (21:34)
[2021-03-21] MEDS: Normal Saline - Diluent 50 ML VIAL IV (21:40)
--- NOTE | 2021-03-21 21:58 | PDOC.MHCN ---
Date of service: 03/21/21 Time of Service: 18:58 Mental Health Crisis Note Presenting Issue How did you arrive at the ED and why did you come: Client arrived at [facility] ED via self with worsening Co-vid 19 symptoms. Client states that she tested positive for co-vid on 03/18/21 while in the ICU after an intentional drug overdose. Client also states that she is severely depressed and wants to get inpatient treatment for medication management and learn some new coping skills that she can utilize in the community. Precipitating Factors Client denies current SI/HI with no plan or intent, stating that she wants to get the help that she needs so she does not act on negative thoughts when she is discharged. Disposition BEHAVIOR: Client presents sitting up in hospital bed dressed in proper paper hospital attire when this insurance underwriter sales arrives on zoom. Client cooperates with this insurance underwriter sales and answers all questions that are asked of her. When this insurance underwriter sales asked her on a scale of 0-10 with 0 being that she would be safe if she was to leave the hospital and 10 being that she would find a way to harm herself she rated herself a 0, re-stating that she did not want to hurt herself. EYE CONTACT: Client gives minimal eye contact looking at the floor or wall most of the assessment. MOOD: Client presents with deprssed mood. AFFECT: Flat affect APPETITE: Client states that she has not had any appetite or desire to eat or drink the last couple of days, but she does not know if this is due to her diagnosis of co-vid. SLEEP(trouble falling/staying asleep: Client states that she typically sleeps pretty well as she is prescribed Seroquel, although the last couple of nights she had had trouble falling asleep because she cannot stop thinking about what is going on in her life. Plan Client will remain at [facility] ED awaiting voluntary placement at an inpatient facility. Until client is co-vid negative she will not be able to be placed in a transition bed. Client will be re-assessed daily by [facility] while awaiting placement. Safety plan in place with ED. If client decides to discharge [facility] needs to be contacted to re-evaluate client. Signature Clinician's Name/Title: Breanna Orta [facility] Emergency corporate services manager [employer]
[2021-03-21 22:15] VITALS: BP 97/63; PULSE 80; RESP 14; TEMP 36.5; O2SAT 96
--- NOTE | 2021-03-21 22:42 | DI.VRAD_ITS ---
Addendum created by Zoila Holcomb MD on 03/21/2021 11:11:55 PM EDT: THIS REPORT CONTAINS FINDINGS THAT MAY BE CRITICAL TO PATIENT CARE. The findings were verbally communicated via telephone conference with Dr. Ríos at 11:11 PM EDT on 03/21/2021. The findings were acknowledged and understood. A repeat CTA could be considered as indicated. Initial report created on 03/21/2021 10:41:42 PM EDT: PROCEDURE INFORMATION: Exam: CTA Chest With Contrast Exam date and time: 03/21/2021 8:53 PM Age: 41 years old Clinical indication: Shortness of breath; Patient HX: SOB, covid+, concern for pe TECHNIQUE: Imaging protocol: Computed tomographic angiography of the chest with contrast. 3D rendering (Not supervised by radiologist): MIP and/or 3D reconstructed images were created by the technologist. COMPARISON: CT CHEST/ABD/PEL W 02/02/2020 6:53 PM FINDINGS: Limitations: This is a compromised examination secondary to respiratory motion and quantum mottle. Pulmonary arteries: This is a limited examination for the exclusion of pulmonary emboli secondary to respiratory motion and quantum mottle. No central pulmonary embolism is identified. Evaluation for smaller PEs is limited secondary to poor vascular opacification and mixing artifact. For instance, there is filling defect versus artifact in small branches of the left pulmonary artery posteriorly (series 6, image 330 and 338). PEs are not excluded. Aorta: Evaluation of the ascending thoracic aorta is limited secondary to motion. No aneurysm. Lungs: There are ground-glass opacities in the dependent aspects of the lungs which could represent atelectasis. Infection not excluded. There is also a new rounded opacity in the periphery of the right lower lung (series 9, image 70) which could represent a focus of pneumonia or Covid-19 infection. There is a cluster of nodular densities in the left lung on series 6, image 223 which could be infectious/inflammatory. True pulmonary nodules are not excluded. These measure up to 7 mm. Pleural spaces: Unremarkable. No pneumothorax. No pleural effusion. Heart: No pericardial effusion. Lymph nodes: There is an enlarged right hilar lymph node measuring 1.2 cm in short axis. There is a slightly engorged appearance to the anterior mediastinal fat which can sometimes be seen with infectious or inflammatory processes. Bones/joints: Mild wedging of the T12 vertebral body is unchanged. No acute fracture. Soft tissues: Unremarkable. IMPRESSION: 1. This is a limited examination for the exclusion of pulmonary emboli secondary to respiratory motion and quantum mottle. No central pulmonary embolism is identified. Evaluation for smaller PEs is limited secondary to poor vascular opacification and mixing artifact. For instance, there is filling defect versus artifact in small branches of the left pulmonary artery posteriorly (series 6, image 330 and 338). PEs are not excluded. 2. Rounded opacity in the periphery of the right lower lung which could represent a focus of pneumonia or Covid-19 infection. Short-term follow-up is suggested for this finding and a cluster of nodular densities in the left lung as described. 3. Enlarged right hilar lymph node and slightly engorged appearance to the anterior mediastinal fat. Given the patient's active infection, this is likely reactive. It can also be reassessed on follow-up. 4. Ground-glass opacities in the dependent aspects of the lungs. This could represent atelectasis. Infection not excluded. Other findings/details as above. Dictated and Authenticated by: Zoila Holcomb MD. Ordering:SOPHIA Guzman MD
[2021-03-21] MEDS: Enoxaparin 120 MG/0.8 ML SYR SC (23:42)
[2021-03-22] MEDS: Gabapentin 300 MG CAP 600 MG PO ×3 (09:42→21:04)
[2021-03-22] MEDS: Topiramate 50 MG TAB PO ×2 (09:42→21:04)
[2021-03-22] MEDS: FLUoxetine 10 MG TAB 30 MG PO (09:43)
--- NOTE | 2021-03-22 09:51 | CMSP_ITS ---
- If Service Date Differs Date of service: 03/22/21 Time of Service: 10:10 Care Management Safety Plan Status: Voluntary - Reason for Wait Reason for Wait: Inpatient Admission VOLUNTARY FOR INPATIENT PSYCHIATRIC STABILIZATION. Patient is appropriate in all interactions since arriving at [facility]; Pt has demonstrated appropriate coping and communication skills, has articulated her needs and concerns and is fully engaged during staff interactions. A safety huddle was held to discuss Keyanna's safety plan. Present were Penny Wang, nursing tracer bullet section supervisor, nurse Deidre and EMRE Pelletier Due to Keyanna's Covid positive status, she will remain in the ED at this time as there are no ICU beds available. Safety plan has been established with patient, and care team, to adhere to patient goals, identify restrictions based on behavioral status, address nutrition, and determine allowed personal belongings, tools for hygiene and personal care. Determine level of activity including ambulation, level of sup ervision, visitors, and determine privileges based on behaviors and level of engagement by pt. SAFETY PLAN: 1. Will remain on suicide precautions. In Paper Clothes 2. Will remain in room under direct supervision of one-on-one staff at all times provided by [employer]; CLAUDIA, AIR CONDITIONING INSULATION INSTALLER entertainment & media correspondent. 3. May have paper cups, plates, finger foods as well as a cardboard spoon with which to eat meals. 4. Follow [facility] Management of the Admitted Behavioral Health Patient policy. 5. Comfort bath system only. 6. No personal belongings 7. Visitors-No visitors per [facility] Covid policy 8. Activities: may have tablet to watch shows on, coloring book, crayons,books, word search and crosswords 9. Commode privileges in room 10. Phone: No phone privileges at this time 11. Due to VOLUNTARY status, if patient wishes to leave [facility], staff will contact [facility] Crisis Screener ([phone]) and On-Call Centrifuge Operator ([phone]) as soon as possible. In the event of elopement, notify [place] [employer] ([phone]). Patient is currently voluntarily at [facility] and seeking inpatient admission when a bed becomes available. [facility] Frontline Machine Buffer will continue seeking placement. Please contact the Slab Inspector Centrifuge Operator ([phone]) and [facility] Machine Buffer ([phone]) for any needed changes in the Safety Plan. Safety plan has been provided to interdepartmental care team.
--- NOTE | 2021-03-22 09:51 | PDOC.CMSAFED ---
- If Service Date Differs Date of service: 03/22/21 Time of Service: 10:10 Care Management Safety Plan Status: Voluntary - Reason for Wait Reason for Wait: Inpatient Admission VOLUNTARY FOR INPATIENT PSYCHIATRIC STABILIZATION. Patient is appropriate in all interactions since arriving at [facility]; Pt has demonstrated appropriate coping and communication skills, has articulated her needs and concerns and is fully engaged during staff interactions. A safety huddle was held to discuss Keyanna's safety plan. Present were Penny Wang, nursing quality supervisor, nurse Deidre and EMRE Pelletier Due to Keyanna's Covid positive status, she will remain in the ED at this time as there are no ICU beds available. Safety plan has been established with patient, and care team, to adhere to patient goals, identify restrictions based on behavioral status, address nutrition, and determine allowed personal belongings, tools for hygiene and personal care. Determine level of activity including ambulation, level of supervision, visitors, and determine privileges based on behaviors and level of engagement by pt. SAFETY PLAN: 1. Will remain on suicide precautions. In Paper Clothes 2. Will remain in room under direct supervision of one-on-one staff at all times provided by [employer]; CLAUDIA, FACILITIES PLANT ENGINEER wood boat builder supervisor. 3. May have paper cups, plates, finger foods as well as a cardboard spoon with which to eat meals. 4. Follow [facility] Management of the Admitted Behavioral Health Patient policy. 5. Comfort bath system only. 6. No personal belongings 7. Visitors-No visitors per [facility] Covid policy 8. Activities: may have tablet to watch shows on, coloring book, crayons,books, word search and crosswords 9. Commode privileges in room 10. Phone: No phone privileges at this time 11. Due to VOLUNTARY status, if patient wishes to leave [facility], staff will contact [facility] Crisis Screener ([phone]) and On-Call Senior Hris Analyst ([phone]) as soon as possible. In the event of elopement, notify [facility] Police ([phone]). Patient is currently voluntarily at [facility] and seeking inpatient admission when a bed becomes available. [facility] Frontline Automotive Brake Specialist will continue seeking placement. Please contact the Steel Chipper Senior Hris Analyst ([phone]) and [facility] Automotive Brake Specialist ([phone]) for any needed changes in the Safety Plan. Safety plan has been provided to interdepartmental care team.
--- NOTE | 2021-03-22 11:37 | PDOC.MHCN ---
Date of service: 03/22/21 Time of Service: 11:38 Mental Health Crisis Note Presenting Issue How did you arrive at the ED and why did you come: Client arrived at [facility] Ed on 03/21/21 stating that she was having co-vid symptoms and that she was also having SI with thoughts of OD on her medication. Precipitating Factors Client denies SI/HI with no intent or plan, she just states that she is feeling depressed and wants to get the help that she needs. Disposition BEHAVIOR: Client is laying down in hospital bed with this technical publications writer arrives via zoom. Client is dressed in proper paper hospital attire. Client interacts with this technical publications writer answering all questions that are being asked of her. Client states that she does not feel like she needs a distributor operator, however this technical publications writer explained to client that it is protocol for all clients that are there for MH. EYE CONTACT: Client makes good eye contact with this technical publications writer. MOOD: Clients mood appears to be depressed, although she is goal oriented and talking about the future. AFFECT: Flat affect APPETITE: Client states that she was able to eat and drink a little bit today. SLEEP(trouble falling/staying asleep: Client states that she slept ok last night, but does not feel like she could get a good nights sleep while in the ED. Plan Client will remain at [facility] ED on voluntary status awaiting negative co-vid test so she can be referred to an inpatient hospital. If client decides that she wants to leave [facility] needs to be called to asses client before she is discharged. Safety plan updated with health care technician and client will be allowed to have tablet so she can watch videos to keep herself busy. Signature Clinician's Name/Title: Breanna Orta [facility] emergency Clinician
--- NOTE | 2021-03-22 14:45 | DI.CT_ITS ---
Exam(s) CT CHEST PE CTA EXAM: CT CHEST PE CTA CLINICAL HISTORY: covid +, repeat CT due to poor film 03/21, r/o PE. TECHNIQUE: Imaging Protocol: CT angiography of the chest was performed using pulmonary embolus jimmy col. Multi planar reconstructions were performed. CONTRAST MATERIAL: Intravenous: Omnipaque 350 Contrast volume: 100 cc COMPARISON: CT CT CHEST PE CTA from 03/21/2021 FINDINGS: CHEST: PULMONARY ARTERIES: There are no intraluminal filling defects to suggest acute pulmonary emboli. LUNGS: There is now a more prominent pleural based infiltrate in the right lower lobe posterior basal segment borderline lateral basal segment, measuring 3.6 cm by 1.5 cm, not associated with overlying rib destruction nor pleural effusion.. There is a similar but slightly smaller infiltrate at same lo cation in the left lung base, also pleural based and measuring approximately 2.5 by 1.5 cm, also not associated with overlying rib destruction or pleural effusion. There is also again noted a v-shaped infiltrate in the left upper lobe measuring 1.5 x 1.2 cm. No significant findings in the trachea and mainstem bronchi. No bronchiectasis MEDIASTINUM: There is no hilar nor mediastinal adenopathy. Visualized thyroid unremarkable. CARDIAC: Heart size is upper normal. There is no pericardial effusion.Caliber of the thoracic aorta is within normal limits. There is no significant shift of the interventricular septum. PARTIALLY VISUALIZED UPPERMOST ABDOMEN: No adrenal masses. No splenomegaly. OSSEOUS: No significant osseous lesions.. IMPRESSION: 1. Compared to the CT scan performed yesterday the size of the pleural based infiltrates in both lung bases (posterior basal segment both lower lobes) have increased and are more confluent..These are mo st probably infectious, as opposed to infarctions, given that there are no intraluminal filling defec ts within the pulmonary arterial tree to suggest the presence of pulmonary emboli. 2. There are no pleural effusions. No intrathoracic adenopathy. 3. No evidence of right heart failure. No aortic dissection. No pericardial effusion. RADIATION DOSE DELIVERED: 512.19mGy.cm Total DLP DATA REPOSITORY: All CT scans at this facility are submitted to the National Radiology Data Registry (NRDR) Dose Index Registry (DIR) with the [employer] (ACR). RADIATION OPTIMIZATION: All CT scans at this facility use at least one of these dose optimization te chniques: automated exposure control; mA and/or kV adjustment per patient size (includes targeted exa ms where dose is matched to clinical indication); or iterative reconstruction.
[2021-03-22] MEDS: Omnipaque 350 MG/ML 100 ML BTL IJ (15:14)
[2021-03-22] MEDS: Normal Saline - Diluent 50 ML VIAL IV (15:23)
[2021-03-22] MEDS: Normal Saline Flush 10 ML SYR IVP (15:24)
[2021-03-22] MEDS: Amphet Asp/Amphet/D-Amphet 10 MG TAB 30 MG PO (15:29)
--- NOTE | 2021-03-22 16:15 | DI.VRAD_ITS ---
PROCEDURE INFORMATION: Exam: CTA Chest With Contrast Exam date and time: 03/22/2021 2:55 PM Age: 41 years old Clinical indication: Other: Covid +, repeat CT TECHNIQUE: Imaging protocol: Computed tomographic angiography of the chest with contrast. 3D rendering (Not supervised by radiologist): MIP and/or 3D reconstructed images were created by the technologist. Radiation optimization: All CT scans at this facility use at least one of these dose optimization techniques: automated exposure control; mA and/or kV adjustment per patient size (includes targeted exams where dose is matched to clinical indication); or iterative reconstruction. Contrast material: OMNIPAQUE 350; Contrast volume: 100 ml; Contrast route: INTRAVENOUS (IV); COMPARISON: CT CHEST PE CTA 03/21/2021 9:34 PM FINDINGS: Pulmonary arteries: Normal. No pulmonary emboli. Aorta: Unremarkable. No aortic aneurysm. No aortic dissection. Lungs: There are bibasilar fairly coalescent lung airspace opacities more defined and dense compared to previous study, particularly at the left lung base. There is a wire shaped opacity series 4, image 31 in the left upper lobe, overall not significantly changed compared to prior exam. Pleural spaces: Unremarkable. No pneumothorax. No pleural effusion. Heart: Unremarkable. No cardiomegaly. No pericardial effusion. Lymph nodes: Unremarkable. No enlarged lymph nodes. Bones/joints: Unremarkable. No acute fracture. Soft tissues: Unremarkable. IMPRESSION: Increasing organization of lung base airspace disease compared to recent exam. No evidence for pulmonary embolus. Dictated and Authenticated by: Estefani Knox MD. Ordering:GIDEON Rojas MD
--- NOTE | 2021-03-22 16:43 | CMPROGNOTE_ITS ---
- If Service Date Differs Date of service: 03/22/21 Time of Service: 16:43 Care Management Progress Note S/O: Keyanna is a 41 year old woman admitted to [facility]21 with depression, SI and Covid. She has a long history of depression with at least 3 suicide attempts, two of which were in the last 2-3 weeks and both required intubation. Keyanna also has a history of borderline personality disorder, schizophrenia with hallucinations, alcohol use and drug dependence (in remission). CM was unable to meet with her in person due to her Covid status but did speak to her on the phone. Maria C informed CM that she is seeking voluntary treatment for her depression and stated that she feels that she should not have been discharged last week after her attempted suicide. [facility] CM informed her that there are no beds and that as long as she is Covid positive, placement may not be possible. CM provided Keyanna with a coloring book and crayons, a bible and a word search book at her request. A safety huddle was held today with the ED provider, manufacturing supervisor, nurse and CM and the decision was made to have Keyanna remain in the ED at this time. There are no ICU beds available and having a CPSO in a Covid isolation room for 8-12 hours is not feasible. A: Keyanna is a 41 year old woman who presented to the ED on 03/21/21 with depression and SI. P: Keyanna is seeking voluntary placement in a psychiatric facility for treatment of her depression and anxiety.
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
[2021-03-22 18:24] VITALS: BP 103/68; PULSE 82; RESP 15; TEMP 36.6; O2SAT 97
[2021-03-22] MEDS: QUEtiapine 300 MG TAB PO (21:05)
--- NOTE | 2021-03-23 02:38 | NUR.NOTE ---
Anahi Glynn [id number] Note:
[2021-03-23] MEDS: Acetaminophen 325 MG TAB (09:05)
[2021-03-23] MEDS: Amphet Asp/Amphet/D-Amphet 10 MG TAB 30 MG PO ×2 (09:09→13:10)
[2021-03-23] MEDS: Topiramate 50 MG TAB PO (09:09)
[2021-03-23] MEDS: Gabapentin 300 MG CAP 600 MG PO ×3 (09:09→19:50)
[2021-03-23] MEDS: FLUoxetine 10 MG TAB 30 MG PO (09:09)
[2021-03-23 09:48] VITALS: BP 143/88; PULSE 90; RESP 16; TEMP 36.2; O2SAT 100
--- NOTE | 2021-03-23 13:32 | PSYCHFUP_ITS ---
Date of Service Date of service: 03/23/21 Time of Service: 13:32 Assessment and Plan Assessment and plan (1) Depression with suicidal ideation: Status: Acute Assessment and plan: Depression persists. Social situation remains unchanged from admission suggesting continued elevated risk for suicide. If requesting AMA discharge, recomend screening for involuntart admission mirian rticularly given two recent serious suicide attempts. Depression: increase fluoxetine to 40 mg daily Continue safety protocols ID: repeat COVID test Disposition planning: Consider step down to Crisis bed or transfer to inpatient psychiatry depending on safety status and time of discharge Follow up: Tuesday Psychiatry Subjective Narrative:: Seen in follow up through telemedicine. Phone contact established with Dr. Magdi Hernandez of [facility]. He reported working with patient for last year and confirmed much of psychiatric history. He also indicated she had recently moved to [place] and was attempting to trasfer mental health care to [facility]. Patient confirms this but indicates DCF did not approve of her move to [place]. Dr. Hernandez also reported treatment with clonidine 0.1 mg HS. Patient indicates this has not been notably helpful. On follow up today, she reports good, restlful sleep pver night. Mood is depressed and hoeless. Noted by staff angry and demanding at times. Denies active SI at this time. Able to eat breakfast. Wants to take a shower. Continues to endorse persecutory feelings , Everyone who was supposed to help me has been out to get me. Given ongoing depressive symptoms, I recommend increase in fluoxetine to 40 mg daily and she agrees. In discussing case with Dr. Garcia, she indicates a COVID test will be repeated today in an effort to expand disposition resources once stabilized. Exam Psych Appearance: grossly normal and other (restless at times, grooming and hygiuene are marginal.) Mental Status: mental status grossly normal Speech and Movement: pressured speech Mood: anxious mood and irritable mood Affect: labile affect, anxious affect and irritable affect Attitude: cooperative Thought Process: perseverating Thought Content: normal Insight: fair Judgment: fair Objective Medications: Active Inpatient Medications Report Generic Name Dose Route Start Last Admin Trade Name Freq PRN Reason Stop Dose Admin Amphetamine Aspartate/Amphetam Sulf 30 mg 03/22/21 13:00 03/23/21 13:10 Amphet Asp/Amphet/D-Amphet 10 Mg Tab PO 30 mg BID@0830,1300 MARCOS Administration Fluoxetine HCl 30 mg 03/22/21 09:20 03/23/21 09:09 Fluoxetine 10 Mg Tab PO 30 mg DAILY MARCOS Administration Gabapentin 600 mg 03/22/21 08:30 03/23/21 13:10 Gabapentin 300 Mg Cap PO 600 mg TID MARCOS Administration IV Miscellaneous Supplies 1 each 03/21/21 17:00 Iv Access IV DIRECTED MARCOS Melatonin 3 mg 03/22/21 09:30 Melatonin 3 Mg Tab PO HS PRN PRN Sleep Quetiapine Fumarate 300 mg 03/22/21 22:00 03/22/21 21:05 Quetiapine 300 Mg Tab PO 300 mg HS MARCOS Administration Sodium Chloride 0 ml 03/22/21 15:24 03/22/21 15:24 Normal Saline Flush 10 Ml Syr IVP 10 ml PRN PRN Administration Topiramate 50 mg 03/22/21 09:20 03/23/21 09:09 Topiramate 50 Mg Tab PO 50 mg BID MARCOS Administration Discontinued Medications Generic Name Dose Route Start Last Admin Trade Name Freq PRN Reason Stop Dose Admin Amphetamine Aspartate/Amphetam Sulf 30 mg 03/22/21 14:45 03/22/21 19:03 Amphet Asp/Amphet/D-Amphet 10 Mg Tab PO Not Given BID MARCOS Enoxaparin Sodium 120 mg 03/21/21 23:29 03/21/21 23:42 Enoxaparin 120 Mg/0.8 Ml Syr SC 03/21/21 23:30 120 mg NOW ONE Administration Gabapentin 600 mg 03/21/21 20:34 03/21/21 21:02 Gabapentin 300 Mg Cap PO 03/21/21 20:35 600 mg NOW ONE Administration Gabapentin 600 mg 03/22/21 09:20 03/22/21 19:03 Gabapentin 600 Mg Tab PO Not Given TID MARCOS Sodium Chloride 1,000 mls @ 1,000 mls/hr 03/21/21 16:49 03/21/21 20:17 Saline 1000ml Bag IV 03/21/21 17:48 Infused BOLUS ONE Infusion Ringer's Solution 1,000 mls @ 1,000 mls/hr 03/21/21 17:09 03/21/21 21:20 IV 03/21/21 18:08 Infused BOLUS ONE Infusion Iohexol 100 ml 03/21/21 21:45 03/22/21 15:14 Omnipaque 350 Mg/Ml 100 Ml Btl IJ 04/20/21 23:59 100 ml DIRECTED MARCOS Administration Melatonin 3 mg 03/21/21 20:34 03/21/21 21:02 Melatonin 3 Mg Tab PO 03/21/21 20:35 3 mg NOW STA Administration Melatonin 3 mg 03/22/21 09:18 Melatonin 3 Mg Tab PO HS PRN Sleep Quetiapine Fumarate 300 mg 03/21/21 20:34 03/21/21 21:02 Quetiapine 300 Mg Tab PO 03/21/21 20:35 Not Given NOW ONE Sodium Chloride 50 ml 03/21/21 21:45 03/22/21 15:23 Normal Saline - Diluent 50 Ml Vial IV 50 ml .FOR DI USE MARCOS Administration Vitals: Vital Signs - 24 hr 03/22/21 18:24 03/23/21 09:48 Temperature 36.6 C 36.2 C L Pulse 82 90 Respiratory Rate 15 16 Blood Pressure 103/68 143/88 H Pulse Oximetry 97 100
[2021-03-23 13:44] LABS: Source Nasal/Nares
--- NOTE | 2021-03-23 13:53 | PDOC.CMSAFED ---
- If Service Date Differs Date of service: 03/23/21 Time of Service: 13:53 Care Management Safety Plan Status: Voluntary - Reason for Wait Reason for Wait: Inpatient Admission VOLUNTARY FOR INPATIENT PSYCHIATRIC STABILIZATION. Patient is appropriate in all interactions since arriving at [facility]; Pt has demonstrated appropriate coping and communication skills, has articulated her needs and concerns and is fully engaged during staff interactions. A decentralized safety huddle was held with Dr. Suzan Garcia, ED Provider, Faith, Nursing Pharmacy Technician Trainee, CORNELIUS Hidalgo, and EMRE Siegel, to discuss Keyanna's safety plan at approximately 16:00 pm. No changes are being made to the safety plan at this time. Due to Keyanna's Covid positive status, she will remain in the ED at this time as there are no ICU beds available. Safety plan has been established with patient, and care team, to adhere to patient goals, identify restrictions based on behavioral status, address nutrition, and determine allowed personal belongings, tools for hygiene and personal care. Determine level of activity including ambulation, level of supervision, visitors, and determine privileges based on behaviors and level of engagement by pt. SAFETY PLAN: 1. Will remain on suicide precautions. In Paper Clothes 2. Will remain in room under direct supervision of one-on-one staff at all times provided by CPSO, CLAUDIA, CABLE INSTALLER education reporter. 3. May have paper cups, plates, finger foods as well as a cardboard spoon with which to eat meals. 4. Follow [facility] Management of the Admitted Behavioral Health Patient policy. 5. Comfort bath system only. 6. No personal belongings 7. Visitors-No visitors per [facility] Covid policy 8. Activities: may have tablet to watch shows on, coloring book, crayons,books, word search and crosswords 9. Commode privileges in room 10. Phone: No phone privileges at this time 11. Due to VOLUNTARY status, if patient wishes to leave [facility], staff will contact [facility] Crisis Screener ([phone]) and On-Call Lobby Porter ([phone]) as soon as possible. In the event of elopement, notify [facility] Police ([phone]). Patient is currently voluntarily at [facility] and seeking inpatient admission when a bed becomes available. [facility] Frontline Rolling Mill Operator Helper will continue seeking placement. Please contact the African History Professor Lobby Porter ([phone]) and [facility] Rolling Mill Operator Helper ([phone]) for any needed changes in the Safety Plan. Safety plan has been provided to interdepartmental care team.
--- NOTE | 2021-03-23 15:55 | CMPROGNOTE_ITS ---
- If Service Date Differs Date of service: 03/23/21 Time of Service: 15:55 Care Management Progress Note S/O: Keyanna is a 41 year old woman admitted to [facility] on 03/21/21 with depression, SI and Covid. She has a long history of depression with at least 3 suicide attempts, two of which were in the last 2-3 weeks with one suicidal gesture requiring intubation. Keyanna also has a history of borderline personality disorder, schizophrenia with hallucinations, alcohol use and drug dependence (in remission). She is followed by Dr. Stanton, psychiatrist, at [facility]. CM was unable to meet with her in person due to her Covid status. Maria C did meet with both Dr. Aldana, psychiatrist, and Thomas [facility] Emergency Clinician, via telehealth today. Keyanna is denying active suicidal/homicidal ideation at this time. She, however, continues to report significant depression and feelings of hopelessness due to numerous social stressors. Dr. Aldana is recommending increasing fluoxetine to 40 mg daily. Keyanna will be reassessed tomorrow but as long as she is Covid positive, placement will not be possible as psychiatric facilities are not accepting Covid positive patients, per [facility]. CM will continue to follow. A: Keyanna is a 41 year old woman who presented to the ED on 03/21/21 with depression and SI. P: Keyanna is seeking voluntary placement in a psychiatric facility for treatment of her depression and anxiety. - Status Status: Voluntary - Reason for Wait Reason for Wait: Inpatient Admission
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
[2021-03-23] MEDS: Melatonin 3 MG TAB PO (19:50)
[2021-03-23] MEDS: QUEtiapine 100 MG TAB (19:50)
[2021-03-23] MEDS: Topiramate 100 MG TAB 50 MG PO (20:29)
[2021-03-24 01:20] LABS: COVID-19 PCR Positive (Negative)
[2021-03-24 08:06] VITALS: BP 125/81; PULSE 75; RESP 18; TEMP 36.8; O2SAT 99
[2021-03-24] MEDS: Topiramate 100 MG TAB 50 MG PO ×2 (08:26→20:52)
[2021-03-24] MEDS: Gabapentin 300 MG CAP 600 MG PO ×3 (08:26→19:38)
[2021-03-24] MEDS: Amphet Asp/Amphet/D-Amphet 10 MG TAB 30 MG PO ×2 (08:26→13:20)
[2021-03-24] MEDS: FLUoxetine 20 MG CAP 40 MG PO (08:26)
[2021-03-24] MEDS: Acetaminophen 325 MG TAB (08:30)
--- NOTE | 2021-03-24 14:41 | PDOC.MHCN ---
Date of service: 03/24/21 Time of Service: 10:15 Mental Health Crisis Note Presenting Issue How did you arrive at the ED and why did you come: Patient presented to [facility] ED . with chief complaint of covid symptoms, depression, and vague SI absent intent or plan seeking voluntary placement. She is seen today for reassessment via telehealth. Precipitating Factors The patient is assessed via telehealth. General presentation and disposition appears improved as compared to 03.23. The patient is behaviorally appropriate, pleasant and conversational throughout interaction. Speech is unpressured, normal rate and tone. Appetite decreased due to covid symptoms, sleep normal. She reports I woke up in a pretty good mood. I'm coming to terms with my circumstances. Affect is mixed euthymic / mildly dysphoric. No report or presenting evidence of delusions or hallucinations. Thought process appears clear, coherent and goal-oriented. Patient reports wanting to work on stability to alleviate numerous presenting social stressors and remains agreeable to voluntary referral for in-patient treatment to address depression and anxiety. She denies current SI/HI/SIB, intent or plan. Disposition BEHAVIOR: Appropriate EYE CONTACT: Fair MOOD: I woke up in a pretty good mood. AFFECT: Mixed APPETITE: Appetite issues due to COVID sx SLEEP(trouble falling/staying asleep: No reported issues Plan The patient will remain at [facility] on voluntary status and await placement to an in-patient psychiatric facility pending negative COVID test. Presenting social circumstances and depressive symptoms remain, however patient does express improved insight during interaction today. Risk level remains moderate to high and if the patient decides to discharge AMA, consult with [facility] screener will be requested. Updated [facility] CM. 0119h 03.24.21 - COVID-19 positive. No referrals faxed at this time due to patient's COVID status. Signature Clinician's Name/Title: Fabio Olivier [facility] clinician / [facility]
--- NOTE | 2021-03-24 18:13 | PDOC.CMSAFED ---
- If Service Date Differs Date of service: 03/24/21 Time of Service: 18:13 Care Management Safety Plan Status: Voluntary - Reason for Wait Reason for Wait: Inpatient Admission OLUNTARY FOR INPATIENT PSYCHIATRIC STABILIZATION. Patient is appropriate in all interactions since [facility]; Pt has demonstrated appropriate coping and communication skills, has articulated her needs and concerns and is fully engaged during staff interactions. Decentralized safety huddle done at 18:35 with Faith, Nursing Sales Force Administrator, CORNELIUS Bean, and EMRE Siegel. Due to Keyanna's Covid positive status, she will remain in the ED as there are no ICU beds available. Safety plan has been established with patient, and care team, to adhere to patient goals, identify restrictions based on behavioral status, address nutrition, and determine allowed personal belongings, tools for hygiene and personal care. Determine level of activity including ambulation, level of supervision, visitors, and determine privileges based on behaviors and level of engagement by pt. SAFETY PLAN: 1. Will remain on suicide precautions. In Paper Clothes 2. Will remain in room under direct supervision of one-on-one staff at all times provided by CPSO, CLAUDIA, SUPERVISING EDITOR TRAILER reading efficiency course director. 3. May have paper cups, plates, finger foods as well as a cardboard spoon with which to eat meals. 4. Follow [facility] Management of the Admitted Behavioral Health Patient policy. 5. Comfort bath system only while on Covid precautions. 6. No personal belongings 7. Visitors-No visitors per [facility] Covid policy 8. Activities: may have tablet to watch shows on, coloring book, crayons,books, word search and crosswords, and other activities at RN discretion. 9. Commode privileges in room 10. Phone: May use hospital phone at RN discretion. 11. Due to VOLUNTARY status, if patient wishes to leave [facility], staff will contact [facility] Crisis Screener ([phone]) and On-Call Plastic Block Boiler Reliner ([phone]) as soon as possible. In the event of elopement, notify [place] [employer] ([phone]). Patient is currently voluntarily at [facility] and seeking inpatient admission when a bed becomes available. [facility] Frontline Digital Sales Representative will continue seeking placement. Please contact the Key Sander Plastic Block Boiler Reliner ([phone]) and [facility] Digital Sales Representative ([phone]) for any needed changes in the Safety Plan. Safety plan has been provided to interdepartmental care team.
--- NOTE | 2021-03-24 18:14 | PDOC.ERCMPRO ---
- If Service Date Differs Date of service: 03/24/21 Time of Service: 18:14 Care Management Progress Note S/O: Keyanna remains at [facility] with a plan of seeking a voluntary psychiatric placement as soon as she is no longer on Covid precautions. She continues to report depression and vague suicidal ideation but is denying intent or plan. CM remains unable to meet with her face to face due to her positive Covid status. Keyanna will be reassessed on a daily basis by [facility] until a bed can be secured for her. A: Keyanna is a 41 year old woman who presented to the ED on 03/21/21 with depression and SI. P: Keyanna is seeking voluntary placement in a psychiatric facility for treatment of her depression and anxiety. Referrals have yet to be faxed to psychiatric facilities due to Keyanna's Covid status. CM will continue to follow. - Status Status: Voluntary - Reason for Wait Reason for Wait: Inpatient Admission
[2021-03-24] MEDS: LORazepam 1 MG TAB PO (19:38)
[2021-03-24] MEDS: Acetaminophen 500 MG TAB 1000 MG PO (20:51)
[2021-03-24] MEDS: QUEtiapine 100 MG TAB 300 MG PO (20:52)
--- NOTE | 2021-03-25 07:38 | NUR.NOTE ---
Nursing Note: PT care received from skin drier RN at this time. Pt is alert and oriented acting appropriately. Vital signs have not been assessed in over 23 hours. Please see flow sheet for updated vital signs at the start of this shift.
[2021-03-25] MEDS: Ondansetron O.D.T. 4 MG TABEF PO (08:42)
[2021-03-25] MEDS: Acetaminophen 325 MG TAB 650 MG PO (08:43)
[2021-03-25] MEDS: FLUoxetine 20 MG CAP 40 MG PO (08:44)
[2021-03-25] MEDS: Amphet Asp/Amphet/D-Amphet 10 MG TAB 30 MG PO ×2 (08:44→13:21)
[2021-03-25 08:46] VITALS: BP 130/85; PULSE 95; RESP 16; TEMP 37.3; O2SAT 100
--- NOTE | 2021-03-25 09:06 | NUR.NOTE ---
Nursing Note: Upon assessment/auscultation, lung sounds clear and equal in all francisco. Pt reports dry cough, denies chest pain and shortness of breath.
[2021-03-25 09:43] VITALS: TEMP 36.8
[2021-03-25] MEDS: Gabapentin 300 MG CAP 600 MG PO ×3 (09:57→20:02)
[2021-03-25] MEDS: Topiramate 100 MG TAB 50 MG PO ×2 (09:57→20:03)
--- NOTE | 2021-03-25 10:49 | PDOC.MHCN_ITS ---
Date of service: 03/25/21 Time of Service: 10:49 Mental Health Crisis Note Presenting Issue How did you arrive at the ED and why did you come: Pt arrived on 03.21.2021 for admission after stating she was having thoughts to overdose on her meds and had been drinking. Precipitating Factors Pt denied SI and HI at this time. She is not having any delusions at this time. Disposition BEHAVIOR: Pt is friendly and cooperative. She also shows her despair and frustrations with her current situation with her children and her custody more with ex and DCF. Pt is engaged and minimizes her reason for being at the hospital admitting she had drank however, denied that she was SI. She advocates for herself to be able to journal with a pen and paper which she feels would help her cope while she waits. EYE CONTACT: Pt makes good eye contact. MOOD: Pt's mood appeared depressed and anxious. AFFECT: Pt's affect is congruent with mood. APPETITE: Pt is eating but reports she has lost much of her appetite stating Christine you know us [place] girls we can eat 20/12 so this is new. SLEEP(trouble falling/staying asleep: Pt identified that he sleep was alright. Plan [facility] is not able to place the Pt as she is still covid positive. After speaking to home care nurse the real estate appraiser supervisor reported they would take her off covid precautions come Tuesday as she would be considered non infectious at that time. We are not sure what that would look like for placement but will need to be discussed and explored further. Pt will remain at [facility] and assessed daily for symptoms and possible placement when they are able to. Until such time Pt will remain at [facility]. Pt having a pen was discussed and agreed that [facility] could have one. Pt's deputy attorney general's number was given to nursing so that Pt can speak to her deputy attorney general for support. Signature Clinician's Name/Title: Christine Lawson MS, [facility] Emergency Services Clinician
[2021-03-25] MEDS: Ibuprofen 600 MG TAB PO (11:10)
[2021-03-25] MEDS: Prochlorperazine 10 MG TAB PO (11:10)
[2021-03-25 11:19] VITALS: TEMP 37.4
[2021-03-25] MEDS: LORazepam 1 MG TAB PO ×2 (13:21→20:02)
[2021-03-25] MEDS: Lactobacillus Acidophilus CAP 1 CAP PO (13:33)
--- NOTE | 2021-03-25 18:20 | CMSP_ITS ---
- If Service Date Differs Date of service: 03/25/21 Time of Service: 18:20 Care Management Safety Plan Status: Voluntary - Reason for Wait Reason for Wait: Inpatient Admission VOLUNTARY FOR INPATIENT PSYCHIATRIC STABILIZATION. Patient is appropriate in all interactions since arriving at [facility]; Pt has demonstrated appropriate coping and communication skills, has articulated her needs and concerns and is fully engaged during staff interactions. Safety plan has been established with patient, and care team, to adhere to patient goals, identify restrictions based on behavioral status, address nutrition, and determine allowed personal belongings, tools for hygiene and personal care. Determine level of activity including ambulation, level of supervision, visitors, and determine privileges based on behaviors and level of engagement by pt. SAFETY PLAN: 1. Will remain on suicide precautions. In Paper Clothes 2. Will remain in room under direct supervision of one-on-one staff at all times provided by CPSO, LAWN CARE PROFESSIONAL, CONTENT COORDINATOR powder worker. 3. May have paper cups, plates, finger foods as well as a cardboard spoon with which to eat meals. 4. Follow [facility] Management of the Admitted Behavioral Health Patient policy. 5. Comfort bath system only while on Covid precautions. 6. No personal belongings 7. Visitors-No visitors per [facility] Covid policy 8. Activities: may have tablet to watch shows on, coloring book, crayons,books, pen, word search and crosswords, and other activities at RN discretion. 9. Commode privileges in room 10. Phone: May use hospital phone at RN discretion. 11. Due to VOLUNTARY status, if patient wishes to leave [facility], staff will contact [facility] Crisis Screener ([phone]) and On-Call Gearcase Assembler ([phone]) as soon as possible. In the event of elopement, notify [facility] Police ([phone]). Patient is currently voluntarily at [facility] and seeking inpatient admission when a bed becomes available. [facility] Frontline Green Material Value Added Assessor will continue seeking placement. Please contact the Awake Overnight Counselor Gearcase Assembler ([phone]) and [facility] Green Material Value Added Assessor ([phone]) for any needed changes in the Safety Plan. Safety plan has been provided to interdepartmental care team.
--- NOTE | 2021-03-25 18:22 | PDOC.ERCMPRO ---
- If Service Date Differs Date of service: 03/25/21 Time of Service: 18:22 Care Management Progress Note S/O: CM telephones Keyanna's room to speak with her this evening but Keyanna is tired and wishes to rest. CM will connect with her tomorrow via telephone. It is anticipated that Keyanna will be removed from Covid precautions on Tuesday, March 27, 2021, at which time referrals will be faxed to psychiatric facilities. Keyanna remains cooperative and appropriate. She continues to be reassessed by [facility] on a daily basis. A: Keyanna is a 41 year old woman who presented to the ED on 03/21/21 with depression and SI. P: Keyanna is seeking voluntary placement in a psychiatric facility for treatment of her depression and anxiety. Referrals have yet to be faxed to psychiatric facilities due to Keyanna's Covid status. CM will continue to follow. - Status Status: Voluntary - Reason for Wait Reason for Wait: Inpatient Admission
[2021-03-25] MEDS: QUEtiapine 100 MG TAB 300 MG PO (20:02)
[2021-03-25] MEDS: Melatonin 3 MG TAB PO (20:02)
[2021-03-26 08:08] LABS: Source Nasal/Nares
[2021-03-26] MEDS: Topiramate 100 MG TAB 50 MG PO ×2 (08:14→20:03)
[2021-03-26] MEDS: Acetaminophen 500 MG TAB (08:15)
[2021-03-26] MEDS: Amphet Asp/Amphet/D-Amphet 10 MG TAB 30 MG PO ×2 (08:16→13:31)
[2021-03-26] MEDS: FLUoxetine 20 MG CAP 40 MG PO (08:16)
[2021-03-26] MEDS: Gabapentin 300 MG CAP 600 MG PO ×3 (08:16→20:03)
[2021-03-26 09:03] VITALS: BP 132/86; PULSE 64; RESP 18; TEMP 37.4; O2SAT 100
--- NOTE | 2021-03-26 10:44 | NUR.NOTE ---
Patient demanding to have a shower, clean sheets, and toilet cleaned.Per her care plan she is allowed comfort baths only. Patient has been informed of her care plan. Patient is speaking with her immigration lawyer. Huddle with pulp house supervisor, care management confirming care plan about showers.
--- NOTE | 2021-03-26 10:48 | CMSP_ITS ---
- If Service Date Differs Date of service: 03/26/21 Time of Service: 10:48 Care Management Safety Plan Status: Voluntary - Reason for Wait Reason for Wait: Inpatient Admission VOLUNTARY FOR INPATIENT PSYCHIATRIC STABILIZATION. Patient is appropriate in all interactions since arriving at [facility]; Pt has demonstrated appropriate coping and communication skills, has articulated her needs and concerns and is fully engaged during staff interactions. A safety huddle is done at approximately 10:00 am with Naye, Nursing Bending Shed Worker, CORNELIUS Virk, CORNELIUS Gauthier, and EMRE Siegel, in attendance. Safety plan has been established with patient, and care team, to adhere to patient goals, identify restrictions based on behavioral status, address nutrition, and determine allowed personal belongings, tools for hygiene and personal care. Determine level of activity including ambulation, level of supervision, visitors, and determine privileges based on behaviors and level of engagement by pt. SAFETY PLAN: 1. Will remain on suicide precautions. In Paper Clothes 2. Will remain in room under direct supervision of one-on-one staff at all times provided by CPSO, CLAUDIA, ONCOLOGY SOCIAL WORK behavioral sciences instructor. 3. May have paper cups, plates, finger foods as well as a cardboard spoon with which to eat meals. 4. Follow [facility] Management of the Admitted Behavioral Health Patient policy. 5. May shower with supervision and at RN discretion when no longer on Covid precautions. 6. No personal belongings. 7. Visitors-No visitors per [facility] Covid policy 8. Activities: may have tablet to watch shows on, coloring book, crayons, books, pen, word search and crosswords, and other activities at RN discretion. 9. Bathroom privileges: may use a commode in her room or patient bathroom in ED with escort. 10. Phone: May use hospital phone at RN discretion. 11. Due to VOLUNTARY status, if patient wishes to leave [facility], staff will contact [facility] Crisis Screener ([phone]) and On-Call Gear Nicker ([phone]) as soon as possible. In the event of elopement, notify [facility] Police ([phone]). Patient is currently voluntarily at [facility] and seeking inpatient admission when a bed becomes available. [facility] Frontline Pamphlet Distributor will continue seeking placement. Please contact the Associate Manager Affiliate Marketing Gear Nicker ([phone]) and [facility] Pamphlet Distributor ([phone]) for any needed changes in the Safety Plan. Safety plan has been provided to interdepartmental care team.
[2021-03-26] MEDS: Ondansetron O.D.T. 4 MG TABEF PO (10:58)
--- NOTE | 2021-03-26 13:14 | NUR.NOTE ---
Nursing Note: Pt discovered to have hand electrical appliance servicer in the room- not able to have it per care plan. Pt has been escalating behavior loudly. CM aware. Corn Press Operator was going to be allowed per CM, with having a permanent marker line drawn on it. This nurse approached room, asked for bottle to drawn a line on it. Pt states You can gown up and get it yourself. This nurse asked if she could simply please hand it out, and the pt responded that here just take it then, because then you can gown up and take care of everything that I ever need, like every time I go potty and every time I change the bed. Pt escalates loudly again and states I am here for COVID and that's it. This nurse takes electrical appliance servicer as offered from pt, wipes and labels it with line and time. Corn Press Operator is at desk with observer, able to be used by pt whenever she requires it for cleansing. Pt does not seemingly listen to any explanation attempted to be given by this nurse, as volume level and speech pattern serve to speak over any attempt made. This nurse has stated I am going to disengage from this conversation because it does not seem to be received, and walked away. Pt remains yelling in room. Remains 1:1 observation. New care plan remains in effect, see CM notes for details. Pt has asked to speak to MD NICHO aware and will see pt as time allows in ED department flow. Additionally, pt has asked to have patient rights given to her, provider to pt by nurse through CM. Pt refused to take the rights, left in room for her to have access.
[2021-03-26] MEDS: Lactobacillus Acidophilus CAP 1 CAP PO (13:38)
[2021-03-26 13:39] LABS: COVID-19 PCR Negative (Negative)
--- NOTE | 2021-03-26 13:58 | NUR.NOTE ---
Nursing Note: CM, cigar making machine supervisor and [facility] made aware pt wants to leave. Thomas from [facility] will contact back shortly.
--- NOTE | 2021-03-26 14:15 | NUR.NOTE ---
at 1330 pt requested her meds. they where given as orderd. nurse noticed a bottle of hand motorized squad sergeant in her room. it had about 30 cc in it. pt was told that she could not keep it in her room per the care plan. I am not giving it back , no way, I have covid i asked her if she had been drinking it. the pt denied drinking it . transitional care liaison was notified as well as the charge nurse . pt also requested to have her medical records given to her . medical records is aware and did fax a consent form to us. at 1400,I turned her care over to another R.N. because i did not feel that i could enforce the rules of her care plan with out starting a huge confrontation . the pt is now very aggitated .Nursing Note:
--- NOTE | 2021-03-26 16:39 | PDOC.MHCN_ITS ---
Date of service: 03/26/21 Time of Service: 11:15 Mental Health Crisis Note Presenting Issue How did you arrive at the ED and why did you come: Patient presented to [facility] ED 10.23 with chief complaint of covid symptoms, depression, and vague SI absent intent or plan seeking voluntary placement. She is seen today for reassessment via telehealth. Precipitating Factors Patient presentation unchanged from prior assessments. Patient is pleasant and cooperative throughout assessment and is appropriate throughout interaction. Poor appetite noted, no issues related to sleep. She reports, I'm getting a little stir-crazy here. I don't have much privacy. Everyone does treat me very nicely here though. General affect is euthymic, intermittently tearful when discussing her children. Patient perseverates on legal issues / RFA pertaining to ex-partner and expresses missing her children. She expresses ongoing complaints of feeling depressed and anxious pertaining to numerous social stressors. No report or presenting evidence of delusions or hallucinations. Patient is clear and goal-oriented on seeking treatment for presenting concerns. She denies current SI/HI/SIB, intent or plan. Patient has requested journaling paper and writing implement. Request forwarded to [facility]. No other issues noted. Disposition BEHAVIOR: Cooperative EYE CONTACT: Fair MOOD: A little stir-crazy AFFECT: Mixed APPETITE: Poor SLEEP(trouble falling/staying asleep: No reported issues Plan The patient will remain at [facility] on voluntary status and await placement to an in-patient psychiatric facility pending negative COVID test. Risk level remains moderate to high due to unchanged social stressors and depressive symptoms. If the patient wishes to discharge AMA, consult with [facility] screener will be requested per standard directive. 03.26 - Patient COVID result is now negative and in-patient referrals will proceed accordingly. Additional: According to [facility] the patient has been very demanding and making allegations that she is being disrespected and/or not being properly cared for. This is contrary to interactions had by this clinician and the patient. Per [facility] CM Raj Varma, the patient is being manipulative and there is no evidence to suggest any mistreatment. This clinician explained COVID and psychiatric-in patient referral process to the patient and answered all relevant questions related to the process. The patient has acknowledged understanding that due to her prior COVID positive status, certain precautions needed to be in place to maintain safety of the environment and those that work in the unit. Contact list: [facility] / [place] - Labs / clinical faxed.
--- NOTE | 2021-03-26 18:54 | PDOC.ERCMPRO ---
- If Service Date Differs Date of service: 03/26/21 Time of Service: 18:54 Care Management Progress Note S/O: Keyanna's Covid test returns negative today so CM is finally able to meet with her [id number]. Keyanna is pleasant and talkative. She talks about some of the trauma in her life and shares that she misses her children who are currently living with their father. She states that her ex-partner and DCF have falsified documents and lied in court about her. She hopes to be able to set the record straight so that she can get her children back. Keyanna asks if she will be moving to the Med/Surg floor. EMRE explains to her that currently there are no available beds on Med/Surg but that she will be moved upstairs when a room is available. Keyanna requests copies of her medical chart and she is provided with the appropriate release form so that she may request her records. A: Keyanna is a 41 year old woman who presented to the ED on 03/21/21 with depression and SI. P: Keyanna is seeking voluntary placement in a psychiatric facility for treatment of her depression and anxiety. Referrals are faxed to psychiatric facilities for review today. CM will continue to follow. - Status Status: Voluntary - Reason for Wait Reason for Wait: Inpatient Admission
--- NOTE | 2021-03-26 19:37 | NUR.NOTE ---
Patient requests RN to room. Reports she has had a hard day and is feeling overwhelmed and exhausted. Requests diet shankar von, tylenol or ibuprofen, prn med and nighttime medications. Reports occasional cough, nasal congestion and sore throat but had negative covid test today. States I have been in this room, with no sunlight. CPSO in direct line of sight.Nursing Note:
[2021-03-26 20:00] VITALS: BP 131/85; PULSE 90; RESP 16; TEMP 36.9; O2SAT 99
[2021-03-26] MEDS: QUEtiapine 100 MG TAB 300 MG PO (20:03)
[2021-03-26] MEDS: Melatonin 3 MG TAB PO (20:03)
[2021-03-26] MEDS: LORazepam 1 MG TAB PO (20:18)
[2021-03-26] MEDS: Ibuprofen 600 MG TAB PO (20:18)
--- NOTE | 2021-03-26 20:19 | NUR.NOTE ---
HOSPITALIST AT BEDSIDE.Nursing Note:
--- NOTE | 2021-03-26 22:15 | NUR.NOTE ---
Provided with sandwich and diet shankar von.Nursing Note:
--- NOTE | 2021-03-27 05:41 | NUR.NOTE ---
Patient ambulates to restroom with steady gait. Reports she feels better after some sleep; but is a morning person and likes to be awake and keep her schedule. Requests morning medications and iPad to watch. Provided with warm blankets and hot tea. Nursing Note:
--- NOTE | 2021-03-27 05:58 | NUR.NOTE ---
Provided with sandwich.Nursing Note:
--- NOTE | 2021-03-27 06:52 | NUR.NOTE ---
Patient lying in bed, on right side. Requesting morning meds, breakfast, fully charged iPad and ibuprofen for headache. Educated on am meds scheduled at 0830. Will notify provider. CPSO in direct line of sight.Nursing Note:
[2021-03-27] MEDS: FLUoxetine 20 MG CAP 40 MG PO (07:43)
[2021-03-27] MEDS: Amphet Asp/Amphet/D-Amphet 10 MG TAB 30 MG PO ×2 (07:43→12:59)
[2021-03-27] MEDS: Gabapentin 300 MG CAP 600 MG PO ×3 (07:43→19:57)
[2021-03-27] MEDS: Topiramate 100 MG TAB 50 MG PO ×2 (07:43→19:57)
[2021-03-27] MEDS: Ibuprofen 600 MG TAB (08:18)
[2021-03-27] MEDS: Ondansetron O.D.T. 4 MG TABEF PO (08:18)
[2021-03-27 09:07] VITALS: BP 134/88; PULSE 96; RESP 18; TEMP 37.2; O2SAT 99
[2021-03-27] MEDS: Lactobacillus Acidophilus CAP 1 CAP PO (12:59)
--- NOTE | 2021-03-27 13:11 | PDOC.MHCN ---
Date of service: 03/27/21 Time of Service: 11:30 Mental Health Crisis Note Presenting Issue How did you arrive at the ED and why did you come: Patient presented to [facility] ED 10.23 with chief complaint of covid symptoms, depression, and vague SI absent intent or plan seeking voluntary placement. She is seen today for reassessment via telehealth. Precipitating Factors Patient presents in paper garments with unremarkable appearance. She appears fully alert and oriented with no evident memory deficits. She is pleasant and cooperative throughout interaction. Patient reports doing better today as she has been allowed to shower and take more regular bathroom breaks since lifting of COVID precautions. She reports improved general appetite and no disruptions in sleep. Thinking appears clear and coherent with no evidence of delusions or hallucinations. She states that she would prefer being placed at [facility] on the LGBTQ / [facility] unit and in the interim is looking forward to transitioning to [facility]. She denies current SI/HI/SIB, intent or plan and states I'm not suicidal, I want to live, I just want to get help for myself and my children. No issues noted. Disposition BEHAVIOR: Cooperative EYE CONTACT: Fair MOOD: Better today AFFECT: Mixed APPETITE: Improved SLEEP(trouble falling/staying asleep: No reported issues Plan The patient will remain at [facility] on voluntary status and await placement to an in-patient psychiatric facility. Risk level remains moderate to high due to unchanged social stressors and depressive symptoms. If the patient wishes to discharge AMA, consult with [facility] screener will be requested per standard directive. Patient has requested EEG consult with Dr. Dodd. Request has been forwarded to [facility] CM. Contact list [place] - Under review. WC - Updated labs / note faxed. [facility] - At capacity. [facility], [facility] - Not accepting referrals at this time. Signature Clinician's Name/Title: Fabio Olivier [facility] clinician / [place]
--- NOTE | 2021-03-27 15:28 | PDOC.CMSAFED ---
- If Service Date Differs Date of service: 03/27/21 Time of Service: 15:28 Care Management Safety Plan Status: Voluntary - Reason for Wait Reason for Wait: Inpatient Admission VOLUNTARY FOR INPATIENT PSYCHIATRIC STABILIZATION. Patient is appropriate in all interactions since arriving at [facility]; Pt has demonstrated appropriate coping and communication skills, has articulated her needs and concerns and is fully engaged during staff interactions. The safety plan is discussed individually with Naye, Nursing Record Maker, and CORNELIUS Torres. No changes are made to the plan. Safety plan has been established with patient, and care team, to adhere to patient goals, identify restrictions based on behavioral status, address nutrition, and determine allowed personal belongings, tools for hygiene and personal care. Determine level of activity including ambulation, level of supervision, visitors, and determine privileges based on behaviors and level of engagement by pt. SAFETY PLAN: 1. Will remain on suicide precautions. In Paper Clothes 2. Will remain in room under direct supervision of one-on-one staff at all times provided by CPSO, CLAUDIA, LOADER SEMICONDUCTOR DIES supervisor dock. 3. May have paper cups, plates, finger foods as well as a cardboard spoon with which to eat meals. 4. Follow [facility] Management of the Admitted Behavioral Health Patient policy. 5. May shower with supervision and at RN discretion. 6. No personal belongings. 7. Visitors-No visitors per [facility] Covid policy 8. Activities: may have tablet to watch shows on, coloring book, crayons, books, pen, word search and crosswords, and other activities at RN discretion. 9. Bathroom privileges: may use patient bathroom in ED with escort. 10. Phone: May use hospital phone at RN discretion. 11. Due to VOLUNTARY status, if patient wishes to leave [facility], staff will contact [facility] Crisis Screener ([phone]) and On-Call Head Of Research & Insights ([phone]) as soon as possible. In the event of elopement, notify [facility] Police ([phone]). Patient is currently voluntarily at [facility] and seeking inpatient admission when a bed becomes available. [facility] Frontline Automatic Steel Tie Adjuster will continue seeking placement. Please contact the Hide Cleaner Head Of Research & Insights ([phone]) and [facility] Automatic Steel Tie Adjuster ([phone]) for any needed changes in the Safety Plan. Safety plan has been provided to interdepartmental care team.
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
--- NOTE | 2021-03-27 15:56 | NUR.NOTE ---
Nursing Note: I put a call in to [employer] at the request of Christal Varma and Dr. Aleman for an advocate to come and speak with this patient. Ligia Herman
[2021-03-27] MEDS: LORazepam 1 MG TAB 2 MG PO (18:45)
[2021-03-27] MEDS: Melatonin 3 MG TAB PO (19:56)
[2021-03-27] MEDS: QUEtiapine 100 MG TAB 300 MG PO (19:57)
[2021-03-27 19:58] VITALS: BP 136/86; PULSE 84; RESP 17; TEMP 36.7; O2SAT 98
--- NOTE | 2021-03-28 00:29 | NUR.NOTE ---
Patient awake, requesting sandwich. Provided with snacks.Nursing Note:
--- NOTE | 2021-03-28 03:07 | NUR.NOTE ---
Ambulates to restroom with steady gait. Reports she cannot sleep anymore tonight. Requests iPad; which is provided. Denies pain or needs. Has diet shankar von and sandwich.Nursing Note:
[2021-03-28] MEDS: Gabapentin 300 MG CAP 600 MG PO ×3 (07:40→20:17)
[2021-03-28] MEDS: FLUoxetine 20 MG CAP 40 MG PO (07:40)
[2021-03-28] MEDS: Topiramate 100 MG TAB 50 MG PO ×2 (07:40→20:17)
[2021-03-28] MEDS: Amphet Asp/Amphet/D-Amphet 10 MG TAB 30 MG PO ×2 (07:40→12:35)
[2021-03-28] MEDS: Acetaminophen 325 MG TAB (07:41)
--- NOTE | 2021-03-28 08:05 | PDOC.CMSAFED ---
- If Service Date Differs Date of service: 03/28/21 Time of Service: 08:05 Care Management Safety Plan Status: Voluntary - Reason for Wait Reason for Wait: Inpatient Admission VOLUNTARY FOR INPATIENT PSYCHIATRIC STABILIZATION. Patient is appropriate in all interactions since arriving at [facility]; Pt has demonstrated appropriate coping and communication skills, has articulated her needs and concerns and is fully engaged during staff interactions. The safety plan is discussed individually with Naye, Nursing Lobsterman, and CORNELIUS Torres. No changes are made to the plan. Safety plan has been established with patient, and care team, to adhere to patient goals, identify restrictions based on behavioral status, address nutrition, and determine allowed personal belongings, tools for hygiene and personal care. Determine level of activity including ambulation, level of supervision, visitors, and determine privileges based on behaviors and level of engagement by pt. SAFETY PLAN: 1. Will remain on suicide precautions. In Paper Clothes 2. Will remain in room under direct supervision of one-on-one staff at all times provided by CPSO, CLAUDIA, CHILD DEVELOPMENT DIRECTOR feed inspection supervisor. 3. May have paper cups, plates, finger foods as well as a cardboard spoon with which to eat meals. 4. Follow [facility] Management of the Admitted Behavioral Health Patient policy. 5. May shower with supervision and at RN discretion. 6. No personal belongings. 7. Visitors-No visitors per [facility] Covid policy 8. Activities: may have tablet to watch shows on, coloring book, crayons, books, pen, word search and crosswords, and other activities at RN discretion. 9. Bathroom privileges: may use patient bathroom in ED with escort. 10. Phone: May use hospital phone at RN discretion. 11. Due to VOLUNTARY status, if patient wishes to leave [facility], staff will contact [facility] Crisis Screener ([phone]) and On-Call Linderman Machine Operator ([phone]) as soon as possible. In the event of elopement, notify [facility] Police ([phone]). Patient is currently voluntarily at [facility] and seeking inpatient admission when a bed becomes available. [facility] Frontline Mash Tub Cooker will continue seeking placement. Please contact the Canvas Cutter Hand Linderman Machine Operator ([phone]) and [facility] Mash Tub Cooker ([phone]) for any needed changes in the Safety Plan. Safety plan has been provided to interdepartmental care team.
--- NOTE | 2021-03-28 08:07 | CMPROGNOTE_ITS ---
- If Service Date Differs Date of service: 03/28/21 Time of Service: 08:07 Care Management Progress Note S/O: Keyanna was assessed by Keeley from [facility] today. Keeley is also pts appointed [facility] social media content manager. Keeley reported that Keyanna would like to get on SSI and wants to go through [employer] for Domestic Support. Keeley advises that she will support Keyanna with those resources. Keyanna also shared that she would like to move forward with a work up for epilepsy. Patient had an appointment with Dr. Hamilton last month to address her seizures but missed the appointment. Keeley advised Dr. Ventura of Keyanna's request to reorder neurology, CM to follow. Per Keeley, [facility] will follow up on the referrals previously sent but also look into crisis bed placements for hospital diversion. A: Keyanna is a 41 year old woman who presented to the ED on 03/21/21 with depression and SI. P: Keyanna is seeking voluntary placement in a psychiatric facility for treatment of her depression and anxiety. Referrals are faxed to [facility], [facility], and [facility] for review. There are no bed offers at this time. In addition, [facility] is also looking into crisis bed placement options for hospital diversion. CM will continue to follow.
[2021-03-28] MEDS: Ondansetron O.D.T. 4 MG TABEF PO (08:15)
[2021-03-28] MEDS: Senna TAB 2 TAB PO (09:06)
--- NOTE | 2021-03-28 11:38 | PDOC.MHCN ---
Date of service: 03/28/21 Time of Service: 10:00 Mental Health Crisis Note Presenting Issue How did you arrive at the ED and why did you come: Patient presented to [facility] ED on 03/21/2021 with complaint of covid symptoms, depression and vague SI w/o intent or plan Precipitating Factors Patient denies SI/HI or SIB at this time. Disposition BEHAVIOR: Patient is agitated, upset, speech is direct and forceful EYE CONTACT: Patient is of good eye contact MOOD: angry and depressed AFFECT: congruent with mood, scowled APPETITE: Patient stated she ate breakfast but appetite is poor SLEEP(trouble falling/staying asleep: Patient stated sleep is hard being in the ED with all the noise Plan Patient will continue to wait for voluntary placement for Hospitals. [facility] and under review, also to . Referrals sent also to crisis bed placements for hospital diversion. Signature Clinician's Name/Title: Keeley Duke Enhanced Lens Silverer
[2021-03-28] MEDS: Acetaminophen 325 MG TAB 650 MG PO (12:34)
[2021-03-28] MEDS: LORazepam 1 MG TAB PO ×2 (14:04→16:39)
[2021-03-28] MEDS: Ondansetron O.D.T. 4 MG TABEF (16:53)
[2021-03-28] MEDS: QUEtiapine 100 MG TAB 300 MG PO (20:17)
--- NOTE | 2021-03-28 22:00 | NUR.NOTE ---
Report from CORNELIUS Bean for continued care. Patient resting in bed with eyes closed; appears sleeping, lying on right side. CPSO in direct line of sight. Lights dimmed.Nursing Note:
--- NOTE | 2021-03-29 06:44 | NUR.NOTE ---
Report to Danny Pelletier for continued careNursing Note:
[2021-03-29] MEDS: FLUoxetine 20 MG CAP 40 MG PO (07:26)
[2021-03-29] MEDS: Gabapentin 300 MG CAP 600 MG PO ×3 (07:26→19:33)
[2021-03-29] MEDS: Amphet Asp/Amphet/D-Amphet 10 MG TAB 30 MG PO ×2 (07:26→10:16)
[2021-03-29] MEDS: Topiramate 100 MG TAB 50 MG PO ×2 (07:26→19:34)
[2021-03-29 07:45] VITALS: BP 110/79; PULSE 86; RESP 18; TEMP 36.6; O2SAT 99
--- NOTE | 2021-03-29 07:49 | CMSP_ITS ---
- If Service Date Differs Date of service: 03/29/21 Time of Service: 07:49 Care Management Safety Plan Status: Voluntary - Reason for Wait Reason for Wait: Inpatient Admission VOLUNTARY FOR INPATIENT PSYCHIATRIC STABILIZATION. Patient is appropriate in all interactions since arriving at [facility]; Pt has demonstrated appropriate coping and communication skills, has articulated her needs and concerns and is fully engaged during staff interactions. Huddle was held at 0800 to discuss patients safety plan: CM, ER provider and RN were present. No changes will be made to the plan. Safety plan has been established with patient, and care team, to adhere to patient goals, identify restrictions based on behavioral status, address nutrition, and determine allowed personal belongings, tools for hygiene and personal care. Determine level of activity including ambulation, level of supervision, visitors, and determine privileges based on behaviors and level of engagement by pt. SAFETY PLAN: 1. Will remain on suicide precautions. In Paper Clothes 2. Will remain in room under direct supervision of one-on-one staff at all times provided by CPSO, CLIENT PROGRAM MANAGER, AGRICULTURE TECHNICIAN senior premium auditor. 3. May have paper cups, plates, finger foods as well as a cardboard spoon with which to eat meals. 4. Follow [facility] Management of the Admitted Behavioral Health Patient policy. 5. May shower with supervision and at RN discretion. 6. No personal belongings. 7. Visitors-No visitors per [facility] Covid policy 8. Activities: may have tablet to watch shows on, coloring book, crayons, books, pen, word search and crosswords, and other activities at RN discretion. 9. Bathroom privileges: may use patient bathroom in ED with escort. 10. Phone: May use hospital phone at RN discretion. 11. Due to VOLUNTARY status, if patient wishes to leave [facility], staff will contact [facility] Crisis Screener ([phone]) and On-Call Private Investigator ([phone]) as soon as possible. In the event of elopement, notify [facility] Police ([phone]). Patient is currently voluntarily at [facility] and seeking inpatient admission when a bed becomes available. [facility] Frontline Blackjack Dealer will continue seeking placement. Please contact the Histotechnologist Private Investigator ([phone]) and [facility] Blackjack Dealer ([phone]) for any needed changes in the Safety Plan. Safety plan has been provided to interdepartmental care team.
--- NOTE | 2021-03-29 07:50 | PDOC.ERCMPRO ---
- If Service Date Differs Date of service: 03/29/21 Time of Service: 07:50 Care Management Progress Note S/O: Keyanna continues to be assessed by [facility] daily. Her [facility] hothouse worker yesterday was Keeley, who is also her appointed [facility] airport operations manager. Keeley reported to CM that Keyanna would like to get on SSI and wants to go through [employer] for Domestic Support. Keeley advises that she will support Keyanna with those resources. Keyanna also shared that she would like to move forward with a work up for epilepsy. Patient had an appointment with Dr. Hamilton last month to address her seizures but missed the appointment. Keeley advised Dr. Ventura of Keyanna's request to reorder neurology, CM to follow. Per Keeley, [facility] will follow up on the referrals previously sent but also look into crisis bed placements for hospital diversion. CM will continue to follow. A: Keyanna is a 41 year old woman who presented to the ED on 03/21/21 with depression and SI. P: Keyanna is seeking voluntary placement in a psychiatric facility for treatment of her depression and anxiety. Referrals are faxed to [facility], [facility], and [facility] for review. There are no bed offers at this time. In addition, [facility] is also looking into crisis bed placement options for hospital diversion. CM will continue to follow. - Status Status: Voluntary
[2021-03-29] MEDS: Acetaminophen 325 MG TAB 650 MG PO (07:57)
[2021-03-29] MEDS: Ondansetron O.D.T. 4 MG TABEF (07:58)
[2021-03-29] MEDS: Docusate Sodium 100 MG CAP PO (08:23)
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
[2021-03-29] MEDS: Lactobacillus Acidophilus CAP 1 CAP PO (12:45)
[2021-03-29] MEDS: Nicotine 14 MG/24 HR PATCH TD (14:49)
[2021-03-29] MEDS: LORazepam 1 MG TAB PO ×2 (18:06→19:33)
[2021-03-29 19:30] VITALS: BP 145/90; PULSE 74; RESP 16; TEMP 36.6; O2SAT 100
[2021-03-29] MEDS: QUEtiapine 100 MG TAB 300 MG PO (19:34)
[2021-03-30 07:07] VITALS: BP 105/67; PULSE 75; RESP 17; TEMP 36.9; O2SAT 99
[2021-03-30] MEDS: Docusate Sodium 100 MG CAP PO (08:01)
[2021-03-30] MEDS: Topiramate 100 MG TAB 50 MG PO (08:01)
[2021-03-30] MEDS: FLUoxetine 20 MG CAP 40 MG PO (08:01)
[2021-03-30] MEDS: Gabapentin 300 MG CAP 600 MG PO ×3 (08:02→20:04)
[2021-03-30] MEDS: Amphet Asp/Amphet/D-Amphet 10 MG TAB 30 MG PO ×2 (08:02→11:39)
[2021-03-30] MEDS: Ondansetron O.D.T. 4 MG TABEF (08:07)
[2021-03-30] MEDS: Acetaminophen 325 MG TAB 650 MG PO (12:02)
--- NOTE | 2021-03-30 13:17 | CMACTNOTE_ITS ---
- If Service Date Differs Date of service: 03/30/21 Time of Service: 13:17 Care Management Activity Note VOLUNTARY FOR INPATIENT PSYCHIATRIC STABILIZATION. Patient is appropriate in all interactions since arriving at [facility]; Pt has demonstrated appropriate coping and communication skills, has articulated her needs and concerns and is fully engaged during staff interactions. A decentralized huddle was held at 15:20 pm with Faith, Nursing Gristmill Operator, CORNELIUS Mccormick, and EMRE Siegel, to discuss patient's safety plan. Safety plan has been established with patient, and care team, to adhere to patient goals, identify restrictions based on behavioral status, address nutrition, and determine allowed personal belongings, tools for hygiene and personal care. Determine level of activity including ambulation, level of supervision, visitors, and determine privileges based on behaviors and level of engagement by pt. SAFETY PLAN: 1. Will remain on suicide precautions. In Paper Clothes 2. Will remain in room under direct supervision of one-on-one staff at all times provided by CPSO, CLAUDIA, HAND TACKER order entry technician. 3. May have paper cups, plates, finger foods as well as a cardboard spoon with which to eat meals. 4. Follow [facility] Management of the Admitted Behavioral Health Patient policy. 5. May shower with supervision and at RN discretion. 6. No personal belongings. 7. Visitors: Per [facility] Covid policy and at RN discretion. 8. Activities: may have tablet to watch shows on, coloring book, crayons, colored pencils, books, pen, word search and crosswords, and other activities at RN discretion. 9. Bathroom privileges: may use patient bathroom in ED with escort; may use bathroom available in room on Med/Surg without restriction. 10. Phone: May use hospital phone at RN discretion. 11. Due to VOLUNTARY status, if patient wishes to leave [facility], staff will contact [facility] Crisis Screener ([phone]) and On-Call Ear Pull Machine Operator ([phone]) as soon as possible. In the event of elopement, notify [facility] Police ([phone]). Patient is currently voluntarily at [facility] and seeking inpatient admission when a bed becomes available. [facility] Frontline Early Childhood Teacher Assistant will continue seeking pl acement. Please contact the Web Publisher Ear Pull Machine Operator ([phone]) and [facility] Early Childhood Teacher Assistant ([phone]) for any needed changes in the Safety Plan. Safety plan has been provided to interdepartmental care team.
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
[2021-03-30] MEDS: LORazepam 1 MG TAB (15:23)
--- NOTE | 2021-03-30 15:28 | CMPROGNOTE_ITS ---
- If Service Date Differs Date of service: 03/30/21 Time of Service: 15:28 Care Management Progress Note S/O: Keyanna is lying down when CM comes to meet with her. She is advised that she will be moving to a room on Med/Surg this afternoon and Keyanna is quite happy about that. Keyanna again requests that an EEG be ordered. EMRE tells her that I've spoken with Dr. Hernandez's office today and was advised that an EEG is not needed at this time to which she replies I want an EEG. I am requesting an EEG. Keyanna again states that some of the notes that were provided to her last week by [facility] Medical Records do not belong in her chart and are in fact her sister's medical records. She asks that this be rectified immediately. CM advises her that her requests will be forwarded to the appropriate people at [facility]. A: Keyanna is a 41 year old woman who presented to the ED on 03/21/21 with depression and SI. P: Keyanna is seeking voluntary placement in a psychiatric facility for treatment of her depression and anxiety. Referrals are faxed to [facility], [facility], and [facility] for review. There are no bed offers at this time. CM will continue to follow. - Status Status: Voluntary - Reason for Wait Reason for Wait: Inpatient Admission
[2021-03-30 15:51] VITALS: BP 105/67; PULSE 75; RESP 17; TEMP 36.9; O2SAT 99
--- NOTE | 2021-03-30 16:35 | PDOC.MHCN_ITS ---
Date of service: 03/30/21 Time of Service: 13:15 Mental Health Crisis Note Presenting Issue How did you arrive at the ED and why did you come: Patient presented to [facility] ED 10.23 with chief complaint of covid symptoms, depression, and vague SI absent intent or plan seeking voluntary placement. She is seen today for reassessment via telehealth. Precipitating Factors Patient appears mildly disheveled. She is fully alert and oriented. Behavior is appropriate. Attitude is cooperative, however she continues to perseverate on legal issue, fixates on what she alleges as poor care while at [facility], and continues to be very demanding. Patient needs to be redirected several times and reminded that she is there for mental health concerns and that neither the hospital nor [facility] can address all of the legal or medical issues mentioned. She reports mood as, I'm being as patient as possible. with mixed labile / reactive affect. No appetite or sleep concerns. No evidence of apparent delusions or hallucinations, however patient has difficulty comprehending that all her demands cannot be met while at [facility]. Patient states that she won't leave the hospital until she gets some form of legal advocacy. She acknowledges that she is still there for mental health / crisis referral. She continues to deny SI/HI/SIB, intent or plan. Medical-specific requests will be forwarded to appropriate provider per [facility] CM. Disposition BEHAVIOR: Cooperative, agitated EYE CONTACT: Fair MOOD: Patient AFFECT: Mixed labile / reactive APPETITE: No reported issues SLEEP(trouble falling/staying asleep: No reported issues Plan The patient will remain at [facility] on voluntary status and await placement to an in-patient psychiatric facility or hospital-diversion level of care. Risk level remains moderate to high due to unchanged social stressors and depressive symptoms, however outpatient treatment may also be considered due to patient's continued report indicating lack of SI/HI, intent or plan. If the patient wishes to discharge AMA, consult with [facility] screener will be requested per standard directive. Contact list BR - Under review. [facility] - At capacity. [facility] - At capacity. [facility], [facility], [facility] - Not accepting referrals at this time. Crisis placement [facility] Carebed - Declined / capacity [facility] [place] - Note / labs faxed.
[2021-03-30] MEDS: diphenhydrAMINE 25 MG CAP 50 MG PO (17:58)
[2021-03-30] MEDS: LORazepam 2 MG/ML VIAL IM (17:58)
[2021-03-30] MEDS: Topiramate 50 MG TAB PO (20:04)
[2021-03-30] MEDS: Melatonin 3 MG TAB PO (20:17)
[2021-03-30] MEDS: QUEtiapine 300 MG TAB PO (20:17)
[2021-03-31 08:03] VITALS: BP 99/64; PULSE 80; RESP 18; TEMP 36.8; O2SAT 99
[2021-03-31] MEDS: FLUoxetine 20 MG CAP 40 MG PO (08:45)
[2021-03-31] MEDS: Gabapentin 300 MG CAP 600 MG PO ×2 (08:46→14:04)
[2021-03-31] MEDS: Amphet Asp/Amphet/D-Amphet 10 MG TAB 30 MG PO ×2 (08:47→13:04)
[2021-03-31] MEDS: Docusate Sodium 100 MG CAP PO (08:49)
[2021-03-31] MEDS: Topiramate 50 MG TAB PO (08:49)
--- NOTE | 2021-03-31 10:27 | PDOC.CMSAFE ---
- If Service Date Differs Date of service: 03/31/21 Time of Service: 10:28 Care Management Safety Plan Status: Voluntary VOLUNTARY FOR INPATIENT PSYCHIATRIC STABILIZATION. Patient is appropriate in all interactions since arriving at [facility]; Pt has demonstrated appropriate coping and communication skills, has articulated her needs and concerns and is fully engaged during staff interactions. Safety plan has been established with patient, and care team, to adhere to patient goals, identify restrictions based on behavioral status, address nutrition, and determine allowed personal belongings, tools for hygiene and personal care. Determine level of activity including ambulation, level of supervision, visitors, and determine privileges based on behaviors and level of engagement by pt. SAFETY PLAN: 1. Will remain on suicide precautions. In Paper Clothes 2. Will remain in room under direct supervision of one-on-one staff at all times provided by CPSO, CLAUDIA, PRINTED CIRCUIT BOARD PANELS DEBURRER financial counselor. 3. May have paper cups, plates, finger foods as well as a cardboard spoon with which to eat meals. 4. Follow [facility] Management of the Admitted Behavioral Health Patient policy. 5. May shower with supervision and at RN discretion. 6. No personal belongings. 7. Visitors: Per [facility] Covid policy and at RN discretion. 8. Activities: May have soft, cart items at RN discretion. 9. Bathroom privileges: may use patient bathroom in ED with escort; may use bathroom available in room on Med/Surg without restriction. 10. Phone: May use hospital phone at RN discretion. 11. Due to VOLUNTARY status, if patient wishes to leave [facility], staff will contact [facility] Crisis Screener ([phone]) and On-Call Donor Relations Associate ([phone]) as soon as possible. In the event of elopement, notify [facility] Police ([phone]). Patient is currently voluntarily at [facility] and seeking inpatient admission when a bed becomes available. [facility] Frontline Insurance Application Investigator will continue seeking placement. Please contact the Delivery Architect Donor Relations Associate ([phone]) and [facility] Insurance Application Investigator ([phone]) for any needed changes in the Safety Plan. Safety plan has been provided to interdepartmental care team.
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
--- NOTE | 2021-03-31 14:50 | PGE_ITS ---
Date of Service Date of service: 03/31/21 Time of Service: 14:50 Assessment and Plan Assessment and plan (1) Suicide attempt: Status: Acute Assessment and plan: holding for an inpatient psychiatric admission psychiatry following with medication recommendations remains medically clear. prn ativan for behavioral issues and agitation continue CPSO with safety plan (2) COVID-19: Status: Resolved Assessment and plan: has since tested negative no symptoms discussed with Dr Stevens Subjective Subjective Patient reports: no new complaints Interval history since last seen: no further outbursts today. eating and drinking Exam Const General: cooperative, healthy appearing, comfortable and no acute distress Orientation: alert, awake and oriented x3 HENMT Head: normal to inspection, normocephalic and atraumatic Face and sinus: normal facial exam Eyes General: appearance normal, both eyes and all related structures Conjunctivae: conjunctivae normal Neck Neck: normal visual inspection, full ROM, no lymphadenopathy, supple and n ontender Resp Effort & Inspection: normal respiratory effort and able to speak in complete sentences Auscultation: diminished lung sounds bilaterally in the lower lung francisco Cardio Rate: regular rate Rhythm: regular rhythm GI Inspection: normal to inspection Palpation: soft, not firm, no guarding, no pulsatile masses and nontender Back/Spine/Pelvis Back: no CVA tenderness and No back tenderness Skin General skin exam: no rashes or lesions noted Neuro General: patient alert, patient awake, patient oriented x3, moves all extremities and no focal motor deficits Cognition: normal cognition Speech: speech normal Gait: normal gait Extrem General: normal to inspection, full ROM, capillary refill normal, no pedal edema and no calf tenderness Psych Appearance: grossly normal Mental Status: mental status grossly normal Speech and Movement: speech and movement normal Affect: sad Attitude: cooperative Thought Process: normal Thought Content: suicidality Objective Last Vital Signs Temp 36.8 C 03/31/21 08:03 Pulse 80 03/31/21 08:03 Resp 18 03/31/21 08:03 BP 99/64 L 03/31/21 08:03 Pulse Ox 99 03/31/21 08:03 PAWSS Have you Been Recently Intoxicated or Drunk Within the Last 30 days?: Yes Have you Ever Experienced Previous Episodes of Alcohol Withdrawal?: Yes Have you ever Experienced Withdrawal Seizures?: No Have you ever Experienced Delirium Tremens(DT)s?: Yes Have you ever undergone Alcohol Rehabilitation Treatment (i.e, inpt ot outpatient treatment programs)?: Yes Have you ever Experienced Blackouts?: Yes Have you ever Combined Alcohol with other Downers within the last 90 days?: No Have you ever Combined Alcohol with any other Substance of Abuse during the last 90 days?: No Evidence of Increased Autonomic Activity (i.e. HR>120, tremor, sweating, ag itation, nausea)?: No Result: 5
--- NOTE | 2021-03-31 16:39 | CHAPLAIN ---
Keyanna requested a bible through Clinical Coordinator, Pam Dias RN, but did not want a machine deburrer visit. I gave Pam a paperback bible for Keyanna.
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
[2021-03-31] MEDS: LORazepam 0.5 MG TAB (17:25)
[2021-03-31] MEDS: Lactobacillus Acidophilus CAP 1 CAP PO (17:25)
[2021-03-31] MEDS: Acetaminophen 325 MG TAB 650 MG PO (17:32)
[2021-03-31] MEDS: LORazepam 1 MG TAB PO (18:20)
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
--- NOTE | 2021-03-31 20:14 | NUR.NOTE ---
i AGREE WITH CHARTING DONE BY LARS Shafer Note:
--- NOTE | 2021-03-31 21:00 | NUR.NOTE ---
Spoke with Astrid Juan LPN and hannah Painter RN [id number] (2) 0.5mg lorzepam were given Nursing Note:
--- NOTE | 2021-04-01 00:41 | NUR.NOTE ---
At the beginning of the shift patient was demanding to get all her medications right away I informed the patient at that i will return with the medications as soon as i am able to because i was attending to another patient at this time. Patient stated she needed a time frame in which i would return to give her the mediations, i then informed the patient that i would not be able to give her time frame because each patient needs are not the same. Patient state ok then fine just do not take long giving me my medications.
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
== END 2021-03-31 19:56 | disposition home or self-care (01) | DRG 881 ==
LOC: ER 03-30 14:54 → MS 03-30 16:12
PROVIDERS: Emergency Medicine; Physician Assistant; Admitting Provider Internal Medicine; Emergency Provider Student in an Organized Health Care Education/Training Program; PCP Nurse Practitioner Family; Visit Provider Internal Medicine
DX: F32.A Depression, unspecified (principal); U07.1 COVID-19; R45.851 Suicidal ideations; G40.109 Localization-related (focal) (partial) symptomatic epilepsy and epileptic syndromes with simple partial seizures, not intractable, without status epilepticus; F98.8 Other specified behavioral and emotional disorders with onset usually occurring in childhood and adolescence; F10.21 Alcohol dependence, in remission; F50.9 Eating disorder, unspecified; F41.1 Generalized anxiety disorder; I10 Essential (primary) hypertension; F39 Unspecified mood [affective] disorder; F11.21 Opioid dependence, in remission; G47.9 Sleep disorder, unspecified
CPT/HCPCS: 36415; 71275; 80053; 80307; 81025; 87635; 96360; 96361; 96372; 99285; Q3014; 71045; 80320; 80329; 84443; 85025; 99222; 99238; J1650; J2060; J3490

== ENCOUNTER 2021-03-31 20:02 | Emergency (ER) | payer MEDICAID, SELFPAY ==
[2021-03-31 20:12] VITALS: BP 132/92; PULSE 101; RESP 16; TEMP 37.3; O2SAT 98
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
== END 2021-03-31 21:28 | disposition home or self-care (01) ==
PROVIDERS: Emergency Provider Emergency Medicine; PCP Nurse Practitioner Family
DX: F32.9 Major depressive disorder, single episode, unspecified (principal)
CPT/HCPCS: 99284; 99283

== ENCOUNTER 2021-04-13 12:24 | Emergency (ER) | payer MEDICAID, SELFPAY ==
[2021-04-13 12:41] VITALS: BP 147/93; PULSE 102; RESP 18; TEMP 37.1; O2SAT 99
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
--- NOTE | 2021-04-13 13:55 | NUR.NOTE ---
RN in room doing COVID-19 swab. Nursing Note:
[2021-04-13 14:09] LABS: Source Nasal/Nares
[2021-04-13 15:05] LABS: COVID-19 PCR Negative (Negative)
[2021-04-13 15:28] LABS: Abs Immature Grans 0.01 10^3/uL (0.0-0.06); Absolute Basophil Count 0.05 10^3/uL (0.0-0.2); Absolute Eosinophil Count 0.14 10^3/uL (0.0-0.7); Absolute Lymphocyte Count 1.26 10^3/uL (1.2-3.4); Absolute Monocyte Count 0.48 10^3/uL (0.1-0.8); Absolute Neutrophil Count 5.27 10^3/uL (1.2-6.7); Basophils % 0.7; Eosinophils % 1.9; HCT 40.4 % (36.0-46.0); HGB 12.9 g/dL (11.2-15.7); Immature Grans % 0.1; Lymphocytes % 17.5; MCH 29.4 pg (27.0-33.0); MCHC 31.9 % (32.0-36.0); MPV 9.2 fL (8.0-11.0); Monocytes % 6.7; Neutrophils % 73.1; Nucleated RBC 0 %; Platelet Count 408 10^3/uL (130-400); RBC 4.39 10^6/uL (3.93-5.22); RDW 13.5 % (11.7-14.6); RDW-SD 45.5 fL; WBC 7.21 10^3/uL (4.4-10.8)
[2021-04-13] MEDS: Ibuprofen 400 MG TAB PO (15:37)
[2021-04-13] MEDS: Ondansetron O.D.T. 4 MG TABEF PO (15:37)
--- NOTE | 2021-04-13 15:41 | NUR.NOTE ---
Medicated for back pain and nausea. Requesting to call her mother. This was approved by Pinky Montenegro NP.
--- NOTE | 2021-04-13 15:41 | PDOC.CMSAFED ---
- If Service Date Differs Date of service: 04/13/21 Time of Service: 15:41 Care Management Safety Plan Status: Interim - Reason for Wait Reason for Wait: Medical Clearance Chief Complaint: CM will respond to ED to assess patient after patient has been medically cleared and assessed by screener. If screener deems patient meets criteria for psychiatric stabilization CM will facilitate interdepartmental huddle with [facility] screener for safety planning considerations and meet with patient to review [facility] policy and safety plan, establish individual wishes for treatment and maintain patient rights. In the interim; please note safety plan below to guide patient care while awaiting further assessment in the ED. SAFETY PLAN: 1. Will remain on suicide precautions and in paper clothes. 2. Will remain in room under direct supervision of one-on-one staff at all times provided by [facility], CLAUDIA, WELDER OPERATOR sales support manager. 3. May have paper cups, plates, finger foods as well as a cardboard spoon with which to eat meals. 4. Follow [facility] Management of the Admitted Behavioral Health Patient policy. 5. Personal care: Comfort bath system only at this time. 6. Bathroom privileges: with escort in ED. Available in room without limitation on Med/Surg. 6. No personal belongings at this time; per RN discretion. 7. No visitors at this time. 8. Phone contact at RN discretion. 9. Activities: Music tablet per RN discretion. Med/Surg: Television and remote available at RN discretion. 10. Due to VOLUNTARY status, if patient wishes to leave [facility], staff will contact [facility] Crisis Screener ([phone]) and On-Call Lump Inspector ([phone]) as soon as possible. In the event of elopement, notify [facility] Police ([phone]). If deemed appropriate for inpatient psychiatric care, safety plan will be established with patient, and care team, to adhere to patient goals, identify restrictions based on behavioral status, address nutrition, and determine allowed personal belongings, tools for hygiene and personal care. As well plan will determine level of activity including ambulation, level of supervision, visitors, and determine privileges based on level of acuity, behaviors and level of engagement by patient.
[2021-04-13 16:18] LABS: Salicylate 3.3 mg/dL (<2.8)
[2021-04-13 16:20] LABS: Acetaminophen < 2 ug/mL (10-30)
[2021-04-13 16:32] LABS: ALT 22 U/L (14-59); AST 13 U/L (15-37); Albumin 4.7 g/dL (3.4-5.0); Alkaline Phosphatase 85 U/L (46-116); Anion Gap 16.3 mmol/L (3-11); BUN 13 mg/dL (7-18); Bilirubin, Total 0.3 mg/dL (0.2-1.0); CO2 21.7 mmol/L (21.0-32.0); CREATININE 0.9 mg/dL (0.55-1.02); Calcium 9.8 mg/dL (8.5-10.1); Chloride 105 mmol/L (98-107); Glucose 89 mg/dL (74-106); Potassium 3.5 mmol/L (3.5-5.1); Sodium 143 mmol/L (136-145); TSH (W/Ref FT4) 0.97 uIU/mL (0.36-3.74); Total Protein 8.4 g/dL (6.4-8.2)
[2021-04-13 16:47] LABS: ETHANOL BLOOD < 3.0 mg/dL (<10)
[2021-04-13] MEDS: LORazepam 0.5 MG TAB PO (18:09)
--- NOTE | 2021-04-13 18:09 | NUR.NOTE ---
Patient medicated for anxiety. Remains cooperative.
[2021-04-13 18:35] LABS: Bilirubin Negative (Negative); Blood Moderate (Negative); Clarity Clear (Clear); Glucose Negative (Negative); Leukocyte Esterase Negative (Negative); Nitrite Negative (Negative); Specific Gravity > 1.030 (1.005-1.025); Urobilinogen 0.2 EU/dL (Up TO 0.2)
[2021-04-13 18:36] LABS: Bacteria Negative HPF (Negative); C & S Indicated? No; Casts Negative LPF (Negative); Crystals Negative HPF (Negative); Epithelial Cells Few HPF (Negative); Ketones 80 mg/dL (Negative); Mucus Negative (Negative)
[2021-04-13 18:37] LABS: *AMPHETAMINES SCREEN URINE Positive (Negative); *BARBITURATES SCREEN URINE Negative (Negative); *BENZODIAZEPINES SCREEN URINE Negative (Negative); Cannabinoids THC Negative (Negative); Cocaine Screen,Urine Negative (Negative); METHADONE URINE SCREEN Negative (Negative); OPIATES URINE SCREEN Negative (Negative)
[2021-04-13 18:38] LABS: Tricyclic Antidepressants Negative (Negative)
[2021-04-13] MEDS: Gabapentin 300 MG CAP 600 MG PO (21:19)
[2021-04-13] MEDS: QUEtiapine 300 MG TAB PO (21:19)
[2021-04-14] MEDS: FLUoxetine 20 MG CAP (09:04)
[2021-04-14] MEDS: Ascorbic Acid 500 MG TAB PO (09:05)
[2021-04-14] MEDS: Topiramate 100 MG TAB (09:07)
[2021-04-14] MEDS: Gabapentin 300 MG CAP (09:08)
[2021-04-14] MEDS: Amphet Asp/Amphet/D-Amphet 10 MG TAB 30 MG PO ×2 (09:08→13:48)
[2021-04-14] MEDS: Pantoprazole 40 MG TABCR PO (09:09)
--- NOTE | 2021-04-14 11:19 | PDOC.CMSAFED ---
- If Service Date Differs Date of service: 04/14/21 Time of Service: 11:19 Care Management Safety Plan Status: Voluntary - Reason for Wait Reason for Wait: Inpatient Admission VOLUNTARY FOR INPATIENT PSYCHIATRIC STABILIZATION. Patient is appropriate in all interactions since arriving at [facility]; Pt has demonstrated appropriate coping and communication skills, has articulated his or her needs and concerns and is fully engaged during staff interactions. A huddle is held at approximately 10:[address] Dutta, ED provider, Faith, Nursing Block Greaser, Jarocho, Charge Nurse, Maite RN, Duane, horticulture worker, and EMRE Siegel, in attendance. Safety plan has been established with patient, and care team, to adhere to patient goals, identify restrictions based on behavioral status, address nutrition, and determine allowed personal belongings, tools for hygiene and personal care. Determine level of activity including ambulation, level of supervision, visitors, and determine privileges based on behaviors and level of engagement by pt. SAFETY PLAN: 1. Will remain on suicide precautions. In Paper Clothes 2. Will remain in room under direct supervision of one-on-one staff at all times provided by CPSO, CLAUDIA, ASSISTANT DIRECTOR OF RESIDENCE LIFE director of security. 3. May have paper cups, plates, finger foods as well as a cardboard spoon with which to eat meals. 4. Follow [facility] Management of the Admitted Behavioral Health Patient policy. 5. May shower with supervision and at RN discretion. 6. No personal belongings. 7. Visitors-No visitors at this time. 8. Activities: Soft cart items, coloring book, crayons, music tablet, television if available, and other activities at RN discretion. 9. Bathroom privileges with escort while in the ED; may use in-room bathroom without limitation on Med/Surg. 10. Phone: May use hospital phone at RN discretion. 11. Due to VOLUNTARY status, if patient wishes to leave [facility], staff will contact [facility] Crisis Screener ([phone]) and On-Call Auto Machinist ([phone]) as soon as possible. In the event of elopement, notify [facility] Police ([phone]). Patient is currently voluntarily at [facility] and seeking inpatient admission when a bed becomes available. [facility] Frontline Watch Assembly Inspector will continue seeking placement. Please contact the Hand Stamper Auto Machinist ([phone]) and [facility] Watch Assembly Inspector ([phone]) for any needed changes in the Safety Plan. Safety plan has been provided to interdepartmental care team.
[2021-04-14] MEDS: Ibuprofen 600 MG TAB PO (13:17)
[2021-04-14] MEDS: Gabapentin 600 MG TAB PO ×2 (13:48→20:08)
--- NOTE | 2021-04-14 16:46 | PDOC.ERCMPRO ---
- If Service Date Differs Date of service: 04/14/21 Time of Service: 16:46 Care Management Progress Note S/O: Keyanna is coloring and listening to music when CM comes to meet with her. She is pleasant and easily engages in conversation. She shares the staff in the emergency department are treating her very well. She alleges that [facility] obtained copies of her medical chart and questions how they were able to do that when she has not signed a release. CM assures her that her medical records would not be provided to anyone without a signed release or a court order. Keyanna asks that information be released only to her brother and her mother. CM provides her with a HIPAA Directive for completion and signature. A: Keyanna is a 41-year-old female admitted to [facility] on 04/13/2021 for depression. P: [facility]. Keyanna will be reassessed daily by [facility] and will remain at [facility] voluntarily while [facility] seeks placement for her. CM will continue to follow. - Status Status: Voluntary - Reason for Wait Reason for Wait: Inpatient Admission
[2021-04-14] MEDS: Topiramate 50 MG TAB PO (20:00)
[2021-04-14] MEDS: QUEtiapine 300 MG TAB PO (21:09)
[2021-04-14] MEDS: Melatonin 3 MG TAB PO (21:09)
[2021-04-15] MEDS: Ascorbic Acid 500 MG TAB PO (08:47)
[2021-04-15] MEDS: Amphet Asp/Amphet/D-Amphet 10 MG TAB 30 MG PO (08:47)
[2021-04-15] MEDS: Gabapentin 600 MG TAB PO (08:47)
[2021-04-15] MEDS: FLUoxetine 10 MG TAB PO (08:47)
[2021-04-15] MEDS: Topiramate 50 MG TAB PO (08:48)
[2021-04-15] MEDS: Pantoprazole 40 MG TABCR PO (08:48)
[2021-04-15] MEDS: Ibuprofen 600 MG TAB (08:49)
--- NOTE | 2021-04-15 09:55 | NUR.NOTE ---
spoke to nichelle SHIELDS from [facility], will accept pt today, get there lloyd. will fax a copy of MAR. Nursing Note:
[2021-04-15 09:59] VITALS: BP 130/86; PULSE 92; TEMP 37.1; O2SAT 99
--- NOTE | 2021-04-15 10:02 | CMACTNOTE_ITS ---
- If Service Date Differs Date of service: 04/15/21 Time of Service: 10:02 Care Management Activity Note Keyanna is accepted for a voluntary admission at the [facility]. She will follow up with her PCP, [facility], and plan of care as directed upon discharge from the [facility]. Venus Davis's Office is providing transportation to [place].
--- NOTE | 2021-04-15 10:05 | PDOC.MHCN_ITS ---
Date of service: 04/14/21 Time of Service: 10:05 Mental Health Crisis Note Presenting Issue How did you arrive at the ED and why did you come: Pt arrived on 04.13.2021 seeking voluntary placement to address her symptoms of depression and anxiety. Precipitating Factors Pt stated I don't want to do that. She denied HI. She is not showing any signs of delusions. Disposition BEHAVIOR: Pt is cooperative and engaged. She has fair insight and judgment. She reported that she is feeling overwhelmed with everything she is going through and needs to get back on track. EYE CONTACT: Eye contact is good. MOOD: Mood is anxious. AFFECT: Affect is congruent with mood. APPETITE: Pt reported she does not have much of an appetite. SLEEP(trouble falling/staying asleep: Pt reported she is still not sleeping well but last night was better. Plan Pt to remain at [facility] pending admission into a psychiatric hospital. She will be assessed daily by [facility] until such time. Signature Clinician's Name/Title: Christine Lawson MS, [facility] Emergency Services Clinician, [facility]
== END 2021-04-15 10:57 | disposition short-term general hospital (02) ==
PROVIDERS: Registered Nurse Emergency; Emergency Provider Emergency Medicine; PCP Nurse Practitioner Family
DX: F32.9 Major depressive disorder, single episode, unspecified (principal); Z75.1 Person awaiting admission to adequate facility elsewhere; Z20.822 Contact with and (suspected) exposure to COVID-19
CPT/HCPCS: 80053; 80307; 81025; 87635; 99285; 80320; 80329; 81003; 81015; 84443; 85025; 99283; J3490

== ENCOUNTER 2021-05-11 15:28 | Observation (INO) | payer MEDICAID, SELFPAY ==
[2021-05-11 15:40] VITALS: BP 151/99; PULSE 124; RESP 18; O2SAT 100
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
[2021-05-11 16:51] LABS: Source Nasal/Nares
[2021-05-11 16:56] LABS: Abs Immature Grans 0.03 10^3/uL (0.0-0.06); Absolute Basophil Count 0.07 10^3/uL (0.0-0.2); Absolute Eosinophil Count 0.88 10^3/uL (0.0-0.7); Absolute Lymphocyte Count 1.66 10^3/uL (1.2-3.4); Absolute Monocyte Count 0.25 10^3/uL (0.1-0.8); Basophils % 0.8; Eosinophils % 9.7; HCT 38.8 % (36.0-46.0); HGB 12.6 g/dL (11.2-15.7); Immature Grans % 0.3; Lymphocytes % 18.3; MCH 29.8 pg (27.0-33.0); MCHC 32.5 % (32.0-36.0); MCV 91.7 fL (80-95); MPV 9.1 fL (8.0-11.0); Monocytes % 2.8; Neutrophils % 68.1; Nucleated RBC 0 %; Platelet Count 396 10^3/uL (130-400); RBC 4.23 10^6/uL (3.93-5.22); RDW 13.2 % (11.7-14.6); RDW-SD 44.7 fL; WBC 9.09 10^3/uL (4.4-10.8)
[2021-05-11 17:14] LABS: *AMPHETAMINES SCREEN URINE Negative (Negative); *BARBITURATES SCREEN URINE Negative (Negative); *BENZODIAZEPINES SCREEN URINE Negative (Negative); Cannabinoids THC Negative (Negative); Cocaine Screen,Urine Negative (Negative); METHADONE URINE SCREEN Negative (Negative); OPIATES URINE SCREEN Negative (Negative)
[2021-05-11 17:16] LABS: Tricyclic Antidepressants Negative (Negative)
[2021-05-11 17:19] LABS: ALT 18 U/L (14-59); AST 12 U/L (15-37); Albumin 4.5 g/dL (3.4-5.0); Alkaline Phosphatase 85 U/L (46-116); Anion Gap 12.7 mmol/L (3-11); BUN 19 mg/dL (7-18); Bilirubin, Total 0.2 mg/dL (0.2-1.0); CO2 23.3 mmol/L (21.0-32.0); CREATININE 0.9 mg/dL (0.55-1.02); Calcium 9.6 mg/dL (8.5-10.1); Chloride 105 mmol/L (98-107); Glucose 83 mg/dL (74-106); Potassium 3.5 mmol/L (3.5-5.1); Sodium 141 mmol/L (136-145); TSH (W/Ref FT4) 3.14 uIU/mL (0.36-3.74); Total Protein 8.2 g/dL (6.4-8.2)
[2021-05-11 17:32] LABS: Acetaminophen < 2 ug/mL (10-30); Salicylate < 2.8 mg/dL (<2.8)
[2021-05-11 21:46] LABS: COVID-19 PCR Negative (Negative)
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
[2021-05-12] MEDS: LORazepam 1 MG TAB PO (00:27)
[2021-05-12 00:55] VITALS: BP 152/94; PULSE 107; RESP 17; TEMP 36.6; O2SAT 99
[2021-05-12] MEDS: Ibuprofen 800 MG TAB PO (01:13)
[2021-05-12 01:50] VITALS: BP 153/112; PULSE 109; RESP 14; TEMP 36.6; O2SAT 100
[2021-05-12] MEDS: Topiramate 50 MG TAB PO ×2 (02:50→08:16)
[2021-05-12] MEDS: Melatonin 3 MG TAB PO (02:50)
[2021-05-12] MEDS: QUEtiapine 100 MG TAB 200 MG PO (02:50)
[2021-05-12 04:10] VITALS: BP 101/70; PULSE 101; RESP 18; TEMP 36.6; O2SAT 97
[2021-05-12 07:59] VITALS: BP 158/102; PULSE 102; RESP 16; TEMP 36.2; O2SAT 97
[2021-05-12] MEDS: LORazepam 1 MG TAB PO/SL (08:33)
[2021-05-12 09:16] LABS: ETHANOL BLOOD < 3.0 mg/dL (<10)
--- NOTE | 2021-05-12 13:25 | PDOC.MHPN2 ---
Date of service: 05/12/21 Time of Service: 11:40 Mental Health Progress Note Progress Note Progress Note: Presenting Issue:Client presented to [facility] after being discharged from [facility] stating she was still feeling overwhelmed and was endorsing SI Precipitating Factors Disposition * Behavior:Client seems to be in a good mood and is goal orientated *Eye Contact:Client does not make constant eye contact and is looking towards the ceiling most of the zoom meeting *Mood:Clients mood is stable *Affect:normal *Appetite:good *Sleep(trouble falling/staying asleep):client reports no trouble sleeping Plan(please elaborate and include that physician is consulted with plan and/or placement):Client stated that she is looking to be placed inpatient but is requesting to go to a crisis bed. Client will remain at [facility] and will be discharged on 05/13/2021 pending crisis bed acceptance. [place] [facility] Referral completed and sent to [facility] Crisis Bed Clinician's Name , Title, and Signature Keeley Duke Enhanced Crisis Homogenizer Operator Make sure that you are photocopying and submitting this to [facility] records Dept. to be scanned into chart.
--- NOTE | 2021-05-12 15:59 | DSE_ITS ---
Date of service: 05/12/21 Time of Service: 16:00 DS: Diagnosis Discharge Diagnosis (1) Suicidal ideations: Status: Acute Discharge Plan Disposition Patient Disposition: HOME Condition: Improving Discharge Details Reason For Visit: Suicidal,Alcohol Intoxication Admit Date/Time: 05/11/21 23:25 Admit Provider: Magdi Ballard Attending Provider: Magdi Ballard Primary Care Provider: Vicente Pickard Hospital Course Hospital Course: This is a 41 yo female with numerous psychiatric dxx, recently in [place] for suicidality, medications adjusted and revised. 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 Says she has been feeling unwell, depressed with ongoing suicidal thoughts. Came here for evaluation. In ER was medically cleared save an alcohol level of 146 (states she only had one beer today). Is admitted on voluntary basis pending clearance of alcohol, and then mental health evaluation. States she is feeling a little anxious, requesting Ativan. The following day she remained stable. [facility] mental health evaluation cleared her for discharge. She is medically stable and clear for discharge. No risk of alcohol withdrawal given only a 1 day window to drink alcohol since discharging from [facility]. She will resume medications she was discharged on from [place]. She has a mental health follow up scheduled for the following day. Home Meds and New Rx's Prescriptions: No Action omega-3 fatty acids [Fish Oil Concentrate] 1,000 mg capsule 1,000 mg PO BID RF: 0 melatonin 3 mg tablet 3 mg PO HS RF: 0 ibuprofen [IBU] 800 mg tablet 800 mg PO Q8H PRNQty: 30 RF: 0 topiramate 50 mg tablet 50 mg PO BID RF: 0 fluoxetine [Prozac] 40 mg capsule 60 mg PO DAILY RF: 0 quetiapine 200 mg tablet 200 mg PO HS RF: 0 quetiapine 100 mg tablet 100 mg PO BID MDD 200MG PRN (Reason: Anxiety) RF: 0 ascorbic acid (vitamin C) 500 mg Tablet 1,000 mg PO DAILY RF: 0 docusate sodium 100 mg capsule 200 mg PO DAILY RF: 0 vitamin B complex Tablet 1 tab PO DAILY RF: 0 cholecalciferol (vitamin D3) 125 mcg (5,000 unit) Capsule 125 mcg PO DAILY RF: 0 Lactobacillus acidoph-L.bulgar [Floranex] 1 million cell Tablet 1 tab PO BID RF: 0 dextroamphetamine-amphetamine 30 mg tablet 30 mg PO BID RF: 0 clonidine HCl 0.1 mg tablet 0.1 mg PO DAILY RF: 0 lorazepam [Ativan] 1 mg tablet 1 mg PO BID PRN (Reason: anxiety) Qty: 28 RF: 0 gabapentin 300 mg capsule 600 mg PO BID Qty: 120 RF: 0 Discharge Instructions Stand Alone Forms: Nursing Discharge Form Activity:: Activity as Tolerated Equipment/Supplies:: No Equipment Needed Diet:: As Tolerated Discharge Orders Discharge Orders: Discharge Order (Routine); Ordered 05/12/21 Ordered By: Yunior Valerio Discharge Data Discharge Date/Time-TO BE ENTERED AT DEPARTURE: 05/12/21 16:38 DS: Summary Time Spent with Patient providing and/or coordinating discharge services: Less than 30 minutes Status at Discharge Functional status at discharge: independent ambulation Overall status at discharge: patient is progressing back to baseline Mental Status: other Speech and Movement: pressured speech (mild) Mood: expansive and other Affect: animated Exam Narrative Exam Narrative: 158/ 102, 36.2, 18, 97% RA. Heent atraumatic; neck supple; lungs clear; heart tachy/regular; abdomen soft and NT; extremities w/o edema; lucid, ambulating in room w/o ataxia, slightly pressured. Psych Mental Status: other Speech and Movement: pressured speech (mild) Mood: expansive and other Affect: animated DS: Data Vitals/I&O Vitals and I&O: Vital Signs Temperature 36.2 C L 05/12/21 07:59 Temperature Source Tympanic 05/12/21 07:59 Pulse 102 H 05/12/21 07:59 Pulse Rhythm Regular 05/12/21 08:30 Respiratory Rate 16 05/12/21 07:59 Respiratory Effort Non-Labored 05/12/21 08:30 Respiratory Depth Normal 05/12/21 08:30 Respiratory Pattern Normal 05/12/21 08:30 Blood Pressure 158/102 H 05/12/21 07:59 Blood Pressure Position Sitting 05/11/21 15:40 Pulse Oximetry 97 05/12/21 07:59 Oxygen Delivery Method Room Air 05/12/21 07:59 Oxygen Flow Rate 0 05/12/21 07:59 Pain Level 3 05/12/21 07:59 Intake & Output 05/11/21 05/12/21 05/12/21 23:59 11:59 23:59 Weight 95.254 kg 95.254 kg Other: Urine Appearance Clear Comment Pt reports voiding unmeasurable amount via toilet. Voiding Methods Toilet Data Completed and Pending Labs on day of discharge: Labs from last 24 hours 05/12/21 05/11/21 05/11/21 08:40 16:38 16:38 WBC 9.09 RBC 4.23 Hgb 12.6 Hct 38.8 MCV 91.7 MCH 29.8 MCHC 32.5 RDW 13.2 Plt Count 396 MPV 9.1 Immature Gran % 0.3 Neutrophils % 68.1 Lymphocytes % 18.3 Monocytes % 2.8 Eosinophils % 9.7 Basophils % 0.8 Nucleated RBC % 0 Absolute Neutrophils 6.20 Absolute Lymphocytes 1.66 Absolute Monocytes 0.25 Absolute Eosinophils 0.88 H Absolute Basophils 0.07 Sodium 141 Potassium 3.5 Chloride 105 Carbon Dioxide 23.3 Anion Gap 12.7 H BUN 19 H Creatinine 0.9 Estimated GFR/1.73 m2 >= 60.00 Glucose 83 Calcium 9.6 Total Bilirubin 0.2 AST 12 L ALT 18 Alkaline Phosphatase 85 Total Protein 8.2 Albumin 4.5 TSH 3.14 Salicylates Urine Opiates Screen Urine Methadone Screen Acetaminophen Ur Barbiturates Screen Ur Tricyclics Screen Ur Amphetamines Screen U Benzodiazepines Scrn Urine Cocaine Screen Ur THC Screen Ethyl Alcohol < 3.0 146.0 H COVID-19 Source SARS-CoV-2 (PCR) 05/11/21 05/11/21 05/11/21 16:38 16:38 15:50 WBC RBC Hgb Hct MCV MCH MCHC RDW Plt Count MPV Immature Gran % Neutrophils % Lymphocytes % Monocytes % Eosinophils % Basophils % Nucleated RBC % Absolute Neutrophils Absolute Lymphocytes Absolute Monocytes Absolute Eosinophils Absolute Basophils Sodium Potassium Chloride Carbon Dioxide Anion Gap BUN Creatinine Estimated GFR/1.73 m2 Glucose Calcium Total Bilirubin AST ALT Alkaline Phosphatase Total Protein Albumin TSH Salicylates < 2.8 Urine Opiates Screen Negative Urine Methadone Screen Negative Acetaminophen < 2 Ur Barbiturates Screen Negative Ur Tricyclics Screen Negative Ur Amphetamines Screen Negative U Benzodiazepines Scrn Negative Urine Cocaine Screen Negative Ur THC Screen Negative Ethyl Alcohol COVID-19 Source Nasal/Nares SARS-CoV-2 (PCR) Negative PFSH All Active Problems (Updated 06/17/21 @ 15:14 by Davon Garcia MD) Anxiety (Chronic) Borderline personality disorder (Acute) Major depression (Chronic) Clonidine overdose (Acute) Major depression (Chronic) Suicidal ideations (Acute) Hypercapnic respiratory failure (Acute) Atelectasis (Acute) Aspiration pneumonitis (Acute) COVID-19 virus infection (Acute) Drug overdose, multiple drugs (Acute) ASCUS of cervix with negative high risk HPV (Acute) MEDHAT 03/08/19 Repeat PAP PP Idiopathic focal epilepsy (Acute) Hypertension (Chronic) Encounter for visit (Acute) No-show for appointment (Acute) Loose body in ankle or foot joint (Acute) Ankle syndesmosis disruption (Acute) Patient noncompliance (Acute) Closed fracture dislocation of ankle joint (Acute 01/31/20) Discharge planning issues (Acute) Bradycardia (Acute) Aspiration into airway (Acute) Urinary retention (Acute) Transaminitis (Acute) Drug overdose (Acute) Acute alteration in mental status (Acute) Metabolic acidosis (Acute) (normal spontaneous vaginal delivery) (Acute) (Acute) (Acute) Chronic hypertension affecting (Acute) Poor patient attendance of care (Acute) Encounter for supervision of other normal , third trimester (Acute) Limited care in third trimester (Acute) (Acute) depression (Acute) Hypertension affecting (Chronic) Medications in the past. No current medications Eating disorder (Chronic) BMI 31.0-31.9,adult (Chronic) Opioid dependence in remission (Chronic) Alcohol dependence in remission (Chronic) Positive test (Acute) ADHD (Acute) Depression (Chronic) Anxiety (Chronic) Suicide attempt (Acute 08/27/12) Overdose pills/alcohol. Medical History ADD (attention deficit disorder) Borderline personality disorder Closed bimalleolar fracture of right ankle Generalized anxiety disorder History of blood transfusion Hx of suicide attempt 2012, OD on pills/ETOH Mood disorder Sleep disorder Surgical History S/P ORIF (open reduction internal fixation) fracture R ankle S/P tonsillectomy and adenoidectomy Family History Mother Hypertension Father Hypertension Other Depression Social History Smoking/Tobacco Use Status: Current-Occasional Tobacco Type: cigarettes Smoking risk assessment performed?: Yes Alcohol Intake: current Alcohol Intake frequency: a few times a week Alcohol type: beer Drug use: Current Sobriety Substance use type: does not use and former substance user Housing: other Details: hotel Number of Children: 2 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 Date GA/Weeks # Outcome Route Wgt Sex Labor Lgth Anesthes ia Location [facility] 02/21/19 37 No Successful vaginal 2293.476 g Male [address] Diaz 12/26/19 37 No Successful vaginal 2579.807 g Female regional MD Vinayak Delivery Date: 02/21/19 No notes to display Delivery Date: 12/26/19 Induced with pitocin for Chronic HTN with poor care; tight nuchal cordx1; midline episiotomy Mayra Myles
== END 2021-05-12 16:38 | disposition home or self-care (01) ==
LOC: ER 05-12 00:33 → MS 05-12 01:35
PROVIDERS: Student in an Organized Health Care Education/Training Program; Admitting Provider General Practice; Emergency Provider Physician Assistant; PCP Nurse Practitioner Family; Visit Provider General Practice
DX: F10.229 Alcohol dependence with intoxication, unspecified (principal); R45.851 Suicidal ideations; Y90.6 Blood alcohol level of 120-199 mg/100 ml; F32.9 Major depressive disorder, single episode, unspecified; Z86.16 Personal history of COVID-19; Z91.51 Personal history of suicidal behavior; I10 Essential (primary) hypertension; G40.109 Localization-related (focal) (partial) symptomatic epilepsy and epileptic syndromes with simple partial seizures, not intractable, without status epilepticus; F11.21 Opioid dependence, in remission; F41.9 Anxiety disorder, unspecified; F17.210 Nicotine dependence, cigarettes, uncomplicated; Z20.822 Contact with and (suspected) exposure to COVID-19
CPT/HCPCS: 36415; 80053; 80307; 81025; 87635; 99285; 80320; 80329; 84443; 85025; 99217; 99219; G0378

== ENCOUNTER 2021-06-13 16:25 | Emergency (ER) | payer MEDICAID, SELFPAY ==
[2021-06-13 16:34] VITALS: BP 133/88; PULSE 95; RESP 20; TEMP 36.4; O2SAT 99
--- NOTE | 2021-06-13 17:00 | RT.EKG_ITS ---
APPROVED REPORT Exam: Resting ECG Reason for Exam: OD Patient Location: E HR:84 bpm ECG Measurements Heart Rate 84 AXIS MN 142 P 60 QRSd 90 QRS 31 QT 393 T 23 QTc 463 Conclusion Sinus rhythm...normal P axis, V-rate 60- 99. Sinus. No STEMI. I have reviewed and interpreted ECG and agree with software generated interpretation.
--- NOTE | 2021-06-13 17:48 | ED.GENADUL_ITS ---
Discharge Plan Disposition Patient Disposition: STILL A PATIENT Condition: Stable Discharge Details Clinical Impression: Major depression, Clonidine overdose Primary Care Provider: Vicente Pickard ED Provider: Tom Aleman Home Meds and New Rx's Prescriptions: No Action omega-3 fatty acids [Fish Oil Concentrate] 1,000 mg capsule 1,000 mg PO BID RF: 0 melatonin 3 mg tablet 3 mg PO HS RF: 0 ibuprofen [IBU] 800 mg tablet 800 mg PO Q8H PRNQty: 30 RF: 0 topiramate 50 mg tablet 50 mg PO BID RF: 0 fluoxetine [Prozac] 40 mg capsule 60 mg PO DAILY RF: 0 quetiapine 200 mg tablet 200 mg PO HS RF: 0 quetiapine 100 mg tablet 100 mg PO BID MDD 200MG PRN (Reason: Anxiety) RF: 0 ascorbic acid (vitamin C) 500 mg Tablet 1,000 mg PO DAILY RF: 0 docusate sodium 100 mg capsule 200 mg PO DAILY RF: 0 vitamin B complex Tablet 1 tab PO DAILY RF: 0 gabapentin 100 mg capsule 300 mg PO TID RF: 0 cholecalciferol (vitamin D3) 125 mcg (5,000 unit) Capsule 125 mcg PO DAILY RF: 0 loratadine 10 mg tablet 10 mg PO DAILY RF: 0 Lactobacillus acidoph-L.bulgar [Floranex] 1 million cell Tablet 1 tab PO BID RF: 0 dextroamphetamine-amphetamine 30 mg tablet 30 mg PO BID RF: 0 clonidine HCl 0.1 mg tablet 0.1 mg PO DAILY RF: 0 Medical Decision Making <Александр De Luna NP - Last Filed: 06/14/21 18:21> Patient presenting to the emergency department for chief complaint of depression and suicidal ideations. Patient reports that she has been attempting to reach out to her disease case manager rn over the past 3 days but depression has significantly worsened where she is taken clonidine today. Patient states that she informed a friend of this that brought her to the emergency department. She initially reported that she took 6 clonidine but then stated she may have taken some earlier as well. She also does state that she has had alcohol throughout the day. Patient reports that she is voluntarily here for help due to her suicidal ideations. Physical exam is unremarkable for acute worrisome findings. Patient is not bradycardic and does not appear lethargic. Plan to perform screening labs including alcohol level, for patient's safety psychiatric ER precautions were ordered. I did contact poison control and spoke with pharmacist named Thomas who stated based upon number of standard tablets that patient would have taken that she should be medically monitored for 6 hours with main focus on mental status and bradycardia. Review of labs shows that patient is acutely intoxicated but otherwise labs are nondiagnostic and no acutely worrisome findings noted. Patient does appear to be dehydrated but will plan on p.o. hydration. Patient remained stable throughout emergency department stay and requested evening medications which I feel is appropriate. We will continue to monitor patient's condition until clinically sober before mental health evaluation. Lab Data Labs: Laboratory Tests Range/Units 06/13/21 06/13/21 06/13/21 17:50 17:50 17:50 WBC (4.4-10.8) 10^3/uL 9.14 RBC (3.93-5.22) 10^6/uL 3.68 L Hgb (11.2-15.7) g/dL 10.5 L Hct (36.0-46.0) % 33.8 L MCV (80-95) fL 91.8 MCH (27.0-33.0) pg 28.5 MCHC (32.0-36.0) % 31.1 L RDW (11.7-14.6) % 14.3 Plt Count (130-400) 10^3/uL 315 MPV (8.0-11.0) fL 8.5 Immature Gran % 0.2 Neutrophils % 57.7 Lymphocytes % 23.0 Monocytes % 7.0 Eosinophils % 11.6 Basophils % 0.5 Nucleated RBC % % 0 Absolute Neutrophils (1.2-6.7) 10^3/uL 5.27 Absolute Lymphocytes (1.2-3.4) 10^3/uL 2.10 Absolute Monocytes (0.1-0.8) 10^3/uL 0.64 Absolute Eosinophils (0.0-0.7) 10^3/uL 1.06 H Absolute Basophils (0.0-0.2) 10^3/uL 0.05 Sodium (136-145) mmol/L 140 Potassium (3.5-5.1) mmol/L 3.8 Chloride (98-107) mmol/L 105 Carbon Dioxide (21.0-32.0) mmol/L 25.6 Anion Gap (3-11) mmol/L 9.4 BUN (7-18) mg/dL 22 H Creatinine (0.55-1.02) mg/dL 1.4 H Estimated GFR/1.73 m2 (mL/min/1.73m2) 41.86 Glucose (74-106) mg/dL 93 Calcium (8.5-10.1) mg/dL 7.9 L Total Bilirubin (0.2-1.0) mg/dL 0.2 AST (15-37) U/L 11 L ALT (14-59) U/L 18 Alkaline Phosphatase (46-116) U/L 82 Total Protein (6.4-8.2) g/dL 6.4 Albumin (3.4-5.0) g/dL 3.3 L Urine Color (Yellow) Urine Clarity (Clear) Urine pH (5-8) Ur Specific [place] (1.005-1.025) Urine Protein (Negative) mg/dL Urine Ketones (Negative) mg/dL Urine Blood (Negative) Urine Nitrite (Negative) Urine Bilirubin (Negative) Urine Urobilinogen (Up TO 0.2) EU/dL Ur Leukocyte Esterase (Negative) Urine Glucose (Negative) mg/dL Salicylates (<2.8) mg/dL < 2.8 Urine Opiates Screen (Negative) Urine Methadone Screen (Negative) Acetaminophen (10-30) ug/mL < 2 Ur Barbiturates Screen (Negative) Ur Tricyclics Screen (Negative) Ur Amphetamines Screen (Negative) U Benzodiazepines Scrn (Negative) Urine Cocaine Screen (Negative) Ur THC Screen (Negative) Ethyl Alcohol (<10) mg/dL 214.7 H Range/Units 06/13/21 06/13/21 21:00 21:00 WBC (4.4-10.8) 10^3/uL RBC (3.93-5.22) 10^6/uL Hgb (11.2-15.7) g/dL Hct (36.0-46.0) % MCV (80-95) fL MCH (27.0-33.0) pg MCHC (32.0-36.0) % RDW (11.7-14.6) % Plt Count (130-400) 10^3/uL MPV (8.0-11.0) fL Immature Gran % Neutrophils % Lymphocytes % Monocytes % Eosinophils % Basophils % Nucleated RBC % % Absolute Neutrophils (1.2-6.7) 10^3/uL Absolute Lymphocytes (1.2-3.4) 10^3/uL Absolute Monocytes (0.1-0.8) 10^3/uL Absolute Eosinophils (0.0-0.7) 10^3/uL Absolute Basophils (0.0-0.2) 10^3/uL Sodium (136-145) mmol/L Potassium (3.5-5.1) mmol/L Chloride (98-107) mmol/L Carbon Dioxide (21.0-32.0) mmol/L Anion Gap (3-11) mmol/L BUN (7-18) mg/dL Creatinine (0.55-1.02) mg/dL Estimated GFR/1.73 m2 (mL/min/1.73m2) Glucose (74-106) mg/dL Calcium (8.5-10.1) mg/dL Total Bilirubin (0.2-1.0) mg/dL AST (15-37) U/L ALT (14-59) U/L Alkaline Phosphatase (46-116) U/L Total Protein (6.4-8.2) g/dL Albumin (3.4-5.0) g/dL Urine Color (Yellow) Yellow Urine Clarity (Clear) Clear Urine pH (5-8) 5.5 Ur Specific [place] (1.005-1.025) >= 1.030 H Urine Protein (Negative) mg/dL Negative Urine Ketones (Negative) mg/dL Trace H Urine Blood (Negative) Negative Urine Nitrite (Negative) Negative Urine Bilirubin (Negative) Negative Urine Urobilinogen (Up TO 0.2) EU/dL 0.2 Ur Leukocyte Esterase (Negative) Negative Urine Glucose (Negative) mg/dL Negative Salicylates (<2.8) mg/dL Urine Opiates Screen (Negative) Negative Urine Methadone Screen (Negative) Negative Acetaminophen (10-30) ug/mL Ur Barbiturates Screen (Negative) Negative Ur Tricyclics Screen (Negative) Negative Ur Amphetamines Screen (Negative) Negative U Benzodiazepines Scrn (Negative) Negative Urine Cocaine Screen (Negative) Negative Ur THC Screen (Negative) Negative Ethyl Alcohol (<10) mg/dL <Davon Garcia MD - Last Filed: 06/14/21 07:43> 740 -- Patient reassessed: patient is sober. She is now cleared from clonidine overdose. She continues to express thoughts of self harm. Patient medically clear. Crisis screener consulted. <Crystal Dutta DO - Last Filed: 06/14/21 19:58> 0800 -- please see previous provider's notes for initial presentation, exam and plan. 1030 -- patient evaluated by mental health through zoom at bedside and patient still endorsing SI. Patient remains voluntary. Plan is to continue to seek inpatient hospitalization. 1999 -- No issues today. Case endorsed to Dr. Aleman to continue to monitor overnight while awaiting placement. Medical Records Medical records reviewed: Yes I reviewed the patient's medical records. <Tom Aleman MD - Last Filed: 06/14/21 20:23> pt here voluntary for si/depression, is currently calm and eating without acute complaints other than her depression, will continue to observe until psychiatric bed placement HPI <Александр De Luna NP - Last Filed: 06/14/21 18:21> General Mode of arrival: ambulatory . Date/Time Provider Initiated Documentation: 06/13/21 16:49 . Limitations to Documentation: no limitations . Information obtained by: patient . History of Present Illness 41 year old F presents to the emergency department with the chief complaint of Suicidal ideations with plan to overdose, described as similar to prior episodes, Quality is described as other (denies pain), Patient started experiencing this day(s) (3) and it has been constant. No relieving factors improve symptom(s), No exacerbating factors reported . Patient notes no other symptoms.. Patient did receive the following treatments prior to arrival, none Related Data Home Medications Medication Instructions Recorded Confirmed ibuprofen [IBU] 800 mg PO Q8H PRN #30 tab 12/28/19 06/13/21 melatonin 3 mg tablet 3 mg PO HS 08/26/20 06/13/21 omega-3 fatty acids 1,000 mg 1,000 mg PO BID 08/26/20 06/13/21 capsule topiramate 50 mg PO BID 03/17/21 06/13/21 fluoxetine [Prozac] 60 mg PO DAILY 05/11/21 06/13/21 Lactobacillus acidoph-L.bulgar 1 tab PO BID 05/12/21 06/13/21 [Floranex] ascorbic acid (vitamin C) 1,000 mg PO DAILY 05/12/21 06/13/21 cholecalciferol (vitamin D3) 125 mcg PO DAILY 05/12/21 06/13/21 docusate sodium 200 mg PO DAILY 05/12/21 06/13/21 gabapentin 300 mg PO TID 05/12/21 06/13/21 loratadine 10 mg PO DAILY 05/12/21 06/13/21 quetiapine 100 mg PO BID PRN MDD 200MG 05/12/21 06/13/21 quetiapine 200 mg PO HS 05/12/21 06/13/21 vitamin B complex 1 tab PO DAILY 05/12/21 06/13/21 clonidine HCl 0.1 mg PO DAILY 06/13/21 06/14/21 dextroamphetamine-amphetamine 30 mg PO BID 06/13/21 06/13/21 Previous Rx's Medication Instructions Recorded ibuprofen [IBU] 800 mg PO Q8H PRN #30 tab 12/28/19 Allergies Allergy/AdvReac Type Severity Reaction Status Date / Time acetaminophen [From Vicodin] Allergy Intermediate Verified 05/11/21 15:48 hydrocodone [From Vicodin] Allergy Intermediate Verified 05/11/21 15:48 hydroxyzine HCl Allergy Skin Rash Unverified 05/11/21 15:48 [From Vistaril] hydroxyzine pamoate Allergy Skin Rash Unverified 05/11/21 15:48 [From Vistaril] General Stated Complaint: PsychEval GINGER: 2 Review of Systems <Александр De Luna NP - Last Filed: 06/14/21 18:21> Constitutional Constitutional: Denies body ache(s), Denies chills, Denies fever(s), Denies headache(s) and Denies poor appetite Eyes Eyes: Denies change in vision ENT Ears, Nose, Mouth, and Throat: Denies dizziness, Denies headache(s) and Denies sore throat Cardiovascular Cardiovascular: Denies chest pain, Denies syncope and Denies dyspnea Respiratory Respiratory: Denies cough and Denies dyspnea Gastrointestinal Gastrointestinal: Denies abdominal pain, Denies diarrhea, Denies nausea and Denies vomiting Integumentary/Breasts Skin/Breast: Denies rash Neurologic Neurologic: Denies dizziness, Denies syncope and Denies headache(s) Psychiatric Psychiatric: Reports as per HPI, Reports depression, Reports hopelessness, Reports mood swings, Denies homicidal ideation and Reports suicidal ideation [facility] <Александр De Luna NP - Last Filed: 06/14/21 18:21> All Active Problems (Updated 06/14/21 @ 19:58 by Crystal Dutta DO) Major depression (Chronic) Clonidine overdose (Acute) Major depression (Chronic) Suicidal ideations (Acute) Hypercapnic respiratory failure (Acute) Atelectasis (Acute) Aspiration pneumonitis (Acute) COVID-19 virus infection (Acute) Drug overdose, multiple drugs (Acute) ASCUS of cervix with negative high risk HPV (Acute) MEDHAT 03/08/19 Repeat PAP PP Idiopathic focal epilepsy (Acute) Hypertension (Chronic) Encounter for visit (Acute) No-show for appointment (Acute) Loose body in ankle or foot joint (Acute) Ankle syndesmosis disruption (Acute) Patient noncompliance (Acute) Closed fracture dislocation of ankle joint (Acute 01/31/20) Discharge planning issues (Acute) Bradycardia (Acute) Aspiration into airway (Acute) Urinary retention (Acute) Transaminitis (Acute) Drug overdose (Acute) Acute alteration in mental status (Acute) Metabolic acidosis (Acute) (normal spontaneous vaginal delivery) (Acute) (Acute) (Acute) Chronic hypertension affecting (Acute) Poor patient attendance of care (Acute) Encounter for supervision of other normal , third trimester (Acute) Limited care in third trimester (Acute) (Acute) depression (Acute) Hypertension affecting (Chronic) Medications in the past. No current medications Eating disorder (Chronic) BMI 31.0-31.9,adult (Chronic) Opioid dependence in remission (Chronic) Alcohol dependence in remission (Chronic) Positive test (Acute) ADHD (Acute) Depression (Chronic) Anxiety (Chronic) Suicide attempt (Acute 08/27/12) Overdose pills/alcohol. Medical History ADD (attention deficit disorder) Borderline personality disorder Closed bimalleolar fracture of right ankle Generalized anxiety disorder History of blood transfusion Hx of suicide attempt 2012, OD on pills/ETOH Mood disorder Sleep disorder Surgical History S/P ORIF (open reduction internal fixation) fracture R ankle S/P tonsillectomy and adenoidectomy Family History Mother Hypertension Father Hypertension Other Depression Social History Smoking/Tobacco Use Status: Current-Occasional Tobacco Type: cigarettes Smoking risk assessment performed?: Yes Alcohol Intake: current Alcohol Intake frequency: a few times a week Alcohol type: beer Drug use: Current Sobriety Substance use type: does not use and former substance user Housing: other Details: hotel Number of Children: 2 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 Date GA/Weeks # Outcome Route Wgt Sex Labor Lgth Anesthes ia Location [facility] 02/21/19 37 No Successful vaginal 2293.476 g Male [address] Diaz 12/26/19 37 No Successful vaginal 2579.807 g Female regional MD Vinayak Delivery Date: 02/21/19 No notes to display Delivery Date: 12/26/19 Induced with pitocin for Chronic HTN with poor care; tight nuchal cordx1; midline episiotomy Mayra Myles Exam <Александр De Luna NP - Last Filed: 06/14/21 18:21> Const General: cooperative Orientation: alert, awake and oriented x3 Limitations: mental status not altered HENMT Head: normal to inspection, normocephalic and atraumatic Ears: hearing grossly normal bilaterally Mouth: moist mucous membranes Eyes General: appearance normal, both eyes and all related structures Pupils: PERRL EOM: EOM intact bilaterally Resp Effort & Inspection: normal respiratory effort, able to speak in complete sentences and no respiratory distress Auscultation: clear to auscultation bilaterally Cardio Rate: regular rate and not tachycardic Rhythm: regular rhythm Heart Sounds: S1 normal, S2 normal, no click, no gallops, no murmurs and no rubs Neuro General: patient alert, patient awake, patient oriented x3, gait normal, moves all extremities and no focal motor deficits Cognition: normal cognition Speech: speech normal Psych Speech and Movement: speech and movement normal and speech clear Affect: animated Attitude: cooperative Thought Process: normal Thought Content: normal and suicidality Course <Александр De Luna NP - Last Filed: 06/14/21 18:21> Vital Signs Vital signs: Vital Signs Temperature 36.4 C L 06/13/21 16:34 Pulse 95 H 06/13/21 16:34 Respiratory Rate 20 06/13/21 16:34 Blood Pressure 133/88 06/13/21 16:34 Pulse Oximetry 99 06/13/21 16:34 Temperature 36.4 C L 06/13/21 16:34 Temperature Source Temporal Artery Scan 06/13/21 16:34 Pulse 95 H 06/13/21 16:34 Respiratory Rate 20 06/13/21 16:34 Respiratory Effort 06/13/21 17:33 Blood Pressure 133/88 06/13/21 16:34 Pulse Oximetry 99 06/13/21 16:34 Oxygen Delivery Method Room Air 06/13/21 16:34 Oxygen Flow Rate 0 06/13/21 16:34 Pain Level 0 06/13/21 16:34 Sign Out <Александр De Luna NP - Last Filed: 06/14/21 18:21> Sign Out Data: Sign Out Comment: Patient signed out pending mental health evaluation and continued monitoring due to intoxication and potential clonidine overdose. Last updated by Александр De Luna NP at 06/13/21 23:42 Sign Out Comment: Patient medically clear. Awaiting psych evaluation for SI. Last updated by Davon Garcia MD at 06/14/21 07:37 Sign Out Comment: Voluntary. Awaiting placement. No issues today. Last updated by Crystal Dutta DO at 06/14/21 18:58 PAWSS <Александр De Luna NP - Last Filed: 06/14/21 18:21> Have you Been Recently Intoxicated or Drunk Within the Last 30 days?: Yes Have you Ever Experienced Previous Episodes of Alcohol Withdrawal?: Unable to Obtain Have you ever Experienced Withdrawal Seizures?: Unable to Obtain Have you ever Experienced Delirium Tremens(DT)s?: Unable to Obtain Have you ever Experienced Blackouts?: Yes Have you ever Combined Alcohol with other Downers within the last 90 days?: Yes Have you ever Combined Alcohol with any other Substance of Abuse during the last 90 days?: Yes Positive Blood Alcohol level on Presentation? [PCS.BAL]: Yes Result: 5
[2021-06-13 17:52] LABS: Abs Immature Grans 0.02 10^3/uL (0.0-0.06); Absolute Basophil Count 0.05 10^3/uL (0.0-0.2); Absolute Eosinophil Count 1.06 10^3/uL (0.0-0.7); Absolute Monocyte Count 0.64 10^3/uL (0.1-0.8); Absolute Neutrophil Count 5.27 10^3/uL (1.2-6.7); Basophils % 0.5; Eosinophils % 11.6; HCT 33.8 % (36.0-46.0); HGB 10.5 g/dL (11.2-15.7); Immature Grans % 0.2; MCH 28.5 pg (27.0-33.0); MCHC 31.1 % (32.0-36.0); MCV 91.8 fL (80-95); MPV 8.5 fL (8.0-11.0); Neutrophils % 57.7; Nucleated RBC 0 %; Platelet Count 315 10^3/uL (130-400); RBC 3.68 10^6/uL (3.93-5.22); RDW 14.3 % (11.7-14.6); RDW-SD 48.8 fL; WBC 9.14 10^3/uL (4.4-10.8)
[2021-06-13 18:04] LABS: ALT 18 U/L (14-59); AST 11 U/L (15-37); Albumin 3.3 g/dL (3.4-5.0); Alkaline Phosphatase 82 U/L (46-116); Anion Gap 9.4 mmol/L (3-11); BUN 22 mg/dL (7-18); Bilirubin, Total 0.2 mg/dL (0.2-1.0); CO2 25.6 mmol/L (21.0-32.0); CREATININE 1.4 mg/dL (0.55-1.02); Calcium 7.9 mg/dL (8.5-10.1); Chloride 105 mmol/L (98-107); ETHANOL BLOOD 214.7 mg/dL (<10); Estimated GFR 41.86 (mL/min/1.73m2); Glucose 93 mg/dL (74-106); Potassium 3.8 mmol/L (3.5-5.1); Sodium 140 mmol/L (136-145); Total Protein 6.4 g/dL (6.4-8.2)
[2021-06-13 18:24] LABS: Salicylate < 2.8 mg/dL (<2.8)
[2021-06-13 18:25] LABS: Acetaminophen < 2 ug/mL (10-30)
[2021-06-13 19:51] VITALS: BP 117/78; PULSE 89; RESP 18; TEMP 36.8; O2SAT 100
[2021-06-13 21:10] LABS: Bilirubin Negative (Negative); Blood Negative (Negative); Clarity Clear (Clear); Glucose Negative (Negative); Ketones Trace mg/dL (Negative); Leukocyte Esterase Negative (Negative); Nitrite Negative (Negative); Specific Gravity >= 1.030 (1.005-1.025); Urobilinogen 0.2 EU/dL (Up TO 0.2); pH 5.5 (5-8)
[2021-06-13 21:24] LABS: *AMPHETAMINES SCREEN URINE Negative (Negative); *BARBITURATES SCREEN URINE Negative (Negative); *BENZODIAZEPINES SCREEN URINE Negative (Negative); Cannabinoids THC Negative (Negative); Cocaine Screen,Urine Negative (Negative); METHADONE URINE SCREEN Negative (Negative); OPIATES URINE SCREEN Negative (Negative); Tricyclic Antidepressants Negative (Negative)
[2021-06-13] MEDS: QUEtiapine 100 MG TAB 200 MG PO (21:35)
[2021-06-13] MEDS: Melatonin 3 MG TAB PO (21:35)
[2021-06-13] MEDS: Lactobacillus Acidophilus CAP 1 CAP PO (21:35)
[2021-06-13] MEDS: Topiramate 50 MG TAB PO (21:37)
[2021-06-13] MEDS: Gabapentin 300 MG CAP PO (21:38)
[2021-06-13 21:42] VITALS: BP 107/68; PULSE 86; RESP 18; TEMP 36.4; O2SAT 97
--- NOTE | 2021-06-14 08:47 | PDOC.CMSAFED ---
- If Service Date Differs Date of service: 06/14/21 Time of Service: 08:47 Care Management Safety Plan Status: Voluntary Keyanna is a well known patient at [facility]. She often presents seeking placement when her needs are not being met in the community. She has high needs for attention, appears to consistently participate in staff manipulation and splitting and is demanding with resources-often endorsing persecutory feelings. CM made recommendations to Dr. Dutta for starting with limited care plan to set consistent boundaries with Keyanna from arrival which will help set clear expectations. Huddle participants also advocated for privilege limitation during continued period of observation. This will help to determine if Keyanna is able to emotionally regulate with limit setting, as staff will be unable to fulfill all of her requests and she remains quite demanding with unrealistic expectations. Keyanna struggles with severe and persistent mental health and PATY issues. She has had seven ER visits since February of 2021 resulting in three admissions. She was previously admitted to [facility] and discharged back to the community about a month ago. She has a recent history of recurrent overdose with suspected (diagnosis not in chart, but in provider notes) personality disorder. VOLUNTARY FOR INPATIENT PSYCHIATRIC STABILIZATION. Keyanna is very articulate when advocating for her needs and concerns. She is also fully engaged during staff interactions. Safety plan has been established with patient, and care team, to adhere to patient goals, identify restrictions based on behavioral status, address nutrition, and determine allowed personal belongings, tools for hygiene and personal care. Determine level of activity including ambulation, level of supervision, visitors, and determine privileges based on behaviors and level of engagement by pt. SAFETY PLAN: 1. Will remain on suicide precautions. In Paper Clothes 2. Will remain in room under direct supervision of one-on-one staff at all times provided by [employer]; CLAUDIA, LANDSCAPE ARTIST votator machine operator. 3. May have paper cups, plates, finger foods as well as a cardboard spoon with which to eat meals. 4. Follow [facility] Management of the Admitted Behavioral Health Patient policy. 5. Comfort bath system only, shower permitted with escort at RN discretion. 6. No personal belongings-soft items permitted at RN discretion. 7. Visitors-none at this time. 8. Activities: soft cart items approved per RN discretion. 9. Bathroom privileges with escort in the ED, available in room without limitation on M/S. 10. Phone: contact limited to cordless phone at this time-recommend time limit of 30 minutes twice daily per RN discretion-. 11. Due to VOLUNTARY status, if patient wishes to leave [facility], staff will contact [facility] Crisis Screener ([phone]) and [employer] ([phone]) as soon as possible. In the event of elopement, notify [facility] Police ([phone]). Patient is currently voluntarily at [facility] and seeking inpatient admission when a bed becomes available. [facility] Frontline Farm Consultant will continue seeking placement. Please contact the Street Light Repairer [employer] ([phone]) and [facility] Farm Consultant ([phone]) for any needed changes in the Safety Plan. Safety plan has been provided to interdepartmental care team.
--- NOTE | 2021-06-14 08:49 | PDOC.MHCN ---
Date of service: 06/14/21 Time of Service: 08:49 Mental Health Crisis Note Presenting Issue How did you arrive at the ED and why did you come: Client arrived at [facility] ED on 06/13/21 stating that she was having suicidal thoughts and has becoming increasingly depressed. Precipitating Factors Client currently states that she is having SI with intent and plan, denies HI. Disposition BEHAVIOR: Client is laying down in hospital bed dressed in proper paper hospital attire when this newspaper writer arrives via zoom. Client actively engages with this newspaper writer answering all questions that are asked of her. Client scores a 22/27 on the PHQ-9 rating scale. This newspaper writer asked client on a scale of 0-10 with 0 being that she would be safe if she was to return to the community and 10 being that she would find a way to harm herself she rated herself a 10/10 stating that she would take all of her medication or jump off from the bridge. EYE CONTACT: Client makes good eye contact. MOOD: Clients mood appears to be depressed and tearful at times. AFFECT: Normal affect APPETITE: Client states that her appetite has been off, some days not eating at all and other days eating too much. SLEEP(trouble falling/staying asleep: Client states that she has not been sleeping well, averaging about 4-6 hours of sleep a night. Plan Client will remain at [facility] awaiting inpatient treatment. This newspaper writer did discuss alternatives with client, however due to her acuity I do not feel like she would be safe if she was to return to the community at this time. Referrals will be sent to both [place] and [place]. Safety plan in place with [facility]. Signature Clinician's Name/Title: Breanna Orta [facility] emergency clinician.
[2021-06-14 08:53] VITALS: BP 139/91; PULSE 80; RESP 18; TEMP 36.7; O2SAT 99
[2021-06-14 12:42] VITALS: BP 143/81; PULSE 94; RESP 16; TEMP 36.8; O2SAT 99
[2021-06-14] MEDS: Gabapentin 300 MG CAP PO ×2 (13:32→20:42)
[2021-06-14] MEDS: Topiramate 50 MG TAB PO ×2 (13:32→20:43)
[2021-06-14] MEDS: QUEtiapine 100 MG TAB PO (13:33)
[2021-06-14] MEDS: cloNIDine 0.1 MG TAB PO (13:33)
[2021-06-14] MEDS: Amphet Asp/Amphet/D-Amphet 10 MG TAB 30 MG PO (13:34)
[2021-06-14] MEDS: Ibuprofen 600 MG TAB PO (18:09)
[2021-06-14 18:11] VITALS: BP 156/105; PULSE 88; RESP 16; TEMP 36.9; O2SAT 99
[2021-06-14 18:13] VITALS: BP 152/85
[2021-06-14] MEDS: QUEtiapine 100 MG TAB 200 MG PO (21:13)
[2021-06-14] MEDS: Melatonin 3 MG TAB PO (21:13)
[2021-06-15] MEDS: QUEtiapine 100 MG TAB PO ×2 (00:42→23:33)
[2021-06-15] MEDS: Amphet Asp/Amphet/D-Amphet 10 MG TAB 30 MG PO ×2 (07:43→12:43)
[2021-06-15] MEDS: Topiramate 50 MG TAB PO ×2 (07:44→20:08)
[2021-06-15] MEDS: Gabapentin 300 MG CAP PO ×3 (07:44→20:07)
[2021-06-15] MEDS: cloNIDine 0.1 MG TAB PO (07:44)
[2021-06-15] MEDS: FLUoxetine 20 MG CAP 60 MG PO (07:45)
[2021-06-15 08:12] VITALS: BP 134/90; PULSE 82; RESP 17; TEMP 36.9; O2SAT 99
[2021-06-15 10:46] LABS: Source Nasal/Nares
--- NOTE | 2021-06-15 10:53 | NUR.NOTE ---
Care management in room Nursing Note:
--- NOTE | 2021-06-15 10:55 | NUR.NOTE ---
Patient speaking with insurance attorney. Nursing Note:
--- NOTE | 2021-06-15 11:09 | NUR.NOTE ---
Patient is talked with assistant county attorney. Patient stated I'm sick of having to check myself in all of the time just to keep myself safe because if I'm at home on my couch, anyone can say anything. That's why I do this. So no one can make accusations against me. Everyone is safe but me and my mental health. Patient does seem to be getting a little upset while talking about her current situation but is otherwise calm. Nursing Note:
[2021-06-15 11:25] LABS: COVID-19 PCR Negative (Negative)
--- NOTE | 2021-06-15 11:25 | NUR.NOTE ---
Patient speaking with edinson from mental health on ipad brought in by ER staff. Nursing Note:
--- NOTE | 2021-06-15 11:54 | PDOC.CMSAFED ---
- If Service Date Differs Date of service: 06/15/21 Time of Service: 11:54 Care Management Safety Plan Status: Voluntary - Reason for Wait Reason for Wait: Inpatient Admission VOLUNTARY FOR INPATIENT PSYCHIATRIC STABILIZATION CHIEF COMPLAINT: Keyanna presents to the ED for depression and suicidal ideation. She is well known to [facility] staff and often seeks placement when she feels her needs are not being met in the community. Today she shares with staff that she has several pending criminal charges and believes that being in the hospital will keep her out of trouble. While Keyanna is articulate and good at advocating for herself, she can quickly become angry and dysregulated when she feels her needs are not being attended to by others. It is therefore important that expectations be made clear and that boundaries be maintained consistently. Keyanna has been evaluated by [facility] and found to meet criteria for a voluntary psychiatric hospitalization. Referrals are faxed to [facility] and [facility]. Keyanna will remain at [facility] and will be reassessed daily by [facility] until a placement can be secured for her. Safety plan has been established with patient, and care team, to adhere to patient goals, identify restrictions based on behavioral status, address nutrition, and determine allowed personal belongings, tools for hygiene and personal care. Determine level of activity including ambulation, level of supervision, visitors, and determine privileges based on behaviors and level of engagement by pt. SAFETY PLAN: 1. Will remain on suicide precautions. In Paper Clothes. 2. Will remain in room under direct supervision of one-on-one staff at all times provided by CPSO, FARM TRACTOR OPERATOR, STRUCTURAL METAL WORKER director of occupational health. 3. May have paper cups, plates, finger foods as well as a cardboard spoon with which to eat meals. Meals will consist of breakfast, lunch, supper, and three snacks (one mid-morning, one mid-afternoon, and one prior to bedtime). 4. Follow [facility] Management of the Admitted Behavioral Health Patient policy. 5. Shower with escort at RN discretion during times when the ED volume is low. 6. No personal belongings. 7. Visitors: None per [facility] Covid Visitor Policy. 8. Activities: coloring book, crayons, and bible. May also have tablet to watch movies or listen to music for a maximum of four hours each day. These 4 hours will be broken up into two separate blocks of time to allow the tablet to charge and to allow use of the tablet by other patients. 9. Bathroom privileges with escort in the ED, available in room without limitation on M/S. 10. Phone: may use hospital cordless phone for 30 minutes twice daily at RN discretion. 11. Medications will be given at following times: Adderal 0830 and 1400, Clonidine 0830, Fluoxetine 0830, Gabapentin 0830, 1400, 2000, Melatonin 2000, Topamax 0830, 2000, and Nicotrol PRN. 12. Due to VOLUNTARY status, if patient wishes to leave [facility], staff will contact [facility] Crisis Screener ([phone]) and Material Disposition Inspector ([phone]) as soon as possible. In the event of elopement, notify [facility] Police ([phone]). Patient is currently voluntarily at [facility] and seeking inpatient admission when a bed becomes available. [facility] Frontline Plastic Boat Patcher will continue seeking placement. Please contact the Lawn Technician Material Disposition Inspector ([phone]) and [facility] Plastic Boat Patcher ([phone]) for any needed changes in the Safety Plan. Safety plan has been provided to interdepartmental care team.
--- NOTE | 2021-06-15 11:58 | NUR.NOTE ---
Patient done speaking with mental health. Nursing Note:
[2021-06-15] MEDS: Acetaminophen 500 MG TAB 1000 MG PO (12:43)
--- NOTE | 2021-06-15 13:34 | PDOC.MHPN2 ---
Date of service: 06/15/21 Time of Service: 11:30 Mental Health Progress Note Progress Note Progress Note: Presenting Issue: Client arrived at [facility] ED on 06/13/21 stating that she was having suicidal thoughts and has becoming increasingly depressed. Precipitating Factors Client currently states that she is having SI with intent and plan, denies HI. Disposition * Behavior: Client was engaged and cooperate with assessment. She is still endorsing SI and her intent rates on a scale of 8/10. One being if she was out in the community she would not harm herself, ten being she would find a way to harm herself. She reports that she is feeling mentally unstable and in need of support. *Eye Contact: Client makes great eye contact. *Mood: Clients mood appears to be depressed and anxious. She became tearful when explaining her stressors. *Affect: Normal affect. *Appetite: Client reports that her appetite is okay, and she has eaten while at [facility]. *Sleep(troubel falling/staying asleep): Client reports that she is not sleeping well and only slept 3-4 hours. Plan(please elaborate and include that physician is consulted with plan and/or placement): Client was assessed by DARIEL Motley. Client will remain at [facility] awaiting inpatient treatment. Alternatives were again discussed with client. She reports that she is seeking in patient treatment, as she feels mentally unstable and does not have support. Due to her acuity and high level of intent, she is not able to safety plan home at this time. Referrals have been sent to both [place] and [place]. They do not have beds availiable at this time. Client will be reassessed daily by [facility] until placement is found or she is able to safety plan home. Clinician will be reaching out to the clients case resolution specialist. Clinician's Name , Title, and Signature Leona Lam Machinist Mechanic Make sure that you are photocopying and submitting this to [facility] records Dept. to be scanned into chart.
--- NOTE | 2021-06-15 14:19 | NUR.NOTE ---
Patient stated to me I want to talk to my nurse. My dr has been wanting me to get an EEG done, can we just do it while I'm here? RN notified of this request. Nursing Note:
--- NOTE | 2021-06-15 14:25 | NUR.NOTE ---
Patient stating that I'm here because I thought I was going to have a seizure and I wants EEG done while here. I have medicare coverage so they need to do it while I'm here. Maybe I need to talk to the Dr and not you guys and he will order it because you guys wont do it for me. It's called preventative care. RN notified. Nursing Note:
--- NOTE | 2021-06-15 14:47 | NUR.NOTE ---
Patient states I feel really helpless right here. I want a brochure about all of my rights and I want to contact legal contracts specialist because I need these tests done and you guys aren't putting the order in. RN notified. Nursing Note:
[2021-06-15 15:58] LABS: Anion Gap 12.5 mmol/L (3-11); BUN 17 mg/dL (7-18); CO2 22.5 mmol/L (21.0-32.0); Calcium 9.6 mg/dL (8.5-10.1); Chloride 99 mmol/L (98-107); Glucose 116 mg/dL (74-106); Potassium 3.8 mmol/L (3.5-5.1); Sodium 134 mmol/L (136-145)
[2021-06-15] MEDS: Melatonin 3 MG TAB PO (20:08)
[2021-06-15] MEDS: QUEtiapine 100 MG TAB 200 MG PO (20:08)
[2021-06-15] MEDS: Ibuprofen 800 MG TAB (20:08)
--- NOTE | 2021-06-16 00:01 | NUR.NOTE ---
Nursing Note: This scribe requested tablet from patient as her care plan states that she can have it for 2 hours. Patient actually had tablet for about 4 hours due to busy department and loss of track of time. Patient became highly agitated yelling at staff stating that we haven't met her needs all day. She states that she has not received an EEG and that she needs to have one due to epilepsy. She is requesting a shower at this hour but due to bathroom being out of order and staffing numbers and number of patients at this time, this is not possible. Patient demanded to speak to MD as accommodations are not adequate and Dr. Aleman spoke to patient but patient continued to yell at staff. She states she has been unable to file grievances today due to her lack of care and that she was denied food and water. This scribe pointed out that I have been here since 1100 this am and have brought her food and drink myself. I also was witness to care plan huddle earlier where the limitations were clear and I offered this care plan to patient. She demanded to speak to care management now but I reinforced we will not call at this time. MD offered other means for patient to sleep but she refused stating she needs the tablet. At this point patient took her bed side table and swiped everything off of the surface sending it to the floor stating to this scribe this place is a filthy mess, clean it up. Matt monzon called, security stood by while everything removed from the bathroom. Patient did seem to respond to security being present and laid on bed. Curtain is being left pulled open to monitor patient closely.
[2021-06-16] MEDS: Gabapentin 300 MG CAP PO ×3 (08:39→20:18)
[2021-06-16] MEDS: Topiramate 50 MG TAB PO ×2 (08:39→20:18)
[2021-06-16] MEDS: cloNIDine 0.1 MG TAB PO (08:39)
[2021-06-16] MEDS: Amphet Asp/Amphet/D-Amphet 10 MG TAB 30 MG PO ×2 (08:39→13:31)
[2021-06-16] MEDS: FLUoxetine 20 MG CAP 60 MG PO (08:39)
--- NOTE | 2021-06-16 12:41 | NUR.NOTE ---
Patient came to the desk asking for a grievance for and refused to leave the front of the desk until she received it. I called Christal Varma, she will get one and bring it to her when she gets it. I told the patient this, she then went on to tell me that she needs to receve her medication ritalin now as opposed to the time that we have in the Care Plan that she agreed to yesterday. She states that she did not agree to the care paln and that she does not understand time to agree to this. While walking away from the desk to her room, she again spoke to a nurse about her medications across the department. Ligia Herman Nursing Note:
--- NOTE | 2021-06-16 13:38 | NUR.NOTE ---
Addendum entered and electronically signed by Bonnie Elmore 06/16/21 15:21: Patient has remained calm and cooperative since last assessment. Patient updated on her new safety plan and that she may have the tablet during day time and early evening hours and at the discretion of nursing based on other patient needs for Ipad, patient behavior, and charging needs. Patient verbalizes understanding that if she has any outbursts or episodes requiring security presence again that she will lose privileges. Patient handed this scribe two pictures she jerrod with crayons to let nursing know how she feels. One picture, she explained is of her praying and the other picture is of her bent over with a suicide note and a bottle of pills, the picture is labeled Suicide Note. Care management and MD aware and pictures place with patient's chart with care plan. Will continue to monitor Original Note: Addendum entered and electronically signed by Bonnie Elmore 06/16/21 13:48: At approx 1300 patient was highly agitated and making numerous demands. She yelled across the department I'm going to kill myself once I leave this place!.Continue one to one patient sitter. Original Note: Nursing Note: Patient yelling making many demands, something to read, 4 cups of coffee, an epilepsy bed. Security called to department, patient continues to make demands. This scribe offered her something to calm down including her PRN Seroquel which she declined. She did accept her 2pm medications. Patient requested tablet, this scribe declined this request at this time as patient is still very demanding and agitated. Explained to patient that she must demonstrate an ability to calm herself and to remain calm as she is disturbing an ER full of sick patients. Once she has been able to remain calm, then we can re-discuss use of the tablet if her safety plan says so. Patient agreed and so far has been quiet for the past 5 minutes. Will continue to monitor.
--- NOTE | 2021-06-16 14:54 | PDOC.CMSAFED ---
- If Service Date Differs Date of service: 06/16/21 Time of Service: 14:56 Care Management Safety Plan Status: Voluntary - Reason for Wait Reason for Wait: Inpatient Admission VOLUNTARY FOR INPATIENT PSYCHIATRIC STABILIZATION. Safety plan has been established with patient, and care team, to adhere to patient goals, identify restrictions based on behavioral status, address nutrition, and determine allowed personal belongings, tools for hygiene and personal care. Determine level of activity including ambulation, level of supervision, visitors, and determine privileges based on behaviors and level of engagement by pt. A huddle is held at 14:00 pm with Faith, Nursing Loom Fixer Helper, Liyah, Charge Nurse, Bonnie, RN, Chantale, RN, and EMRE Siegel, in attendance. SAFETY PLAN: 1. Will remain on suicide precautions. In Paper Clothes. 2. Will remain in room under direct supervision of one-on-one staff at all times provided by CPSO, CLAUDIA, RIG HAND medical record transcriber. 3. May have paper cups, plates, finger foods as well as a cardboard spoon with which to eat meals. Meals will consist of breakfast, lunch, supper, and three snacks (one mid-morning, one mid-afternoon, and one prior to bedtime). 4. Follow [facility] Management of the Admitted Behavioral Health Patient policy. 5. Shower with escort at RN discretion during times when the ED volume is low. 6. No personal belongings. 7. Visitors: None per [facility] Covid Visitor Policy. 8. Activities: coloring book, crayons, and books. May also have tablet to watch movies or listen to music at RN discretion and based on behavior during daytime and early evening hours. Tablet will be removed from the room for charging from 22:00 to 07:00. 9. Bathroom privileges with escort in the ED, available in room without limitation on M/S. 10. Phone: may use hospital cordless phone for 30 minutes twice daily at RN discretion. 11. Medications will be given at following times: Adderal 0830 and 1400, Clonidine 0830, Fluoxetine 0830, Gabapentin 0830, 1400, 2000, Melatonin 2000, Topamax 0830, 2000, and Nicotrol PRN. 12. Due to VOLUNTARY status, if patient wishes to leave [facility], staff will contact [facility] Crisis Screener ([phone]) and Refining Equipment Operator ([phone]) as soon as possible. In the event of elopement, notify [facility] Police ([phone]). Patient is currently voluntarily at [facility] and seeking inpatient admission when a bed becomes available. [facility] Frontline Photoengraving Apprentice will continue seeking placement. Please contact the Physical Therapy Technician Refining Equipment Operator ([phone]) and [facility] Photoengraving Apprentice ([phone]) for any needed changes in the Safety Plan. Safety plan has been provided to interdepartmental care team.
[2021-06-16 15:35] VITALS: BP 145/86; PULSE 98; RESP 16; TEMP 37.3; O2SAT 98
--- NOTE | 2021-06-16 16:44 | CMPROGNOTE_ITS ---
- If Service Date Differs Date of service: 06/16/21 Time of Service: 16:44 Care Management Progress Note S/O: Keyanna remains at [facility] awaiting a voluntary placement. She has an extensive psychiatric history with two suicide attempts by overdose in the recent past and multiple psychiatric hospitalizations. She receives services through [facility] and sees Dr. Stanton for med management and is assigned to Keeley Duke for case management. Keyanna hopes to begin therapy with Mayra Bojorquez in the near future, also through [facility]. Keyanna continues to struggle with periods of mood dysregulation, becoming angry, yelling, throwing things, and being disrespectful towards staff. She at times reports suicidal ideation with a plan of overdosing on medications, while at other times she denies having thoughts of suicide and says she has a lot to live for. Per [facility], Keyanna was discharged from [facility] just a few weeks ago. A: Keyanna is a 41 year old female who presents in the ED on 06/14/2021 for depression and suicidal ideation. P: Keyanna is assessed by [facility] and found to meet criteria for a voluntary psychiatric hospitalization. Referrals are faxed to [facility] for review. Keyanna will remain at [facility] and will be reassessed daily by [facility] until a placement can be secured. CM will continue to follow. - Status Status: Voluntary - Reason for Wait Reason for Wait: Inpatient Admission
--- NOTE | 2021-06-16 16:44 | PDOC.ERCMPRO ---
- If Service Date Differs Date of service: 06/16/21 Time of Service: 16:44 Care Management Progress Note S/O: Keyanna remains at [facility] awaiting a voluntary placement. She has an extensive psychiatric history with two suicide attempts by overdose in the recent past and multiple psychiatric hospitalizations. She receives services through [facility] and sees Dr. Stanton for med management and is assigned to Keeley Duke for case management. Keyanna hopes to begin therapy with Mayra Bojorquez in the near future, also through [facility]. Keyanna continues to struggle with periods of mood dysregulation, becoming angry, yelling, throwing things, and being disrespectful towards staff. She at times reports suicidal ideation with a plan of overdosing on medications, while at other times she denies having thoughts of suicide and says she has a lot to live for. Per [facility], Keyanna was discharged from [facility] just a few weeks ago. A: Keyanna is a 41 year old female who presents in the ED on 06/14/2021 for depression and suicidal ideation. P: Keyanna is assessed by [facility] and found to meet criteria for a voluntary psychiatric hospitalization. Referrals are faxed to [facility] and [facility] for review. Keyanna will remain at [facility] and will be reassessed daily by [facility] until a placement can be secured. CM will continue to follow. - Status Status: Voluntary - Reason for Wait Reason for Wait: Inpatient Admission
--- NOTE | 2021-06-16 18:49 | NUR.NOTE ---
Nursing Note: Patient finished her first of two 30 minute phone calls per day at 18:45 tonight. She was appropriate with the CPSO when he requested the phone back per the care plan protocol.
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
[2021-06-16] MEDS: Melatonin 3 MG TAB PO (20:18)
[2021-06-16] MEDS: QUEtiapine 100 MG TAB 200 MG PO (20:18)
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
[2021-06-16] MEDS: Gabapentin 300 MG CAP (23:11)
[2021-06-16] MEDS: QUEtiapine 100 MG TAB (23:12)
[2021-06-17] MEDS: Gabapentin 600 MG TAB PO ×2 (08:20→20:53)
[2021-06-17] MEDS: LORazepam 1 MG TAB 2 MG PO (08:20)
[2021-06-17] MEDS: cloNIDine 0.1 MG TAB PO (08:20)
[2021-06-17] MEDS: Amphet Asp/Amphet/D-Amphet 10 MG TAB 30 MG PO ×2 (08:20→13:43)
[2021-06-17] MEDS: FLUoxetine 20 MG CAP 60 MG PO (08:20)
[2021-06-17] MEDS: Topiramate 50 MG TAB PO ×2 (08:21→20:52)
[2021-06-17 10:39] VITALS: BP 129/84; PULSE 112; TEMP 36.9; O2SAT 98
--- NOTE | 2021-06-17 13:20 | CMSP_ITS ---
- If Service Date Differs Date of service: 06/17/21 Time of Service: 13:20 Care Management Safety Plan Status: Voluntary - Reason for Wait Reason for Wait: Inpatient Admission VOLUNTARY FOR INPATIENT PSYCHIATRIC STABILIZATION. Safety plan has been established with patient, and care team, to adhere to patient goals, identify restrictions based on behavioral status, address nutrition, and determine allowed personal belongings, tools for hygiene and personal care. Determine level of activity including ambulation, level of supervision, visitors, and determine privileges based on behaviors and level of engagement by pt. A huddle is held at 13:[address] Davon Garcia, ED provider, Faith, Nursing Metal Engineering Process Worker, Anny, Charge Nurse, Lisa, RN, and EMRE Siegel, in attendance. SAFETY PLAN: 1. Will remain on suicide precautions. In Paper Clothes. 2. Will remain in room under direct supervision of one-on-one staff at all times provided by CPSO, CLAUDIA, JOURNALISM INTERNSHIP souvenir street vendor. 3. May have paper cups, plates, finger foods as well as a cardboard spoon with which to eat meals. Meals will consist of breakfast, lunch, supper, and three snacks (one mid-morning, one mid-afternoon, and one prior to bedtime). 4. Follow [facility] Management of the Admitted Behavioral Health Patient policy. 5. Shower with escort at RN discretion during times when the ED volume is low. 6. No personal belongings. 7. Visitors: None per [facility] Covid Visitor Policy. 8. Activities: coloring book, crayons, and books. May also have tablet to watch movies or listen to music at RN discretion and based on behavior during daytime and early evening hours. Tablet will be removed from the room for charging from 22:00 to 07:00. 9. Bathroom privileges with escort in the ED, available in room without limitation on M/S. 10. Phone: may use hospital cordless phone for 30 minutes twice daily at RN discretion. 11. Due to VOLUNTARY status, if patient wishes to leave [facility], staff will contact [facility] Crisis Screener ([phone]) and Child Care ([phone]) as soon as possible. In the event of elopement, notify [facility] Police ([phone]). Patient is currently voluntarily at [facility] and seeking inpatient admission when a bed becomes available. [facility] Frontline Size Mixer will continue seeking placement. Please contact the Health Care Marketing Specialist Child Care ([phone]) and [facility] Cri sis Worker ([phone]) for any needed changes in the Safety Plan. Safety plan has been provided to interdepartmental care team.
[2021-06-17] MEDS: LORazepam 1 MG TAB PO (14:43)
[2021-06-17] MEDS: Gabapentin 300 MG CAP (14:49)
--- NOTE | 2021-06-17 16:48 | NUR.NOTE ---
Was told by that patient would be transitioning to a carebed within a short time period today. Per Dr. Davon Garcia, meds were pulled for patient to get her through today and tomorrow morning until she could fill prescriptions and get her own medications. The following medications were pulled and delivered by the pharmacy. Adderall (3) 10 mg tabs for 06/18/21 @ 8 am. ativan (2) 1 mg tabs to be used bid prn anxiety. gabapentin (4) 300 mg capsules 600 mg for 06/17/21 @ 2200 and 600 mg for 06/18/21 @ 1400. melatonin 3 mg for 06/17/21 QHS. seroquel (3) 100 mg tablets for 06/17/21 @ QHS. seroquel (1) 100 mg tablet qd prn agitation. Topiramate (2) 50 mg tabs (1) for the evening of 06/17/21 and (1) for her morning dose on 06/18/21. Plans changed and patient is not leaving tonight. Adderall and ativan taken to pharmacy and given to Elena Pharmacist.
--- NOTE | 2021-06-17 16:54 | CMPROGNOTE_ITS ---
- If Service Date Differs Date of service: 06/17/21 Time of Service: 16:54 Care Management Progress Note S/O: Keyanna meets with Iesha of [facility] for a reassessment this afternoon. She agrees to a placement at the [facility] Care Bed and appropriately handles the news that she will not be going to the Care Bed today as previously thought. offers her a Word Search book to help keep her occupied this evening. A: Keyanna is a 41 year old female who presents in the ED on 06/14/2021 for depression and suicidal ideation. P: Keyanna is assessed by [facility] and found to meet criteria for a voluntary psychiatric hospitalization. [facility] and [facility] for review. Keyanna will remain at [facility] and will be reassessed daily by [facility] until a placement can be secured. CM will continue to follow.
--- NOTE | 2021-06-17 16:54 | PDOC.ERCMPRO ---
- If Service Date Differs Date of service: 06/17/21 Time of Service: 16:54 Care Management Progress Note S/O: Keyanna meets with Iesha of [facility] for a reassessment this afternoon. She agrees to a placement at the [facility] Care Bed and appropriately handles the news that she will not be going to the Care Bed today as previously thought. offers her a Word Search book to help keep her occupied this evening. A: Keyanna is a 41 year old female who presents in the ED on 06/14/2021 for depression and suicidal ideation. P: Keyanna is assessed by [facility] and found to meet criteria for a voluntary psychiatric hospitalization. [facility] for review. Keyanna will remain at [facility] and will be reassessed daily by [facility] until a placement can be secured. CM will continue to follow.
--- NOTE | 2021-06-17 16:58 | PDOC.MHPN2 ---
Date of service: 06/17/21 Time of Service: 14:45 Mental Health Progress Note Progress Note Progress Note: Presenting Issue: Client arrived at [facility] ED on 06/13/21 stating that she was having suicidal thoughts and has becoming increasingly depressed. Precipitating Factors Disposition * Behavior: Client was engaged and cooperative with assessment. She appears to be in a better space today. Client reports having a bad day yesterday and shows good insight to her negative behaviors. *Eye Contact: Client made great eye contact. *Mood: Client reports her mood is okay, better than the last two days. *Affect: Normal. *Appetite: Client reports she is eating well and ate a large breakfast. *Sleep(troubel falling/staying asleep): Client reports not sleeping well and only sleeping about 3 hours at night. Plan(please elaborate and include that physician is consulted with plan and/or placement): Client is appearing to be more stable. DARIEL Crews discussed hospital diversion options, such as the carebed. Client agreed that the carebed would be a good fit for her. Referral has been sent to the [facility]. DARIEL Crews will follow up with the ED on the status of the referral tomorrow morning. Referrals have been sent to [facility], and [facility]. [place] is currently only taking in house referrals. Clinician's Name , Title, and Signature DARIEL Dejesus Make sure that you are photocopying and submitting this to [facility] records Dept. to be scanned into chart.
[2021-06-17] MEDS: Melatonin 3 MG TAB PO (20:51)
[2021-06-17] MEDS: QUEtiapine 100 MG TAB 300 MG PO (20:52)
[2021-06-17 22:03] VITALS: BP 121/72; PULSE 94; RESP 14; TEMP 36.4; O2SAT 94
[2021-06-18] MEDS: Amphet Asp/Amphet/D-Amphet 10 MG TAB 30 MG PO ×2 (08:02→12:05)
[2021-06-18] MEDS: FLUoxetine 20 MG CAP 60 MG PO (08:03)
[2021-06-18] MEDS: Gabapentin 600 MG TAB PO (08:04)
[2021-06-18] MEDS: Topiramate 50 MG TAB PO (08:06)
[2021-06-18] MEDS: LORazepam 1 MG TAB PO (08:06)
[2021-06-18] MEDS: cloNIDine 0.1 MG TAB PO (08:07)
[2021-06-18 09:31] VITALS: BP 128/88; PULSE 116; RESP 14; TEMP 36.8; O2SAT 97
--- NOTE | 2021-06-18 10:06 | PDOC.CMSAFED ---
- If Service Date Differs Date of service: 06/18/21 Time of Service: 10:06 Care Management Safety Plan Status: Voluntary - Reason for Wait Reason for Wait: Inpatient Admission OLUNTARY FOR INPATIENT PSYCHIATRIC STABILIZATION. Safety plan has been established with patient, and care team, to adhere to patient goals, identify restrictions based on behavioral status, address nutrition, and determine allowed personal belongings, tools for hygiene and personal care. Determine level of activity including ambulation, level of supervision, visitors, and determine privileges based on behaviors and level of engagement by pt. SAFETY PLAN: 1. Will remain on suicide precautions. In Paper Clothes. 2. Will remain in room under direct supervision of one-on-one staff at all times provided by CPSO, ELEVATOR RUNNER, RIVETING MACHINE OPERATOR spray painting machine operator. 3. May have paper cups, plates, finger foods as well as a cardboard spoon with which to eat meals. Meals will consist of breakfast, lunch, supper, and three snacks (one mid-morning, one mid-afternoon, and one prior to bedtime). 4. Follow [facility] Management of the Admitted Behavioral Health Patient policy. 5. Shower with escort at RN discretion during times when the ED volume is low. 6. No personal belongings. 7. Visitors: None per [facility] Covid Visitor Policy. 8. Activities: coloring book, crayons, and books. May also have tablet to watch movies or listen to music at RN discretion and based on behavior during daytime and early evening hours. Tablet will be removed from the room for charging from 22:00 to 07:00. 9. Bathroom privileges with escort in the ED, available in room without limitation on M/S. 10. Phone: may use hospital cordless phone for 30 minutes twice daily at RN discretion. 11. Due to VOLUNTARY status, if patient wishes to leave [facility], staff will contact [facility] Crisis Screener ([phone]) and Tick Inspector ([phone]) as soon as possible. In the event of elopement, notify [place] [employer] Police ([phone]). Patient is currently voluntarily at [facility] and seeking inpatient admission when a bed becomes available. [facility] Frontline Test Baker will continue seeking placement. Please contact the Catalogue Maker Tick Inspector ([phone]) and [facility] Test Baker ([phone]) for any needed changes in the Safety Plan. Safety plan has been provided to interdepartmental care team.
--- NOTE | 2021-06-18 11:18 | PDOC.MHPN2 ---
Date of service: 06/18/21 Time of Service: 09:30 Mental Health Progress Note Progress Note Progress Note: Presenting issue: Client arrived at [facility] ED on 06/13/21 stating that she was having suicidal thoughts and has becoming increasingly depressed. Precipitating Factors: Client is no longer endorsing SI. Disposition * Behavior: Client was engaged and cooperative with assessment. She is showing good insight and reports she feels hopeful. *Eye Contact: Good eye contact. *Mood: Client reports she is feeling good. She appears to be in a better head space, with more control over her emotions. She denies SI. *Affect:Normal. *Appetite: Client reports having a good appetite. *Sleep(troubel falling/staying asleep): Client reports sleeping well, and getting a full night of sleep. Plan(please elaborate and include that physician is consulted with plan and/or placement): Client is appearing to be more stable. Referrals have been sent to [facility], and [facility]. [place] is currently only taking in house referrals. No beds are available today. Client has been accepted to the [facility] (06.18.21). Transportation will be arranged. Clinician's Name , Title, and Signature DARIEL Dejesus Make sure that you are photocopying and submitting this to [facility] records Dept. to be scanned into chart.
--- NOTE | 2021-06-18 13:07 | CMPROGNOTE_ITS ---
- If Service Date Differs Date of service: 06/18/21 Time of Service: 13:07 Care Management Progress Note DISCHARGE: Keyanna is accepted for admission at the [facility] Care Bed. CM discusses Care Bed rules and expectations with Keyanna and answers her questions. She will follow up with her PCP, [facility] and plan of care upon discharge from the crisis bed. [facility] Care Bed staff provide transportation via private vehicle. - Status Status: Voluntary - Reason for Wait Reason for Wait: Community Placement
--- NOTE | 2021-06-18 13:07 | PDOC.ERCMPRO ---
- If Service Date Differs Date of service: 06/18/21 Time of Service: 13:07 Care Management Progress Note DISCHARGE: Keyanna is accepted for admission at the [facility] Care Bed. CM discusses Care Bed rules and expectations with Keyanna and answers her questions. She will follow up with her PCP, [facility] and plan of care upon discharge from the crisis bed. [facility] Care Bed staff provide transportation via private vehicle. - Status Status: Voluntary - Reason for Wait Reason for Wait: Community Placement
--- NOTE | 2021-06-18 22:04 | NUR.NOTE ---
Nursing Note: COVID 19 TEST RESULT FAXED TO [facility] BY REQUEST. [place], ED
== END 2021-06-18 13:00 | disposition other institution (70) ==
PROVIDERS: Nurse Practitioner Family; Student in an Organized Health Care Education/Training Program; Emergency Provider Physician Assistant; PCP Nurse Practitioner Family
DX: F32.9 Major depressive disorder, single episode, unspecified (principal); T46.5X2A Poisoning by other antihypertensive drugs, intentional self-harm, initial encounter; F41.9 Anxiety disorder, unspecified; R45.851 Suicidal ideations; R45.1 Restlessness and agitation
CPT/HCPCS: 80048; 80053; 80307; 87635; 93005; 99285; Q3014; 80320; 80329; 81003; 85025; 93010; J3490

== ENCOUNTER 2021-07-15 06:58 | Emergency (ER) | payer MEDICAID, SELFPAY ==
[2021-07-15 07:02] VITALS: BP 129/78; PULSE 119; RESP 14; TEMP 36.6; O2SAT 98
[2021-07-15 07:37] LABS: Bilirubin Negative (Negative); Blood Large (Negative); Clarity Sl Cloudy (Clear); Glucose Negative (Negative); Ketones Negative (Negative); Leukocyte Esterase Small (Negative); Nitrite Negative (Negative); Specific Gravity >= 1.030 (1.005-1.025); Urobilinogen 0.2 EU/dL (Up TO 0.2); pH 5.5 (5-8)
[2021-07-15 07:41] LABS: *AMPHETAMINES SCREEN URINE Negative (Negative); *BARBITURATES SCREEN URINE Negative (Negative); *BENZODIAZEPINES SCREEN URINE Negative (Negative); Cannabinoids THC Negative (Negative); Cocaine Screen,Urine Negative (Negative); METHADONE URINE SCREEN Negative (Negative); OPIATES URINE SCREEN Negative (Negative)
[2021-07-15 07:45] LABS: Bacteria Moderate HPF (Negative); C & S Indicated? No/Sq. Contamination; Casts 3-5 Fine Granular LPF (Negative); Crystals Negative HPF (Negative); Epithelial Cells Many HPF (Negative); Mucus Negative (Negative)
[2021-07-15 08:38] LABS: Abs Immature Grans 0.02 10^3/uL (0.0-0.06); Absolute Basophil Count 0.04 10^3/uL (0.0-0.2); Absolute Eosinophil Count 0.21 10^3/uL (0.0-0.7); Absolute Lymphocyte Count 1.01 10^3/uL (1.2-3.4); Absolute Monocyte Count 0.53 10^3/uL (0.1-0.8); Absolute Neutrophil Count 4.63 10^3/uL (1.2-6.7); Basophils % 0.6; Eosinophils % 3.3; HCT 31.8 % (36.0-46.0); HGB 10.2 g/dL (11.2-15.7); Immature Grans % 0.3; Lymphocytes % 15.7; MCH 29.1 pg (27.0-33.0); MCHC 32.1 % (32.0-36.0); MCV 90.6 fL (80-95); MPV 8.5 fL (8.0-11.0); Monocytes % 8.2; Neutrophils % 71.9; Nucleated RBC 0 %; Platelet Count 327 10^3/uL (130-400); RBC 3.51 10^6/uL (3.93-5.22); RDW 15.7 % (11.7-14.6); RDW-SD 51.8 fL; WBC 6.44 10^3/uL (4.4-10.8)
--- NOTE | 2021-07-15 08:56 | W.ED.GENAD ---
Discharge Plan Disposition Patient Disposition: [facility] Condition: Stable Discharge Details Clinical Impression: Major depression Primary Care Provider: Vicente Pickard ED Provider: Crystal Dutta Home Meds and New Rx's Prescriptions: No Action omega-3 fatty acids [Fish Oil Concentrate] 1,000 mg capsule 1,000 mg PO BID 0RF melatonin 3 mg tablet 3 mg PO HS 0RF quetiapine 300 mg tablet 300 mg PO HS 0RF fluoxetine 40 mg capsule 40 mg PO DAILY 0RF gabapentin 300 mg capsule 600 mg PO TID 0RF ibuprofen [IBU] 800 mg tablet 800 mg PO Q8H PRNQty: 30 0RF topiramate 50 mg tablet 50 mg PO BID 0RF quetiapine 100 mg tablet 100 mg PO BID MDD 200MG PRN (Reason: Anxiety) 0RF Rx Instructions: NOT TO EXCEED 2 TABS IN 24 HOURS vitamin B complex Tablet 1 tab PO DAILY 0RF cholecalciferol (vitamin D3) 125 mcg (5,000 unit) Capsule 125 mcg PO DAILY 0RF Rx Instructions: 5000IU DAILY Lactobacillus acidoph-L.bulgar [Floranex] 1 million cell Tablet 1 tab PO BID 0RF dextroamphetamine-amphetamine 30 mg tablet 30 mg PO BID 0RF Label Comments: TAKE 1 TABLET BY MOUTH TWICE DAILY IN THE MORNING AND AT 1 PM clonidine HCl 0.1 mg tablet 0.1 mg PO DAILY 0RF Label Comments: TAKE 1 TABLET BY MOUTH EVERY DAY lorazepam [Ativan] 1 mg tablet 1 mg PO BID PRN (Reason: anxiety) Qty: 28 0RF Discharge Data Discharge Date/Time-TO BE ENTERED AT DEPARTURE: 07/19/21 15:10 Medical Decision Making <Davon Garcia MD - Last Filed: 08/04/21 16:35> 900 -?41-year-old female with history of depression and anxiety, seizure disorder, alcohol abuse, here with increasing depression over the past few days, suicidal and feels unsafe at home. Patient has been noncompliant with her medications for the past 2 days. Patient may have had a seizure yesterday. Patient appears mildly dehydrated. I will give IV fluid bolus. I will check screening labs. I will give antiepileptics as prescribed and will attempt to identify her up-to-date home medication list. Patient currently feels safe, is here voluntarily and is not at immediate risk of harming self or others. She is exhibiting no psychotic behavior. I do not think a one-to-one patient observer is indicated at this time. I did I do think patient would benefit from discharge to care bed for medication management and therapeutic environment. I have contacted [facility] crisis screener to request evaluation of the patient. --Labs reviewed and nondiagnostic. Patient does have a few red blood cells in her urine, contaminated with epithelial cells, patient is currently menstruating has no symptoms consistent with urinary tract infection. --Patient was seen by [facility], Dr. Aldana, who recommended continuation of home medication. There was request there was some question about her prescribed dose of Neurontin and he recommended 600 mg 3 times daily. Agreed that care bed would be ideal placement for the patient. 1500 --care bed will not agree to accept patient as result of prior behavior while at the care bed. supervisor metalizing is noted the patient is not eligible for transfer to the psychiatric holding unit on medical surgical floor because of prior behavior while hospitalized. Not discontinuing services crisis screener is now seeking inpatient psychiatric care. <Crystal Dutta, - Last Filed: 07/20/21 12:01> 900 -?41-year-old female with history of depression and anxiety, seizure disorder, alcohol abuse, here with increasing depression over the past few days, suicidal and feels unsafe at home. Patient has been noncompliant with her medications for the past 2 days. Patient may have had a seizure yesterday. Patient appears mildly dehydrated. I will give IV fluid bolus. I will check screening labs. I will give antiepileptics as prescribed and will attempt to identify her up-to-date home medication list. Patient currently feels safe, is here voluntarily and is not at immediate risk of harming self or others. She is exhibiting no psychotic behavior. I do not think a one-to-one patient observer is indicated at this time. I did I do think patient would benefit from discharge to care bed for medication management and therapeutic environment. I have contacted [facility] crisis screener to request evaluation of the patient. --Labs reviewed and nondiagnostic. Patient does have a few red blood cells in her urine, contaminated with epithelial cells, patient is currently menstruating has no symptoms consistent with urinary tract infection. --Patient was seen by [facility] [employer] [facility], Dr. Aldana, who recommended continuation of home medication. There was request there was some question about her prescribed dose of Neurontin and he recommended 600 mg 3 times daily. Agreed that care bed would be ideal placement for the patient. 1500 --care bed will not agree to accept patient as result of prior behavior while at the care bed. supervisor metalizing is noted the patient is not eligible for transfer to the psychiatric holding unit on medical surgical floor because of prior behavior while hospitalized. Not discontinuing services crisis screener is now seeking inpatient psychiatric care. 1530 --please see Dr. Garcia's note for initial presentation, exam and plan. Patient not accepted to care bed. We will continue to monitor while awaiting inpatient hospitalization. Patient has been cooperative and watching TV this evening. Lab called to report that patient UDS from earlier today was initially read as negative but there is a discrepancy and she was positive for TCAs. Do not see TCAs or any derivatives on her medication list. 2300 --Case endorsed to Dr. Sun to continue to monitor overnight. 1108: SJ: Care assumed from provider (Dr. Yunior Bauman please see their initial HPI, PE, and documentation. Discussed patient details and case and pending workup and disposition. Patient is hemodynamically stable, and alert and oriented. At this time we are pending mental health admission, patient is refusing to be admitted to [facility] which where patient was excepted. Therefore the plan is to have patient be changed to an involuntary status to assist with inpatient mental admission. 1406: EE paperwork filled out. Care is to be handed off to oncoming provider HEYDI Lyon pending precertification and inpatient psychiatric placement. She has been calm and cooperative through out her stay today. --[id number] 07/17/21 [facility]: care transitioned from [facility] [place] pending recertification from EEG that was placed at 1400 secondary to patient refusal for bed placement for suicidal ideation with intent to harm self and prior attempts in the past Patient has been calm and cooperative throughout her stay today She took her evening medication I was told that patient was scheduled for recertification, however I spoke with Breanna on case at this evening and secondary to holiday weekend this will occur in the morning Care will be transitioned to Dr. Jaswinder Aleman pending precertification and reassessment in the morning [facility] will call in the morning for reassessment 07/18 pt signed out to me here involuntary and was calm throughout the day but then per care plan had tv turned off and made her upset. She started yelling, knocked over her tray of food and slammed the door repeatedly. Was verbally deescalated, will continue to monitor in the ED. Dr. Dutta 07/19: 0900 -- Patient accepted to [facility]. Accepting physician Dr. Lemons. 1500 -- Long delay in obtaining transport. No extruder availability. Care management d/w medical records assistant and nursing supervisor mixing and cleared to use ambulance service for transport. [facility] Patient informed of plan and initially not agreeable. Patient stated she felt like she could go home. Discussed with patient that she has been under involuntary status and the recommended treatment plan per the Department of Mental Health is transfer to [facility]. She is now agreeable. She was given Ativan prior to transport per her request. She was ambulatory and in no acute distress prior to transfer. Medical Records Medical records reviewed: Yes I reviewed the patient's medical records. <Sloaneyeison [place]en[place] - Last Filed: 07/18/21 17:05> 900 -?41-year-old female with history of depression and anxiety, seizure disorder, alcohol abuse, here with increasing depression over the past few days, suicidal and feels unsafe at home. Patient has been noncompliant with her medications for the past 2 days. Patient may have had a seizure yesterday. Patient appears mildly dehydrated. I will give IV fluid bolus. I will check screening labs. I will give antiepileptics as prescribed and will attempt to identify her up-to-date home medication list. Patient currently feels safe, is here voluntarily and is not at immediate risk of harming self or others. She is exhibiting no psychotic behavior. I do not think a one-to-one patient observer is indicated at this time. I did I do think patient would benefit from discharge to care bed for medication management and therapeutic environment. I have contacted [facility] human services crisis screener to request evaluation of the patient. --Labs reviewed and nondiagnostic. Patient does have a few red blood cells in her urine, contaminated with epithelial cells, patient is currently menstruating has no symptoms consistent with urinary tract infection. --Patient was seen by [facility] [employer], Dr. Aldana, who recommended continuation of home medication. There was request there was some question about her prescribed dose of Neurontin and he recommended 600 mg 3 times daily. Agreed that care bed would be ideal placement for the patient. 1500 --care bed will not agree to accept patient as result of prior behavior while at the care bed. supervisor metalizing is noted the patient is not eligible for transfer to the psychiatric holding unit on medical surgical floor because of prior behavior while hospitalized. Not discontinuing services crisis screener is now seeking inpatient psychiatric care. 1530 --please see Dr. Gracia's note for initial presentation, exam and plan. Patient not accepted to care bed. We will continue to monitor while awaiting inpatient hospitalization. Patient has been cooperative and watching TV this evening. Lab called to report that patient UDS from earlier today was initially read as negative but there is a discrepancy and she was positive for TCAs. Do not see TCAs or any derivatives on her medication list. 2300 --Case endorsed to Dr. Sun to continue to monitor overnight. 1108: SJ: Care assumed from provider (Dr. Yunior Bauman please see their initial HPI, PE, and documentation. Discussed patient details and case and pending workup and disposition. Patient is hemodynamically stable, and alert and oriented. At this time we are pending mental health admission, patient is refusing to be admitted to [facility] which where patient was excepted. Therefore the plan is to have patient be changed to an involuntary status to assist with inpatient mental admission. 1406: EE paperwork filled out. Care is to be handed off to oncoming provider HEYDI Lyon pending precertification and inpatient psychiatric placement. She has been calm and cooperative through out her stay today. --223507/17/21 LB: care transitioned from [facility] [place] pending recertification from EEG that was placed at 1400 secondary to patient refusal for bed placement for suicidal ideation with intent to harm self and prior attempts in the past Patient has been calm and cooperative throughout her stay today She took her evening medication I was told that patient was scheduled for recertification, however I spoke with Breanna on case at this evening and secondary to holiday weekend this will occur in the morning Care will be transitioned to Dr. Jaswinder Aleman pending precertification and reassessment in the morning [facility] will call in the morning for reassessment 07/18 pt signed out to me here involuntary and was calm throughout the day but then per care plan had tv turned off and made her upset. She started yelling, knocked over her tray of food and slammed the door repeatedly. Was verbally deescalated, will continue to monitor in the ED. <HEYDI Lyon - Last Filed: 07/22/21 08:13> 900 -?41-year-old female with history of depression and anxiety, seizure disorder, alcohol abuse, here with increasing depression over the past few days, suicidal and feels unsafe at home. Patient has been noncompliant with her medications for the past 2 days. Patient may have had a seizure yesterday. Patient appears mildly dehydrated. I will give IV fluid bolus. I will check screening labs. I will give antiepileptics as prescribed and will attempt to identify her up-to-date home medication list. Patient currently feels safe, is here voluntarily and is not at immediate risk of harming self or others. She is exhibiting no psychotic behavior. I do not think a one-to-one patient observer is indicated at this time. I did I do think patient would benefit from discharge to care bed for medication management and therapeutic environment. I have contacted [facility] human services crisis screener to request evaluation of the patient. --Labs reviewed and nondiagnostic. Patient does have a few red blood cells in her urine, contaminated with epithelial cells, patient is currently menstruating has no symptoms consistent with urinary tract infection. --Patient was seen by [facility] [employer], Dr. Aldana, who recommended continuation of home medication. There was request there was some question about her prescribed dose of Neurontin and he recommended 600 mg 3 times daily. Agreed that care bed would be ideal placement for the patient. 1500 --care bed will not agree to accept patient as result of prior behavior while at the care bed. supervisor metalizing is noted the patient is not eligible for transfer to the psychiatric holding unit on medical surgical floor because of prior behavior while hospitalized. Not discontinuing services crisis screener is now seeking inpatient psychiatric care. 1530 --please see Dr. Garcia's note for initial presentation, exam and plan. Patient not accepted to care bed. We will continue to monitor while awaiting inpatient hospitalization. Patient has been cooperative and watching TV this evening. Lab called to report that patient UDS from earlier today was initially read as negative but there is a discrepancy and she was positive for TCAs. Do not see TCAs or any derivatives on her medication list. 2300 --Case endorsed to Dr. Sun to continue to monitor overnight. 1108: SJ: Care assumed from provider (Dr. Yunior Bauman please see their initial HPI, PE, and documentation. Discussed patient details and case and pending workup and disposition. Patient is hemodynamically stable, and alert and oriented. At this time we are pending mental health admission, patient is refusing to be admitted to [facility] which where patient was excepted. Therefore the plan is to have patient be changed to an involuntary status to assist with inpatient mental admission. 1406: EE paperwork filled out. --223507/17/21 LB: care transitioned from [facility] [place] pending recertification from EEG that was placed at 1400 secondary to patient refusal for bed placement for suicidal ideation with intent to harm self and prior attempts in the past Patient has been calm and cooperative throughout her stay today She took her evening medication I was told that patient was scheduled for recertification, however I spoke with Breanna on case at this evening and secondary to holiday weekend this will occur in the morning Care will be transitioned to Dr. Jaswinder Aleman pending precertification and reassessment in the morning [facility] will call in the morning for reassessment <Tom Aleman MD - Last Filed: 07/18/21 21:10> 900 -?41-year-old female with history of depression and anxiety, seizure disorder, alcohol abuse, here with increasing depression over the past few days, suicidal and feels unsafe at home. Patient has been noncompliant with her medications for the past 2 days. Patient may have had a seizure yesterday. Patient appears mildly dehydrated. I will give IV fluid bolus. I will check screening labs. I will give antiepileptics as prescribed and will attempt to identify her up-to-date home medication list. Patient currently feels safe, is here voluntarily and is not at immediate risk of harming self or others. She is exhibiting no psychotic behavior. I do not think a one-to-one patient observer is indicated at this time. I did I do think patient would benefit from discharge to care bed for medication management and therapeutic environment. I have contacted [facility] services crisis screener to request evaluation of the patient. --Labs reviewed and nondiagnostic. Patient does have a few red blood cells in her urine, contaminated with epithelial cells, patient is currently menstruating has no symptoms consistent with urinary tract infection. --Patient was seen by tele[facility] [employer], Dr. Aldana, who recommended continuation of home medication. There was request there was some question about her prescribed dose of Neurontin and he recommended 600 mg 3 times daily. Agreed that care bed would be ideal placement for the patient. 1500 --care bed will not agree to accept patient as result of prior behavior while at the care bed. supervisor metalizing is noted the patient is not eligible for transfer to the psychiatric holding unit on medical surgical floor because of prior behavior while hospitalized. Not discontinuing services crisis screener is now seeking inpatient psychiatric care. 1530 --please see Dr. Garcia's note for initial presentation, exam and plan. Patient not accepted to care bed. We will continue to monitor while awaiting inpatient hospitalization. Patient has been cooperative and watching TV this evening. Lab called to report that patient UDS from earlier today was initially read as negative but there is a discrepancy and she was positive for TCAs. Do not see TCAs or any derivatives on her medication list. 2300 --Case endorsed to Dr. Sun to continue to monitor overnight. 1108: SJ: Care assumed from provider (Dr. Yunior Bauman please see their initial HPI, PE, and documentation. Discussed patient details and case and pending workup and disposition. Patient is hemodynamically stable, and alert and oriented. At this time we are pending mental health admission, patient is refusing to be admitted to [facility] which where patient was excepted. Therefore the plan is to have patient be changed to an involuntary status to assist with inpatient mental admission. 1406: EE paperwork filled out. --223507/17/21 LB: care transitioned from [facility] pending recertification from EEG that was placed at 1400 secondary to patient refusal for bed placement for suicidal ideation with intent to harm self and prior attempts in the past Patient has been calm and cooperative throughout her stay today She took her evening medication I was told that patient was scheduled for recertification, however I spoke with Breanna on case at this evening and secondary to holiday weekend this will occur in the morning Care will be transitioned to Dr. Jaswinder Aleman pending precertification and reassessment in the morning [facility] 07/18 pt signed out to me here involuntary and was calm throughout the day but then per care plan had tv turned off and made her upset. She started yelling, knocked over her tray of food and slammed the door repeatedly. Was verbally deescalated, will continue to monitor in the ED. HPI <Davon Garcia MD - Last Filed: 08/04/21 16:35> General Mode of arrival: ambulatory. Date/Time Provider Initiated Documentation: 07/15/21 07:03. Limitations to Documentation: no limitations. Information obtained by: patient. HPI Narrative: 41-year-old female with multiple medical problems including history of borderline personality disorder, depression, alcohol abuse, opioid dependence now in remission, here with chief complaint of depression. Patient notes she is. Having increased depression over the past few days. Depression is severe and she is having suicidal thoughts. She specifically notes if I go home I will kill myself. She is requesting a supportive environment including care bed -she has stayed at the care bed in the past and felt that was therapeutic for her. Patient notes that she currently feels safe here in the emergency department. Patient has patient has not been taking her medications over the past 2 days, including antiepileptics. She notes she may have had a seizure yesterday. She has relapsed on alcohol and notes she drank heavily for a couple days. Last drink was yesterday late afternoon. Related Data Home Medications Medication Instructions Recorded Confirmed ibuprofen 800 mg tablet (IBU) 800 mg PO Q8H PRN #30 tab 12/28/19 07/15/21 melatonin 3 mg tablet 3 mg PO HS 08/26/20 07/15/21 omega-3 fatty acids 1,000 mg 1,000 mg PO BID 08/26/20 07/15/21 capsule (Fish Oil Concentrate) topiramate 50 mg tablet 50 mg PO BID 03/17/21 07/15/21 Lactobacillus acidoph-L.bulgaricus 1 tab PO BID 05/12/21 07/15/21 1 million cell tablet (Floranex) cholecalciferol (vitamin D3) 125 125 mcg PO DAILY 05/12/21 07/15/21 mcg (5,000 unit) capsule quetiapine 100 mg tablet 100 mg PO BID PRN MDD 200MG 05/12/21 07/15/21 vitamin B complex 1 tab PO DAILY 05/12/21 07/15/21 clonidine HCl 0.1 mg tablet 0.1 mg PO DAILY 06/13/21 07/15/21 dextroamphetamine-amphetamine 30 30 mg PO BID 06/13/21 07/15/21 mg tablet lorazepam 1 mg tablet (Ativan) 1 mg PO BID PRN #28 tab 06/17/21 07/15/21 fluoxetine 40 mg capsule 40 mg PO DAILY 07/15/21 07/16/21 gabapentin 300 mg capsule 600 mg PO TID 07/15/21 07/16/21 quetiapine 300 mg tablet 300 mg PO HS 07/15/21 07/16/21 Previous Rx's Medication Instructions Recorded ibuprofen 800 mg tablet (IBU) 800 mg PO Q8H PRN #30 tab 12/28/19 lorazepam 1 mg tablet (Ativan) 1 mg PO BID PRN #28 tab 06/17/21 Allergies Allergy/AdvReac Type Severity Reaction Status Date / Time acetaminophen [From Vicodin] Allergy Intermediate Verified 07/15/21 07:24 hydrocodone [From Vicodin] Allergy Intermediate Verified 07/15/21 07:24 hydroxyzine HCl Allergy Skin Rash Unverified 07/15/21 07:24 [From Vistaril] hydroxyzine pamoate Allergy Skin Rash Unverified 07/15/21 07:24 [From Vistaril] General Stated Complaint: PsychEval GINGER: 2 Review of Systems <Davon Garcia MD - Last Filed: 08/04/21 16:35> All systems reviewed & are unremarkable except as noted in HPI and below Constitutional Constitutional: Denies fever(s) Cardiovascular Cardiovascular: Denies dyspnea Respiratory Respiratory: Denies cough and Denies dyspnea PFSH <Davon Garcia MD - Last Filed: 08/04/21 16:35> All Active Problems (Updated 07/20/21 @ 00:04 by VIANEY SHEEHAN) Major depression (Chronic) Borderline personality disorder (Acute) Major depression (Chronic) Hypercapnic respiratory failure (Acute) Atelectasis (Acute) Aspiration pneumonitis (Acute) COVID-19 virus infection (Acute) Drug overdose, multiple drugs (Acute) ASCUS of cervix with negative high risk HPV (Acute) MEDHAT 03/08/19 Repeat PAP PP Idiopathic focal epilepsy (Acute) Hypertension (Chronic) Encounter for visit (Acute) No-show for appointment (Acute) Loose body in ankle or foot joint (Acute) Ankle syndesmosis disruption (Acute) Patient noncompliance (Acute) Closed fracture dislocation of ankle joint (Acute 01/31/20) Discharge planning issues (Acute) Bradycardia (Acute) Aspiration into airway (Acute) Urinary retention (Acute) Transaminitis (Acute) Drug overdose (Acute) Acute alteration in mental status (Acute) Metabolic acidosis (Acute) (normal spontaneous vaginal delivery) (Acute) (Acute) (Acute) Chronic hypertension affecting (Acute) Poor patient attendance of care (Acute) Encounter for supervision of other normal , third trimester (Acute) Limited care in third trimester (Acute) (Acute) depression (Acute) Hypertension affecting (Chronic) Medications in the past. No current medications Eating disorder (Chronic) BMI 31.0-31.9,adult (Chronic) Opioid dependence in remission (Chronic) Alcohol dependence in remission (Chronic) Positive test (Acute) ADHD (Acute) Depression (Chronic) Anxiety (Chronic) Suicide attempt (Acute 08/27/12) Overdose pills/alcohol. Medical History ADD (attention deficit disorder) Borderline personality disorder Closed bimalleolar fracture of right ankle Generalized anxiety disorder History of blood transfusion Hx of suicide attempt 2012, OD on pills/ETOH Mood disorder Sleep disorder Surgical History S/P ORIF (open reduction internal fixation) fracture R ankle S/P tonsillectomy and adenoidectomy Family History Mother Hypertension Father Hypertension Other Depression Social History Smoking/Tobacco Use Status: Current-Occasional Tobacco Type: cigarettes Smoking risk assessment performed?: Yes Alcohol Intake: current Alcohol Intake frequency: 3 or more drinks per day Alcohol type: beer Drug use: Current Sobriety Substance use type: does not use and former substance user Housing: other Details: hotel Number of Children: 2 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 Date GA/Weeks # Outcome Route Wgt Sex Labor Lgth Anesthesia Location Prov Compl 02/21/19 37 No Successful vaginal 2293.476 g Male [address] Diaz 12/26/19 37 No Successful vaginal 2579.807 g Female regional MD Vinayak Delivery Date: 12/26/19 Last Updated by: Mayra Pablo LPN Induced with pitocin for Chronic HTN with poor care; tight nuchal cordx1; midline episiotomy Exam <Davon Garcia MD - Last Filed: 08/04/21 16:35> Const General: cooperative and no acute distress HENMT Head: normocephalic and atraumatic Mouth: moist mucous membranes Eyes Conjunctivae: normal conjunctivae Sclera: normal sclerae EOM: EOM intact bilaterally Neck Neck: trachea midline and supple Resp Auscultation: clear to auscultation bilaterally, no rales, no rhonchi and no wheezes Cardio Jugular venous pressure: no JVD Rate: regular rate and not tachycardic Rhythm: regular rhythm GI Palpation: soft, not firm, no guarding, no masses, not rigid and nontender Skin General skin exam: no rashes or lesions noted Neuro General: patient alert, patient awake, patient oriented x3 and tone normal Extrem General: no edema Psych Appearance: grossly normal Mental Status: mental status grossly normal and other (depressed) Speech and Movement: speech and movement normal Mood: other (depressed) Attitude: cooperative Insight: insight good Judgment: judgment good Course <Davon Garcia MD - Last Filed: 08/04/21 16:35> Vital Signs Vital signs: Vital Signs Temperature 36.6 C 07/15/21 07:02 Pulse 119 H 07/15/21 07:02 Respiratory Rate 14 07/15/21 07:02 Blood Pressure 129/78 07/15/21 07:02 Pulse Oximetry 98 07/15/21 07:02 Temperature 36.6 C 07/15/21 07:02 Temperature Source Temporal Artery Scan 07/15/21 07:02 Pulse 119 H 07/15/21 07:02 Respiratory Rate 14 07/15/21 07:02 Respiratory Effort Non-Labored 07/15/21 07:07 Blood Pressure 129/78 07/15/21 07:02 Blood Pressure Position Sitting 07/15/21 07:02 Pulse Oximetry 98 07/15/21 07:02 Oxygen Delivery Method Room Air 07/15/21 07:02 Oxygen Flow Rate 0 07/15/21 07:02 Pain Level 0 07/15/21 07:02 Lab/Test Results Lab/Test Results: Laboratory Tests Range/Units 07/15/21 07/15/21 07/15/21 07:15 07:15 08:20 WBC (4.4-10.8) 10^3/uL 6.44 RBC (3.93-5.22) 10^6/uL 3.51 L Hgb (11.2-15.7) g/dL 10.2 L Hct (36.0-46.0) % 31.8 L MCV (80-95) fL 90.6 MCH (27.0-33.0) pg 29.1 MCHC (32.0-36.0) % 32.1 RDW (11.7-14.6) % 15.7 H Plt Count (130-400) 10^3/uL 327 MPV (8.0-11.0) fL 8.5 Immature Gran % 0.3 Neutrophils % 71.9 Lymphocytes % 15.7 Monocytes % 8.2 Eosinophils % 3.3 Basophils % 0.6 Nucleated RBC % % 0 Absolute Neutrophils (1.2-6.7) 10^3/uL 4.63 Absolute Lymphocytes (1.2-3.4) 10^3/uL 1.01 L Absolute Monocytes (0.1-0.8) 10^3/uL 0.53 Absolute Eosinophils (0.0-0.7) 10^3/uL 0.21 Absolute Basophils (0.0-0.2) 10^3/uL 0.04 Urine Color (Yellow) Yellow Urine Clarity (Clear) Sl Cloudy Urine pH (5-8) 5.5 Ur Specific [place] (1.005-1.025) >= 1.030 H Urine Protein (Negative) mg/dL 30 H Urine Ketones (Negative) mg/dL Negative Urine Blood (Negative) Large H Urine Nitrite (Negative) Negative Urine Bilirubin (Negative) Negative Urine Urobilinogen (Up TO 0.2) EU/dL 0.2 Ur Leukocyte Esterase (Negative) Small H Urine RBC (0-2) HPF 10-20 H Urine WBC (0-5) HPF 10-20 H Ur Epithelial Cells (Negative) HPF Many Urine Crystals (Negative) HPF Negative Urine Bacteria (Negative) HPF Moderate Urine Casts (Negative) LPF 3-5 Fine Granular Urine Mucus (Negative) Negative Ur Culture Indicated? No/Sq. Contamination Urine Glucose (Negative) mg/dL Negative Urine Opiates Screen (Negative) Negative Urine Methadone Screen (Negative) Negative Ur Barbiturates Screen (Negative) Negative Ur Tricyclics Screen (Negative) Negative Ur Amphetamines Screen (Negative) Negative U Benzodiazepines Scrn (Negative) Negative Urine Cocaine Screen (Negative) Negative Ur THC Screen (Negative) Negative Sign Out <Davon Garcia MD - Last Filed: 08/04/21 16:35> Sign Out Data: Sign Out Comment: followup recommendations regarding placement Last updated by Davon Garcia MD at 07/15/21 15:04 Sign Out Comment: patient accepted at [facility], likely to be picked up in AM Last updated by Yunior Bran MD at 07/18/21 20:17 Sign Out Comment: reported to me by day crew he should go to [facility] Tuesday, no issues overnight Last updated by Tom Aleman MD at 07/18/21 23:45 Sign Out Comment: Voluntary. Cooperative. Has been suicidal and depressed. Not currently suicidal and no CPSO at this time. Denied for care bed. Awaiting placement. Last updated by Crystal Dutta DO at 07/15/21 23:13 Sign Out Comment: No issues overnight, patient remains voluntary. Last updated by Ghulam Sun MD at 07/16/21 07:56 Sign Out Comment: [facility] CPSO ordered today after huddle. Last updated by Lam Ventura MD at 07/16/21 17:54 Sign Out Comment: follow up with [facility] for possible admission today Last updated by Ghulam Sun MD at 07/17/21 07:29 Sign Out Comment: patient threatening oversdose, refusing voluntary transfer to [facility] and [facility]; will need EE Last updated by Yunior Bran MD at 07/17/21 11:05 Sign Out Comment: Patient EE'd. Needs re-certification and placement to inpatient psych facility. Patient had been refusing to go to [facility] or [facility] which prompted the EE. Last updated by Sloane Montenegro at 07/17/21 15:49 Sign Out Comment: EE in place, SI, refusing placement, recert in AM Last updated by Neha Cárdenas PA at 07/18/21 00:28 Sign Out Comment: pt here involuntary after she refused to go to a psych facility or do a safety plan, had a code person overnight due to being upset about not being able to use tv and knocked her tray of food on the ground, deescalated verbally. Last updated by Tom Aleman MD at 07/18/21 01:01 PAWSS <Davon Garcia MD - Last Filed: 08/04/21 16:35> Have you Been Recently Intoxicated or Drunk Within the Last 30 days?: No Have you Ever Experienced Previous Episodes of Alcohol Withdrawal?: No Have you ever Experienced Withdrawal Seizures?: No Have you ever Experienced Delirium Tremens(DT)s?: No Have you ever undergone Alcohol Rehabilitation Treatment (i.e, inpt ot outpatient treatment programs)?: No Have you ever Experienced Blackouts?: No Have you ever Combined Alcohol with other Downers within the last 90 days?: No Have you ever Combined Alcohol with any other Substance of Abuse during the last 90 days?: No Positive Blood Alcohol level on Presentation? [PCS.BAL]: Yes Evidence of Increased Autonomic Activity (i.e. HR>120, tremor, sweating, agitation, nausea)?: Yes Result: 2 <Crystal Dutta DO - Last Filed: 07/20/21 12:01> Result: 2 <Sloane Montenegro - Last Filed: 07/18/21 17:05> Result: 2 <HEYDI Lyon - Last Filed: 07/22/21 08:13> Result: 2 <Tom Aleman MD - Last Filed: 07/18/21 21:10> Result: 2 <Ghulam Sun MD - Last Filed: 07/20/21 10:55> Result: 2
[2021-07-15] MEDS: Gabapentin 300 MG CAP 600 MG PO ×3 (08:57→19:45)
[2021-07-15] MEDS: Topiramate 50 MG TAB PO ×2 (08:57→19:46)
[2021-07-15 09:00] LABS: ALT 28 U/L (14-59); AST 30 U/L (15-37); Albumin 3.4 g/dL (3.4-5.0); Alkaline Phosphatase 82 U/L (46-116); Anion Gap 6.5 mmol/L (3-11); BUN 14 mg/dL (7-18); Bilirubin, Total 0.5 mg/dL (0.2-1.0); CO2 28.5 mmol/L (21.0-32.0); CREATININE 0.7 mg/dL (0.55-1.02); Calcium 7.8 mg/dL (8.5-10.1); Chloride 101 mmol/L (98-107); Glucose 92 mg/dL (74-106); Potassium 3.9 mmol/L (3.5-5.1); Sodium 136 mmol/L (136-145); TSH (W/Ref FT4) 3.22 uIU/mL (0.36-3.74); Total Protein 6.8 g/dL (6.4-8.2)
[2021-07-15 09:01] LABS: ETHANOL BLOOD < 10.0 mg/dL (<10)
[2021-07-15 09:03] LABS: Salicylate < 2.8 mg/dL (<2.8)
[2021-07-15 09:07] LABS: Acetaminophen < 2 ug/mL (10-30)
[2021-07-15] MEDS: Normal Saline 1,000 ML 1000 ML IV (09:14)
[2021-07-15 09:36] LABS: COVID-19 PCR Negative (Negative)
[2021-07-15 09:39] LABS: Source NASAL
[2021-07-15] MEDS: LORazepam 1 MG TAB PO ×2 (11:06→19:45)
[2021-07-15] MEDS: Amphet Asp/Amphet/D-Amphet 10 MG TAB 30 MG PO (13:59)
--- NOTE | 2021-07-15 15:08 | CMSP_ITS ---
- If Service Date Differs Date of service: 07/15/21 Time of Service: 15:08 Care Management Safety Plan Status: Voluntary - Reason for Wait Reason for Wait: Inpatient Admission CHIEF COMPLAINT: Keyanna is a 41 year old female with an extensive psychiatric history. She has attempted suicide by overdose in the recent past and has been psychiatrically hospitalized on several occasions. She currently presents in the ED for depression and suicidal ideation and wishes to seek placement at the Care Bed. She is assessed by Tyrel of [facility] and a referral is made to the Care Bed. CM will continue to follow. VOLUNTARY FOR INPATIENT PSYCHIATRIC STABILIZATION. Patient is appropriate in all interactions since arriving at [facility]; Pt has demonstrated appropriate coping and communication skills, has articulated his or her needs and concerns and is fully engaged during staff interactions. A huddle is done at approximately 14:00 with Faith, Nursing Decorating Kiln Operator, CORNELIUS Forman, and EMRE Siegel, in attendance. Safety plan has been established with patient, and care team, to adhere to patient goals, identify restrictions based on behavioral status, address nutrition, and determine allowed personal belongings, tools for hygiene and p ersonal care, determine level of activity including ambulation, level of supervision, visitors, and determine privileges based on behaviors and level of engagement by pt. SAFETY PLAN: 1. Will remain on suicide precautions. In Paper Clothes. 2. Patient does not currently have a CPSO as her behavior is calm and cooperative and patient does better with hourly rounding than with one-on-one supervision. If patient becomes at immediate risk of harm to self or others, the need for a CPSO will be revisited at that time. 3. May have paper cups, plates, finger foods as well as a cardboard spoon with which to eat meals. 4. Follow [facility] Management of the Admitted Behavioral Health Patient policy. 5. Shower permitted with escort at RN discretion. 6. No personal belongings. 7. Visitors: none at this time. 8. Activities: soft cart items, music tablet, television and remote, and other activities at RN discretion. 9. Bathroom privileges with escort in the ED, available in room without limita tion on M/S. 10. Phone: may use hospital cordless phone at RN discretion. 11. Due to VOLUNTARY status, if patient wishes to leave [facility], staff will contact [facility] Crisis Screener ([phone]) and On-Call Restaurant And Bar Manager ([phone]) as soon as possible. In the event of elopement, notify [facility] Police ([phone]). To help clarify staff and patient expectations, the following is added to the above plan: A) Food/Drinks: 8 AM - Nurse may order patient breakfast and provide drinks from the cafeteria. 10 AM - Nurse may provide an in-house snack and drink (whatever is on hand in the ER kitchen, i.e. juan david crackers and peanut butter, yogurt, pudding, popcorn - only available items. 1200 PM - Nurse may order patient lunch from the cafeteria. 3 PM - Nurse may provide a snack only from ER kitchen. 5 PM - Nurse may order patient supper from the cafeteria. 8 PM - Patient may have a snack from the ER kitchen. B) The nurse may provide in-house books for the patient. The newspaper will only be available if someone brings one in and allows patient to borrow it. C) Requests are to be made hourly so as not to take nurses away from providing attention and care to the critical needs of other patients in the department. Requests will be granted at nurse/MD discretion. D) The physician will decide what time scheduled meds are given. E) Any behavioral outbursts will result in loss of privileges (i.e. tv, books). Patient is currently voluntarily at [facility] and seeking inpatient admission when a bed becomes available. [facility] [employer] Account Executive will continue seeking placement. Please contact the Calender Machine Operator Restaurant And Bar Manager ([phone]) and [facility] International Account Executive ([phone]) for any needed changes in the Safety Plan. Safety plan has been provided to interdepartmental care team.
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
--- NOTE | 2021-07-15 19:15 | RT.EKG_ITS ---
APPROVED REPORT Exam: Resting ECG Reason for Exam: hypertension Patient Location: E HR:89 bpm ECG Measurements Heart Rate 89 AXIS NC 148 P 63 QRSd 87 QRS 23 QT 391 T 33 QTc 476 Conclusion Sinus rhythm...normal P axis, V-rate 60- 99. Sinus. Normal axis. No STEMI. I have reviewed and interpreted ECG and agree with software generated interpretation.
[2021-07-15] MEDS: QUEtiapine 100 MG TAB PO (19:45)
[2021-07-15 21:39] LABS: Tricyclic Antidepressants Positive (Negative)
[2021-07-15] MEDS: QUEtiapine 100 MG TAB 300 MG PO (22:00)
[2021-07-15 22:07] VITALS: BP 136/86; PULSE 86; RESP 14; TEMP 36.5; O2SAT 98
[2021-07-16 07:16] VITALS: BP 148/98; PULSE 85; RESP 20; TEMP 36.8; O2SAT 99
--- NOTE | 2021-07-16 07:22 | NUR.NOTE ---
Patient is calm and cooperative at this time. Patient is laying on bed watching TV. She did allow this person to obtain a set of updated vitals. Vitals were documented. NAD noted at this time. END EJC,SUPERVISOR BAKING
[2021-07-16] MEDS: Amphet Asp/Amphet/D-Amphet 10 MG TAB 30 MG PO ×2 (08:19→13:59)
[2021-07-16] MEDS: Topiramate 50 MG TAB PO ×2 (08:19→20:45)
[2021-07-16] MEDS: Gabapentin 300 MG CAP 600 MG PO ×3 (08:19→20:45)
[2021-07-16] MEDS: LORazepam 1 MG TAB PO ×2 (08:20→20:45)
[2021-07-16] MEDS: cloNIDine 0.1 MG TAB PO (08:20)
[2021-07-16] MEDS: FLUoxetine 20 MG CAP 40 MG PO (08:20)
--- NOTE | 2021-07-16 11:17 | PDOC.MHCN_ITS ---
Date of service: 07/16/21 Time of Service: 11:17 Mental Health Crisis Note Presenting Issue How did you arrive at the ED and why did you come: Client presented to [facility] ED on 07/15/21 with chief complaint of SI and depression. Client is seen today for check-in assessment. Precipitating Factors Client endorses SI, however when asked about intent on a scale of 0-10 with 0 being that she would be safe if she was to leave the hospital and 10 being that she would find a way to harm herself she rated herself depressed she refused to give a number. Client denies specific plan. Disposition BEHAVIOR: Client is sitting up in hospital bed dressed in proper paper hospital attire when this newswriter arrives via zoom. Client states that she is feeling much better than she did yesterday as she was dehydrated yesterday and not feeling very well. Client states that she is still feeling really depressed. She states: I just need help getting things done, I need somebody to give me direction. EYE CONTACT: Client makes good eye contact with this newswriter. MOOD: Clients mood appears to be depressed. AFFECT: Clients affect is normal. APPETITE: Client states that she has been eating well since being at the hospital, prior to being there she was either not eating for a few days at a time or eating in abundance. SLEEP(trouble falling/staying asleep: Client states that she has slept a lot since being at the hosptial. Plan Client has been denied at the Care bed, due to her not following through with outpatient treatment and not utilizing the care bed how it is meant to be used. Client will remain at [facility] pending placement. [facility], [facility], and [facility] have been sent referrals. will call back this afternoon with possible bed availability. [facility] dialysis patient care technician Christal mathis. Signature Clinician's Name/Title: Breanna Orta [facility] Emergency Clinician
--- NOTE | 2021-07-16 11:52 | PDOC.MHCN ---
Date of service: 07/15/21 Time of Service: 09:20 Mental Health Crisis Note Presenting Issue How did you arrive at the ED and why did you come: Client reports drinking herself to and having persistent SI with plan to jump off [facility] bridge. Client arrived at ED by own means. Precipitating Factors Client reports a 10 out of 10 for intent to act on SI if she were to leave hospital with plan to jump off bridge. Client denies HI or delusions. Client reports she has been drinking 30 pack of beers per day over the weekend. Disposition BEHAVIOR: Clients behavior observed is falling asleep in between questions. EYE CONTACT: Clients eye contact is inconsistent closing her eyes for between questions. MOOD: Client reports really bad mood AFFECT: Tired. APPETITE: Reports poor appetite. SLEEP(trouble falling/staying asleep: Client reports shes been struggling with sleep everyday and needs more sleep. Plan Client reports she does not feel safe going home and would benefit from a crisis bed. After consulting with Doctor Garcia, physician is agreement with clients need for placement. Signature Clinician's Name/Title: Tyrel Mart BA
--- NOTE | 2021-07-16 14:20 | PDOC.CMSAFED ---
- If Service Date Differs Date of service: 07/16/21 Time of Service: 14:20 Care Management Safety Plan Status: Voluntary - Reason for Wait Reason for Wait: Inpatient Admission VOLUNTARY FOR INPATIENT PSYCHIATRIC STABILIZATION. Patient is appropriate in all interactions since arriving at [facility]; Pt has demonstrated appropriate coping and communication skills, has articulated his or her needs and concerns and is fully engaged during staff interactions. A huddle is done at approximately 14:[address] Ventura, ED provider, Faith, Nursing Licensing Engineer, CORNELIUS Mccormick, and EMRE Siegel, in attendance. Safety plan has been established with patient, and care team, to adhere to patient goals, identify restrictions based on behavioral status, address nutrition, and determine allowed personal belongings, tools for hygiene and personal care, determine level of activity including ambulation, level of supervision, visitors, and determine privileges based on behaviors and level of engagement by pt. SAFETY PLAN: 1. Will remain on suicide precautions. In Paper Clothes. 2. Will remain in room under direct supervision of one-on-one staff at all times provided by CPSO, CLAUDIA, STAFF PHYSICAL THERAPIST, store loss prevention manager. 3. May have paper cups, plates, finger foods as well as a cardboard spoon with which to eat meals. 4. Follow [facility] Management of the Admitted Behavioral Health Patient policy. 5. Shower permitted with escort at RN discretion. 6. No personal belongings. 7. Visitors: none at this time. 8. Activities: soft cart items, music tablet, television and remote, and other activities at RN discretion. 9. Bathroom privileges with escort in the ED, available in room without limitation on M/S. 10. Phone: may use hospital cordless phone at RN discretion. 11. Due to VOLUNTARY status, if patient wishes to leave [facility], staff will contact [facility] Crisis Screener ([phone]) and On-Call Slitter Processed Film ([phone]) as soon as possible. In the event of elopement, notify [facility] Police ([phone]). To help clarify staff and patient expectations, the following is added to the above plan: A) Food/Drinks: 8 AM - Nurse may order patient breakfast and provide drinks from the cafeteria. 10 AM - Nurse may provide an in-house snack and drink (whatever is on hand in the ER kitchen, i.e. juan david crackers and peanut butter, yogurt, pudding, popcorn - only available items. 1200 PM - Nurse may order patient lunch from the cafeteria. 3 PM - Nurse may provide a snack only from ER kitchen. 5 PM - Nurse may order patient supper from the cafeteria. 8 PM - Patient may have a snack from the ER kitchen. B) The nurse may provide in-house books for the patient. The newspaper will only be available if someone brings one in and allows patient to borrow it. C) Requests are to be made hourly so as not to take nurses away from providing attention and care to the critical needs of other patients in the department. Requests will be granted at nurse/MD discretion. D) The physician will decide what time scheduled meds are given. E) Any behavioral outbursts will result in loss of privileges (i.e. tv, books). Patient is currently voluntarily at [facility] and seeking inpatient admission when a bed becomes available. [facility] Frontline Smoking Tobacco Cutter Operator will continue seeking placement. Please contact the Sales Attendant Building Materials Slitter Processed Film ([phone]) and [facility] Smoking Tobacco Cutter Operator ([phone]) for any needed changes in the Safety Plan. Safety plan has been provided to interdepartmental care team.
--- NOTE | 2021-07-16 16:54 | NUR.NOTE ---
[facility] would [facility] in the morning between 8-830 am to see if Keyanna has decided whether or not she would like to go there for inpatient treatment.
--- NOTE | 2021-07-16 16:58 | CMPROGNOTE_ITS ---
- If Service Date Differs Date of service: 07/16/21 Time of Service: 16:58 Care Management Progress Note S/O: Keyanna is sitting on the side of the bed when CM comes to meet with her. She is pleasant and easily engages in conversation. She talks at great length about her struggles with relationships, her mental health, substance use, etc. She appropriately cries when discussing painful subjects. Eye contact is minimal and speech is of normal rate and volume with a tendency to project blame on others for her misfortunes. Keyanna continues to report suicidal ideation without intent or plan and says she is at [facility] because she needs help and no one else will help her. CM asks Keyanna if she was able to attend all of the appointments at [facility] that were scheduled during her last hospitalization at [facility]. Keyanna advises that transportation issues caused her to miss all of the appointments. When CM asks why she didn't take the [facility] shuttle, she replies that her cell phone broke so she was unable to look up the [facility] schedule. CM will continue to follow. A: Keyanna is a 41 year old female who presents in the ED on 07/15/2021 for depression, seizures, and suicidal ideation. P: Referrals were sent to the [facility], [facility], [facility], [facility], and [facility] for review. The [facility] has declined patient. [facility] called and spoke with Keyanna but she is unsure that she wants to go to the [facility] because she did not find her last hospitalization at [facility] helpful. Plan is for her to think about it overnight and for the [facility] to call her in the morning to see what she has decided to do. Per [facility], if she does not accept the bed at the [facility] and no other facility offers her a bed by morning, [facility] will safety plan with her and she will return home. CM will continue to follow. - Status Status: Voluntary - Reason for Wait Reason for Wait: Inpatient Admission
[2021-07-16 20:45] VITALS: BP 151/97; PULSE 120; RESP 16; TEMP 37.3; O2SAT 97
[2021-07-16] MEDS: QUEtiapine 100 MG TAB 300 MG PO (22:40)
--- NOTE | 2021-07-17 08:06 | NUR.NOTE ---
patient given her breakfast at 0800:
--- NOTE | 2021-07-17 08:33 | SUR.PHASEI ---
0730 Patient Observation: Listed as No under 1-on-1 observation but was under 1-on-1 supervision.
[2021-07-17] MEDS: Amphet Asp/Amphet/D-Amphet 10 MG TAB 30 MG PO ×2 (08:38→14:13)
[2021-07-17] MEDS: Gabapentin 300 MG CAP 600 MG PO ×3 (08:38→20:25)
[2021-07-17] MEDS: cloNIDine 0.1 MG TAB PO (08:38)
[2021-07-17] MEDS: FLUoxetine 20 MG CAP 40 MG PO (08:38)
[2021-07-17] MEDS: Topiramate 50 MG TAB PO ×2 (08:39→20:25)
[2021-07-17 09:46] VITALS: BP 148/91; PULSE 108; TEMP 36.8; O2SAT 99
--- NOTE | 2021-07-17 15:07 | PDOC.CMSAFED ---
- If Service Date Differs Date of service: 07/17/21 Time of Service: 15:07 Care Management Safety Plan Status: Involuntary - Reason for Wait Reason for Wait: Inpatient Admission INVOLUNTARY FOR INPATIENT PSYCHIATRIC STABILIZATION. Safety plan has been established to meet the needs of the patient, and consideration of the care team, to adhere to patient goals, identify restrictions based on behavioral status, address nutrition, and determine allowed personal belongings, tools for hygiene and personal care. Determine level of activity including ambulation, level of supervision, visitors, and determine privileges based on behaviors and level of engagement by pt. SAFETY PLAN: 1. Will remain on SI/HI precautions. In Paper Clothes 2. Will remain in room under direct supervision of one-on-one staff at all times provided by CPSO, TERRAZZO LAYER HELPER, ANALYTICS ARCHITECT bituminous distributor operator. 3. May have paper cups, plates, finger foods as well as a cardboard spoon with which to eat meals. 4. Follow [facility] Management of the Admitted Behavioral Health Patient policy. 5. Shower permitted with escort at RN discretion. 6. No personal belongings with the exception of eyeglasses. 7. Visitors: None. 8. Activities: Soft cart items, music tablet, television and remote, and other activities at RN discretion. 9. Bathroom privileges with escort while in the ED, available in room without limitation on M/S. 10. Phone: May use [employer] phone at RN discretion. 11. Due to INVOLUNTARY status, patient is being held at [facility] by the Department of Mental Health ([facility]) until 2nd certification by [facility] Psychiatrist can be performed (within 24 hours). Staff will provide de-escalation support (CPI) as needed. If patient wishes to leave [facility], staff will contact [facility] Crisis Screener ([phone]) and On-Call Coach Driver ([phone]) as soon as possible. In the event of elopement, notify [place] [employer] ([phone]). To help clarify staff and patient expectations, the following is added to the above plan: A) Food/Drinks: 8 AM - Nurse may order patient breakfast and provide drinks from the cafeteria. 10 AM - Nurse may provide an in-house snack and drink (whatever is on hand in the ER kitchen, i.e. juan david crackers and peanut butter, yogurt, pudding, popcorn - only available items. 1200 PM - Nurse may order patient lunch from the cafeteria. 3 PM - Nurse may provide a snack only from ER kitchen. 5 PM - Nurse may order patient supper from the cafeteria. 8 PM - Patient may have a snack from the ER kitchen. B) The nurse may provide in-house books for the patient. The newspaper will only be available if someone brings one in and allows patient to borrow it. C) Requests are to be made hourly so as not to take nurses away from providing attention and care to the critical needs of other patients in the department. Requests will be granted at nurse/MD discretion. D) The physician will decide what time scheduled meds are given. E) Any behavioral outbursts will result in loss of privileges (i.e. tv, books). Patient is currently involuntarily at [facility]. [facility] Frontline It Security Consultant will continue seeking placement. Please contact the Ornamental Iron Worker Coach Driver ([phone]) for any needed changes to Safety Plan. Safety plan has been provided to interdepartmental care team. Patient will be transported by investigation specialist at time of discharge.
--- NOTE | 2021-07-17 16:20 | PDOC.MHCN ---
Date of service: 07/17/21 Time of Service: 16:20 Mental Health Crisis Note Presenting Issue How did you arrive at the ED and why did you come: Pt arrived several days ago seeking voluntary placement for SI. Precipitating Factors Pt is endorsing persistent SI today and denied HI. She reports that she will jump off a bridge or overdose. Disposition BEHAVIOR: Pt is belligerent and not accepting now two different hospital bed offers. She takes not responsibility for her actions and was talking over this clinician and not allowing a conversation to happen. EYE CONTACT: Contact was made vai phone. MOOD: Pt is belligerent and endorsing depression that needs to be addressed but only at a hospital that she chooses. AFFECT: not assessed APPETITE: Pt is reported to be eating well. SLEEP(trouble falling/staying asleep: Pt is reported to be sleeping well. Plan Pt was placed on an EE on 07.17.2021 after refusing treatment at two different hospitals. Clearly she is not making sound decissions for her mental and physical wellbeing based on those decisions. She will be assessed twice daily by [facility]. Signature Clinician's Name/Title: Christine Lawson MS, [facility] Emergency Services Clinician, [facility]
--- NOTE | 2021-07-17 17:04 | PDOC.ERCMPRO ---
- If Service Date Differs Date of service: 07/17/21 Time of Service: 17:04 Care Management Progress Note S/O: Keyanna continues to be calm, pleasant and cooperative with [facility] staff. She received bed offers from [facility] and [facility] today and declined both. [facility] attempted to safety plan with her so she could return home but Keyanna reportedly refused to create a safety plan. The decision was then made to place her on involuntary status in the hopes that placement can be secured for her. CM met with Keyanna and explained the EE process and also discussed with her the reason why she was placed on involuntary status. Keyanna acknowledged her understanding. A: Keyanna is a 41 year old female who presents in the ED on 07/15/2021 for depression, seizures, and suicidal ideation. P: EE paperwork is faxed to the [facility], [place], [facility], and [facility] for review. Per [facility], a Second Certification by Psychiatrist will be done Tuesday afternoon. Keyanna will remain at [facility] on involuntary status for the time being and will be reassessed daily by [facility]. CM will continue to follow. - Status Status: Involuntary - Reason for Wait Reason for Wait: Inpatient Admission
[2021-07-17] MEDS: QUEtiapine 100 MG TAB 300 MG PO (22:40)
[2021-07-18] MEDS: Amphet Asp/Amphet/D-Amphet 10 MG TAB 30 MG PO ×2 (07:57→12:23)
[2021-07-18] MEDS: Topiramate 50 MG TAB PO ×2 (08:28→20:08)
[2021-07-18] MEDS: FLUoxetine 20 MG CAP 40 MG PO (08:29)
[2021-07-18] MEDS: cloNIDine 0.1 MG TAB PO (08:29)
[2021-07-18] MEDS: Gabapentin 300 MG CAP 600 MG PO ×3 (08:29→20:08)
[2021-07-18 12:14] VITALS: BP 151/96; PULSE 100; TEMP 36.6; O2SAT 98
[2021-07-18] MEDS: LORazepam 1 MG TAB PO (12:23)
[2021-07-18 19:55] VITALS: BP 148/110; PULSE 92; RESP 18; TEMP 36.3; O2SAT 98
[2021-07-18] MEDS: QUEtiapine 100 MG TAB 300 MG PO (22:25)
--- NOTE | 2021-07-18 22:33 | PDOC.MHCN ---
Date of service: 07/18/21 Time of Service: 01:30 Mental Health Crisis Note Presenting Issue How did you arrive at the ED and why did you come: This marine underwriter was called as client was escalating when the remote to her TV was removed and in her bedtime medication was left on her bedside table. She was demanding a sandwich after eating dinner and demanding gingerale when given water. Precipitating Factors Did not assess Disposition BEHAVIOR: Client is laying down in hospital bed when this marine underwriter arrives via zoom. She is being verbally aggressive towards staff and states get that thing out of her I do not want to talk to them. Client then gets up out of bed and charges at staff. EYE CONTACT: Client does not make eye contact with this marine underwriter. MOOD: Clients mood appears to be agitated. AFFECT: Clients affect is congruent with mood. APPETITE: Per nurse and doctor client has eaten all of her meals today. SLEEP(trouble falling/staying asleep: Did not assess. Plan Client will remain on EE status with 2nd certification occurring later in the day today. [facility] will continue to follow-up with client 2x daily since she is on EE status. Signature Clinician's Name/Title: Breanna Orta [facility] Emergency Clinician
--- NOTE | 2021-07-18 22:52 | PDOC.MHCN_ITS ---
Date of service: 07/18/21 Time of Service: 22:52 Mental Health Crisis Note Presenting Issue How did you arrive at the ED and why did you come: Client arrived at [facility] on 07/15/21 with chief complaint of depression and SI with intent and plan if she was to be released. Client was put on EE status on 07/17/21 after she was offered 2 bed one at and one at and she refused both. 2nd certification passed this afternoon. Precipitating Factors Client currently denies SI with no intent and plan. Disposition BEHAVIOR: Client is sitting up on bed watching movie on tablet when this teletypewriter installer arrives in person. Client is cooperative and engaged and appears to be showing fair insight and judgment. Client states that she has had a lot of time today to write, do art work, and reflect on things that have happened. EYE CONTACT: Client makes good eye contact with this teletypewriter installer. MOOD: Clients mood still appears to be depressed, although in a happier state than prior days when accessed. AFFECT: Clients affect is congruent with her mood. APPETITE: Client states that her appetite has been good. SLEEP(trouble falling/staying asleep: Client states that she was able to sleep well last night after she calmed down and was able to get a nap in this morning after having breakfast. Plan Client will remain on EE status pending admission to an inpatient facility. Client has been accepted at with possible admission tomorrow. [facility] is currently seeking transportation for her. [facility] will follow-up with client tomorow morning. Signature Clinician's Name/Title: Breanna Orta [facility] Emergency Clinician
--- NOTE | 2021-07-19 00:57 | NUR.NOTE ---
Nursing Note: Patient asleep around this time and intermittently waking up making requests about tablet. When this scribe went to discuss with patient, she was asleep. Tablet was removed around this time to allow patient to sleep and for tablet to charge.
[2021-07-19] MEDS: Amphet Asp/Amphet/D-Amphet 10 MG TAB 30 MG PO ×2 (08:31→12:42)
[2021-07-19] MEDS: Topiramate 50 MG TAB PO (08:31)
[2021-07-19] MEDS: FLUoxetine 20 MG CAP 40 MG PO (08:31)
[2021-07-19] MEDS: Gabapentin 300 MG CAP 600 MG PO ×2 (08:31→14:31)
[2021-07-19] MEDS: cloNIDine 0.1 MG TAB PO (08:31)
[2021-07-19 10:16] VITALS: BP 132/92; PULSE 110; RESP 16; TEMP 36.9; O2SAT 99
[2021-07-19] MEDS: LORazepam 1 MG TAB PO ×2 (15:10→15:12)
--- NOTE | 2021-07-19 15:23 | NUR.NOTE ---
Addendum entered by Ligia Herman 07/19/21 16:27: Fax number to [facility] [phone] Original Note: Nursing Note: At 1400 [facility], regarding inspector aide transfer. He tried 9 deputy county clerk dept. and all said no. He did say that we could go a least restrictive transfer via ambulance at the discretion of [facility] and the provider. [facility] will need the [facility] checklist signed by the provider and faxed to them. Spoke Shanel Phillips, Plaster Molder after this call. She put a call in to the sports administrator molded goods controls operator. Dr. Robin stated to her that we could use an ambulance if no other transport was obtained. At Dr. Dutta's request I called [facility], [facility] and Alicia. [facility] was able to get a crew and take the patient to [facility]. [address] [facility], Jaswinder, was notified that they would be leaving around 3pm. He also stated that he spoke with his sports administrator and he was told that if the patient's insurance did not pay for the transport then the [facility] would pay for it. Ligia Herman [facility]; Jaswinder. [phone] phone #
== END 2021-07-19 15:10 | disposition short-term general hospital (02) ==
PROVIDERS: Student in an Organized Health Care Education/Training Program; Emergency Provider Physician Assistant; PCP Nurse Practitioner Family
DX: F32.9 Major depressive disorder, single episode, unspecified (principal); F41.9 Anxiety disorder, unspecified; F10.10 Alcohol abuse, uncomplicated; R45.851 Suicidal ideations; I10 Essential (primary) hypertension
CPT/HCPCS: 36415; 80053; 80307; 81025; 87635; 93005; 96360; 99285; Q3014; 80320; 80329; 81003; 81015; 84443; 85025; 93010; J3490

== ENCOUNTER 2022-01-12 07:38 | Emergency (ER) | payer MEDICAID, SELFPAY ==
[2022-01-12 07:34] VITALS: BP 140/79; PULSE 82; RESP 16; TEMP 36.4; O2SAT 100
[2022-01-12 07:58] VITALS: PULSE 63; RESP 23; O2SAT 100
[2022-01-12 08:00] VITALS: PULSE 71; RESP 21; O2SAT 100
[2022-01-12 08:01] VITALS: BP 158/83; PULSE 64; PULSE 66; RESP 21; O2SAT 100
--- NOTE | 2022-01-12 08:03 | ED.GENADUL_ITS ---
Discharge Plan Disposition Patient Disposition: HOME Condition: Stable Discharge Details Clinical Impression: Anxiety Primary Care Provider: Vicente Pickard ED Provider: Tom Aleman Home Meds and New Rx's Prescriptions: Continued omega-3 fatty acids [Fish Oil Concentrate] 1,000 mg capsule 1,000 mg PO BID melatonin 3 mg tablet 3 mg PO HS quetiapine 300 mg tablet 300 mg PO HS fluoxetine 40 mg capsule 40 mg PO DAILY gabapentin 300 mg capsule 600 mg PO TID ibuprofen [IBU] 800 mg tablet 800 mg PO Q8H PRNQty: 30 0RF topiramate 50 mg tablet 50 mg PO BID quetiapine 100 mg tablet 100 mg PO BID MDD 200MG PRN (Reason: Anxiety) Rx Instructions: NOT TO EXCEED 2 TABS IN 24 HOURS vitamin B complex Tablet 1 tab PO DAILY cholecalciferol (vitamin D3) 125 mcg (5,000 unit) Capsule 125 mcg PO DAILY Rx Instructions: 5000IU DAILY Lactobacillus acidoph-L.bulgar [Floranex] 1 million cell Tablet 1 tab PO BID dextroamphetamine-amphetamine 30 mg tablet 30 mg PO BID Label Comments: TAKE 1 TABLET BY MOUTH TWICE DAILY IN THE MORNING AND AT 1 PM clonidine HCl 0.1 mg tablet 0.1 mg PO DAILY Label Comments: TAKE 1 TABLET BY MOUTH EVERY DAY lorazepam [Ativan] 1 mg tablet 1 mg PO BID PRN (Reason: anxiety) Qty: 28 0RF Discharge Instructions Instructions: Anxiety (ED) Additional Instructions: follow up with your primary care provider within 1-2 weeks and also [facility] if you feel more ill, have difficulty breathing or worsening symptoms return to the emergency department Medical Decision Making 41 yo female with hx of borderline personality disorder who comes in with chief complaint of feeling anxious. She apparently spent the night at the correctional center and was released this morning but after being told there was no transportation offered to her she laid on the ground and started to have a seizure' which was described as her being awake yelling and moving her legs and arms all over the place until ems arrived and it stopped and she had no post ictal phase. She arrives with stable vitals, speaking in full sentences with clear speech and no focal deficits. She states she has been drinking alcohol daily, last yesterday, but shows no signs of being in withdrawal such as diaphoresis, n/v, tachycardia. She does appear anxious on exam but states she chronically feels anxious and has a court date tomorrow that is making her feel anxious. She denies SI/HI to me. She is clinically sober and has capacity to make her own decisions. I suspect psychogenic nonepileptic seizures based on history but recommended labs and ct head for further evaluation but she declined. She states she'd rather go home and just wants something for her anxiety. I feel this is very unlikely to be alcohol withdrawal or a seizure so do not feel she is leaving against medical advise. She was advised to avoid drinking excessively and also advised to f/u with her pcp and [facility]. Return precautions also given. Differential Diagnosis Differential Diagnosis: anxiety, personality disorder Medical Records Medical records reviewed: Yes I reviewed the patient's medical records. HPI General Mode of arrival: EMS . Date/Time Provider Initiated Documentation: 01/12/22 07:55 . Limitations to Documentation: no limitations . Information obtained by: patient . History of Present Illness 41 year old F presents to the emergency department with the chief complaint of anxious, described as moderate, Patient started experiencing this day(s) (2) and it has been constant. No relieving factors improve symptom(s), No exacerbating factors reported . Patient did receive the following treatments prior to arrival, none Related Data Home Medications Medication Instructions Recorded Confirmed ibuprofen 800 mg tablet (IBU) 800 mg PO Q8H PRN #30 tabs 12/28/19 01/12/22 melatonin 3 mg tablet 3 mg PO HS 08/26/20 01/12/22 omega-3 fatty acids 1,000 mg 1,000 mg PO BID 08/26/20 01/12/22 capsule (Fish Oil Concentrate) topiramate 50 mg tablet 50 mg PO BID 03/17/21 01/12/22 Lactobacillus acidoph-L.bulgaricus 1 tab PO BID 05/12/21 01/12/22 1 million cell tablet (Floranex) cholecalciferol (vitamin D3) 125 125 mcg PO DAILY 05/12/21 01/12/22 mcg (5,000 unit) capsule quetiapine 100 mg tablet 100 mg PO BID PRN Anxiety 05/12/21 01/12/22 vitamin B complex 1 tab PO DAILY 05/12/21 01/12/22 clonidine HCl 0.1 mg tablet 0.1 mg PO DAILY 06/13/21 01/12/22 dextroamphetamine-amphetamine 30 30 mg PO BID 06/13/21 01/12/22 mg tablet lorazepam 1 mg tablet (Ativan) 1 mg PO BID PRN anxiety #28 tabs 06/17/21 01/12/22 fluoxetine 40 mg capsule 40 mg PO DAILY 07/15/21 01/12/22 gabapentin 300 mg capsule 600 mg PO TID 07/15/21 01/12/22 quetiapine 300 mg tablet 300 mg PO HS 07/15/21 01/12/22 Previous Rx's Medication Instructions Recorded ibuprofen 800 mg tablet (IBU) 800 mg PO Q8H PRN #30 tabs 12/28/19 lorazepam 1 mg tablet (Ativan) 1 mg PO BID PRN anxiety #28 tabs 06/17/21 Allergies Allergy/AdvReac Type Severity Reaction Status Date / Time acetaminophen [From Vicodin] Allergy Intermediate Verified 01/12/22 07:43 hydrocodone [From Vicodin] Allergy Intermediate Verified 01/12/22 07:43 hydroxyzine HCl Allergy Skin Rash Unverified 01/12/22 07:43 [From Vistaril] hydroxyzine pamoate Allergy Skin Rash Unverified 01/12/22 07:43 [From Vistaril] General Stated Complaint: Seizure GINGER: 3 Review of Systems All systems reviewed & are unremarkable except as noted in HPI and below Constitutional Constitutional: Denies chills, Denies fever(s) and Denies weakness Eyes Eyes: Denies loss of vision Cardiovascular Cardiovascular: Denies chest pain and Denies dyspnea Respiratory Respiratory: Denies cough and Denies dyspnea Gastrointestinal Gastrointestinal: Denies abdominal pain, Denies nausea and Denies vomiting Integumentary/Breasts Skin/Breast: Denies rash Neurologic Neurologic: Denies loss of vision and Denies weakness PFSH All Active Problems (Updated 01/12/22 @ 08:09 by Tom Aleman MD) Borderline personality disorder (Acute) Major depression (Chronic) Hypercapnic respiratory failure (Acute) Atelectasis (Acute) Aspiration pneumonitis (Acute) COVID-19 virus infection (Acute) Drug overdose, multiple drugs (Acute) ASCUS of cervix with negative high risk HPV (Acute) MEDHAT 03/08/19 Repeat PAP PP Idiopathic focal epilepsy (Acute) Hypertension (Chronic) Encounter for visit (Acute) No-show for appointment (Acute) Loose body in ankle or foot joint (Acute) Ankle syndesmosis disruption (Acute) Patient noncompliance (Acute) Closed fracture dislocation of ankle joint (Acute 01/31/20) Discharge planning issues (Acute) Bradycardia (Acute) Aspiration into airway (Acute) Urinary retention (Acute) Transaminitis (Acute) Drug overdose (Acute) Acute alteration in mental status (Acute) Metabolic acidosis (Acute) (normal spontaneous vaginal delivery) (Acute) (Acute) (Acute) Chronic hypertension affecting (Acute) Poor patient attendance of care (Acute) Encounter for supervision of other normal , third trimester (Acute) Limited care in third trimester (Acute) (Acute) depression (Acute) Hypertension affecting (Chronic) Medications in the past. No current medications Eating disorder (Chronic) BMI 31.0-31.9,adult (Chronic) Opioid dependence in remission (Chronic) Alcohol dependence in remission (Chronic) Positive test (Acute) ADHD (Acute) Depression (Chronic) Anxiety (Chronic) Suicide attempt (Acute 08/27/12) Overdose pills/alcohol. Medical History ADD (attention deficit disorder) Borderline personality disorder Closed bimalleolar fracture of right ankle Generalized anxiety disorder History of blood transfusion Hx of suicide attempt 2012, OD on pills/ETOH Mood disorder Sleep disorder Surgical History S/P ORIF (open reduction internal fixation) fracture R ankle S/P tonsillectomy and adenoidectomy Family History Mother Hypertension Father Hypertension Other Depression Social History Smoking/Tobacco Use Status: Current-Occasional Tobacco Type: cigarettes Smoking risk assessment performed?: Yes Alcohol Intake: current Alcohol Intake frequency: 3 or more drinks per day Alcohol type: beer Drug use: Current Sobriety Substance use type: does not use and former substance user Housing: other Details: hotel Number of Children: 2 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 Date GA/Weeks # Preg Succ Route Wgt Sex Labor Lgth Anesth esia Location [facility] 02/21/19 37 No vaginal 2293.476 g Male 30 hours local [facility] 12/26/19 37 No vaginal 2579.807 g Female [facility] MD Vinayak Delivery Date: 12/26/19 Last Updated by: Mayra Pablo LPN Induced with pitocin for Chronic HTN with poor care; tight nuchal cordx1; midline episiotomy Exam Const General: no acute distress Orientation: alert HENMT Head: normal to inspection Ears: external ears normal General nose exam: external nose normal Mouth: moist mucous membranes Eyes General: appearance normal, both eyes and all related structures Neck Neck: normal visual inspection Resp Effort & Inspection: normal respiratory effort and able to speak in complete sentences Cardio Rate: regular rate Skin General skin exam: no rashes or lesions noted Neuro General: patient alert and patient oriented x3 Course Vital Signs Vital signs: Vital Signs Temperature 36.4 C L 01/12/22 07:34 Pulse 82 01/12/22 07:34 Respiratory Rate 16 01/12/22 07:34 Blood Pressure 140/79 01/12/22 07:34 Pulse Oximetry 100 01/12/22 07:34 Temperature 36.4 C L 01/12/22 07:34 Pulse 82 01/12/22 07:34 Pulse 63 01/12/22 07:58 Respiratory Rate 23 01/12/22 07:58 Respiratory Effort Non-Labored 01/12/22 07:38 Respiratory Depth Normal 01/12/22 07:38 Respiratory Pattern Normal 01/12/22 07:38 Blood Pressure 140/79 01/12/22 07:34 Blood Pressure Position Sitting 01/12/22 07:34 Pulse Oximetry 100 01/12/22 07:58 Oxygen Delivery Method Room Air 01/12/22 07:34 Oxygen Flow Rate 0 01/12/22 07:34 Pain Level 10 01/12/22 07:34 PAWSS Have you Been Recently Intoxicated or Drunk Within the Last 30 days?: Yes Have you Ever Experienced Previous Episodes of Alcohol Withdrawal?: Yes Have you ever Experienced Withdrawal Seizures?: Yes Have you ever Experienced Delirium Tremens(DT)s?: No Have you ever undergone Alcohol Rehabilitation Treatment (i.e, inpt ot outpatient treatment programs)?: Yes Have you ever Experienced Blackouts?: Yes Have you ever Combined Alcohol with other Downers within the last 90 days?: Yes Have you ever Combined Alcohol with any other Substance of Abuse during the last 90 days?: No Result: 5
[2022-01-12 08:10] VITALS: PULSE 61; RESP 17
[2022-01-12] MEDS: LORazepam 1 MG TAB PO (08:10)
== END 2022-01-12 08:17 | disposition home or self-care (01) ==
LOC: ER 01-13 00:30
PROVIDERS: Emergency Provider Emergency Medicine; PCP Nurse Practitioner Family
DX: F41.9 Anxiety disorder, unspecified (principal); F17.210 Nicotine dependence, cigarettes, uncomplicated
CPT/HCPCS: 99283; 99284